=== PATIENT | male | born 1960 | race Caucasian/White ===

== ENCOUNTER 2017-04-10 07:56 | Emergency (ER) | payer SELFPAY ==
[~2017-04-10 07:56] MED LIST: AMLO5 PO; ASPI-110 PO; ASPI81TA11 PO; LISI-519 PO; MAGN1TAB14 PO; PANT40TA3 PO; PRAV80TA2 PO; TUMS500C PO; XARE20TA PO
[2017-04-10 07:59] VITALS: BP 173/95; PULSE 85; RESP 15; TEMP 98.4; O2SAT 99
[2017-04-10] MEDS ORDERED: MORPHINE SULFATE 4 MG/ML INJ IV PUSH ONE (08:30)
[2017-04-10] MEDS ORDERED: ONDANSETRON HCL 4 MG/2 ML VIAL IVP ONE (08:30)
[2017-04-10] MEDS ORDERED: FAMOTIDINE 20 MG/2 ML VIAL IV PUSH ONE (08:30)
[2017-04-10] MEDS ORDERED: ALUMINUM/MAGNESIUM/SIMETH 30 ML CUP PO ONE (08:30)
[2017-04-10] MEDS ORDERED: LIDOCAINE VISCOUS 2% SOLN 15 ML UDC PO ONE (08:30)
[2017-04-10] MEDS ORDERED: SODIUM CHLORIDE 0.9% FLUSH 10 ML FLUSH IV FLUSH PRN (08:30)
[2017-04-10 08:41] VITALS: BP 142/83; PULSE 55; RESP 16; O2SAT 97
[2017-04-10] MEDS ORDERED: LISI-519 PO (08:42)
--- NOTE | 2017-04-10 08:54 | EKG ---
Date Performed: 04/10/2017 Time Performed: 08:39:01 PTAGE: 57 years EKG: SINUS BRADYCARDIA VOLTAGE CRITERIA FOR LVH ABNORMAL ECG PREVIOUS TRACING : 07/07/2016 13.35 DOCTOR: Chris Ford Interpretating Date/Time 04/10/2017 08:52:33
[2017-04-10 09:03] LABS: AUTOMATED NEUTROPHIL # 3.1 TH/MM3 (1.8-7.7); BASOPHIL % 0.6 % (0.0-2.0); EOSINOPHIL # 0.2 TH/MM3 (0-0.4); EOSINOPHIL % 3.6 % (0.0-4.0); HEMATOCRIT 39.2 % (39.0-51.0); HEMO FLAGS DIFF FINAL; LYMPH % 23.4 % (9.0-44.0); LYMPHOCYTE # 1.2 TH/MM3 (1.0-4.8); MEAN CELL VOLUME 96.8 FL (80.0-100.0); MEAN CORPUSCULAR HEMOGLOBIN 32.6 PG (27.0-34.0); MEAN CORPUSCULAR HGB CONC 33.7 % (32.0-36.0); NEUT % 59.4 % (16.0-70.0); PLATELET COUNT 175 TH/MM3 (150-450); RED BLOOD COUNT 4.05 MIL/MM3 (4.50-5.90); RED CELL DISTRIBUTION WIDTH 13.8 % (11.6-17.2); WHITE BLOOD COUNT 5.2 TH/MM3 (4.0-11.0)
--- NOTE | 2017-04-10 09:04 | PD ---
HPI . Epigastric pain Chief Complaint: GI Complaint Time Seen by Provider: 08:25 Travel History International Travel<30 days: No Contact w/Intl Traveler<30days: No Traveled to known affect area: No History of Present Illness HPI This patient presents with a chief complaint of epigastric pain. He reports ongoing issue since December. He states that he was seen at an outside facility and had an EGD done that shows peptic ulcer disease. He was treated with Prilosec. He states that he is no longer taking the Prilosec. He states that his symptoms are getting worse. He states that he ate barbecue last night and had the acute worsening of his epigastric pain. It is associated with nausea but no vomiting. No fever. No urinary tract symptoms. In addition, the patient is complaining with chest pain and shortness of breath. He reports a chronic cough. He states that he has had a previous AL and a previous PE. He is currently on no medications for either. He states that he has not seen a family doctor in quite some time. PFSH Past Medical History Hx Anticoagulant Therapy: Yes (xarelto) Arthritis: Yes Asthma: No Blood Disorders: No Anxiety: Yes Depression: Yes Heart Rhythm Problems: No Cancer: No Cardiac Catheterization: Yes Cardiovascular Problems: Yes (AL) High Cholesterol: Yes Chemotherapy: No Chest Pain: Yes Congestive Heart Failure: Yes COPD: Yes (?) Cerebrovascular Accident: No Coronary Artery Disease: Yes Diabetes: No Diminished Hearing: No Endocrine: No Gastrointestinal Disorders: No GERD: Yes Genitourinary: Yes Headaches: Yes Hiatal Hernia: Yes Hypertension: Yes Immune Disorder: No Implanted Vascular Access Dvce: No Kidney Stones: Yes Musculoskeletal: Yes Neurologic: No Psychiatric: No Reproductive: No Respiratory: No Immunizations Current: No Migraines: No Myocardial Infarction: Yes (X2) Pneumonia: Yes Renal Failure: No Seizures: No Sleep Apnea: No Past Surgical History Abdominal Surgery: No AICD: No Arteriovenous Shunt: No Cardiac Surgery: Yes (cardiac cath 2012) Ear Surgery: No Endocrine Surgery: No Eye Surgery: No Genitourinary Surgery: No Gynecologic Surgery: No Insulin Pump: No Joint Replacement: No Neurologic Surgery: No Oral Surgery: No Pacemaker: No Thoracic Surgery: Yes (LUNG BIOPSY 1995) Other Surgery: Yes Social History Alcohol Use: No Tobacco Use: No Substance Use: No Allergies-Medications (Allergen,Severity, Reaction): Coded Allergies: No Known Allergies (Verified , 07/07/16) Reported Meds & Prescriptions Reported Meds & Active Scripts Active Reported Lisinopril 5 Mg Tab 5 Mg PO DAILY Review of Systems Except as stated in HPI: all other systems reviewed are Neg Cardiovascular: Positive: Chest Pain or Discomfort Respiratory: Positive: Cough, Shortness of Breath Gastrointestinal: Positive: Nausea, Abdominal Pain, No: Vomiting, Diarrhea Genitourinary: No: Urgency, Frequency, Dysuria Physical Exam Narrative GENERAL: This is a healthy-appearing man who does not appear to be in any acute distress. SKIN: warm/dry. HEAD: Normocephalic. EYES: Pupils equal and round. No scleral icterus. No injection or drainage. ENT: No nasal bleeding or discharge. Mucous membranes pink and moist. NECK: Trachea midline. Full range of motion without pain.. CARDIOVASCULAR: Regular rate and rhythm. Heart sounds are normal. RESPIRATORY: No accessory muscle use. Clear to auscultation. Breath sounds equal bilaterally. GASTROINTESTINAL: Abdomen soft. Nontender. Bowel sounds present. Nondistended. MUSCULOSKELETAL: No obvious deformities. NEUROLOGICAL: Awake and alert. No obvious cranial nerve deficits. Motor grossly within normal limits. Normal speech. PSYCHIATRIC: Appropriate mood and affect; insight and judgment normal. Data Data Last Documented VS Vital Signs Date Time Temp Pulse Resp B/P (MAP) Pulse Ox O2 Delivery O2 Flow Rate FiO2 04/10/17 08:41 55 16 142/83 (102) 97 Room Air 04/10/17 07:59 98.4 Orders Orders Complete Blood Count With Diff (04/10/17 08:25) Comprehensive Metabolic Panel (04/10/17 08:25) Lipase (04/10/17 08:25) Prothrombin Time / Inr (Pt) (04/10/17 08:25) Act Partial Throm Time (Ptt) (04/10/17 08:25) Iv Access Insert/Monitor (04/10/17 08:25) Ecg Monitoring (04/10/17 08:25) Oximetry (04/10/17 08:25) Morphine Inj (Morphine Inj) (04/10/17 08:30) Ondansetron Inj (Zofran Inj) (04/10/17 08:30) Sodium Chloride 0.9% Flush (Ns Flush) (04/10/17 08:30) Electrocardiogram (04/10/17 08:25) Famotidine Inj (Pepcid Inj) (04/10/17 08:30) Al-Mag Hy-Si 40-40-4 Mg/Ml Liq (Mag-Al P (04/10/17 08:30) Lidocaine 2% Viscous (Xylocaine 2% Visco (04/10/17 08:30) Troponin I (04/10/17 08:25) D-Dimer (04/10/17 08:25) Chest, Pa & Lat (04/10/17 09:07) Ct Pulmonary Angiogram (04/10/17 09:28) Aspirin Chew (Aspirin Chew) (04/10/17 09:30) Nitroglycerin 2% Oint (Nitroglycerin 2% (04/10/17 09:30) Troponin I (04/10/17 11:30) Iohexol 350 Inj (Omnipaque 350 Inj) (04/10/17 10:33) Rivaroxaban (Xarelto) (04/10/17 11:00) Electrocardiogram (04/10/17 11:21) Labs Laboratory Tests Test 04/10/17 08:30 04/10/17 11:30 White Blood Count 5.2 TH/MM3 Red Blood Count 4.05 MIL/MM3 Hemoglobin 13.2 GM/DL Hematocrit 39.2 % Mean Corpuscular Volume 96.8 FL Mean Corpuscular Hemoglobin 32.6 PG Mean Corpuscular Hemoglobin Concent 33.7 % Red Cell Distribution Width 13.8 % Platelet Count 175 TH/MM3 Mean Platelet Volume 8.0 FL Neutrophils (%) (Auto) 59.4 % Lymphocytes (%) (Auto) 23.4 % Monocytes (%) (Auto) 13.0 % Eosinophils (%) (Auto) 3.6 % Basophils (%) (Auto) 0.6 % Neutrophils # (Auto) 3.1 TH/MM3 Lymphocytes # (Auto) 1.2 TH/MM3 Monocytes # (Auto) 0.7 TH/MM3 Eosinophils # (Auto) 0.2 TH/MM3 Basophils # (Auto) 0.0 TH/MM3 CBC Comment DIFF FINAL Differential Comment Prothrombin Time 10.6 SEC Prothromb Time International Ratio 1.0 RATIO Activated Partial Thromboplast Time 24.5 SEC D-Dimer Quantitative (PE/DVT) 1.86 MG/L FEU Blood Urea Nitrogen 19 MG/DL Creatinine 1.67 MG/DL Random Glucose 104 MG/DL Total Protein 7.9 GM/DL Albumin 3.7 GM/DL Calcium Level 9.2 MG/DL Alkaline Phosphatase 83 U/L Aspartate Amino Transf (AST/SGOT) 57 U/L Alanine Aminotransferase (ALT/SGPT) 100 U/L Total Bilirubin 0.4 MG/DL Sodium Level 138 MEQ/L Potassium Level 4.0 MEQ/L Chloride Level 104 MEQ/L Carbon Dioxide Level 26.3 MEQ/L Anion Gap 8 MEQ/L Estimat Glomerular Filtration Rate 43 ML/MIN Troponin I 0.11 NG/ML 0.11 NG/ML Lipase 137 U/L MDM Medical Decision Making Medical Screen Exam Complete: Yes Emergency Medical Condition: Yes Interpretation(s) EKG shows a normal sinus rhythm with no ST segment elevation or depression Repeat EKG shows sinus rhythm with no ST segment elevation or depression. He is bradycardic at 47. Differential Diagnosis Differential diagnosis of abdominal pain includes but is not limited to gastritis, pancreatitis, hepatitis, gastroenteritis, gallbladder disease, constipation, urinary retention, UTI, peptic ulcer disease, diverticulitis or appendicitis Differential diagnosis of chest pain includes but is not limited to musculoskeletal pain, pulmonary embolism, acute coronary syndrome, pneumonia, pleurisy Differential diagnosis of dyspnea includes but is not limited to congestive heart failure, pneumonia, wheezing, pneumothorax, pulmonary embolism Narrative Course This patient presents with multiple issues. However, his chief complaint is epigastric pain. He has known peptic ulcer disease and is taking no medications. I have ordered IV Pepcid and a GI cocktail. He is also complaining with chest pain or shortness of breath and reports a previous history of AL and PE. Cardiac enzymes and a d-dimer have been ordered. However, I really do not suspect an acute issue regarding coronary artery disease or PE. CBC & BMP Diagram 04/10/17 08:30 Total Protein 7.9, Albumin 3.7, Calcium Level 9.2, Alkaline Phosphatase 83, Aspartate Amino Transf (AST/SGOT) 57 H, Alanine Aminotransferase (ALT/SGPT) 100 H, Total Bilirubin 0.4 His troponin is 0.11. His d-dimer is 1.86. On review of his records, he has a chronically elevated troponin. Repeat troponin was 0.11. This patient is doing well. He is not having any respiratory or cardiovascular compromise as a result of the PE. He will be treated as an outpatient. This patient does not have a doctor nor does he have insurance. I have consult in case management who will help us with a prescription for Xarelto. I will put in a mandatory referral for follow-up. Critical Care Narrative Aggregate critical care time was 45 minutes. Time to perform other separately billable procedures was not included in the critical care time. My time did not include minutes spent treating any other patients simultaneously or on activities that did not directly contribute to the patient's treatment. The services I provided to this patient were to treat and/or prevent clinically significant deterioration due to chest pain, rule out ACS, rule out PE I provided critical care services requiring my management, as noted below: Chart data review, documentation time, medication orders and management, vital sign assessments/reviewing monitor data, ordering and reviewing lab tests, ordering and interpreting/reviewing x-rays and diagnostic studies, care of the patient and discussion of the patient with the admitting physicians Diagnosis Primary Impression: Epigastric pain Additional Impressions: Chest pain Qualified Codes: R07.9 - Chest pain, unspecified Pulmonary embolism Qualified Codes: I26.99 - Other pulmonary embolism without acute cor pulmonale Patient Instructions: General Instructions, Pulmonary Embolism (DC) Med/Other Pt SpecificInfo: Prescription(s) given Scripts Omeprazole Magnesium (Prilosec) 20 Mg Tab 20 MG PO DAILY, #90 Prov: Megan Villela MD 04/10/17 Hydrocodone-Acetaminophen (Bynum) 5-325 mg Tab 1 TAB PO Q4H Y for PAIN, #12 TAB 0 Refills Prov: Megan Villela MD 04/10/17 Rivaroxaban (Xarelto) 20 Mg Tab 20 MG PO DAILY for Blood Clot Prevention for 90 Days, TAB 0 Refills starting after the 3 weeks of twice daily medication Prov: Megan Villela MD 04/10/17 Rivaroxaban (Xarelto) 15 Mg Tab 15 MG PO Q12HR for Blood Clot Prevention for 21 Days, TAB 0 Refills Prov: Megan Villela MD 04/10/17 Disposition: 01 DISCHARGE HOME Condition: Stable Megan Villela MD Apr 10, 2017 09:03
[2017-04-10 09:12] LABS: APTT (PATIENT) 24.5 SEC (24.3-30.1); PROTHROMBIN TIME - PATIENT 10.6 SEC (9.8-11.6)
[2017-04-10 09:17] LABS: ALT (GPT) 100 U/L (12-78)
[2017-04-10 09:22] LABS: ALKALINE PHOSPHATASE 83 U/L (45-117); TOTAL BILIRUBIN ADULT 0.4 MG/DL (0.2-1.0)
[2017-04-10 09:26] LABS: ANION GAP 8 MEQ/L (5-15); AST (GOT) 57 U/L (15-37); BICARBONATE 26.3 MEQ/L (21.0-32.0); BLOOD UREA NITROGEN 19 MG/DL (7-18); CHLORIDE 104 MEQ/L (98-107); GLOMERULAR FILTRATION RATE 43 ML/MIN (>89); SODIUM (NA) 138 MEQ/L (136-145)
[2017-04-10] MEDS ORDERED: ASPIRIN 81 MG CHEW TAB CHEW ONE (09:30)
[2017-04-10] MEDS ORDERED: NITROGLYCERIN 2% OINT 1 GM PACKET TOPICAL ONE (09:30)
--- NOTE | 2017-04-10 09:30 | RADRPT ---
EXAM DATE/TIME: 04/10/2017 09:17 [facility] COMPARISON: CHEST PA & LAT, March 24, 2016, 10:27. INDICATIONS : Cough MEDICAL HISTORY : Myocardial infarction. SURGICAL HISTORY : None. ENCOUNTER: Initial ACUITY: >1 year PAIN SCORE: 0/10 LOCATION: chest FINDINGS: PA and lateral views of the chest demonstrate the lungs to be symmetrically aerated without evidence of mass, infiltrate or effusion. The cardiomediastinal contours are unremarkable. Osseous structure s demonstrate remote right seventh posterior rib deformity. CONCLUSION: No acute disease. Israel Devi MD on April 10, 2017 at 9:28 Board Certified Radiologist. This report was verified electronically.
[2017-04-10] MEDS ORDERED: IOHEXOL 350 MG/ML 10 ML VIAL (for RAD DIAG) IVCONTRAST ONE (10:33)
--- NOTE | 2017-04-10 10:47 | RADRPT ---
EXAM DATE/TIME: 04/10/2017 10:27 [facility] COMPARISON: CHEST PA & LAT, April 10, 2017, 9:17. INDICATIONS : Chest pain. IV CONTRAST: 75 cc Omnipaque 300 (iohexol) IV RADIATION DOSE: 9.96 CTDIvol (mGy) MEDICAL HISTORY : Cardiovascular disease. Hernia, hiatal. Hypertension. SURGICAL HISTORY : None. ENCOUNTER: Initial ACUITY: 1 day PAIN SCALE: 5/10 LOCATION: Bilateral chest TECHNIQUE: Volumetric scanning of the chest was performed using a pulmonary embolism protocol MIP images were re constructed. Using automated exposure control and adjustment of the mA and/or kV according to patien t size, radiation dose was kept as low as reasonably achievable to obtain optimal diagnostic quality images. DICOM format image data is available electronically for review and comparison. Follow-up recommendations for detected pulmonary nodules are based at a minimum on nodule size and pa tient risk factors according to Fleischner Society Guidelines. FINDINGS: There is mild peripheral reticular nodular infiltrate in the right upper lobe. Calcified granuloma in the left upper lobe is noted measuring 3.7 mm. There is a noncalcified nodule in the right upper lob e measuring 6.8 mm. There are bilateral filling defects within the pulmonary arterial tree characteri stic of pulmonary embolism. There is thrombus and left lower lobe medial basilar branches, and extens tavo thrombus seen in the right lower lobe pulmonary arterial tree. 5 mm calcified granuloma left uppe r lobe and a 3 mm right upper lobe calcified granuloma. There is hepatic steatosis. CONCLUSION: 1. Bilateral pulmonary emboli are present. 2. Hepatic steatosis. 3. Minimal right upper lobe reticular-nodular infiltrate. Israel Devi MD on April 10, 2017 at 10:42 Board Certified Radiologist. This report was verified electronically.
[2017-04-10] MEDS ORDERED: RIVAROXABAN 15 MG TAB PO ONE (11:00)
--- NOTE | 2017-04-10 12:35 | EKG ---
Date Performed: 04/10/2017 Time Performed: 11:21:44 PTAGE: 57 years EKG: SINUS BRADYCARDIA MODERATE VOLTAGE CRITERIA FOR LVH, CONSIDER NORMAL VARIANT BORDERLINE ECG PREVIOUS TRACING : 04/10/2017 08.39 DOCTOR: Chris Ford Interpretating Date/Time 04/10/2017 12:34:38
[2017-04-10] MEDS ORDERED: XARE15TA PO (13:01)
[2017-04-10] MEDS ORDERED: XARE20TA PO (13:01)
[2017-04-10] MEDS ORDERED: NORC5TAB PO (13:01)
[2017-04-10] MEDS ORDERED: PRIL20TA2 PO (13:01)
[2017-04-10 13:07] VITALS: BP 138/74; PULSE 53; RESP 16; O2SAT 98
== END 2017-04-10 13:43 | disposition home or self-care (01) ==
LOC: NEPC 07:56
DX: R10.13 Epigastric pain (principal); R07.9 Chest pain, unspecified; I26.99 Other pulmonary embolism without acute cor pulmonale; R05 Cough; K27.9 Peptic ulcer, site unspecified, unspecified as acute or chronic, without hemorrhage or perforation; R00.1 Bradycardia, unspecified; I11.0 Hypertensive heart disease with heart failure; I50.9 Heart failure, unspecified; R94.31 Abnormal electrocardiogram [ECG] [EKG]
CPT/HCPCS: 71020; 71275; 80053; 83690; 84484; 85025; 85379; 85610; 85730; 93005; 96374; 96375; 99291; J2270; J2405; Q9967

== ENCOUNTER 2017-04-19 09:02 | Emergency (ER) | payer SELFPAY ==
[~2017-04-19] VITALS: Ht 172.7 cm; Wt 95.0 kg
[~2017-04-19 09:02] MED LIST changes: -AMLO5 PO; -ASPI-110 PO; -ASPI81TA11 PO; -MAGN1TAB14 PO; +NORC5TAB PO; -PANT40TA3 PO; -PRAV80TA2 PO; +PRIL20TA2 PO; -TUMS500C PO; +XARE15TA PO
[2017-04-19 09:04] VITALS: BP 177/94; PULSE 83; RESP 16; TEMP 98.2; O2SAT 98
[2017-04-19] MEDS ORDERED: ALUMINUM/MAGNESIUM/SIMETH 30 ML CUP PO ONE (09:45)
[2017-04-19] MEDS ORDERED: PANTOPRAZOLE SODIUM 40 MG VIAL IVP ONE (09:45)
[2017-04-19] MEDS ORDERED: ONDANSETRON HCL 4 MG/2 ML VIAL IVP ONE (09:45)
[2017-04-19] MEDS ORDERED: SODIUM CHLORIDE 0.9% FLUSH 10 ML FLUSH IV FLUSH PRN (09:45)
[2017-04-19] MEDS ORDERED: ATROPINE/SCOPOLAM/HYOSCYAM/PB ELIXIR 10 ML CUP PO ONE (09:45)
--- NOTE | 2017-04-19 09:51 | PD ---
HPI Chief Complaint: GI Complaint Time Seen by Provider: 09:35 Travel History International Travel<30 days: No Contact w/Intl Traveler<30days: No Traveled to known affect area: No History of Present Illness HPI 57-year-old male complains of abdominal pain. Patient states that he has intermittent abdominal pain for the past 4 months. Patient was seen at [facility] in December and had upper GI endoscopy and was diagnosed with gastric ulcer. Patient has been taking [id number] omeprazole for that. Patient has history of hypertension, hyperlipidemia, and pulmonary embolus. Patient is on Eliquis. Patient states abdominal pain cramping pain intermittent pain around the epigastric and lower abdomen. Patient denies any pain radiation. Patient denies any nausea vomiting. Patient states that he has intermittent diarrhea for the past few months. Patient denies any dysuria or frequency. Patient denies any fever chills. Patient denies any back pain. PFSH Past Medical History Hx Anticoagulant Therapy: Yes (ELIQUIS) Arthritis: Yes Asthma: No Blood Disorders: No Anxiety: Yes Depression: Yes Heart Rhythm Problems: No Cancer: No Cardiac Catheterization: Yes Cardiovascular Problems: Yes (CT X 3) High Cholesterol: Yes Chemotherapy: No Chest Pain: Yes Congestive Heart Failure: Yes COPD: Yes (?) Cerebrovascular Accident: No Coronary Artery Disease: Yes Diabetes: No Diminished Hearing: No Endocrine: No Gastrointestinal Disorders: No GERD: Yes Genitourinary: Yes Headaches: Yes Hiatal Hernia: Yes Hypertension: Yes Immune Disorder: No Implanted Vascular Access Dvce: No Kidney Stones: Yes Musculoskeletal: Yes Neurologic: No Psychiatric: No Reproductive: No Respiratory: Yes Immunizations Current: No Migraines: No Myocardial Infarction: Yes (X2) Pneumonia: Yes Renal Failure: No Seizures: No Sleep Apnea: No Past Surgical History Abdominal Surgery: No AICD: No Arteriovenous Shunt: No Cardiac Surgery: Yes (cardiac cath 2012) Ear Surgery: No Endocrine Surgery: No Eye Surgery: No Genitourinary Surgery: No Gynecologic Surgery: No Hysterectomy: No Insulin Pump: No Joint Replacement: No Neurologic Surgery: No Oral Surgery: No Pacemaker: No Thoracic Surgery: Yes (LUNG BIOPSY 1995) Other Surgery: Yes Social History Alcohol Use: No Tobacco Use: No Substance Use: No Allergies-Medications (Allergen,Severity, Reaction): Coded Allergies: No Known Allergies (Verified , 04/19/17) Reported Meds & Prescriptions Reported Meds & Active Scripts Active Prilosec (Omeprazole Magnesium) 20 Mg Tab 20 Mg PO DAILY Reported Eliquis (Apixaban) 5 Mg Tab 10 Mg PO BID Lisinopril 5 Mg Tab 5 Mg PO DAILY Review of Systems General / Constitutional: No: Fever Eyes: No: Visual changes HENT: No: Headaches Cardiovascular: No: Chest Pain or Discomfort Respiratory: No: Shortness of Breath Gastrointestinal: Positive: Diarrhea, Abdominal Pain Genitourinary: No: Dysuria Musculoskeletal: No: Pain Skin: No Rash Neurologic: No: Weakness Psychiatric: No: Depression Endocrine: No: Polydipsia Hematologic/Lymphatic: No: Easy Bruising Physical Exam Narrative GENERAL: Well-nourished, well-developed patient. SKIN: Focused skin assessment warm/dry. HEAD: Normocephalic. EYES: No scleral icterus. No injection or drainage. NECK: Supple, trachea midline. No JVD or lymphadenopathy. CARDIOVASCULAR: Regular rate and rhythm without murmurs, gallops, or rubs. RESPIRATORY: Breath sounds equal bilaterally. No accessory muscle use. GASTROINTESTINAL: Abdomen soft, nondistended. Patient has mild to moderate tenderness on palpation epigastric and lower abdomen. No rebound tenderness. No mass. MUSCULOSKELETAL: No cyanosis, or edema. BACK: Nontender without obvious deformity. No CVA tenderness. Neurologic exam: Normal. Data Data Last Documented VS Vital Signs Date Time Temp Pulse Resp B/P (MAP) Pulse Ox O2 Delivery O2 Flow Rate FiO2 04/19/17 09:33 18 04/19/17 09:04 98.2 83 177/94 (121) 98 Orders Orders Electrocardiogram (04/19/17 ) Complete Blood Count With Diff (04/19/17 09:42) Comprehensive Metabolic Panel (04/19/17 09:42) Lipase (04/19/17 09:42) Prothrombin Time / Inr (Pt) (04/19/17 09:42) Act Partial Throm Time (Ptt) (04/19/17 09:42) Urinalysis - C+S If Indicated (04/19/17 09:42) Ct Abd/Pel W Iv Contrast(Rout) (04/19/17 09:42) Iv Access Insert/Monitor (04/19/17 09:42) Ecg Monitoring (04/19/17 09:42) Oximetry (04/19/17 09:42) Ondansetron Inj (Zofran Inj) (04/19/17 09:45) Pantoprazole Inj (Protonix Inj) (04/19/17 09:45) Sodium Chloride 0.9% Flush (Ns Flush) (04/19/17 09:45) Electrocardiogram (04/19/17 09:42) Al-Mag Hy-Si 40-40-4 Mg/Ml Liq (Mag-Al P (04/19/17 09:45) Bqgoa-Liaffx-Sedmiu-Pb Liq ( Liq (04/19/17 09:45) Iohexol 350 Inj (Omnipaque 350 Inj) (04/19/17 11:09) Labs Laboratory Tests Test 04/19/17 09:52 White Blood Count 6.7 TH/MM3 Red Blood Count 4.02 MIL/MM3 Hemoglobin 13.7 GM/DL Hematocrit 38.3 % Mean Corpuscular Volume 95.3 FL Mean Corpuscular Hemoglobin 34.1 PG Mean Corpuscular Hemoglobin Concent 35.8 % Red Cell Distribution Width 13.7 % Platelet Count 174 TH/MM3 Mean Platelet Volume 8.3 FL Neutrophils (%) (Auto) 67.3 % Lymphocytes (%) (Auto) 17.8 % Monocytes (%) (Auto) 12.1 % Eosinophils (%) (Auto) 2.3 % Basophils (%) (Auto) 0.5 % Neutrophils # (Auto) 4.5 TH/MM3 Lymphocytes # (Auto) 1.2 TH/MM3 Monocytes # (Auto) 0.8 TH/MM3 Eosinophils # (Auto) 0.2 TH/MM3 Basophils # (Auto) 0.0 TH/MM3 CBC Comment DIFF FINAL Differential Comment Prothrombin Time 10.8 SEC Prothromb Time International Ratio 1.0 RATIO Activated Partial Thromboplast Time 27.8 SEC Blood Urea Nitrogen 21 MG/DL Creatinine 1.52 MG/DL Random Glucose 88 MG/DL Total Protein 8.0 GM/DL Albumin 3.7 GM/DL Calcium Level 8.9 MG/DL Alkaline Phosphatase 81 U/L Aspartate Amino Transf (AST/SGOT) 48 U/L Alanine Aminotransferase (ALT/SGPT) 100 U/L Total Bilirubin 0.5 MG/DL Sodium Level 138 MEQ/L Potassium Level 4.3 MEQ/L Chloride Level 105 MEQ/L Carbon Dioxide Level 27.8 MEQ/L Anion Gap 5 MEQ/L Estimat Glomerular Filtration Rate 48 ML/MIN Lipase 141 U/L [facility] Medical Decision Making Medical Screen Exam Complete: Yes Emergency Medical Condition: Yes Interpretation(s) Last Impressions Abdomen/Pelvis CT 04/19/17 0942 Signed Impressions: Service Date/Time: Wednesday, April 19, 2017 10:59 - CONCLUSION: 1. Colon is decompressed which accentuates the colonic wall. Colonic diverticulosis. Otherwise, no definitive abnormality to explain patient's symptoms. 2. Redemonstration of right lower lobe pulmonary artery embolism. 3. Prominent hepatic steatosis and mild splenomegaly. 4. 5 mm nonobstructing calyceal calculus in the inferior pole of the left kidney. Satanm Lundy MD 12:34 PM. CBC within normal limit. BUN 21. Creatinine 1.52. Differential Diagnosis Differential diagnosis including gastritis, PUD, pancreatitis, cholecystitis, colitis, UTI, pyelonephritis, nephrolithiasis. Narrative Course 57-year-old male with intermittent epigastric and low abdominal pain. Protonix 40 mg IV. Maalox 30 cc by mouth. 10 cc by mouth. Diagnosis Primary Impression: Abdominal pain Qualified Codes: R10.13 - Epigastric pain Patient Instructions: General Instructions Additional Instructions: Take medications as directed. Follow-up with it account manager. Return if worse. Med/Other Pt SpecificInfo: Prescription(s) given Scripts Dicyclomine (Bentyl) 10 Mg Cap 10 MG PO TID Y for Bowel Management, #30 CAP 0 Refills Prov: Mihai Davidson MD 04/19/17 Sucralfate (Carafate) 1 Gram Tab 1 GM PO QID for Ulcer Prevention, #120 TAB 0 Refills On empty stomach Prov: Mihai Davidson MD 04/19/17 Pantoprazole (Protonix) 40 Mg Tab 40 MG PO DAILY for Reflux, #30 TAB 0 Refills Prov: Mihai Davidson MD 04/19/17 Disposition: 01 DISCHARGE HOME Condition: Stable Mihai Davidson MD Apr 19, 2017 09:51
[2017-04-19] MEDS ORDERED: APIX5TAB PO (09:53)
[2017-04-19 10:20] LABS: AUTOMATED NEUTROPHIL # 4.5 TH/MM3 (1.8-7.7); BASOPHIL % 0.5 % (0.0-2.0); EOSINOPHIL # 0.2 TH/MM3 (0-0.4); EOSINOPHIL % 2.3 % (0.0-4.0); HEMATOCRIT 38.3 % (39.0-51.0); HEMO FLAGS DIFF FINAL; LYMPH % 17.8 % (9.0-44.0); LYMPHOCYTE # 1.2 TH/MM3 (1.0-4.8); MEAN CELL VOLUME 95.3 FL (80.0-100.0); MEAN CORPUSCULAR HEMOGLOBIN 34.1 PG (27.0-34.0); MEAN CORPUSCULAR HGB CONC 35.8 % (32.0-36.0); MONO % 12.1 % (0.0-8.0); NEUT % 67.3 % (16.0-70.0); PLATELET COUNT 174 TH/MM3 (150-450); RED BLOOD COUNT 4.02 MIL/MM3 (4.50-5.90); RED CELL DISTRIBUTION WIDTH 13.7 % (11.6-17.2); WHITE BLOOD COUNT 6.7 TH/MM3 (4.0-11.0)
[2017-04-19 10:29] LABS: APTT (PATIENT) 27.8 SEC (24.3-30.1); PROTHROMBIN TIME - PATIENT 10.8 SEC (9.8-11.6)
[2017-04-19 10:47] LABS: ALT (GPT) 100 U/L (12-78); ANION GAP 5 MEQ/L (5-15); AST (GOT) 48 U/L (15-37); BICARBONATE 27.8 MEQ/L (21.0-32.0); BLOOD UREA NITROGEN 21 MG/DL (7-18); CHLORIDE 105 MEQ/L (98-107); GLOMERULAR FILTRATION RATE 48 ML/MIN (>89); POTASSIUM 4.3 MEQ/L (3.5-5.1); SODIUM (NA) 138 MEQ/L (136-145)
[2017-04-19 10:50] LABS: ALKALINE PHOSPHATASE 81 U/L (45-117); TOTAL BILIRUBIN ADULT 0.5 MG/DL (0.2-1.0)
[2017-04-19] MEDS ORDERED: IOHEXOL 350 MG/ML 10 ML VIAL (for RAD DIAG) IVCONTRAST ONE (11:09)
--- NOTE | 2017-04-19 11:25 | RADRPT ---
EXAM DATE/TIME: 04/19/2017 10:59 [facility] COMPARISON: CT PULMONARY ANGIOGRAM, April 10, 2017, 10:27. CT ABDOMEN & PELVIS W CONTRAST, December 10, 2012, 4:1 0. INDICATIONS : Abdomen pain, cramping and diarrhea for 4 months IV CONTRAST: 90 cc Omnipaque 350 (iohexol) IV ORAL CONTRAST: No oral contrast ingested. RADIATION DOSE: 9.96 CTDIvol (mGy) MEDICAL HISTORY : Myocardial infarction. Congestive heart failure. SURGICAL HISTORY : Coronary artery stent. ENCOUNTER: Initial ACUITY: 4 - 6 months PAIN SCALE: 3/10 LOCATION: lower quadrant TECHNIQUE: Volumetric scanning of the abdomen and pelvis was performed. Using automated exposure control and ad justment of the mA and/or kV according to patient size, radiation dose was kept as low as reasonably achievable to obtain optimal diagnostic quality images. DICOM format image data is available electro nically for review and comparison. FINDINGS: LOWER LUNGS: Redemonstration of filling defect in right lower lobe pulmonary artery branch consistent with pulmona ry embolism as demonstrated on prior CT exam. Lung bases are clear. LIVER: Prominent diffusely decreased hepatic attenuation without evidence for intrahepatic ductal dilatation or focal mass. Gallbladder is unremarkable by CT. SPLEEN: Spleen is minimally enlarged measuring up to 13.5 cm in length. PANCREAS: Within normal limits. KIDNEYS: 5 mm calcified calyceal calculus in the inferior pole of the left kidney. Kidneys demonstrate symmetr ical enhancement without evidence for hydronephrosis. ADRENAL GLANDS: Within normal limits. VASCULAR: There is no aortic aneurysm. Mesenteric arteries are grossly patent. Central SMV and portal vein are patent. BOWEL/MESENTERY: Colon is largely decompressed which can accentuate the colonic wall. There is no significant pericolo sandra stranding. Mild sigmoid diverticulosis and scattered colonic diverticula. No significant free flu id or drainable fluid collection. No pneumatosis or free air. ABDOMINAL WALL: Within normal limits. RETROPERITONEUM: There is no lymphadenopathy. BLADDER: Bladder is decompressed but otherwise unremarkable. REPRODUCTIVE: Nonspecific prostatic enlargement. INGUINAL: There is no lymphadenopathy or hernia. MUSCULOSKELETAL: Within normal limits for patient age. CONCLUSION: 1. Colon is decompressed which accentuates the colonic wall. Colonic diverticulosis. Otherwise, no de finitive abnormality to explain patient's symptoms. 2. Redemonstration of right lower lobe pulmonary artery embolism. 3. Prominent hepatic steatosis and mild splenomegaly. 4. 5 mm nonobstructing calyceal calculus in the inferior pole of the left kidney. Satnam Lundy MD on April 19, 2017 at 11:11 Board Certified Radiologist. This report was verified electronically.
[2017-04-19 12:32] VITALS: PULSE 63; PULSE 65; RESP 16; O2SAT 97
[2017-04-19] MEDS ORDERED: DICY10 PO (12:49)
[2017-04-19] MEDS ORDERED: CARA1TAB6 PO (12:49)
[2017-04-19] MEDS ORDERED: PROT40TA PO (12:49)
[2017-04-19 12:56] VITALS: BP 139/81
--- NOTE | 2017-04-20 22:01 | EKG ---
Date Performed: 04/19/2017 Time Performed: 09:45:19 PTAGE: 57 years EKG: Sinus rhythm LOW QRS VOLTAGE IN PRECORDIAL LEADS MODERATE VOLTAGE CRITERIA FOR LVH, CONSIDER NORMAL VARIANT BORDE STEPHENINE ECG PREVIOUS TRACING : 04/10/2017 11.21 Compared to prior tracing no significant change DOCTOR: Malcom Jacome Interpretating Date/Time 04/20/2017 22:00:06
== END 2017-04-19 13:06 | disposition home or self-care (01) ==
LOC: NEPD 09:02
DX: R10.13 Epigastric pain (principal); K57.30 Diverticulosis of large intestine without perforation or abscess without bleeding; K76.0 Fatty (change of) liver, not elsewhere classified; R16.1 Splenomegaly, not elsewhere classified; N20.0 Calculus of kidney; I50.9 Heart failure, unspecified; I11.0 Hypertensive heart disease with heart failure; E78.5 Hyperlipidemia, unspecified; Z86.711 Personal history of pulmonary embolism
CPT/HCPCS: 74177; 80053; 83690; 85025; 85610; 85730; 93005; 96374; 96375; 99285; C9113; J2405; Q9967

== ENCOUNTER 2017-06-24 09:49 | Inpatient (IN) | payer SELFPAY ==
[~2017-06-24] VITALS: Ht 172.7 cm; Wt 100.0 kg
[~2017-06-24 09:49] MED LIST changes: +APIX5TAB PO; +CARA1TAB6 PO; +DICY10 PO; -NORC5TAB PO; +PROT40TA PO; -XARE15TA PO; -XARE20TA PO
[2017-06-24 09:50] VITALS: BP 137/79; PULSE 86; RESP 15; TEMP 99; O2SAT 98
--- NOTE | 2017-06-24 10:41 | RADRPT ---
EXAM DATE/TIME: 06/24/2017 10:05 [facility] COMPARISON: No previous studies available for comparison. INDICATIONS : Pain 360 degrees around right ankle, denies injury MEDICAL HISTORY : None. SURGICAL HISTORY : None. ENCOUNTER: Initial ACUITY: 2 days PAIN SCORE: 10/10 LOCATION: Right ankle FINDINGS: Three view exam was performed of the right ankle. The bony structures are in normal alignment. No e vidence of fracture, dislocation, or soft tissue swelling. The ankle mortise is intact. No radiopaq ue foreign bodies are seen. Bony mineralization is normal. There is a small spur off the inferior ca lcaneus at the site of attachment of the plantar aponuerosis. CONCLUSION: 1. Small spur off the inferior calcaneus at the site of attachment of the plantar aponuerosis. 2. Ankle mortise is intact. John Corado MD on June 24, 2017 at 10:39 Board Certified Radiologist. This report was verified electronically.
--- NOTE | 2017-06-24 11:14 | PD ---
HPI Chief Complaint: Injury Time Seen by Provider: 11:04 Travel History International Travel<30 days: No Contact w/Intl Traveler<30days: No Traveled to known affect area: No History of Present Illness HPI 57-year-old male presents to emergency with right ankle pain since last night. States that he did not have any trauma but the ankle area just started being painful and this morning he is barely able to walk. Patient denies numbness or tingling. Describes his pain as moderate. Patient does have sensation and movement however, he does not want to move it secondary to pain. Patient has a history of gout- his last episode was approximately 2 weeks ago. He normally takes xarelto as a blood thinner but has not been taking his around toe for the last couple of months or so because of cost. He has been taking only Carli aspirin Patient denies unusual chest pain, shortness of breath, abdominal pain, or back pain. He does a history of pulmonary embolism. Denies recent travel, immobilization. PFSH Past Medical History Hx Anticoagulant Therapy: Yes (ELIQUIS) Arthritis: Yes Asthma: No Blood Disorders: No Anxiety: Yes Depression: Yes Heart Rhythm Problems: No Cancer: No Cardiac Catheterization: Yes Cardiovascular Problems: Yes (MS X 3) High Cholesterol: Yes Chemotherapy: No Chest Pain: Yes Congestive Heart Failure: Yes COPD: Yes (?) Cerebrovascular Accident: No Coronary Artery Disease: Yes Diabetes: No Diminished Hearing: No Endocrine: No Gastrointestinal Disorders: No GERD: Yes Genitourinary: Yes Headaches: Yes Hiatal Hernia: Yes Hypertension: Yes Immune Disorder: No Implanted Vascular Access Dvce: No Kidney Stones: Yes Musculoskeletal: Yes Neurologic: No Psychiatric: No Reproductive: No Respiratory: Yes Immunizations Current: No Migraines: No Myocardial Infarction: Yes (X2) Pneumonia: Yes Renal Failure: No Seizures: No Sleep Apnea: No Past Surgical History Abdominal Surgery: No AICD: No Arteriovenous Shunt: No Cardiac Surgery: Yes (cardiac cath 2012) Ear Surgery: No Endocrine Surgery: No Eye Surgery: No Genitourinary Surgery: No Gynecologic Surgery: No Hysterectomy: No Insulin Pump: No Joint Replacement: No Neurologic Surgery: No Oral Surgery: No Pacemaker: No Thoracic Surgery: Yes (LUNG BIOPSY 1995) Other Surgery: Yes Social History Alcohol Use: No Tobacco Use: No Substance Use: No Allergies-Medications (Allergen,Severity, Reaction): Coded Allergies: No Known Allergies (Verified Allergy, Unknown, 06/24/17) Reported Meds & Prescriptions Reported Meds & Active Scripts Active Bentyl (Dicyclomine HCl) 10 Mg Cap 10 Mg PO TID PRN Carafate (Sucralfate) 1 Gram Tab 1 Gm PO QID On empty stomach Protonix (Pantoprazole Sodium) 40 Mg Tab 40 Mg PO DAILY Prilosec (Omeprazole Magnesium) 20 Mg Tab 20 Mg PO DAILY Reported Amlodipine (Amlodipine Besylate) 5 Mg Tab 5 Mg PO DAILY Aspirin 81 Mg Chew 81 Mg CHEW DAILY Lisinopril 5 Mg Tab 10 Mg PO DAILY Review of Systems Except as stated in HPI: all other systems reviewed are Neg Physical Exam Narrative GENERAL: Well-nourished, well-developed patient. SKIN: Focused skin assessment warm/dry. HEAD: Normocephalic. EYES: No scleral icterus. No injection or drainage. NECK: Supple, trachea midline. No JVD or lymphadenopathy. CARDIOVASCULAR: Regular rate and rhythm without murmurs, gallops, or rubs. RESPIRATORY: Breath sounds equal bilaterally. No accessory muscle use. MUSCULOSKELETAL: No cyanosis, or edema. Right lower extremity-Homans sign positive, right leg slightly more edematous than the left, slight temperature, neurovascularly intact BACK: Nontender without obvious deformity. No CVA tenderness. Data Data Last Documented VS Vital Signs Date Time Temp Pulse Resp B/P (MAP) Pulse Ox O2 Delivery O2 Flow Rate FiO2 06/24/17 09:50 99.0 86 15 137/79 (98) 98 Orders Orders Ankle, Complete ([id number]) (06/24/17 ) Us Leg Venous Doppler (06/24/17 ) Acetamin-Hydrocod 325-5 Mg (F[place]wick 5-325 (06/24/17 11:15) Admit Order (Ed Use Only) (06/24/17 ) Admit To Inpatient (06/24/17 ) Vital Signs (Adult) Q4H (06/24/17 13:33) Activity Oob With Assistance (06/24/17 13:33) Diet Heart Healthy (06/24/17 Lunch) Sodium Chloride 0.9% Flush (Ns Flush) (06/24/17 13:45) Sodium Chloride 0.9% Flush (Ns Flush) (06/24/17 21:00) Ondansetron Inj (Zofran Inj) (06/24/17 13:45) Complete Blood Count With Diff (06/25/17 06:00) Creatine Kinase (Cpk) (06/24/17 13:33) Creatine Kinase (Cpk) (06/24/17 19:33) Prothrombin Time / Inr (Pt) (06/25/17 06:00) Scd Bilateral/Knee High CARISSA.BID (06/24/17 13:33) Naloxone Inj (Narcan Inj) (06/24/17 13:45) Magnesium Hydroxide Liq (Milk Of Magnesi (06/24/17 13:45) Inpatient Certification (06/24/17 ) Warfarin (Coumadin) (06/24/17 17:00) MDM Medical Decision Making Medical Screen Exam Complete: Yes Emergency Medical Condition: Yes Differential Diagnosis Gout versus DVT versus muscle strain Narrative Course 57-year-old male presents to emergency with right ankle pain since last night. States that he did not have any trauma but the ankle area just started being painful and this morning he is barely able to walk. Patient denies numbness or tingling. Describes his pain as moderate. Patient does have sensation and movement however, he does not want to move it secondary to pain. Patient has a history of gout- his last episode was approximately 2 weeks ago. He normally takes xarelto as a blood thinner but has not been taking his around toe for the last couple of months or so because of cost. He has been taking only Carli aspirin Patient denies unusual chest pain, shortness of breath, abdominal pain, or back pain. He does a history of pulmonary embolism. Denies recent travel, immobilization. Vital signs stable X-rays without acute process Right leg ultrasound- DVT in the peroneal vein. Spoke with case management- family patient has been given multiple opportunities to fill this medication without cost him however, he is not completely required paperwork for the pharmaceutical companies. Because of the inability to take Xarelto or Eliquis, patient needs to be bridged to Coumadin therapy. Will admit to initiate this process. Thank Dr. Demarco for taking this patient. Diagnosis Primary Impression: Deep vein thrombosis (DVT) Qualified Codes: I82.4Z1 - Acute embolism and thrombosis of unspecified deep veins of right distal lower extremity Referrals: Primary Care Physician Condition: Stable Kellee Mondragon Jun 24, 2017 11:14
[2017-06-24] MEDS ORDERED: ACETAMINOPHEN/HYDROcodone 325 MG/5 MG TAB PO ONE (11:15)
[2017-06-24] MEDS ORDERED: ASPI-516 CHEW (11:32)
--- NOTE | 2017-06-24 11:51 | RADRPT ---
EXAM DATE/TIME: 06/24/2017 11:20 [facility] COMPARISON: No previous studies available for comparison. INDICATIONS : Right leg pain. MEDICAL HISTORY : Hypercholesterolemia. Gastroesophageal reflux disease. Chronic obstructive pulmonary disease. Myoc ardial infarction. Congestive heart failure. Coronary artery disease. Hypertension. Kidney stones . Arthritis. SURGICAL HISTORY : Cardiac catheterization. Lung biopsy. ENCOUNTER: Initial ACUITY: 3 days PAIN SCORE: 9/10 LOCATION: Right leg. TECHNIQUE: Venous ultrasound of the leg was performed from the inguinal ligament to the proximal calf. Real-dennis e, color Doppler and spectral tracing, compression and augmentation techniques were used. FINDINGS: There is normal compressibility of the deep venous system from the inguinal region to the proximal ca lf. No echogenic clot is seen in the lumen of the common femoral, femoral, and posterior tibial vein s. There is a normal response of the venous system to proximal and distal augmentation and respirati on. There is occlusive thrombus in the peroneal vein which is noncompressible and demonstrates porsha l color flow. CONCLUSION: Occlusive thrombus in the peroneal vein. The deep venous system is otherwise patent. John Corado MD on June 24, 2017 at 11:47 Board Certified Radiologist. This report was verified electronically.
[2017-06-24] MEDS ORDERED: ONDANSETRON HCL 4 MG/2 ML VIAL IVP PRN (13:45)
[2017-06-24] MEDS ORDERED: DICYCLOMINE HCL 10 MG CAP PO PRN (13:45)
[2017-06-24] MEDS ORDERED: SODIUM CHLORIDE 0.9% FLUSH 10 ML FLUSH IV FLUSH PRN (13:45)
[2017-06-24] MEDS ORDERED: NALOXONE HCL 0.4 MG/ML AMP IV PUSH PRN (13:45)
[2017-06-24] MEDS ORDERED: HEPARIN - 10,000 UNITS/ML IV ADDITIVE IV PUSH STA (14:01)
--- NOTE | 2017-06-24 15:00 | HHI.HP ---
[facility] Primary Care Physician No Primary Care Physician Admission Diagnosis DVT left peroneal Diagnoses: Travel History International Travel<30 Days: No Contact w/Intl Traveler <30 Da: No Traveled to Known Affected Are: No History of Present Illness Mr. Rivsa is a 57-year-old male. He came into the hospital today complaining of right lower extremity ankle pain which he thought was gout. He says he has a recurrent problem with scalp. Imaging of the right lower extremity shows a DVT. He has a history of MS, pulmonary emboli, and now DVT. Hypercoagulability may run in his family. Factor V Leiden disorder as mentioned by his mother. He had previously been on Xarelto for his pulmonary emboli but has not been else afford this and has stopped it for the past 2 months. Currently his primary complaint is right lower extremity pain without significant edema. No fevers. No injury of the right lower extremity. No other complaints. Review of Systems Constitutional: DENIES: Diaphoretic episodes, Fatigue, Fever, Chills Eyes: DENIES: Blurred vision, Diplopia, Eye inflammation, Eye pain Respiratory: DENIES: Cough, Wheezing, Hemoptysis, Shortness of breath Cardiovascular: DENIES: Chest pain, Palpitations, Syncope Gastrointestinal: DENIES: Abdominal pain, Black stools, Bloody stools Musculoskeletal: COMPLAINS OF: Joint pain, DENIES: Muscle aches, Stiffness Integumentary: DENIES: Abnormal pigmentation, Nail changes, Pruritus, Rash Hematologic/lymphatic: DENIES: Bruising, Lymphadenopathy Immunologic/allergic: DENIES: Eczema, Urticaria Neurologic: DENIES: Abnormal gait, Headache, Paresthesias Psychiatric: DENIES: Anxiety, Confusion, Hallucinations Past Family Social History Past Medical History Myocardial infarction 2 General anxiety disorder Osteoarthritis Angina Congestive heart failure COPD Coronary artery disease Hypertension Hiatal hernia History of pulmonary embolism Past Surgical History Heart catheter in 2012 Lung biopsy in 1995 Reported Medications Reported Meds & Active Scripts Active Bentyl (Dicyclomine HCl) 10 Mg Cap 10 Mg PO TID PRN Carafate (Sucralfate) 1 Gram Tab 1 Gm PO QID On empty stomach Protonix (Pantoprazole Sodium) 40 Mg Tab 40 Mg PO DAILY Prilosec (Omeprazole Magnesium) 20 Mg Tab 20 Mg PO DAILY Reported Aspirin 81 Mg Chew 81 Mg CHEW DAILY Lisinopril 5 Mg Tab 5 Mg PO DAILY Allergies: Coded Allergies: No Known Allergies (Verified Allergy, Unknown, 06/24/17) Family History Possible clotting disorder in his family, factor V disorder mentioned Social History Patient denies any smoking, alcohol, or illicit drug abuse Physical Exam Vital Signs Vital Signs Date Time Temp Pulse Resp B/P (MAP) Pulse Ox O2 Delivery O2 Flow Rate FiO2 06/24/17 09:50 99.0 86 15 137/79 (98) 98 Physical Exam GENERAL: NAD, A&Ox3 HEAD: Normocephalic. NECK: Supple, trachea midline. No lymphadenopathy. EYES: No scleral icterus. No injection or drainage. CARDIOVASCULAR: Regular rate and rhythm without murmurs, gallops, or rubs. RESPIRATORY: Breath sounds equal bilaterally. No accessory muscle use. GASTROINTESTINAL: Abdomen soft, non-tender, nondistended. MUSCULOSKELETAL: No cyanosis, or edema. Tenderness at right lower extremity without swelling. SKIN: Warm and dry. NEURO: No focal neurological deficitis. Imaging Last Impressions Lower Extremity Ultrasound 06/24/17 0000 Signed Impressions: Service Date/Time: Saturday, June 24, 2017 11:20 - CONCLUSION: Occlusive thrombus in the peroneal vein. The deep venous system is otherwise patent. John Corado MD Ankle X-Ray 06/24/17 0000 Signed Impressions: Service Date/Time: Saturday, June 24, 2017 10:05 - CONCLUSION: 1. Small spur off the inferior calcaneus at the site of attachment of the plantar aponuerosis. 2. Ankle mortise is intact. John Corado MD Caprini VTE Risk Assessment Caprini VTE Risk Assessment: Mod/High Risk (score >= 2) Caprini Risk Assessment Model Point Value = 1 Point Value = 2 Point Value = 3 Point Value = 5 Age 41-60 Minor surgery BMI > 25 kg/m2 Swollen legs Varicose veins or History of unexplained or recurrent spontaneous Oral contraceptives or hormone replacement Sepsis (< 1 month) Serious lung disease, including pneumonia (< 1 month) Abnormal pulmonary function Acute myocardial infarction Congestive heart failure (< 1 month) History of inflammatory bowel disease Medical patient at bed rest Age 61-74 Arthroscopic surgery Major open surgery (> 45 min) Laparoscopic surgery (> 45 min) Malignancy Confined to bed (> 72 hours) Immobilizing plaster cast Central venous access Age >= 75 History of VTE Family history of VTE Factor V Leiden Prothrombin [id number] Lupus anticoagulant Anticardiolipin antibodies Elevated serum homocysteine Heparin-induced thrombocytopenia Other congenital or acquired thrombophilia Stroke (< 1 month) Elective arthroplasty Hip, pelvis, or leg fracture Acute spinal cord injury (< 1 month) Prophylaxis Regimen Total Risk Factor Score Risk Level Prophylaxis Regimen 0-1 Low Early ambulation 2 Moderate Order ONE of the following: *Sequential Compression Device (SCD) *Heparin 5000 units SQ BID 3-4 Higher Order ONE of the following medications: *Heparin 5000 units SQ TID *Enoxaparin/Lovenox 40 mg SQ daily (WT < 150 kg, CrCl > 30 mL/min) *Enoxaparin/Lovenox 30 mg SQ daily (WT < 150 kg, CrCl > 10-29 mL/min) *Enoxaparin/Lovenox 30 mg SQ BID (WT < 150 kg, CrCl > 30 mL/min) AND/OR *Sequential Compression Device (SCD) 5 or more Highest Order ONE of the following medications: *Heparin 5000 units SQ TID (Preferred with Epidurals) *Enoxaparin/Lovenox 40 mg SQ daily (WT < 150 kg, CrCl > 30 mL/min) *Enoxaparin/Lovenox 30 mg SQ daily (WT < 150 kg, CrCl > 10-29 mL/min) *Enoxaparin/Lovenox 30 mg SQ BID (WT < 150 kg, CrCl > 30 mL/min) AND *Sequential Compression Device (SCD) Assessment and Plan Problem List: (1) Deep vein thrombosis (DVT) ICD Code: I82.409 - Acute embolism and thrombosis of unspecified deep veins of unspecified lower extremity Status: Acute Assessment and Plan Assessment and plan 57-year-old male admitted secondary to right lower extremity DVT Right lower extremity DVT Subacute pulmonary emboli Outpatient treatment failure Begin Heparin drip Patient has failed Xarelto due to financial cost Possible hypercoagulability given history of PE, MS, and DVT Hematology consulted Coumadin started Follow INR Myocardial infarction 2 Coronary artery disease Angina Congestive heart failure Currently symptom-free Follow clinically COPD Symptom-free Follow clinically Hypertension Continue baseline treatment Monitor blood pressures Hiatal hernia Gastroesophageal reflux disease Continue GI treatments General anxiety disorder Osteoarthritis No change to baseline treatments Follow clinically Gout Check uric acid level DVT prophylaxis Heparin drip till Coumadin therapeutic Physician Certification 2 Midnight Certification Type: Admission for Inpatient Services Order for Inpatient Services The services are ordered in accordance with Medicare regulations or non- Medicare payer requirements, as applicable. In the case of services not specified as inpatient-only, they are appropriately provided as inpatient services in accordance with the 2-midnight benchmark. Estimated LOS (days): 3 days is the estimated time the patient will need to remain in the hospital, assuming treatment plan goals are met and no additional complications. Post-Hospital Plan: Home Problem Qualifiers (1) Deep vein thrombosis (DVT): Qualified Codes: I82.4Z1 - Acute embolism and thrombosis of unspecified deep veins of right distal lower extremity Dylan Demarco MD Jun 24, 2017 15:00
[2017-06-24 15:30] VITALS: BP 141/78; PULSE 65; RESP 16; TEMP 97.5; O2SAT 98
[2017-06-24 16:09] LABS: HEMATOCRIT 38.6 % (39.0-51.0); MEAN CELL VOLUME 94.8 FL (80.0-100.0); MEAN CORPUSCULAR HEMOGLOBIN 32.8 PG (27.0-34.0); MEAN CORPUSCULAR HGB CONC 34.6 % (32.0-36.0); PLATELET COUNT 181 TH/MM3 (150-450); RED BLOOD COUNT 4.07 MIL/MM3 (4.50-5.90); REVIEW FLAG FINAL; WHITE BLOOD COUNT 7.3 TH/MM3 (4.0-11.0)
[2017-06-24] MEDS ORDERED: HEPARIN SODIUM - IV 10,000 UNITS/10 ML VIAL IV ONE (16:15)
[2017-06-24 16:16] LABS: APTT (PATIENT) 26.6 SEC (24.3-30.1); PROTHROMBIN TIME - PATIENT 10.5 SEC (9.8-11.6)
[2017-06-24] MEDS ORDERED: AMLO5TAB2 PO (16:38)
[2017-06-24] MEDS: WARFARIN SOD 7.5 MG TAB PO SCH (19:29)
[2017-06-24] MEDS: SUCRALFATE 1 GM TAB PO SCH ×2 (19:29→21:31)
[2017-06-24] MEDS: HEPARIN-D5W 25,000 U/250 ML 250 ML IV PRN (19:34)
[2017-06-24] MEDS ORDERED: ACETAMINOPHEN/HYDROcodone 325 MG/7.5 MG TAB PO ONE (19:45)
[2017-06-24] MEDS ORDERED: HEPARIN SODIUM - IV 10,000 UNITS/10 ML VIAL IV PUSH PRN ×2 (19:45)
[2017-06-24 19:55] LABS: APTT (PATIENT) 40.6 SEC (24.3-30.1)
[2017-06-24 20:00] VITALS: BP 141/78; PULSE 64; RESP 18; TEMP 98.1; O2SAT 98
[2017-06-24] MEDS ORDERED: SODIUM CHLORIDE 0.9% FLUSH 10 ML FLUSH IV FLUSH SCH (21:00)
[2017-06-24] MEDS: SODIUM CHLORIDE 0.9% FLUSH 10 ML FLUSH IV FLUSH SCH (21:32)
[2017-06-25] VITALS (7 sets, daily range): BP systolic 108–123; BP diastolic 55–73; PULSE 62–71; RESP 17–20; TEMP 97.2–100.2; O2SAT 94–97
[2017-06-25 02:16] LABS: APTT (PATIENT) 54.4 SEC (24.3-30.1); PROTHROMBIN TIME - PATIENT 10.8 SEC (9.8-11.6)
[2017-06-25 02:23] LABS: AUTOMATED NEUTROPHIL # 3.9 TH/MM3 (1.8-7.7); BASOPHIL % 0.4 % (0.0-2.0); EOSINOPHIL # 0.1 TH/MM3 (0-0.4); HEMATOCRIT 36.3 % (39.0-51.0); HEMO FLAGS DIFF FINAL; LYMPH % 22.7 % (9.0-44.0); LYMPHOCYTE # 1.4 TH/MM3 (1.0-4.8); MEAN CELL VOLUME 95.6 FL (80.0-100.0); MEAN CORPUSCULAR HEMOGLOBIN 32.9 PG (27.0-34.0); MEAN CORPUSCULAR HGB CONC 34.4 % (32.0-36.0); MONO % 13.8 % (0.0-8.0); NEUT % 61.1 % (16.0-70.0); PLATELET COUNT 167 TH/MM3 (150-450); RED BLOOD COUNT 3.79 MIL/MM3 (4.50-5.90); RED CELL DISTRIBUTION WIDTH 13.9 % (11.6-17.2); WHITE BLOOD COUNT 6.4 TH/MM3 (4.0-11.0)
[2017-06-25] MEDS ORDERED: ACETAMINOPHEN 325 MG TAB PO PRN (04:45)
[2017-06-25 08:08] LABS: APTT (PATIENT) 60.4 SEC (24.3-30.1)
[2017-06-25] MEDS: PANTOPRAZOLE SOD 40 MG DELAYED RELEASE TAB PO SCH (08:34)
[2017-06-25] MEDS: SUCRALFATE 1 GM TAB PO SCH ×4 (08:35→20:26)
[2017-06-25] MEDS: SODIUM CHLORIDE 0.9% FLUSH 10 ML FLUSH IV FLUSH SCH ×2 (08:35→20:26)
[2017-06-25] MEDS: ASPIRIN 81 MG CHEW TAB CHEW SCH (08:35)
[2017-06-25] MEDS: LISINOPRIL 5 MG TAB PO SCH (08:35)
[2017-06-25] MEDS: HEPARIN-D5W 25,000 U/250 ML 250 ML IV PRN ×2 (08:39→22:25)
[2017-06-25] MEDS ORDERED: NON-FORMULARY DRUG (Omeprazole Magnesium (Prilosec) 20 MG) PO SCH (09:00)
[2017-06-25] MEDS ORDERED: ALLOPURINOL 100 MG TAB PO ONE (10:00)
[2017-06-25] MEDS ORDERED: ACETAMINOPHEN/HYDROcodone 325 MG/5 MG TAB PO PRN (11:30)
[2017-06-25] MEDS ORDERED: ALUMINUM/MAGNESIUM/SIMETH 30 ML CUP PO PRN (11:30)
--- NOTE | 2017-06-25 11:37 | HHI.PR ---
Subjective Remarks Chest pain reported this morning. Etiology may be related to several factors including history of GERD, history of ND, and possible coagulopathy. He said he 's had cardiac stents but never needed a stent placements of this could represent coagulopathy associated ND history. She also complains of Flaring up with right wrist pain. Uric acid level is high today. Objective Vital Signs Date Time Temp Pulse Resp B/P (MAP) Pulse Ox O2 Delivery O2 Flow Rate FiO2 06/25/17 08:00 97.2 62 17 123/73 (90) 95 06/25/17 04:00 99.1 66 18 112/61 (78) 97 06/25/17 00:00 100.2 71 20 120/69 (86) 95 06/24/17 20:00 98.1 64 18 141/78 (99) 98 06/24/17 15:30 97.5 65 16 141/78 (99) 98 I/O 06/24/17 06/24/17 06/24/17 06/25/17 06/25/17 06/25/17 07:00 15:00 23:00 07:00 15:00 23:00 Intake Total 240 ml 480 ml Output Total 600 ml 700 ml Balance -360 ml -220 ml Intake Oral 240 ml 480 ml Output Urine Total 600 ml 700 ml # Bowel Movements 0 0 Result Diagram: 06/25/17 0137 Objective Remarks GENERAL: NAD, A&Ox3 HEAD: Normocephalic. NECK: Supple, trachea midline. No lymphadenopathy. EYES: No scleral icterus. No injection or drainage. CARDIOVASCULAR: Regular rate and rhythm without murmurs, gallops, or rubs. RESPIRATORY: Breath sounds equal bilaterally. No accessory muscle use. GASTROINTESTINAL: Abdomen soft, non-tender, nondistended. MUSCULOSKELETAL: No cyanosis, or edema. Tenderness at right wrist and pain with range of motion SKIN: Warm and dry. NEURO: No focal neurological deficitis. A/P Problem List: (1) Chest pain ICD Code: R07.9 - Chest pain Status: Resolved (2) Deep vein thrombosis (DVT) ICD Code: I82.409 - Acute embolism and thrombosis of unspecified deep veins of unspecified lower extremity Status: Acute Assessment and Plan Assessment and plan 57-year-old male admitted secondary to right lower extremity DVT Right lower extremity DVT Subacute pulmonary emboli Outpatient treatment failure Continue Heparin drip Patient has failed Xarelto due to financial cost Possible hypercoagulability given history of PE, ND, and DVT Hematology consulted Coumadin continued Follow INR Myocardial infarction 2 Coronary artery disease Angina Congestive heart failure Chest pain reported this morning Follow serial EKGs Follow serial troponins Continue anticoagulants Follow clinically COPD Symptom-free Follow clinically Hypertension Continue baseline treatment Monitor blood pressures Hiatal hernia Gastroesophageal reflux disease This may be an etiology for his chest pain Start Mylanta Begin Pepcid General anxiety disorder Osteoarthritis No change to baseline treatments Follow clinically Gout Uric acid level elevated Allopurinol for maintenance Tramadol for flareup DVT prophylaxis Heparin drip till Coumadin therapeutic Problem Qualifiers (1) Deep vein thrombosis (DVT): Qualified Codes: I82.4Z1 - Acute embolism and thrombosis of unspecified deep veins of right distal lower extremity Dylan Demarco MD Jun 25, 2017 11:37
[2017-06-25] MEDS: KETOROLAC TROMETHAMINE 30 MG/ML (IVP) VIAL IV PUSH SCH ×2 (12:06→20:26)
--- NOTE | 2017-06-25 16:00 | EKG ---
Date Performed: 06/25/2017 Time Performed: 09:11:24 PTAGE: 57 years EKG: Sinus rhythm WITH SINUS ARRHYTHMIA LOW QRS VOLTAGE IN PRECORDIAL LEADS MODERATE VOLTAGE CRITERIA FOR LVH, CONSIDE R NORMAL VARIANT Compared to prior tracing no significant change BORDERLINE ECG PREVIOUS TRACING : 04/19/2017 09.45 DOCTOR: Payam Aguilar Interpretating Date/Time 06/25/2017 15:59:19
--- NOTE | 2017-06-25 16:00 | EKG ---
Date Performed: 06/25/2017 Time Performed: 13:29:44 PTAGE: 57 years EKG: Sinus rhythm Compared to prior tracing no significant change NORMAL ECG PREVIOUS TRACING : 06/25/2017 09.11 DOCTOR: Payam Aguilar Interpretating Date/Time 06/25/2017 15:59:06
[2017-06-25] MEDS: WARFARIN SOD 7.5 MG TAB PO SCH (17:22)
[2017-06-25] MEDS: FAMOTIDINE 20 MG TAB PO SCH (20:26)
[2017-06-25] MEDS: SODIUM CHLORIDE 0.9% FLUSH 10 ML FLUSH IV FLUSH PRN (20:27)
[2017-06-26] VITALS (8 sets, daily range): BP systolic 106–143; BP diastolic 57–79; PULSE 52–70; RESP 17–19; TEMP 96.3–98.2; O2SAT 92–99
[2017-06-26] MEDS: SODIUM CHLORIDE 0.9% FLUSH 10 ML FLUSH IV FLUSH PRN (04:46)
[2017-06-26] MEDS: KETOROLAC TROMETHAMINE 30 MG/ML (IVP) VIAL IV PUSH SCH (04:46)
[2017-06-26 08:03] LABS: AUTOMATED NEUTROPHIL # 2.9 TH/MM3 (1.8-7.7); BASOPHIL % 0.3 % (0.0-2.0); EOSINOPHIL # 0.2 TH/MM3 (0-0.4); EOSINOPHIL % 3.2 % (0.0-4.0); HEMATOCRIT 36.8 % (39.0-51.0); HEMO FLAGS DIFF FINAL; LYMPH % 22.1 % (9.0-44.0); LYMPHOCYTE # 1.1 TH/MM3 (1.0-4.8); MEAN CORPUSCULAR HEMOGLOBIN 32.8 PG (27.0-34.0); MEAN CORPUSCULAR HGB CONC 34.5 % (32.0-36.0); MONO % 14.5 % (0.0-8.0); NEUT % 59.9 % (16.0-70.0); PLATELET COUNT 165 TH/MM3 (150-450); RED BLOOD COUNT 3.87 MIL/MM3 (4.50-5.90); RED CELL DISTRIBUTION WIDTH 13.7 % (11.6-17.2); WHITE BLOOD COUNT 4.8 TH/MM3 (4.0-11.0)
[2017-06-26 08:10] LABS: INTERNATIONAL NORMALIZED RATIO 1.4 RATIO
[2017-06-26 08:26] LABS: ANION GAP 8 MEQ/L (5-15); AST (GOT) 68 U/L (15-37); BICARBONATE 26.5 MEQ/L (21.0-32.0); BLOOD UREA NITROGEN 19 MG/DL (7-18); CHLORIDE 102 MEQ/L (98-107); GLOMERULAR FILTRATION RATE 51 ML/MIN (>89); POTASSIUM 3.9 MEQ/L (3.5-5.1); SODIUM (NA) 136 MEQ/L (136-145)
[2017-06-26] MEDS: FAMOTIDINE 20 MG TAB PO SCH ×2 (08:26→21:07)
[2017-06-26 08:27] LABS: ALT (GPT) 100 U/L (12-78)
[2017-06-26] MEDS: MAGNESIUM HYDROXIDE SUSP 30 ML CUP PO PRN (08:27)
[2017-06-26] MEDS: SUCRALFATE 1 GM TAB PO SCH ×4 (08:27→21:07)
[2017-06-26] MEDS: ALLOPURINOL 100 MG TAB PO SCH (08:27)
[2017-06-26] MEDS: ASPIRIN 81 MG CHEW TAB CHEW SCH (08:27)
[2017-06-26] MEDS: PANTOPRAZOLE SOD 40 MG DELAYED RELEASE TAB PO SCH (08:27)
[2017-06-26] MEDS: LISINOPRIL 5 MG TAB PO SCH (08:28)
[2017-06-26 08:29] LABS: ALKALINE PHOSPHATASE 56 U/L (45-117); APTT (PATIENT) 61.9 SEC (24.3-30.1); TOTAL BILIRUBIN ADULT 0.4 MG/DL (0.2-1.0)
[2017-06-26] MEDS: SODIUM CHLORIDE 0.9% FLUSH 10 ML FLUSH IV FLUSH SCH ×2 (08:29→21:07)
--- NOTE | 2017-06-26 10:44 | HHI.PR ---
Subjective Remarks INR is 1.4. Intermittent chest pain continues. ACS workup is negative. Option for getting a CTA of the chest is discussed with the patient, it will not change treatment, patient wishes to know for his information. Objective Vital Signs Date Time Temp Pulse Resp B/P (MAP) Pulse Ox O2 Delivery O2 Flow Rate FiO2 06/26/17 03:58 97.6 60 18 117/72 (87) 97 06/26/17 00:33 97.8 60 19 106/58 (74) 97 06/25/17 20:35 99.8 70 18 108/55 (72) 96 06/25/17 20:05 70 06/25/17 16:00 97.7 63 17 116/66 (83) 94 06/25/17 12:00 97.5 66 18 120/71 (87) 95 I/O 06/25/17 06/25/17 06/25/17 06/26/17 06/26/17 06/26/17 07:00 15:00 23:00 07:00 15:00 23:00 Intake Total 480 ml 725 ml 480 ml Output Total 700 ml 750 ml Balance -220 ml -25 ml 480 ml Intake Oral 480 ml 480 ml 480 ml IV Total 245 ml Output Urine Total 700 ml 750 ml # Voids 2 3 1 # Bowel Movements 0 0 0 Result Diagram: 06/26/1773106/26/17731 Objective Remarks GENERAL: NAD, A&Ox3 HEAD: Normocephalic. NECK: Supple, trachea midline. No lymphadenopathy. EYES: No scleral icterus. No injection or drainage. CARDIOVASCULAR: Regular rate and rhythm without murmurs, gallops, or rubs. RESPIRATORY: Breath sounds equal bilaterally. No accessory muscle use. GASTROINTESTINAL: Abdomen soft, non-tender, nondistended. MUSCULOSKELETAL: No cyanosis, or edema. Tenderness at right wrist and pain with range of motion SKIN: Warm and dry. NEURO: No focal neurological deficitis. A/P Problem List: (1) Chest pain ICD Code: R07.9 - Chest pain Status: Resolved (2) Deep vein thrombosis (DVT) ICD Code: I82.409 - Acute embolism and thrombosis of unspecified deep veins of unspecified lower extremity Status: Acute Assessment and Plan Assessment and plan 57-year-old male admitted secondary to right lower extremity DVT Chest pain Negative ACS workup Obtain CTA of the chest Continue blood thinners Right lower extremity DVT Subacute pulmonary emboli Outpatient treatment failure Continue Heparin drip Patient has failed Xarelto due to financial cost Possible hypercoagulability given history of PE, MT, and DVT Hematology consulted Coumadin continued Follow INR Myocardial infarction 2 Coronary artery disease Angina Congestive heart failure Chest pain reported this morning Follow serial EKGs Follow serial troponins Continue anticoagulants Follow clinically COPD Symptom-free Follow clinically Hypertension Continue baseline treatment Monitor blood pressures Hiatal hernia Gastroesophageal reflux disease This may be an etiology for his chest pain Start Mylanta Begin Pepcid General anxiety disorder Osteoarthritis No change to baseline treatments Follow clinically Gout Uric acid level elevated Allopurinol for maintenance Tramadol for flareup DVT prophylaxis Heparin drip till Coumadin therapeutic Problem Qualifiers (1) Deep vein thrombosis (DVT): Qualified Codes: I82.4Z1 - Acute embolism and thrombosis of unspecified deep veins of right distal lower extremity Dylan Demarco MD Jun 26, 2017 10:44
--- NOTE | 2017-06-26 12:45 | EKG ---
Date Performed: 06/25/2017 Time Performed: 18:54:39 PTAGE: 57 years EKG: Sinus rhythm Compared to prior tracing no significant change NORMAL ECG PREVIOUS TRACING : 06/25/2017 13.29 DOCTOR: Payam Aguilar Interpretating Date/Time 06/26/2017 12:44:58
[2017-06-26] MEDS ORDERED: IOHEXOL 350 MG/ML 10 ML VIAL (for RAD DIAG) IVCONTRAST ONE (12:55)
--- NOTE | 2017-06-26 13:09 | RADRPT ---
EXAM DATE/TIME: 06/26/2017 12:47 [facility] COMPARISON: CT PULMONARY ANGIOGRAM, April 10, 2017, 10:27. INDICATIONS : Chest pain today. IV CONTRAST: 70 cc Omnipaque 350 (iohexol) IV RADIATION DOSE: 23.33 CTDIvol (mGy) ; Patient body habitus MEDICAL HISTORY : Congestive hearrt failure. Hypertension. deep vein thrombosis SURGICAL HISTORY : None. ENCOUNTER: Initial ACUITY: 1 day PAIN SCALE: 6/10 LOCATION: Bilateral chest TECHNIQUE: Volumetric scanning of the chest was performed using a pulmonary embolism protocol MIP images were re constructed. Using automated exposure control and adjustment of the mA and/or kV according to patien t size, radiation dose was kept as low as reasonably achievable to obtain optimal diagnostic quality images. DICOM format image data is available electronically for review and comparison. Follow-up recommendations for detected pulmonary nodules are based at a minimum on nodule size and pa tient risk factors according to Fleischner Society Guidelines. FINDINGS: PULMONARY ARTERIES: The previously identified pulmonary emboli seen on the prior study of 04/10/2017 are no longer seen. No new filling defects identified. LUNGS: 7 mm nodular density in the right upper lobe on image #25 unchanged. Calcified granulomas in the righ t upper lobe. Tree in blood opacity in the right upper lobe unchanged. 4 mm nodular density in the an terior right midlung on image #54 unchanged. Mild atelectasis at the dependent portions of the lungs. PLEURAE: There is no pleural thickening or pleural effusion. MEDIASTINUM: Scattered mildly prominent mediastinal lymph nodes unchanged.. MUSCULOSKELETAL: Within normal limits for patient age. MISCELLANEOUS: Hepatic steatosis again noted. CONCLUSION: 1. Bilateral pulmonary emboli seen on prior study are no longer seen. 2. Old granulomatous disease. 3. Subcentimeter pulmonary nodular densities unchanged. 4. Hepatic steatosis. 5. Mild groundglass opacity at the dependent portions of the lungs likely representing atelectasis. 6. Mild tree in bud opacity in the right upper lobe unchanged. Ted Myers MD on June 26, 2017 at 12:59 Board Certified Radiologist. This report was verified electronically.
[2017-06-26] MEDS: WARFARIN SOD 7.5 MG TAB PO SCH (16:09)
[2017-06-26] MEDS: HEPARIN-D5W 25,000 U/250 ML 250 ML IV PRN (16:14)
[2017-06-27] VITALS (7 sets, daily range): BP systolic 127–162; BP diastolic 65–82; PULSE 56–67; RESP 16–18; TEMP 95.9–98.1; O2SAT 95–100
[2017-06-27] MEDS: HEPARIN-D5W 25,000 U/250 ML 250 ML IV PRN (05:34)
[2017-06-27 06:00] LABS: AUTOMATED NEUTROPHIL # 2.4 TH/MM3 (1.8-7.7); BASOPHIL % 0.4 % (0.0-2.0); EOSINOPHIL # 0.2 TH/MM3 (0-0.4); EOSINOPHIL % 3.9 % (0.0-4.0); HEMATOCRIT 35.1 % (39.0-51.0); HEMO FLAGS DIFF FINAL; LYMPH % 22.7 % (9.0-44.0); LYMPHOCYTE # 0.9 TH/MM3 (1.0-4.8); MEAN CELL VOLUME 95.3 FL (80.0-100.0); MEAN CORPUSCULAR HEMOGLOBIN 32.9 PG (27.0-34.0); MEAN CORPUSCULAR HGB CONC 34.5 % (32.0-36.0); MONO % 12.1 % (0.0-8.0); NEUT % 60.9 % (16.0-70.0); PLATELET COUNT 186 TH/MM3 (150-450); RED BLOOD COUNT 3.69 MIL/MM3 (4.50-5.90); RED CELL DISTRIBUTION WIDTH 13.7 % (11.6-17.2)
[2017-06-27 06:24] LABS: INTERNATIONAL NORMALIZED RATIO 2.3 RATIO; PROTHROMBIN TIME - PATIENT 26.5 SEC (9.8-11.6)
[2017-06-27 06:26] LABS: ALT (GPT) 99 U/L (12-78); ANION GAP 10 MEQ/L (5-15); AST (GOT) 63 U/L (15-37); BICARBONATE 27.5 MEQ/L (21.0-32.0); BLOOD UREA NITROGEN 19 MG/DL (7-18); CHLORIDE 103 MEQ/L (98-107); GLOMERULAR FILTRATION RATE 51 ML/MIN (>89); SODIUM (NA) 140 MEQ/L (136-145)
[2017-06-27 06:29] LABS: ALKALINE PHOSPHATASE 70 U/L (45-117); TOTAL BILIRUBIN ADULT 0.2 MG/DL (0.2-1.0)
[2017-06-27 06:43] LABS: APTT (PATIENT) 111.5 SEC (24.3-30.1)
[2017-06-27] MEDS: FAMOTIDINE 20 MG TAB PO SCH ×2 (07:17→21:14)
[2017-06-27] MEDS: ASPIRIN 81 MG CHEW TAB CHEW SCH (07:17)
[2017-06-27] MEDS: SUCRALFATE 1 GM TAB PO SCH ×4 (07:17→21:14)
[2017-06-27] MEDS: ALLOPURINOL 100 MG TAB PO SCH (07:17)
[2017-06-27] MEDS: SODIUM CHLORIDE 0.9% FLUSH 10 ML FLUSH IV FLUSH SCH ×2 (07:18→21:14)
[2017-06-27] MEDS: LISINOPRIL 5 MG TAB PO SCH (07:18)
[2017-06-27] MEDS: PANTOPRAZOLE SOD 40 MG DELAYED RELEASE TAB PO SCH ×2 (07:18→21:14)
--- NOTE | 2017-06-27 08:08 | RADRPT ---
EXAM DATE/TIME: 06/27/2017 07:39 [facility] COMPARISON: CHEST SINGLE AP, July 07, 2016, 10:26. INDICATIONS : Chest pain and shortness of breath. MEDICAL HISTORY : None. SURGICAL HISTORY : None. ENCOUNTER: Subsequent ACUITY: 1 day PAIN SCORE: 8/10 LOCATION: Bilateral chest FINDINGS: A single view of the chest demonstrates the lungs to be symmetrically aerated without evidence of mas s, infiltrate or effusion. The cardiomediastinal contours are unremarkable. Stable rib deformity in the right inferior and mid thorax. CONCLUSION: 1. No acute abnormality or significant interval change. Satnam Lundy MD on June 27, 2017 at 8:06 Board Certified Radiologist. This report was verified electronically.
[2017-06-27 11:05] LABS: APTT (PATIENT) 70.3 SEC (24.3-30.1)
--- NOTE | 2017-06-27 11:47 | PD.CONS ---
HPI Consult Requested By Primary Care Physician No Primary Care Physician History of Present Illness 57-year-old male with hx of CAD, PE, granulomatous lung disease and fhx hypercoagulability Factor V deficiencyt admitted with right lower extremity ankle pain found to have DVT. He had previously been on Xarelto for his pulmonary emboli but has not been else afford this and has stopped it for the past 2 months.Cardiology consulted for chest pain. He reports episodes of sharp "wavy" chest pains, not associated with exertion, not radiating, lasting seconds to minutes, not related to position but sometimes start after he eats something. Trop minimally elevated (0.08 x3) in the setting of CKD, EKG sinus bradycardia no acute ST changes. LHC on 03/2016 unremarkable. Review of Systems Consitutional: DENIES: Fatigue, Fever, Chills, Weight gain, Weight loss Eyes: DENIES: Amaurosis Fugax, Change in vision Respiratory: DENIES: See HPI, Cough, Snoring, Shortness of breath, Wheezing, Sputum production Cardiovascular: COMPLAINS OF: See HPI Gastrointestinal: DENIES: Nausea, Vomiting, Change in bowel habits, Reflux, Bloody stools, Melena Genitourinary: DENIES: Urinary incontinence, Difficulty voiding Integumentary: DENIES: Rash Neurologic: DENIES: Tingling or numbness, Memory problems, Poor Balance, Stroke symptoms Musculoskeletal: DENIES: Joint pain, Muscle pain, Limited range of motion, Back pain Psychiatric: DENIES: Anxiety, Depression, Sleep disturbances Hematologic: DENIES: Bruising tendencies, Bleeding tendencies Endocrine: DENIES: Weight gain, Weight loss, Thyroid disease Past Family Social History Allergies: Coded Allergies: No Known Allergies (Verified Allergy, Unknown, 06/24/17) Past Medical History Myocardial infarction 2 General anxiety disorder Osteoarthritis Angina Congestive heart failure COPD Coronary artery disease Hypertension Hiatal hernia History of pulmonary embolism Past Surgical History Heart catheter in 2013 Lung biopsy in 1995 Reported Medications Reported Meds & Active Scripts Active Bentyl (Dicyclomine HCl) 10 Mg Cap 10 Mg PO TID PRN Carafate (Sucralfate) 1 Gram Tab 1 Gm PO QID On empty stomach Protonix (Pantoprazole Sodium) 40 Mg Tab 40 Mg PO DAILY Prilosec (Omeprazole Magnesium) 20 Mg Tab 20 Mg PO DAILY Reported Amlodipine (Amlodipine Besylate) 5 Mg Tab 5 Mg PO DAILY Aspirin 81 Mg Chew 81 Mg CHEW DAILY Lisinopril 5 Mg Tab 10 Mg PO DAILY Active Ordered Medications Current Medications Medications (Trade) Dose Ordered Sig/Oumou Route Start Time Stop Time Status Last Admin (NS Flush) 2 ml UNSCH PRN IV FLUSH 06/24/17 13:45 06/26/17 04:46 (NS Flush) 2 ml BID IV FLUSH 06/24/17 21:00 06/27/17 07:18 (Zofran Inj) 4 mg Q6H PRN IVP 06/24/17 13:45 (Narcan Inj) 0.4 mg UNSCH PRN IV PUSH 06/24/17 13:45 (Milk Of Magnesia Liq) 30 ml Q12H PRN PO 06/24/17 13:45 06/26/17 08:27 (Coumadin) 7.5 mg DAILY@16 PO 06/24/17 17:00 06/26/17 16:09 (Heparin Inj) 5,000 units UNSCH PRN IV PUSH 06/24/17 19:45 (Heparin Inj) 2,500 units UNSCH PRN IV PUSH 06/24/17 19:45 Heparin Sodium/ Dextrose 250 ml @ 18 mls/hr TITRATE PRN IV 06/24/17 14:30 06/27/17 05:34 (Aspirin Chew) 81 mg DAILY CHEW 06/25/17 09:00 06/27/17 07:17 (Bentyl) 10 mg TID PRN PO 06/24/17 13:45 (Prinivil) 5 mg DAILY PO 06/25/17 09:00 06/27/17 07:18 (Protonix) 40 mg DAILY PO 06/25/17 09:00 06/27/17 07:18 (Carafate) 1 gm ACHS PO 06/24/17 18:00 06/27/17 07:17 (Tylenol) 650 mg Q6HR PRN PO 06/25/17 04:45 06/25/17 05:49 (Zyloprim) 100 mg DAILY PO 06/26/17 09:00 06/27/17 07:17 (Pepcid) 20 mg BID PO 06/25/17 21:00 06/27/17 07:17 (Mag-Al Plus Susp Liq) 30 ml Q6H PRN PO 06/25/17 11:30 ([place] 5-325 Mg) 1 tab Q4H PRN PO 06/25/17 11:30 ([place] 10-325 Mg) 1 tab Q4H PRN PO 06/25/17 11:30 Family History Possible clotting disorder in his family, factor V disorder mentioned Social History Patient denies any smoking, alcohol, or illicit drug abuse Physical Exam Vital Signs Vital Signs Date Time Temp Pulse Resp B/P (MAP) Pulse Ox O2 Delivery O2 Flow Rate FiO2 06/27/17 07:30 97.2 60 16 157/81 (106) 97 06/27/17 03:39 96.7 64 18 127/65 (85) 95 06/26/17 23:34 96.7 69 18 119/57 (77) 95 06/26/17 20:15 70 06/26/17 19:50 98.1 66 18 136/77 (96) 92 06/26/17 16:00 98.2 62 18 143/79 (100) 97 06/26/17 12:00 96.8 57 18 122/75 (91) 96 Physical Exam GENERAL: Well-nourished, well-developed patient. SKIN: Warm and dry. HEAD: Normocephalic. EYES: No scleral icterus. No injection or drainage. NECK: Supple, trachea midline. No JVD or lymphadenopathy. CARDIOVASCULAR: Regular rate and rhythm without murmurs, gallops, or rubs. RESPIRATORY: Breath sounds equal bilaterally. No accessory muscle use. GASTROINTESTINAL: Abdomen soft, non-tender, nondistended. EXTREMITIES: No cyanosis, or edema. NEUROLOGICAL: Awake, alert, and oriented x 3. Non-focal. Laboratory Laboratory Tests Test 06/27/17 05:11 06/27/17 08:09 06/27/17 10:20 White Blood Count 4.0 Red Blood Count 3.69 Hemoglobin 12.1 Hematocrit 35.1 Mean Corpuscular Volume 95.3 Mean Corpuscular Hemoglobin 32.9 Mean Corpuscular Hemoglobin Concent 34.5 Red Cell Distribution Width 13.7 Platelet Count 186 Mean Platelet Volume 7.8 Neutrophils (%) (Auto) 60.9 Lymphocytes (%) (Auto) 22.7 Monocytes (%) (Auto) 12.1 Eosinophils (%) (Auto) 3.9 Basophils (%) (Auto) 0.4 Neutrophils # (Auto) 2.4 Lymphocytes # (Auto) 0.9 Monocytes # (Auto) 0.5 Eosinophils # (Auto) 0.2 Basophils # (Auto) 0.0 CBC Comment DIFF FINAL Differential Comment Prothrombin Time 26.5 Prothromb Time International Ratio 2.3 Activated Partial Thromboplast Time 111.5 70.3 Blood Urea Nitrogen 19 Creatinine 1.44 Random Glucose 113 Total Protein 7.0 Albumin 2.9 Calcium Level 8.2 Alkaline Phosphatase 70 Aspartate Amino Transf (AST/SGOT) 63 Alanine Aminotransferase (ALT/SGPT) 99 Total Bilirubin 0.2 Sodium Level 140 Potassium Level 4.0 Chloride Level 103 Carbon Dioxide Level 27.5 Anion Gap 10 Estimat Glomerular Filtration Rate 51 Troponin I 0.08 Result Diagram: 06/27/1751006/27/17510 Imaging Last Impressions Chest X-Ray 06/27/17 0000 Signed Impressions: Service Date/Time: Tuesday, June 27, 2017 07:39 - CONCLUSION: 1. No acute abnormality or significant interval change. Satnam Lundy MD CT Angiography 06/26/17 0000 Signed Impressions: Service Date/Time: Monday, June 26, 2017 12:47 - CONCLUSION: 1. Bilateral pulmonary emboli seen on prior study are no longer seen. 2. Old granulomatous disease. 3. Subcentimeter pulmonary nodular densities unchanged. 4. Hepatic steatosis. 5. Mild groundglass opacity at the dependent portions of the lungs likely representing atelectasis. 6. Mild tree in bud opacity in the right upper lobe unchanged. Ted Myers MD Lower Extremity Ultrasound 06/24/17 0000 Signed Impressions: Service Date/Time: Saturday, June 24, 2017 11:20 - CONCLUSION: Occlusive thrombus in the peroneal vein. The deep venous system is otherwise patent. John Corado MD Ankle X-Ray 06/24/17 0000 Signed Impressions: Service Date/Time: Saturday, June 24, 2017 10:05 - CONCLUSION: 1. Small spur off the inferior calcaneus at the site of attachment of the plantar aponuerosis. 2. Ankle mortise is intact. John Corado MD Assessment and Plan Problem List: (1) Chest pain ICD Codes: R07.9 - Chest pain Status: Resolved Plan: DVT hx of PE Atypical chest pain Cath ~1 year ago unremarkable. Worsening kidney function INR >2 Recommendations: 1. Medical management for CAD risk factors (ASA, BB, statins, hold ACEi given Debbie) 2. Outpatient follow with Cardiology Thank you for the opportunity to take part in the care of this patient Will be available on a PRN basis for any questions or concerns (2) Pulmonary embolism ICD Codes: I26.99 - Other pulmonary embolism without acute cor pulmonale Status: Acute (3) PUD (peptic ulcer disease) ICD Codes: K27.9 - Peptic ulcer, site unspecified, unspecified as acute or chronic, without hemorrhage or perforation Status: Acute (4) HTN (hypertension) ICD Codes: I10 - Essential (primary) hypertension Status: Acute (5) Chronic kidney disease (CKD), stage III (moderate) ICD Codes: N18.3 - Chronic kidney disease, stage 3 (moderate) Status: Chronic (6) Anxiety ICD Codes: F41.9 - Anxiety Status: Acute Julito Felipe MD Jun 27, 2017 11:47
--- NOTE | 2017-06-27 13:59 | HHI.PR ---
Subjective Remarks The patient said that he still has chest pain intermittently. He says he has a history of having food feel like it's getting stuck in his throat when he is swallowing. He says he has followed with a pin puller in the past. Otherwise she still has some pain in his lower extremity. He would be interested in working with physical therapy. Discussed with nursing. Objective Vitals Vital Signs Date Time Temp Pulse Resp B/P (MAP) Pulse Ox O2 Delivery O2 Flow Rate FiO2 06/27/17 12:00 95.9 56 18 162/82 (108) 100 06/27/17 07:30 97.2 60 16 157/81 (106) 97 06/27/17 03:39 96.7 64 18 127/65 (85) 95 06/26/17 23:34 96.7 69 18 119/57 (77) 95 06/26/17 20:15 70 06/26/17 19:50 98.1 66 18 136/77 (96) 92 06/26/17 16:00 98.2 62 18 143/79 (100) 97 I/O 06/26/17 06/26/17 06/26/17 06/27/17 06/27/17 06/27/17 07:00 15:00 23:00 07:00 15:00 23:00 Intake Total 480 ml 480 ml 725 ml Output Total 450 ml Balance 480 ml 480 ml 275 ml Intake Oral 480 ml 480 ml 480 ml IV Total 245 ml Output Urine Total 450 ml # Voids 1 3 3 # Bowel Movements 0 1 1 0 1 Result Diagram: 06/27/17 0511 06/27/17 0511 Imaging Last Impressions Chest X-Ray 06/27/17 0000 Signed Impressions: Service Date/Time: Tuesday, June 27, 2017 07:39 - CONCLUSION: 1. No acute abnormality or significant interval change. Satnam Lundy MD CT Angiography 06/26/17 0000 Signed Impressions: Service Date/Time: Monday, June 26, 2017 12:47 - CONCLUSION: 1. Bilateral pulmonary emboli seen on prior study are no longer seen. 2. Old granulomatous disease. 3. Subcentimeter pulmonary nodular densities unchanged. 4. Hepatic steatosis. 5. Mild groundglass opacity at the dependent portions of the lungs likely representing atelectasis. 6. Mild tree in bud opacity in the right upper lobe unchanged. Ted Myers MD Lower Extremity Ultrasound 06/24/17 0000 Signed Impressions: Service Date/Time: Saturday, June 24, 2017 11:20 - CONCLUSION: Occlusive thrombus in the peroneal vein. The deep venous system is otherwise patent. John Corado MD Ankle X-Ray 06/24/17 0000 Signed Impressions: Service Date/Time: Saturday, June 24, 2017 10:05 - CONCLUSION: 1. Small spur off the inferior calcaneus at the site of attachment of the plantar aponuerosis. 2. Ankle mortise is intact. John Corado MD Objective Remarks GENERAL: NAD, A&Ox3 HEAD: Normocephalic. NECK: Supple, trachea midline. No lymphadenopathy. EYES: No scleral icterus. No injection or drainage. CARDIOVASCULAR: Regular rate and rhythm without murmurs, gallops, or rubs. RESPIRATORY: Breath sounds equal bilaterally. No accessory muscle use. GASTROINTESTINAL: Abdomen soft, non-tender, nondistended. MUSCULOSKELETAL: No cyanosis, or edema. Tenderness at right wrist and pain with range of motion SKIN: Warm and dry. NEURO: No focal neurological deficitis. Medications and IVs Current Medications Medications (Trade) Dose Ordered Sig/Oumou Route Start Time Stop Time Status Last Admin (NS Flush) 2 ml UNSCH PRN IV FLUSH 06/24/17 13:45 06/26/17 04:46 (NS Flush) 2 ml BID IV FLUSH 06/24/17 21:00 06/27/17 07:18 (Zofran Inj) 4 mg Q6H PRN IVP 06/24/17 13:45 (Narcan Inj) 0.4 mg UNSCH PRN IV PUSH 06/24/17 13:45 (Milk Of Magnesia Liq) 30 ml Q12H PRN PO 06/24/17 13:45 06/26/17 08:27 (Coumadin) 7.5 mg DAILY@16 PO 06/24/17 17:00 06/26/17 16:09 (Heparin Inj) 5,000 units UNSCH PRN IV PUSH 06/24/17 19:45 (Heparin Inj) 2,500 units UNSCH PRN IV PUSH 06/24/17 19:45 Heparin Sodium/ Dextrose 250 ml @ 18 mls/hr TITRATE PRN IV 06/24/17 14:30 06/27/17 05:34 (Aspirin Chew) 81 mg DAILY CHEW 06/25/17 09:00 06/27/17 07:17 (Bentyl) 10 mg TID PRN PO 06/24/17 13:45 (Prinivil) 5 mg DAILY PO 06/25/17 09:00 06/27/17 07:18 (Protonix) 40 mg DAILY PO 06/25/17 09:00 06/27/17 07:18 (Carafate) 1 gm ACHS PO 06/24/17 18:00 06/27/17 12:19 (Tylenol) 650 mg Q6HR PRN PO 06/25/17 04:45 06/25/17 05:49 (Zyloprim) 100 mg DAILY PO 06/26/17 09:00 06/27/17 07:17 (Pepcid) 20 mg BID PO 06/25/17 21:00 06/27/17 07:17 (Mag-Al Plus Susp Liq) 30 ml Q6H PRN PO 06/25/17 11:30 ([place] 5-325 Mg) 1 tab Q4H PRN PO 06/25/17 11:30 ([place] 10-325 Mg) 1 tab Q4H PRN PO 06/25/17 11:30 A/P Problem List: (1) Deep vein thrombosis (DVT) ICD Code: I82.409 - Acute embolism and thrombosis of unspecified deep veins of unspecified lower extremity Status: Acute Assessment and Plan 57-year-old male admitted secondary to right lower extremity DVT Chest pain Negative ACS workup CT chest with old granulomatous disease Continue blood thinners Cardiology consult appreciated. Continue medical management. Right lower extremity DVT Subacute pulmonary emboli Outpatient treatment failure S/p heparin drip. Therapeutic. D/c . Continue Coumadin. Follow INR. Patient has failed Xarelto due to financial cost Possible hypercoagulability given history of PE, SC, and DVT Myocardial infarction 2 Coronary artery disease Angina Congestive heart failure Chest pain may be s/t dysphagia. - GI eval pending - continue PPI Hypertension Continue baseline treatment Monitor blood pressures General anxiety disorder Osteoarthritis No change to baseline treatments Follow clinically Gout Uric acid level elevated Allopurinol for maintenance Tramadol for flare-up DVT prophylaxis: Coumadin Discharge Planning Await GI eval Problem Qualifiers (1) Deep vein thrombosis (DVT): Qualified Codes: I82.4Z1 - Acute embolism and thrombosis of unspecified deep veins of right distal lower extremity John Romero DO Jun 27, 2017 13:58
--- NOTE | 2017-06-27 14:25 | PD.CONS ---
HPI History of Present Illness This is a 57 year old male with a history of pulmonary embolism, who has been off of his Xarelto for the past 2 months and came to the emergency room for evaluation of right lower extremity pain. He was found to have a RLE DVT and subacute pulmonary embolism. He reports that he had a PE and PR back in 2016 and had bilateral pulmonary embolism in 2017. He is currently being treated with Coumadin. GI has been consulted for dysphagia. He complains that for the past few months, he has been having daily heartburn with frequent odynophagia and intermittent dysphagia with both solids and liquids getting caught in his lower esophageal area. He also reports intermittent epigastric pain that he describes as sharp without radiation and nausea without vomiting. He denies any vomiting, hematemesis, melena. He has been taking antacids frequently for this and they do seem to help a little. He underwent an EGD (07/08/16)----> reflux esophagitis mild, small hiatal hernia, antral gastritis with a small antral ulcer. Biopsies were not taken. It was recommended that he have a repeat EGD in 2 months, but the patient has not followed up for this, as he has lost his insurance. He denies any Ibuprofen/Aleve use. Rare ETOH use. (Dilma Pearl) PFSH Past Medical History CAD, Myocardial infarction 2 General anxiety disorder Osteoarthritis Angina Congestive heart failure COPD CHF GERD Hyperlipidemia Hypertension Hiatal hernia History of pulmonary embolism Hiatal hernia Gastric ulcer Esophagitis Kidney stone Past Surgical History Heart catheter in 2012 Lung biopsy in 1995 EGD (Dilma Pearl) Coded Allergies: No Known Allergies (Verified Allergy, Unknown, 06/24/17) Medications Allergies Coded Allergies Type Severity Reaction Last Updated Verified No Known Allergies Allergy Unknown 06/24/17 Yes Active Scripts Medications Dose Route/Sig Max Daily Dose Days Date Category Dose Instructions Amlodipine (Amlodipine Besylate) 5 Mg Tab 5 Mg PO DAILY 06/24/17 Reported Aspirin 81 Mg Chew 81 Mg CHEW DAILY 06/24/17 Reported Bentyl (Dicyclomine HCl) 10 Mg Cap 10 Mg PO TID PRN 04/19/17 Rx Carafate (Sucralfate) 1 Gram Tab 1 Gm PO QID 04/19/17 Rx On empty stomach Protonix (Pantoprazole Sodium) 40 Mg Tab 40 Mg PO DAILY 04/19/17 Rx Prilosec (Omeprazole Magnesium) 20 Mg Tab 20 Mg PO DAILY 04/10/17 Rx Lisinopril 5 Mg Tab 10 Mg PO DAILY 04/10/17 Reported Family History Father had lung cancer Sister has diabetes Paternal aunt, cousin, and uncle all with hx of blood clots Social History Patient denies any smoking or illicit drug abuse, rare etoh use (Dilma Pearl) Review of Systems Constitutional: COMPLAINS OF: Fatigue, DENIES: Weight loss, Change in appetite Respiratory: DENIES: Cough Cardiovascular: COMPLAINS OF: Chest pain Gastrointestinal: COMPLAINS OF: Abdominal pain, Nausea, Difficulty Swallowing, Odynophagia, DENIES: Black stools, Bloody stools, Constipation, Diarrhea, Vomiting, Anorexia, Heartburn, Hematemesis Musculoskeletal: COMPLAINS OF: Joint pain Hematologic/lymphatic: DENIES: Bruising Psychiatric: DENIES: Confusion (Dilma Pearl) GI Exam Vitals I&O Vital Signs Date Time Temp Pulse Resp B/P (MAP) Pulse Ox O2 Delivery O2 Flow Rate FiO2 06/27/17 12:00 95.9 56 18 162/82 (108) 100 06/27/17 07:30 97.2 60 16 157/81 (106) 97 06/27/17 03:39 96.7 64 18 127/65 (85) 95 06/26/17 23:34 96.7 69 18 119/57 (77) 95 06/26/17 20:15 70 06/26/17 19:50 98.1 66 18 136/77 (96) 92 06/26/17 16:00 98.2 62 18 143/79 (100) 97 I/O 06/26/17 06/26/17 06/26/17 06/27/17 06/27/17 06/27/17 07:00 15:00 23:00 07:00 15:00 23:00 Intake Total 480 ml 480 ml 725 ml Output Total 450 ml Balance 480 ml 480 ml 275 ml Intake Oral 480 ml 480 ml 480 ml IV Total 245 ml Output Urine Total 450 ml # Voids 1 3 3 # Bowel Movements 0 1 1 0 1 Imaging Last Impressions Chest X-Ray 06/27/17 0000 Signed Impressions: Service Date/Time: Tuesday, June 27, 2017 07:39 - CONCLUSION: 1. No acute abnormality or significant interval change. Satnam Lundy MD CT Angiography 06/26/17 0000 Signed Impressions: Service Date/Time: Monday, June 26, 2017 12:47 - CONCLUSION: 1. Bilateral pulmonary emboli seen on prior study are no longer seen. 2. Old granulomatous disease. 3. Subcentimeter pulmonary nodular densities unchanged. 4. Hepatic steatosis. 5. Mild groundglass opacity at the dependent portions of the lungs likely representing atelectasis. 6. Mild tree in bud opacity in the right upper lobe unchanged. Ted Myers MD Lower Extremity Ultrasound 06/24/17 0000 Signed Impressions: Service Date/Time: Saturday, June 24, 2017 11:20 - CONCLUSION: Occlusive thrombus in the peroneal vein. The deep venous system is otherwise patent. John Corado MD Ankle X-Ray 06/24/17 0000 Signed Impressions: Service Date/Time: Saturday, June 24, 2017 10:05 - CONCLUSION: 1. Small spur off the inferior calcaneus at the site of attachment of the plantar aponuerosis. 2. Ankle mortise is intact. John Corado MD Laboratory Test 06/27/17 05:11 06/27/17 08:09 06/27/17 10:20 White Blood Count 4.0 TH/MM3 Red Blood Count 3.69 MIL/MM3 Hemoglobin 12.1 GM/DL Hematocrit 35.1 % Mean Corpuscular Volume 95.3 FL Mean Corpuscular Hemoglobin 32.9 PG Mean Corpuscular Hemoglobin Concent 34.5 % Red Cell Distribution Width 13.7 % Platelet Count 186 TH/MM3 Mean Platelet Volume 7.8 FL Neutrophils (%) (Auto) 60.9 % Lymphocytes (%) (Auto) 22.7 % Monocytes (%) (Auto) 12.1 % Eosinophils (%) (Auto) 3.9 % Basophils (%) (Auto) 0.4 % Neutrophils # (Auto) 2.4 TH/MM3 Lymphocytes # (Auto) 0.9 TH/MM3 Monocytes # (Auto) 0.5 TH/MM3 Eosinophils # (Auto) 0.2 TH/MM3 Basophils # (Auto) 0.0 TH/MM3 CBC Comment DIFF FINAL Differential Comment Prothrombin Time 26.5 SEC Prothromb Time International Ratio 2.3 RATIO Activated Partial Thromboplast Time 111.5 SEC 70.3 SEC Blood Urea Nitrogen 19 MG/DL Creatinine 1.44 MG/DL Random Glucose 113 MG/DL Total Protein 7.0 GM/DL Albumin 2.9 GM/DL Calcium Level 8.2 MG/DL Alkaline Phosphatase 70 U/L Aspartate Amino Transf (AST/SGOT) 63 U/L Alanine Aminotransferase (ALT/SGPT) 99 U/L Total Bilirubin 0.2 MG/DL Sodium Level 140 MEQ/L Potassium Level 4.0 MEQ/L Chloride Level 103 MEQ/L Carbon Dioxide Level 27.5 MEQ/L Anion Gap 10 MEQ/L Estimat Glomerular Filtration Rate 51 ML/MIN Troponin I 0.08 NG/ML Physical Examination HEENT: Normocephalic; atraumatic; no jaundice. CHEST: CTA. CARDIAC: RRR ABDOMEN: Soft, nondistended, nontender; no hepatosplenomegaly; bowel sounds are present in all four quadrants. EXTREMITIES: No clubbing, cyanosis, or edema. SKIN: Normal; no rash; no jaundice. INKING MACHINE TENDER: No focal deficits; alert and oriented times three. (Dilma Pearl) Assessment and Plan Plan ASSESSMENT: - Dysphagia. 2 month hx of odynophagia, dysphagia with liquids and solids, epigastric pain, heartburn. He has daily heartburn and takes antacids frequently. EGD (07/08/16)----> reflux esophagitis mild, small hiatal hernia, antral gastritis with a small antral ulcer. Biopsies were not taken. It was recommended that he have a repeat EGD in 2 months, but the patient has not followed up for this, as he has lost his insurance. He denies any Ibuprofen/Aleve use. Rare ETOH use. D/W Dr. Romero. Coumadin will be held today and plan will be for EGD +/- dilatation if INR allows in am. - Elevated LFTs. CTA noted hepatic steatosis. T. Bili 0.2, AST 63, ALT 99, ALk Phosph 70. Check hepatitis profile, RUQ us. - GERD, Hx Gastric ulcer. - Acute RLE DVT, Hx PE. Was taking Xarelto, but has not been able to afford this and therefore has been off for 2 months. Heparin turned off today, on coumadin. - Anemia. Mild, normocytic. 12.1/35.1. - KURT, Creat 1.44 - CAD with elevated Troponin, chest pain. S/P Cardiac evaluation. - HTN, Anxiety, Gout per attending. PLAN: - Plan for egd +/- dilatation if INR allows - Obtain consents - NPO after MN - Notify GI of INR if > 2.0 - Change Pepcid to Protonix 40mg po daily - Hepatitis profile - RUQ US - Monitor CBC, PT/INR, LFT - Supportive care - Further recommendations to follow based on results of above - Pt seen and examined by Dr. Felton and myself and this note is written on his behalf (Dilma Pearl) Physician Comments Seen and examined with MONIQUE, doing well. EGD/Dilation tomorrow if INR < 2.0. Will follow, thank you (Cheko Felton MD) Dilma Pearl Jun 27, 2017 14:25 Cheko Felton MD Jun 27, 2017 16:44
--- NOTE | 2017-06-27 16:12 | EKG ---
Date Performed: 06/27/2017 Time Performed: 08:10:04 PTAGE: 57 years EKG: SINUS BRADYCARDIA MODERATE VOLTAGE CRITERIA FOR LVH, CONSIDER NORMAL VARIANT Compared to pr ior tracing no significant change BORDERLINE ECG PREVIOUS TRACING : 06/25/2017 18.54 DOCTOR: Cory Robledo Interpretating Date/Time 06/27/2017 16:10:32
--- NOTE | 2017-06-27 21:04 | RADRPT ---
EXAM DATE/TIME: 06/27/2017 18:48 [facility] COMPARISON: No previous studies available for comparison. INDICATIONS : Increased labs. MEDICAL HISTORY : Hypercholesterolemia. Gastroesophageal reflux disease. Chronic obstructive pulmonary disease. Myocard ial infarction. Congestive heart failure. Coronary artery disease. Hypertension. Kidney stones. Arthr itis. SURGICAL HISTORY : Cardiac catheterization. Lung biopsy. ENCOUNTER: Initial ACUITY: 1 day PAIN SCORE: 0/10 LOCATION: Bilateral upper quadrant MEASUREMENTS: LIVER: 20.5 cm length COMMON DUCT: 5 mm RIGHT KIDNEY: 12.1 x 5.2 x 4.8 cm SPLEEN: 11.7 cm length FINDINGS: LIVER: Coarse but homogeneous echotexture without focal lesion or ductal dilatation. Hepatopedal flow seen in the portal vein. COMMON DUCT: No intraluminal mass or stone visualized. GALLBLADDER: Gallbladder is contracted. No shadowing stones seen. PANCREAS: The visualized portions are within normal limits. RIGHT KIDNEY: No hydronephrosis, stone or mass. SPLEEN: No focal lesion. CONCLUSION: 1. Hepatomegaly without focal lesion. 2. Contracted gallbladder without shadowing stones. Edwin Appiah MD on June 27, 2017 at 21:01 Board Certified Radiologist. This report was verified electronically.
[2017-06-27] MEDS: ACETAMINOPHEN/HYDROcodone 325 MG/10 MG TAB PO PRN (21:16)
[2017-06-27] MEDS ORDERED: CHLORHEXIDINE GLUCONATE 2 % 1 PACK (2 CLOTHS) TOPICAL PRN (23:00)
[2017-06-27] MEDS ORDERED: POVIDONE IODINE 5% (ANTISEPSIS KIT) 4 APPLICATIONS EACH NARE PRN (23:00)
[2017-06-27] MEDS ORDERED: LACTATED RINGER'S 1000 ML IV PRN (23:00)
[2017-06-28] VITALS (7 sets, daily range): BP systolic 111–137; BP diastolic 61–85; PULSE 57–78; RESP 16–18; TEMP 97.3–98.9; O2SAT 95–100
[2017-06-28 05:13] LABS: INTERNATIONAL NORMALIZED RATIO 2.6 RATIO
[2017-06-28] MEDS: SUCRALFATE 1 GM TAB PO SCH ×4 (07:18→19:58)
[2017-06-28] MEDS: ASPIRIN 81 MG CHEW TAB CHEW SCH (07:18)
[2017-06-28] MEDS: FAMOTIDINE 20 MG TAB PO SCH ×2 (08:11→19:58)
[2017-06-28] MEDS: PANTOPRAZOLE SOD 40 MG DELAYED RELEASE TAB PO SCH ×2 (08:11→19:58)
[2017-06-28] MEDS: ALLOPURINOL 100 MG TAB PO SCH (08:11)
[2017-06-28] MEDS: LISINOPRIL 5 MG TAB PO SCH (08:11)
[2017-06-28] MEDS: SODIUM CHLORIDE 0.9% FLUSH 10 ML FLUSH IV FLUSH SCH ×2 (08:12→19:58)
[2017-06-28] MEDS: ACETAMINOPHEN/HYDROcodone 325 MG/10 MG TAB PO PRN ×2 (08:15→12:41)
--- NOTE | 2017-06-28 11:39 | HHI.GIFU ---
GI Follow-up Note Consult Follow-up Subjective: Patient laying in bed comfortably, no new complaints except intermittent dysphagia Objective: PHYSICAL EXAMINATION: Vitals signs stable No fever HEENT: Pupils round and reactive to light; normocephalic; atraumatic; no jaundice. Throat is clear. NECK: Neck is supple, no JVD, no lymphadenopathy. CHEST: Chest is clear to auscultation and percussion. CARDIAC: Regular rate and rhythm with no murmur gallop or rubs. ABDOMEN: Soft, nondistended, nontender; no hepatosplenomegaly; bowel sounds are present in all four quadrants. EXTREMITIES: No clubbing, cyanosis, or edema. SKIN: Normal; no rash; no jaundice. 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 Available Data (labs, X- Rays, Procedues) : Laboratory Tests Test 06/27/17 05:11 06/27/17 08:09 06/27/17 10:20 06/27/17 16:55 White Blood Count 4.0 TH/MM3 Red Blood Count 3.69 MIL/MM3 Hemoglobin 12.1 GM/DL Hematocrit 35.1 % Mean Corpuscular Volume 95.3 FL Mean Corpuscular Hemoglobin 32.9 PG Mean Corpuscular Hemoglobin Concent 34.5 % Red Cell Distribution Width 13.7 % Platelet Count 186 TH/MM3 Mean Platelet Volume 7.8 FL Neutrophils (%) (Auto) 60.9 % Lymphocytes (%) (Auto) 22.7 % Monocytes (%) (Auto) 12.1 % Eosinophils (%) (Auto) 3.9 % Basophils (%) (Auto) 0.4 % Neutrophils # (Auto) 2.4 TH/MM3 Lymphocytes # (Auto) 0.9 TH/MM3 Monocytes # (Auto) 0.5 TH/MM3 Eosinophils # (Auto) 0.2 TH/MM3 Basophils # (Auto) 0.0 TH/MM3 CBC Comment DIFF FINAL Differential Comment Prothrombin Time 26.5 SEC Prothromb Time International Ratio 2.3 RATIO Activated Partial Thromboplast Time 111.5 SEC 70.3 SEC Blood Urea Nitrogen 19 MG/DL Creatinine 1.44 MG/DL Random Glucose 113 MG/DL Total Protein 7.0 GM/DL Albumin 2.9 GM/DL Calcium Level 8.2 MG/DL Alkaline Phosphatase 70 U/L Aspartate Amino Transf (AST/SGOT) 63 U/L Alanine Aminotransferase (ALT/SGPT) 99 U/L Total Bilirubin 0.2 MG/DL Sodium Level 140 MEQ/L Potassium Level 4.0 MEQ/L Chloride Level 103 MEQ/L Carbon Dioxide Level 27.5 MEQ/L Anion Gap 10 MEQ/L Estimat Glomerular Filtration Rate 51 ML/MIN Troponin I 0.08 NG/ML Test 06/28/17 04:15 Prothrombin Time 30.0 SEC Prothromb Time International Ratio 2.6 RATIO ASSESSMENT/PLAN: Seen and examined, INR still above 2.0. EGD postponed for today. Will reschedule for tomorrow if INR under 2. It was a pleasure seeing Madhu Rivas. Thank you for this consult. Entered by: Cheko Castellanos MD Jun 28, 2017 11:39
--- NOTE | 2017-06-28 13:33 | HHI.PR ---
Subjective Remarks The patient was resting comfortably in bed. He stated that his left foot was hurting him to the point that he could not walk. He had no other acute complaints. Discussed with nursing. Objective Vitals Vital Signs Date Time Temp Pulse Resp B/P (MAP) Pulse Ox O2 Delivery O2 Flow Rate FiO2 06/28/17 08:00 98.9 63 18 137/85 (102) 99 06/28/17 07:19 Room Air 06/28/17 04:30 97.8 59 16 118/61 (80) 95 06/28/17 00:30 98.0 57 16 111/67 (82) 95 06/27/17 21:15 Room Air 06/27/17 20:31 60 06/27/17 20:25 98.1 57 16 134/79 (97) 98 06/27/17 16:00 96.7 57 18 144/78 (100) 98 06/27/17 15:20 67 I/O 06/27/17 06/27/17 06/27/17 06/28/17 06/28/17 06/28/17 07:00 15:00 23:00 07:00 15:00 23:00 Intake Total 725 ml 360 ml 0 ml Output Total 450 ml 500 ml 350 ml Balance 275 ml -140 ml -350 ml Intake Oral 480 ml 360 ml 0 ml IV Total 245 ml Output Urine Total 450 ml 500 ml 350 ml # Voids 3 # Bowel Movements 0 2 0 0 Result Diagram: 06/27/17 0511 06/27/17 0511 Imaging Last Impressions Liver Ultrasound 06/27/17 0000 Signed Impressions: Service Date/Time: Tuesday, June 27, 2017 18:48 - CONCLUSION: 1. Hepatomegaly without focal lesion. 2. Contracted gallbladder without shadowing stones. Edwin Appiah MD Chest X-Ray 06/27/17 0000 Signed Impressions: Service Date/Time: Tuesday, June 27, 2017 07:39 - CONCLUSION: 1. No acute abnormality or significant interval change. Satnam Lundy MD CT Angiography 06/26/17 0000 Signed Impressions: Service Date/Time: Monday, June 26, 2017 12:47 - CONCLUSION: 1. Bilateral pulmonary emboli seen on prior study are no longer seen. 2. Old granulomatous disease. 3. Subcentimeter pulmonary nodular densities unchanged. 4. Hepatic steatosis. 5. Mild groundglass opacity at the dependent portions of the lungs likely representing atelectasis. 6. Mild tree in bud opacity in the right upper lobe unchanged. Ted Myers MD Lower Extremity Ultrasound 06/24/17 0000 Signed Impressions: Service Date/Time: Saturday, June 24, 2017 11:20 - CONCLUSION: Occlusive thrombus in the peroneal vein. The deep venous system is otherwise patent. John Corado MD Ankle X-Ray 06/24/17 0000 Signed Impressions: Service Date/Time: Saturday, June 24, 2017 10:05 - CONCLUSION: 1. Small spur off the inferior calcaneus at the site of attachment of the plantar aponuerosis. 2. Ankle mortise is intact. John Corado MD Objective Remarks GENERAL: NAD, A&Ox3 HEAD: Normocephalic. NECK: Supple, trachea midline. No lymphadenopathy. EYES: No scleral icterus. No injection or drainage. CARDIOVASCULAR: Regular rate and rhythm without murmurs, gallops, or rubs. RESPIRATORY: Breath sounds equal bilaterally. No accessory muscle use. GASTROINTESTINAL: Abdomen soft, non-tender, nondistended. MUSCULOSKELETAL: No cyanosis, or edema. Tenderness and warmth noted on dorsum of left foot. SKIN: Warm and dry. NEURO: No focal neurological deficits. Medications and IVs Current Medications Medications (Trade) Dose Ordered Sig/Oumou Route Start Time Stop Time Status Last Admin (NS Flush) 2 ml UNSCH PRN IV FLUSH 06/24/17 13:45 06/26/17 04:46 (NS Flush) 2 ml BID IV FLUSH 06/24/17 21:00 06/28/17 08:12 (Zofran Inj) 4 mg Q6H PRN IVP 06/24/17 13:45 (Narcan Inj) 0.4 mg UNSCH PRN IV PUSH 06/24/17 13:45 (Milk Of Magnesia Liq) 30 ml Q12H PRN PO 06/24/17 13:45 06/26/17 08:27 (Coumadin) 7.5 mg DAILY@16 PO 06/24/17 17:00 Future Hold 06/26/17 16:09 (Aspirin Chew) 81 mg DAILY CHEW 06/25/17 09:00 06/27/17 07:17 (Bentyl) 10 mg TID PRN PO 06/24/17 13:45 (Prinivil) 5 mg DAILY PO 06/25/17 09:00 06/28/17 08:11 (Carafate) 1 gm ACHS PO 06/24/17 18:00 06/28/17 12:40 (Tylenol) 650 mg Q6HR PRN PO 06/25/17 04:45 06/25/17 05:49 (Zyloprim) 100 mg DAILY PO 06/26/17 09:00 06/28/17 08:11 (Pepcid) 20 mg BID PO 06/25/17 21:00 06/28/17 08:11 (Mag-Al Plus Susp Liq) 30 ml Q6H PRN PO 06/25/17 11:30 ([place] 5-325 Mg) 1 tab Q4H PRN PO 06/25/17 11:30 ([place] 10-325 Mg) 1 tab Q4H PRN PO 06/25/17 11:30 06/28/17 12:41 (Protonix) 40 mg Q12HR PO 06/27/17 21:00 06/28/17 08:11 Lactated Ringer's 1,000 ml @ 30 mls/hr Q24H PRN IV 06/27/17 23:00 06/30/17 22:59 (Betadine 5% Antisepsis Kit) 1 applic SALES TECHNICIAN HOME THEATER PRN EACH NARE 06/27/17 23:00 06/30/17 22:59 (Chlorhexidine 2% Cloth) 3 pack SALES TECHNICIAN HOME THEATER PRN TOPICAL 06/27/17 23:00 06/30/17 22:59 A/P Problem List: (1) Deep vein thrombosis (DVT) ICD Code: I82.409 - Acute embolism and thrombosis of unspecified deep veins of unspecified lower extremity Status: Acute Assessment and Plan Chest pain/ Dysphagia Negative ACS workup. CT chest with old granulomatous disease. Cardiology consult appreciated. Chest pain may be s/t dysphagia. - GI planning on EGD when INR is below 2. - continue PPI. Right lower extremity DVT/ Subacute pulmonary emboli/ Outpatient treatment failure Patient has failed Xarelto due to financial cost. - S/p heparin drip. Therapeutic INR. Continue Coumadin. On hold for EGD. Follow INR. Myocardial infarction 2/ Coronary artery disease/ Congestive heart failure Evaluated by cardiology. Stable. - outpt follow-up. - continue home regimen. Gout Uric acid level elevated. - Allopurinol for maintenance. - prednisone for flare. Chronic renal failure Creatinine is around baseline. - avoid nephrotoxic agents. DVT prophylaxis: Coumadin, on hold Discharge Planning Await EGD Problem Qualifiers (1) Deep vein thrombosis (DVT): Qualified Codes: I82.4Z1 - Acute embolism and thrombosis of unspecified deep veins of right distal lower extremity John Romero DO Jun 28, 2017 13:33
[2017-06-28] MEDS: predniSONE 20 MG TAB PO SCH (15:10)
[2017-06-28] MEDS: MAGNESIUM HYDROXIDE SUSP 30 ML CUP PO PRN (19:58)
[2017-06-29] VITALS (9 sets, daily range): BP systolic 126–132; BP diastolic 64–80; PULSE 54–107; RESP 17–18; TEMP 96.7–97.6; O2SAT 94–97
[2017-06-29 05:41] LABS: INTERNATIONAL NORMALIZED RATIO 2.4 RATIO
[2017-06-29] MEDS: PANTOPRAZOLE SOD 40 MG DELAYED RELEASE TAB PO SCH ×2 (08:46→20:34)
[2017-06-29] MEDS: SUCRALFATE 1 GM TAB PO SCH ×4 (08:46→20:33)
[2017-06-29] MEDS: LISINOPRIL 5 MG TAB PO SCH (08:46)
[2017-06-29] MEDS: predniSONE 20 MG TAB PO SCH (08:46)
[2017-06-29] MEDS: ALLOPURINOL 100 MG TAB PO SCH (08:46)
[2017-06-29] MEDS: FAMOTIDINE 20 MG TAB PO SCH ×2 (08:46→20:33)
[2017-06-29] MEDS: SODIUM CHLORIDE 0.9% FLUSH 10 ML FLUSH IV FLUSH SCH ×2 (08:47→20:33)
[2017-06-29] MEDS: ASPIRIN 81 MG CHEW TAB CHEW SCH (08:47)
[2017-06-29] MEDS: ACETAMINOPHEN/HYDROcodone 325 MG/10 MG TAB PO PRN (08:47)
--- NOTE | 2017-06-29 14:01 | HHI.PR ---
Subjective Remarks The patient says that his foot feels a lot better with the prednisone. He had no other acute complaints. He said he has been eating well for the past couple of days. Objective Vitals Vital Signs Date Time Temp Pulse Resp B/P (MAP) Pulse Ox O2 Delivery O2 Flow Rate FiO2 06/29/17 12:00 97.6 62 18 132/74 (93) 94 06/29/17 08:00 96.7 57 18 129/72 (91) 96 06/29/17 07:19 Room Air 06/29/17 07:19 107 06/29/17 04:35 96.8 67 17 129/77 (94) 94 06/29/17 00:25 97.6 54 17 127/80 (96) 94 06/28/17 20:00 97.3 78 16 137/85 (102) 97 06/28/17 19:57 57 06/28/17 16:15 98.7 67 17 131/79 (96) 99 I/O 06/28/17 06/28/17 06/28/17 06/29/17 06/29/17 06/29/17 07:00 15:00 23:00 07:00 15:00 23:00 Intake Total 0 ml 480 ml 360 ml 0 ml Output Total 350 ml 325 ml Balance -350 ml 480 ml 360 ml -325 ml Intake Oral 0 ml 480 ml 360 ml 0 ml Output Urine Total 350 ml 325 ml # Voids 3 1 # Bowel Movements 0 0 0 0 Result Diagram: 06/27/17 0511 06/27/17 0511 Imaging Last Impressions Liver Ultrasound 06/27/17 0000 Signed Impressions: Service Date/Time: Tuesday, June 27, 2017 18:48 - CONCLUSION: 1. Hepatomegaly without focal lesion. 2. Contracted gallbladder without shadowing stones. Edwin Appiah MD Chest X-Ray 06/27/17 0000 Signed Impressions: Service Date/Time: Tuesday, June 27, 2017 07:39 - CONCLUSION: 1. No acute abnormality or significant interval change. Satnam Lundy MD CT Angiography 06/26/17 0000 Signed Impressions: Service Date/Time: Monday, June 26, 2017 12:47 - CONCLUSION: 1. Bilateral pulmonary emboli seen on prior study are no longer seen. 2. Old granulomatous disease. 3. Subcentimeter pulmonary nodular densities unchanged. 4. Hepatic steatosis. 5. Mild groundglass opacity at the dependent portions of the lungs likely representing atelectasis. 6. Mild tree in bud opacity in the right upper lobe unchanged. Ted Myers MD Lower Extremity Ultrasound 06/24/17 0000 Signed Impressions: Service Date/Time: Saturday, June 24, 2017 11:20 - CONCLUSION: Occlusive thrombus in the peroneal vein. The deep venous system is otherwise patent. John Corado MD Ankle X-Ray 06/24/17 0000 Signed Impressions: Service Date/Time: Saturday, June 24, 2017 10:05 - CONCLUSION: 1. Small spur off the inferior calcaneus at the site of attachment of the plantar aponuerosis. 2. Ankle mortise is intact. John Corado MD Objective Remarks GENERAL: NAD, A&Ox3 HEAD: Normocephalic. NECK: Supple, trachea midline. No lymphadenopathy. EYES: No scleral icterus. No injection or drainage. CARDIOVASCULAR: Regular rate and rhythm without murmurs, gallops, or rubs. RESPIRATORY: Breath sounds equal bilaterally. No accessory muscle use. GASTROINTESTINAL: Abdomen soft, non-tender, nondistended. MUSCULOSKELETAL: No cyanosis, or edema. SKIN: Warm and dry. NEURO: No focal neurological deficits. Medications and IVs Current Medications Medications (Trade) Dose Ordered Sig/Oumou Route Start Time Stop Time Status Last Admin (NS Flush) 2 ml UNSCH PRN IV FLUSH 06/24/17 13:45 06/26/17 04:46 (NS Flush) 2 ml BID IV FLUSH 06/24/17 21:00 06/29/17 08:47 (Zofran Inj) 4 mg Q6H PRN IVP 06/24/17 13:45 (Narcan Inj) 0.4 mg UNSCH PRN IV PUSH 06/24/17 13:45 (Milk Of Magnesia Liq) 30 ml Q12H PRN PO 06/24/17 13:45 06/28/17 19:58 (Coumadin) 7.5 mg DAILY@16 PO 06/24/17 17:00 Future Hold 06/26/17 16:09 (Aspirin Chew) 81 mg DAILY CHEW 06/25/17 09:00 06/27/17 07:17 (Bentyl) 10 mg TID PRN PO 06/24/17 13:45 (Prinivil) 5 mg DAILY PO 06/25/17 09:00 06/29/17 08:46 (Carafate) 1 gm ACHS PO 06/24/17 18:00 06/29/17 12:07 (Tylenol) 650 mg Q6HR PRN PO 06/25/17 04:45 06/25/17 05:49 (Zyloprim) 100 mg DAILY PO 06/26/17 09:00 06/29/17 08:46 (Pepcid) 20 mg BID PO 06/25/17 21:00 06/29/17 08:46 (Mag-Al Plus Susp Liq) 30 ml Q6H PRN PO 06/25/17 11:30 ([place] 5-325 Mg) 1 tab Q4H PRN PO 06/25/17 11:30 ([place] 10-325 Mg) 1 tab Q4H PRN PO 06/25/17 11:30 06/29/17 08:47 (Protonix) 40 mg Q12HR PO 06/27/17 21:00 06/29/17 08:46 Lactated Ringer's 1,000 ml @ 30 mls/hr Q24H PRN IV 06/27/17 23:00 06/30/17 22:59 (Betadine 5% Antisepsis Kit) 1 applic INSPECTOR MOTOR VEHICLES PRN EACH NARE 06/27/17 23:00 06/30/17 22:59 (Chlorhexidine 2% Cloth) 3 pack INSPECTOR MOTOR VEHICLES PRN TOPICAL 06/27/17 23:00 06/30/17 22:59 (Deltasone) 40 mg DAILY PO 06/28/17 13:30 07/02/17 09:01 06/29/17 08:46 A/P Problem List: (1) Deep vein thrombosis (DVT) ICD Code: I82.409 - Acute embolism and thrombosis of unspecified deep veins of unspecified lower extremity Status: Acute Assessment and Plan Chest pain/ Dysphagia Negative ACS workup. CT chest with old granulomatous disease. Cardiology consult appreciated. Chest pain may be s/t dysphagia. - GI planning on EGD when INR is below 2. - continue PPI. Right lower extremity DVT/ Subacute pulmonary emboli/ Outpatient treatment failure Patient has failed Xarelto due to financial cost. - S/p heparin drip. Therapeutic INR. Continue Coumadin. On hold for EGD. Follow INR. 2.4 06/29. Myocardial infarction 2/ Coronary artery disease/ Congestive heart failure Evaluated by cardiology. Stable. - outpt follow-up. - continue home regimen. Gout Uric acid level elevated. Improved. - Allopurinol for maintenance. - prednisone for flare. Chronic renal failure Creatinine is around baseline. - avoid nephrotoxic agents. DVT prophylaxis: Coumadin, on hold Discharge Planning Await EGD Problem Qualifiers (1) Deep vein thrombosis (DVT): Qualified Codes: I82.4Z1 - Acute embolism and thrombosis of unspecified deep veins of right distal lower extremity John Romero DO Jun 29, 2017 14:01
--- NOTE | 2017-06-29 14:11 | HHI.GIFU ---
Subjective Remarks Resting in bed, watching TV, in NAD. No new complaints. Eager for EGD and dilatation. (Julia Horta) Objective Vitals I&O Vital Signs Date Time Temp Pulse Resp B/P (MAP) Pulse Ox O2 Delivery O2 Flow Rate FiO2 06/29/17 12:00 97.6 62 18 132/74 (93) 94 06/29/17 08:00 96.7 57 18 129/72 (91) 96 06/29/17 07:19 Room Air 06/29/17 07:19 107 06/29/17 04:35 96.8 67 17 129/77 (94) 94 06/29/17 00:25 97.6 54 17 127/80 (96) 94 06/28/17 20:00 97.3 78 16 137/85 (102) 97 06/28/17 19:57 57 06/28/17 16:15 98.7 67 17 131/79 (96) 99 I/O 06/28/17 06/28/17 06/28/17 06/29/17 06/29/17 06/29/17 07:00 15:00 23:00 07:00 15:00 23:00 Intake Total 0 ml 480 ml 360 ml 0 ml Output Total 350 ml 325 ml Balance -350 ml 480 ml 360 ml -325 ml Intake Oral 0 ml 480 ml 360 ml 0 ml Output Urine Total 350 ml 325 ml # Voids 3 1 # Bowel Movements 0 0 0 0 Laboratory Laboratory Tests Test 06/29/17 04:26 Prothrombin Time 27.0 Prothromb Time International Ratio 2.4 Physical Exam HEENT: PERRL; normocephalic; atraumatic; no jaundice. CHEST: CTA CARDIAC: RRR ABDOMEN: Soft, nondistended, nontender; no hepatosplenomegaly; bowel sounds are present in all four quadrants. EXTREMITIES: No clubbing, cyanosis, or edema. SKIN: Normal; no rash; no jaundice. TOBACCO CLOTH RECLAIMER: No focal deficits; alert and oriented times three. (Julia Horta) Assessment and Plan Plan ASSESSMENT: - Dysphagia. 2 month hx of odynophagia, dysphagia with liquids and solids, epigastric pain, heartburn. He has daily heartburn and takes antacids frequently. EGD (07/08/16)----> reflux esophagitis mild, small hiatal hernia, antral gastritis with a small antral ulcer. Biopsies were not taken. It was recommended that he have a repeat EGD in 2 months, but the patient has not followed up for this, as he has lost his insurance. He denies any Ibuprofen/Aleve use. Rare ETOH use INR 2.4 today so could not do EGD, will try again for Tuesday and continue to hold coumadin. - Elevated LFTs. CTA noted hepatic steatosis. hep panel neg. US shows hepatomegaly. - GERD, Hx Gastric ulcer. - Acute RLE DVT, Hx PE. Was taking Xarelto, but has not been able to afford this and therefore has been off for 2 months. - Anemia. Mild, normocytic. relatively stable - KURT, Creat 1.44 06/28 - CAD with elevated Troponin, chest pain. S/P Cardiac evaluation. - HTN, Anxiety, Gout per attending. PLAN: - EGD with poss dilatation Tuesday if INR allows - NPO after MN - rck coag - Notify GI of INR if > 2.0 - cont protonix - monitor labs - Supportive care - Further recommendations to follow based on results of above - Pt seen and examined by Dr. Felton and myself and this note is written on his behalf (Julia Horta) Physician Comments Seen and examined with MONIQUE, unable to proceed with egd today due to elvated INR. Tentatively scheduled for tuesday. (Cheko Felton MD) Julia Horta Jun 29, 2017 14:11 Cheko Felton MD Jun 29, 2017 14:58
[2017-06-30] VITALS (7 sets, daily range): BP systolic 114–142; BP diastolic 62–84; PULSE 54–69; RESP 16–18; TEMP 96.6–97.5; O2SAT 91–98
[2017-06-30 06:12] LABS: HEMATOCRIT 35.2 % (39.0-51.0); MEAN CELL VOLUME 95.6 FL (80.0-100.0); MEAN CORPUSCULAR HEMOGLOBIN 32.4 PG (27.0-34.0); MEAN CORPUSCULAR HGB CONC 33.9 % (32.0-36.0); PLATELET COUNT 221 TH/MM3 (150-450); RED BLOOD COUNT 3.68 MIL/MM3 (4.50-5.90); RED CELL DISTRIBUTION WIDTH 13.9 % (11.6-17.2); REVIEW FLAG FINAL; WHITE BLOOD COUNT 7.5 TH/MM3 (4.0-11.0)
[2017-06-30 06:23] LABS: APTT (PATIENT) 37.5 SEC (24.3-30.1); INTERNATIONAL NORMALIZED RATIO 2.3 RATIO; PROTHROMBIN TIME - PATIENT 26.1 SEC (9.8-11.6)
[2017-06-30] MEDS: FAMOTIDINE 20 MG TAB PO SCH ×2 (08:57→20:59)
[2017-06-30] MEDS: ALLOPURINOL 100 MG TAB PO SCH (08:57)
[2017-06-30] MEDS: predniSONE 20 MG TAB PO SCH (08:57)
[2017-06-30] MEDS: LISINOPRIL 5 MG TAB PO SCH (08:57)
[2017-06-30] MEDS: SUCRALFATE 1 GM TAB PO SCH ×4 (08:57→20:59)
[2017-06-30] MEDS: PANTOPRAZOLE SOD 40 MG DELAYED RELEASE TAB PO SCH ×2 (08:57→20:59)
[2017-06-30] MEDS: SODIUM CHLORIDE 0.9% FLUSH 10 ML FLUSH IV FLUSH SCH ×2 (08:59→20:59)
[2017-06-30] MEDS: ASPIRIN 81 MG CHEW TAB CHEW SCH (08:59)
--- NOTE | 2017-06-30 14:58 | HHI.PR ---
Subjective Remarks The patient was waiting for his lunch. He said that he will get up and walk around after lunch. He is hoping to get the procedure done tomorrow. Discussed with nursing. Objective Vitals Vital Signs Date Time Temp Pulse Resp B/P (MAP) Pulse Ox O2 Delivery O2 Flow Rate FiO2 06/30/17 12:00 97.0 64 18 120/74 (89) 95 06/30/17 10:07 54 06/30/17 10:07 69 16 135/79 (97) 96 06/30/17 08:00 97.1 55 18 123/67 (85) 91 06/30/17 04:17 96.9 58 17 114/62 (79) 98 06/29/17 23:39 96.7 60 18 128/64 (85) 96 06/29/17 20:38 Room Air 06/29/17 20:05 56 06/29/17 19:35 96.7 60 17 126/77 (93) 95 06/29/17 16:00 97.2 65 18 132/74 (93) 97 I/O 06/29/17 06/29/17 06/29/17 06/30/17 06/30/17 06/30/17 07:00 15:00 23:00 07:00 15:00 23:00 Intake Total 0 ml 720 ml 720 ml 480 ml Output Total 325 ml Balance -325 ml 720 ml 720 ml 480 ml Intake Oral 0 ml 720 ml 720 ml 480 ml Output Urine Total 325 ml # Voids 3 3 2 # Bowel Movements 0 0 1 0 Result Diagram: 06/30/17 0513 06/27/17 0511 Imaging Last Impressions Liver Ultrasound 06/27/17 0000 Signed Impressions: Service Date/Time: Tuesday, June 27, 2017 18:48 - CONCLUSION: 1. Hepatomegaly without focal lesion. 2. Contracted gallbladder without shadowing stones. Edwin Appiah MD Chest X-Ray 06/27/17 0000 Signed Impressions: Service Date/Time: Tuesday, June 27, 2017 07:39 - CONCLUSION: 1. No acute abnormality or significant interval change. Satnam Lundy MD CT Angiography 06/26/17 0000 Signed Impressions: Service Date/Time: Monday, June 26, 2017 12:47 - CONCLUSION: 1. Bilateral pulmonary emboli seen on prior study are no longer seen. 2. Old granulomatous disease. 3. Subcentimeter pulmonary nodular densities unchanged. 4. Hepatic steatosis. 5. Mild groundglass opacity at the dependent portions of the lungs likely representing atelectasis. 6. Mild tree in bud opacity in the right upper lobe unchanged. Ted Myers MD Lower Extremity Ultrasound 06/24/17 0000 Signed Impressions: Service Date/Time: Saturday, June 24, 2017 11:20 - CONCLUSION: Occlusive thrombus in the peroneal vein. The deep venous system is otherwise patent. John Corado MD Ankle X-Ray 06/24/17 0000 Signed Impressions: Service Date/Time: Saturday, June 24, 2017 10:05 - CONCLUSION: 1. Small spur off the inferior calcaneus at the site of attachment of the plantar aponuerosis. 2. Ankle mortise is intact. John Corado MD Objective Remarks GENERAL: NAD, A&Ox3 HEAD: Normocephalic. NECK: Supple, trachea midline. No lymphadenopathy. EYES: No scleral icterus. No injection or drainage. CARDIOVASCULAR: Regular rate and rhythm without murmurs, gallops, or rubs. RESPIRATORY: Breath sounds equal bilaterally. No accessory muscle use. GASTROINTESTINAL: Abdomen soft, non-tender, nondistended. MUSCULOSKELETAL: No cyanosis, or edema. SKIN: Warm and dry. NEURO: No focal neurological deficits. PSYCH: Mood and affect appropriate. Medications and IVs Current Medications Medications (Trade) Dose Ordered Sig/Oumou Route Start Time Stop Time Status Last Admin (NS Flush) 2 ml UNSCH PRN IV FLUSH 06/24/17 13:45 06/26/17 04:46 (NS Flush) 2 ml BID IV FLUSH 06/24/17 21:00 06/30/17 08:59 (Zofran Inj) 4 mg Q6H PRN IVP 06/24/17 13:45 (Narcan Inj) 0.4 mg UNSCH PRN IV PUSH 06/24/17 13:45 (Milk Of Magnesia Liq) 30 ml Q12H PRN PO 06/24/17 13:45 06/28/17 19:58 (Coumadin) 7.5 mg DAILY@16 PO 06/24/17 17:00 Future Hold 06/26/17 16:09 (Aspirin Chew) 81 mg DAILY CHEW 06/25/17 09:00 06/27/17 07:17 (Bentyl) 10 mg TID PRN PO 06/24/17 13:45 (Prinivil) 5 mg DAILY PO 06/25/17 09:00 06/30/17 08:57 (Carafate) 1 gm ACHS PO 06/24/17 18:00 06/30/17 12:05 (Tylenol) 650 mg Q6HR PRN PO 06/25/17 04:45 06/25/17 05:49 (Zyloprim) 100 mg DAILY PO 06/26/17 09:00 06/30/17 08:57 (Pepcid) 20 mg BID PO 06/25/17 21:00 06/30/17 08:57 (Mag-Al Plus Susp Liq) 30 ml Q6H PRN PO 06/25/17 11:30 ([place] 5-325 Mg) 1 tab Q4H PRN PO 06/25/17 11:30 ([place] 10-325 Mg) 1 tab Q4H PRN PO 06/25/17 11:30 06/29/17 08:47 (Protonix) 40 mg Q12HR PO 06/27/17 21:00 06/30/17 08:57 Lactated Ringer's 1,000 ml @ 30 mls/hr Q24H PRN IV 06/27/17 23:00 06/30/17 22:59 (Betadine 5% Antisepsis Kit) 1 applic CRANKSHAFT GRINDER PRN EACH NARE 06/27/17 23:00 06/30/17 22:59 (Chlorhexidine 2% Cloth) 3 pack CRANKSHAFT GRINDER PRN TOPICAL 06/27/17 23:00 06/30/17 22:59 (Deltasone) 40 mg DAILY PO 06/28/17 13:30 07/02/17 09:01 06/30/17 08:57 A/P Problem List: (1) Deep vein thrombosis (DVT) ICD Code: I82.409 - Acute embolism and thrombosis of unspecified deep veins of unspecified lower extremity Status: Acute Assessment and Plan Chest pain/ Dysphagia Negative ACS workup. CT chest with old granulomatous disease. Cardiology consult appreciated. Chest pain may be s/t dysphagia. - GI planning on EGD when INR is below 2. Anticipate 07/01. - continue PPI. Right lower extremity DVT/ Subacute pulmonary emboli/ Outpatient treatment failure Patient has failed Xarelto due to financial cost. - S/p heparin drip. Therapeutic INR. Continue Coumadin. On hold for EGD. Follow INR. 2.3 06/30. Myocardial infarction 2/ Coronary artery disease/ Congestive heart failure Evaluated by cardiology. Stable. - outpt follow-up. - continue home regimen. Gout Uric acid level elevated. Improved. - Allopurinol for maintenance. - prednisone for flare. Chronic renal failure Creatinine is around baseline. - avoid nephrotoxic agents. DVT prophylaxis: Coumadin, on hold Discharge Planning Await EGD Problem Qualifiers (1) Deep vein thrombosis (DVT): Qualified Codes: I82.4Z1 - Acute embolism and thrombosis of unspecified deep veins of right distal lower extremity John Romero DO Jun 30, 2017 14:58
[2017-07-01 03:33] VITALS: BP 113/62; PULSE 51; RESP 18; TEMP 97.1; O2SAT 93
[2017-07-01] MEDS ORDERED: SODIUM CHLORID 0.9% 500 ML IV PRN (05:15)
[2017-07-01] MEDS ORDERED: LACTATED RINGER'S 1000 ML IV PRN (05:15)
[2017-07-01] MEDS ORDERED: CHLORHEXIDINE GLUCONATE 2 % 1 PACK (2 CLOTHS) TOPICAL PRN (05:15)
[2017-07-01] MEDS ORDERED: INSULIN HUMAN REGULAR 1,000 UNITS/10 ML VIAL SQ PRN (05:15)
[2017-07-01] MEDS ORDERED: METOPROLOL TARTRATE 25 MG TAB PO PRN (05:15)
[2017-07-01] MEDS ORDERED: POVIDONE IODINE 5% (ANTISEPSIS KIT) 4 APPLICATIONS EACH NARE PRN (05:15)
[2017-07-01 06:26] LABS: INTERNATIONAL NORMALIZED RATIO 1.8 RATIO; PROTHROMBIN TIME - PATIENT 20.1 SEC (9.8-11.6)
[2017-07-01 08:00] VITALS: BP 136/72; PULSE 50; RESP 18; TEMP 96.1; O2SAT 98
[2017-07-01] MEDS: ASPIRIN 81 MG CHEW TAB CHEW SCH (09:00)
[2017-07-01] MEDS: SUCRALFATE 1 GM TAB PO SCH ×2 (09:14→12:00)
[2017-07-01] MEDS: PANTOPRAZOLE SOD 40 MG DELAYED RELEASE TAB PO SCH (09:15)
[2017-07-01] MEDS: FAMOTIDINE 20 MG TAB PO SCH (09:15)
[2017-07-01] MEDS: ALLOPURINOL 100 MG TAB PO SCH (09:15)
[2017-07-01] MEDS: predniSONE 20 MG TAB PO SCH (09:15)
[2017-07-01] MEDS: LISINOPRIL 5 MG TAB PO SCH (09:15)
[2017-07-01] MEDS: SODIUM CHLORIDE 0.9% FLUSH 10 ML FLUSH IV FLUSH SCH (09:23)
[2017-07-01] MEDS ORDERED: GLYCOPYRROLATE 1 MG/5 ML SYRINGE IV PUSH ONE (12:00)
[2017-07-01] MEDS ORDERED: PROPOFOL 200 MG/20 ML AMP IV ONE (12:00)
[2017-07-01] MEDS ORDERED: LIDOCAINE HCL 1% PF 5 ML SYRINGE OTHER ONE (12:00)
--- NOTE | 2017-07-01 12:23 | GIPROC ---
[facility] [address] [facility]. [facility], [address] EGD PROCEDURE REPORT EXAM DATE: 07/01/2017 PATIENT NAME: Madhu Rivas MR #: [id number] BIRTHDATE: 1960 ATTENDING: Cheko Felton MD ORDER #: [id number] STOCK PREPARATION SUPERVISOR: Wilner Falk and Sherlyn Myers STATUS: inpatient INDICATIONS: The patient is a 57 yr old male here for an EGD due to dysphagia PROCEDURE PERFORMED: EGD, diagnostic MEDICATIONS: None and Per Anesthesia. TOPICAL ANESTHETIC: CONSENT: The patient understands the risks and benefits of the procedure and understands that these risks include, but are not limited to: sedation, allergic reaction, infection, perforation and/or bleeding. Alternative means of evaluation and treatment include, among others: physical exam, x-rays, and/or surgical intervention. The patient elects to proceed with this endoscopic procedure. medical equipment was checked for proper function. Hand hygiene and appropriate measures for infection prevention was taken. After the risks, benefits and alternatives of the procedure were thoroughly explained, Informed consent was verified, confirmed and timeout was successfully executed by the treatment team. The patient was anesthetized with topical anesthesia and the Pentax [id number] endoscope was introduced through the mouth and advanced to the second portion of the duodenum. Retroflexed views revealed a hiatal hernia The gastroscope was then slowly withdrawn and removed. 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 The length of circumferential Manning's was 2cm ([place] C2) and the length of Maximal extent of Manning's was 2cm ([place] M2). There was no nodular mucosa noted in the Manning's segment. Biopsies not domne due to anticoagulation. STOMACH: The mucosa of the stomach appeared normal. DUODENUM: The duodenal mucosa appeared normal in the bulb and second portion of the duodenum. ADVERSE EVENTS: There were no complications. IMPRESSIONS: 1. 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 The mucosa of the stomach appeared normal 3. Normal duodenal mucosa in the bulb and second portion of the duodenum 4. Retroflexed views revealed a hiatal hernia RECOMMENDATIONS: 1. Await biopsy results. Biopsy results will not be ready for 7-10 days. If you don't hear from us in two weeks, call our office for biopsy results. 2. Anti-reflux regimen 3. Start PPI PATIENT CONDITION: stable DISPOSITION: Inpatient REPEAT EXAM: Return 3 months EGD Cheko Felton MD eSigned: Cheko Felton MD 07/01/2017 12:22 PM cc: PATIENT NAME: Madhu Rivas MR#: [id number]
[2017-07-01] MEDS ORDERED: PRED20 PO (13:59)
[2017-07-01] MEDS ORDERED: WARF-58 PO (13:59)
--- NOTE | 2017-07-01 14:01 | HHI.DCPOC ---
Discharge Care Plan Diagnosis: (1) Chest pain (2) Deep vein thrombosis (DVT) (3) Bradycardia (4) Chronic kidney disease (CKD), stage III (moderate) (5) Elevated troponin I level (6) Dysphagia Goals to Promote Your Health * To prevent worsening of your condition and complications * To maintain your health at the optimal level Directions to Meet Your Goals Take your medications as prescribed Follow your dietary instruction Follow activity as directed Keep your appointments as scheduled Take your immunizations and boosters as scheduled If your symptoms worsen call your PCP, if no PCP go to Urgent Care Center or Emergency Room Smoking is Dangerous to Your Health. Avoid second hand smoke Call the 24-hour hour crisis hotline for domestic abuse at John Romero DO Jul 01, 2017 14:01
[2017-07-01] MEDS ORDERED: HYDR-3516 PO (14:10)
--- NOTE | 2017-07-01 14:19 | HHI.DS ---
Discharge Summary Admission Date Jun 24, 2017 at 13:38 Discharge Date: Jul 01, 2017 Admitting Diagnosis DVT left peroneal (1) Deep vein thrombosis (DVT) ICD Code: I82.409 - Acute embolism and thrombosis of unspecified deep veins of unspecified lower extremity Diagnosis: Principal Status: Acute (2) Dysphagia ICD Code: R13.10 - Dysphagia, unspecified Diagnosis: Principal (3) Elevated troponin I level ICD Code: R79.89 - Other specified abnormal findings of blood chemistry Status: Chronic (4) Bradycardia ICD Code: R00.1 - Bradycardia Status: Acute (5) Chronic kidney disease (CKD), stage III (moderate) ICD Code: N18.3 - Chronic kidney disease, stage 3 (moderate) Status: Chronic Procedures EGD Brief History - From Admission Mr. Rivas is a 57-year-old male. He came into the hospital today complaining of right lower extremity ankle pain which he thought was gout. He says he has a recurrent problem with scalp. Imaging of the right lower extremity shows a DVT. He has a history of VA, pulmonary emboli, and now DVT. Hypercoagulability may run in his family. Factor V Leiden disorder as mentioned by his mother. He had previously been on Xarelto for his pulmonary emboli but has not been else afford this and has stopped it for the past 2 months. Currently his primary complaint is right lower extremity pain without significant edema. No fevers. No injury of the right lower extremity. No other complaints. CBC/BMP: 06/30/17 0513 06/27/17 0511 Significant Findings Laboratory Tests Test 06/29/17 04:26 06/30/17 05:13 07/01/17 05:25 Prothrombin Time 27.0 SEC (9.8-11.6) 26.1 SEC (9.8-11.6) 20.1 SEC (9.8-11.6) Red Blood Count 3.68 MIL/MM3 (4.50-5.90) Hemoglobin 11.9 GM/DL (13.0-17.0) Hematocrit 35.2 % (39.0-51.0) Activated Partial Thromboplast Time 37.5 SEC (24.3-30.1) Imaging Last Impressions Liver Ultrasound 06/27/17 Signed Impressions: Service Date/Time: Tuesday, June 27, 2017 18:48 - CONCLUSION: 1. Hepatomegaly without focal lesion. 2. Contracted gallbladder without shadowing stones. Edwin Appiah MD Chest X-Ray 06/27/17 Signed Impressions: Service Date/Time: Tuesday, June 27, 2017 07:39 - CONCLUSION: 1. No acute abnormality or significant interval change. Satnam Lundy MD CT Angiography 06/26/17 Signed Impressions: Service Date/Time: Monday, June 26, 2017 12:47 - CONCLUSION: 1. Bilateral pulmonary emboli seen on prior study are no longer seen. 2. Old granulomatous disease. 3. Subcentimeter pulmonary nodular densities unchanged. 4. Hepatic steatosis. 5. Mild groundglass opacity at the dependent portions of the lungs likely representing atelectasis. 6. Mild tree in bud opacity in the right upper lobe unchanged. Ted Myers MD Lower Extremity Ultrasound 06/24/17 Signed Impressions: Service Date/Time: Saturday, June 24, 2017 11:20 - CONCLUSION: Occlusive thrombus in the peroneal vein. The deep venous system is otherwise patent. John Corado MD Ankle X-Ray 06/24/17 Signed Impressions: Service Date/Time: Saturday, June 24, 2017 10:05 - CONCLUSION: 1. Small spur off the inferior calcaneus at the site of attachment of the plantar aponuerosis. 2. Ankle mortise is intact. John Corado MD PE at Discharge GENERAL: NAD, A&Ox3 HEAD: Normocephalic. NECK: Supple, trachea midline. No lymphadenopathy. EYES: No scleral icterus. No injection or drainage. CARDIOVASCULAR: Regular rate and rhythm without murmurs, gallops, or rubs. RESPIRATORY: Breath sounds equal bilaterally. No accessory muscle use. GASTROINTESTINAL: Abdomen soft, non-tender, nondistended. MUSCULOSKELETAL: No cyanosis, or edema. SKIN: Warm and dry. NEURO: No focal neurological deficits. PSYCH: Mood and affect appropriate. Pt update on day of discharge The patient was feeling well and looking forward to going home. He wanted to know the results of the endoscopy. He said that he could not afford long-term Xarelto. He said he is trying to find a PCP. Discussed with case management. Hospital Course Chest pain/ Dysphagia He has a history of CAD and CHF. Negative ACS workup. CT chest with old granulomatous disease. Cardiology was consulted. Gastroenterology was consulted and the pt is s/p EGD 07/01. He tolerated the procedure well. He will continue a PPI and will follow-up with GI as an outpt. Right lower extremity DVT/ Subacute pulmonary emboli/ Outpatient treatment failure Patient has failed Xarelto due to financial cost. S/p heparin drip. Coumadin was held for the EGD. The pt will resume Coumadin upon discharge. He has no PCP , therefore case management will set him up with the [facility] for INR checks and Coumadin dose adjustments. Gout Uric acid level was elevated. He received allopurinol. He did well with a prednisone taper. Pt Condition on Discharge: Stable Discharge Disposition: Discharge Home Discharge Time: > 30 minutes Discharge Instructions DIET: Follow Instructions for: Heart Healthy Diet, Coumadin (Warfarin) Diet Activities you can perform: Regular-No Restrictions Follow up Referrals: Gastroenterology - 2 Weeks with Cheko Felton MD PCP Follow-up - 1 Week New Orders: PT/INR - 07/04/17 PT/INR - 07/07/17 PT/INR - 07/11/17 New Medications: Warfarin (Warfarin) 3 Mg Tab 3 MG PO DAILY for Blood Clot Prevention, #30 TAB 0 Refills Hydrocodone/Acetaminophen (Hydrocodone-Acetamin 5-325 mg) 5 Mg-325 Mg Tablet 1 TAB PO Q6HR PRN for pain, #12 TAB Prednisone (Prednisone) 20 Mg Tab 20 MG PO DAILY for Gout for 2 Days, #2 TAB Continued Medications: Aspirin (Aspirin) 81 Mg Chew 81 MG CHEW DAILY, TAB 0 Refills Dicyclomine (Bentyl) 10 Mg Cap 10 MG PO TID PRN for Bowel Management, #30 CAP 0 Refills Lisinopril (Lisinopril) 5 Mg Tab 10 MG PO DAILY for Blood Pressure Management, #30 TAB 0 Refills Omeprazole Magnesium (Prilosec) 20 Mg Tab 20 MG PO DAILY, #90 Sucralfate (Carafate) 1 Gram Tab 1 GM PO QID for Ulcer Prevention, #120 TAB 0 Refills On empty stomach Discontinued Medications: Amlodipine (Amlodipine) 5 Mg Tab 5 MG PO DAILY for Blood Pressure Management, #30 TAB 0 Refills Pantoprazole (Protonix) 40 Mg Tab 40 MG PO DAILY for Reflux, #30 TAB 0 Refills John Romero DO Jul 01, 2017 14:19
== END 2017-07-01 16:55 | disposition home or self-care (01) | DRG 300 ==
LOC: NEPC 09:49 → NEDA 13:38 → N06A 15:10
PROVIDERS: ADMIT Hospitalist; ATTEND Hospitalist
PROC: 0DJ08ZZ Inspection of Upper Intestinal Tract, Via Natural or Artificial Opening Endoscopic (ICD-10-PCS; principal; 2017-07-01 12:03)
DX: I82.4Z1 Acute embolism and thrombosis of unspecified deep veins of right distal lower extremity (principal); I13.0 Hypertensive heart and chronic kidney disease with heart failure and stage 1 through stage 4 chronic kidney disease, or unspecified chronic kidney disease; J84.10 Pulmonary fibrosis, unspecified; N17.9 Acute kidney failure, unspecified; I50.9 Heart failure, unspecified; N18.3 Chronic kidney disease, stage 3 (moderate); R13.10 Dysphagia, unspecified; R00.1 Bradycardia, unspecified; Z86.711 Personal history of pulmonary embolism; Z83.2 Family history of diseases of the blood and blood-forming organs and certain disorders involving the immune mechanism; Z91.120 Patient's intentional underdosing of medication regimen due to financial hardship; I25.2 Old myocardial infarction; I25.119 Atherosclerotic heart disease of native coronary artery with unspecified angina pectoris; Z95.5 Presence of coronary angioplasty implant and graft; M10.9 Gout, unspecified; M19.90 Unspecified osteoarthritis, unspecified site; J44.9 Chronic obstructive pulmonary disease, unspecified; K44.9 Diaphragmatic hernia without obstruction or gangrene; K22.70 Barrett's esophagus without dysplasia; F41.1 Generalized anxiety disorder; D64.9 Anemia, unspecified; E78.5 Hyperlipidemia, unspecified; Z87.11 Personal history of peptic ulcer disease
CPT/HCPCS: 71010; 71275; 73610; 76705; 80053; 80074; 82550; 84484; 84550; 85025; 85027; 85610; 85730; 93005; 93971; 99211; G0463; J1644; J1885; J3010; J7120; J7512; Q9967

== ENCOUNTER 2017-08-16 10:54 | Inpatient (IN) | payer BC ==
[~2017-08-16] VITALS: Ht 170.2 cm; Wt 90.8 kg
[~2017-08-16 10:54] MED LIST changes: -APIX5TAB PO; +ASPI-516 CHEW; +HYDR-3516 PO; +PRED20 PO; -PROT40TA PO; +WARF-58 PO
[2017-08-16 10:56] VITALS: BP 152/90; PULSE 83; RESP 14; TEMP 98.2; O2SAT 98
[2017-08-16 11:54] LABS: AUTOMATED NEUTROPHIL # 4.4 TH/MM3 (1.8-7.7); BASOPHIL % 0.5 % (0.0-2.0); EOSINOPHIL # 0.1 TH/MM3 (0-0.4); EOSINOPHIL % 2.1 % (0.0-4.0); HEMATOCRIT 38.2 % (39.0-51.0); HEMOGLOBIN 13.4 GM/DL (13.0-17.0); LYMPHOCYTE # 1.1 TH/MM3 (1.0-4.8); MEAN CELL VOLUME 96.6 FL (80.0-100.0); MEAN CORPUSCULAR HEMOGLOBIN 33.8 PG (27.0-34.0); MEAN PLATELET VOLUME 8.2 FL (7.0-11.0); MONO % 15.8 % (0.0-8.0); MONOCYTE # 1.1 TH/MM3 (0-0.9); NEUT % 65.6 % (16.0-70.0); PLATELET COUNT 192 TH/MM3 (150-450); RED BLOOD COUNT 3.96 MIL/MM3 (4.50-5.90); RED CELL DISTRIBUTION WIDTH 14.9 % (11.6-17.2); WHITE BLOOD COUNT 6.7 TH/MM3 (4.0-11.0)
--- NOTE | 2017-08-16 11:59 | RADRPT ---
EXAM DATE/TIME: 08/16/2017 11:45 [place] COMPARISON: CHEST PA & LAT, April 10, 2017, 9:17. INDICATIONS : Chest pains mid-sternal radiating into back and left arm. History Bradycardia MEDICAL HISTORY : Myocardial infarction. SURGICAL HISTORY : None. ENCOUNTER: Initial ACUITY: 3 days PAIN SCORE: 6/10 LOCATION: Left chest FINDINGS: PA and lateral views of the chest were obtained. The PA view is Midinspiratory with crowding of the l marialuisa vasculature. No confluent infiltrates or effusions are present. The heart size remains within nor mal limits. The bony thorax is unremarkable. CONCLUSION: Midinspiratory exam demonstrating no acute cardiopulmonary disease. John Corado MD on August 16, 2017 at 11:54 Board Certified Radiologist. This report was verified electronically.
[2017-08-16 12:24] LABS: BICARBONATE 30.2 MEQ/L (21.0-32.0); BLOOD UREA NITROGEN 17 MG/DL (7-18); CALCIUM 9.1 MG/DL (8.5-10.1); CHLORIDE 104 MEQ/L (98-107); CREATININE 1.52 MG/DL (0.60-1.30); GLOMERULAR FILTRATION RATE 48 ML/MIN (>89); GLUCOSE,RANDOM 73 MG/DL (74-106); SODIUM (NA) 138 MEQ/L (136-145); TROPONIN I 0.11 NG/ML (0.02-0.05)
--- NOTE | 2017-08-16 14:57 | PD ---
HPI Chief Complaint: Chest Pain Time Seen by Provider: 14:44 Travel History International Travel<30 days: No Contact w/Intl Traveler<30days: No Traveled to known affect area: No History of Present Illness HPI 57 y/o male presents with chest pain since tuesday. He states he hasn't had is INR checked since he was in the hospital. He states his last prescription he got as a one time thing from his nephew who is a physician. He denies any other concurrent complaints at this time. He denies specific modifying factors. Quality is pressure. Severity is moderate. Location is central. PFSH Past Medical History Hx Anticoagulant Therapy: Yes (ELIQUIS) Arthritis: Yes Asthma: No Blood Disorders: No Anxiety: Yes Depression: Yes Heart Rhythm Problems: No Cancer: No Cardiac Catheterization: Yes Cardiovascular Problems: Yes High Cholesterol: Yes Chemotherapy: No Chest Pain: Yes Congestive Heart Failure: Yes COPD: Yes Cerebrovascular Accident: No Coronary Artery Disease: Yes Diabetes: No Diminished Hearing: No Endocrine: No Gastrointestinal Disorders: No GERD: Yes Genitourinary: Yes Headaches: Yes Hiatal Hernia: Yes Hypertension: Yes Immune Disorder: No Implanted Vascular Access Dvce: No Kidney Stones: Yes Musculoskeletal: Yes Neurologic: Yes Psychiatric: No Reproductive: No Respiratory: Yes Immunizations Current: No Migraines: No Myocardial Infarction: Yes (X2) Pneumonia: Yes Renal Failure: No Seizures: No Sleep Apnea: No Past Surgical History Abdominal Surgery: No AICD: No Arteriovenous Shunt: No Cardiac Surgery: Yes (cardiac cath 2012) Ear Surgery: No Endocrine Surgery: No Eye Surgery: No Genitourinary Surgery: No Gynecologic Surgery: No Hysterectomy: No Insulin Pump: No Joint Replacement: No Neurologic Surgery: No Oral Surgery: No Pacemaker: No Thoracic Surgery: Yes (LUNG BIOPSY 1995) Other Surgery: Yes Social History Alcohol Use: No Tobacco Use: No Substance Use: No Allergies-Medications (Allergen,Severity, Reaction): Coded Allergies: No Known Allergies (Verified Allergy, Unknown, 06/24/17) Reported Meds & Prescriptions Reported Meds & Active Scripts Active Warfarin 3 Mg Tab 3 Mg PO DAILY Reported Tums E-X 750 (Calcium Carbonate (Antacid)) 750 Mg Chew 750 Mg CHEW PRN Vitamin C Adult Gummies (Ascorbic Acid) 125 Mg Chew 125 Mg CHEW DAILY Turmeric (Turmeric Root Extract) 500 Mg Capsule Pantoprazole (Pantoprazole Sodium) 40 Mg Tab 40 Mg PO DAILY Allopurinol 100 Mg Tab 100 Mg PO DAILY Aspirin 81 Mg Chew 81 Mg CHEW DAILY Lisinopril 5 Mg Tab 10 Mg PO DAILY Review of Systems Except as stated in HPI: all other systems reviewed are Neg Physical Exam Narrative GENERAL: Well-nourished, well-developed patient. SKIN: Warm and dry. HEAD: Normocephalic and atraumatic. EYES: No injection or drainage. ENT: No nasal drainage noted. NECK: Supple, trachea midline. CARDIOVASCULAR: Regular rate and rhythm RESPIRATORY: Breath sounds equal bilaterally. No accessory muscle use. GASTROINTESTINAL: Abdomen soft, non-tender, nondistended. EXTREMITIES: No edema. NEUROLOGICAL: Awake and alert. Motor and sensory grossly within normal limits. Normal speech. Data Data Last Documented VS Vital Signs Date Time Temp Pulse Resp B/P (MAP) Pulse Ox O2 Delivery O2 Flow Rate FiO2 08/16/17 15:19 65 08/16/17 15:18 17 147/87 (107) 95 Room Air 08/16/17 10:56 98.2 Orders Orders Electrocardiogram (08/16/17 11:03) Complete Blood Count With Diff (08/16/17 11:03) Basic Metabolic Panel (Bmp) (08/16/17 11:03) Ckmb (Isoenzyme) Profile (08/16/17 11:03) Troponin I (08/16/17 11:03) Chest, Pa & Lat (08/16/17 ) CKMB (08/16/17 11:29) CKMB% (08/16/17 11:29) Ct Pulmonary Angiogram (08/16/17 ) Magnesium (Mg) (08/16/17 14:49) Ecg Monitoring (08/16/17 14:49) Bilateral Bp Monitoring (08/16/17 14:49) Iv Access Insert/Monitor (08/16/17 14:49) Oximetry (08/16/17 14:49) Sodium Chloride 0.9% Flush (Ns Flush) (08/16/17 15:00) Iohexol 350 Inj (Omnipaque 350 Inj) (08/16/17 15:34) Aspirin (Aspirin) (08/16/17 16:00) Prothrombin Time / Inr (Pt) (08/16/17 16:18) Act Partial Throm Time (Ptt) (08/16/17 16:18) Admit To Inpatient (08/16/17 ) Vital Signs (Adult) Q4H (08/16/17 16:18) Activity Oob With Assistance (08/16/17 16:18) Ride Attendant / Telemetry .CONTINUOUS (08/16/17 16:18) Diet Heart Healthy (08/16/17 Dinner) Sodium Chloride 0.9% Flush (Ns Flush) (08/16/17 16:30) Sodium Chloride 0.9% Flush (Ns Flush) (08/16/17 21:00) Acetaminophen (Tylenol) (08/16/17 16:30) Temazepam (Restoril) (08/16/17 16:30) Troponin I (08/16/17 16:18) Troponin I (08/16/17 22:18) Electrocardiogram (08/16/17 16:18) Electrocardiogram (08/16/17 22:18) Resp Oxygen Sergey C Titrat 1-4 L (08/16/17 ) Naloxone Inj (Narcan Inj) (08/16/17 16:30) Magnesium Hydroxide Liq (Milk Of Magnesi (08/16/17 16:30) Sennosides (Senokot) (08/16/17 16:30) Bisacodyl Supp (Dulcolax Supp) (08/16/17 16:30) Lactulose Liq (Lactulose Liq) (08/16/17 16:30) Inpatient Certification (08/16/17 ) Aspirin Chew (Aspirin Chew) (08/17/17 09:00) Atorvastatin (Lipitor) (08/16/17 21:00) Nitroglycerin 2% Oint (Nitroglycerin 2% (08/16/17 16:30) Metoprolol Tartrate (Lopressor) (08/16/17 21:00) Pill Splitter (Pill Splitter) (08/16/17 16:45) Admit Order (Ed Use Only) (08/16/17 17:10) Labs Laboratory Tests Test 08/16/17 11:29 08/16/17 16:58 White Blood Count 6.7 TH/MM3 Red Blood Count 3.96 MIL/MM3 Hemoglobin 13.4 GM/DL Hematocrit 38.2 % Mean Corpuscular Volume 96.6 FL Mean Corpuscular Hemoglobin 33.8 PG Mean Corpuscular Hemoglobin Concent 35.0 % Red Cell Distribution Width 14.9 % Platelet Count 192 TH/MM3 Mean Platelet Volume 8.2 FL Neutrophils (%) (Auto) 65.6 % Lymphocytes (%) (Auto) 16.0 % Monocytes (%) (Auto) 15.8 % Eosinophils (%) (Auto) 2.1 % Basophils (%) (Auto) 0.5 % Neutrophils # (Auto) 4.4 TH/MM3 Lymphocytes # (Auto) 1.1 TH/MM3 Monocytes # (Auto) 1.1 TH/MM3 Eosinophils # (Auto) 0.1 TH/MM3 Basophils # (Auto) 0.0 TH/MM3 CBC Comment DIFF FINAL Differential Comment Blood Urea Nitrogen 17 MG/DL Creatinine 1.52 MG/DL Random Glucose 73 MG/DL Calcium Level 9.1 MG/DL Sodium Level 138 MEQ/L Potassium Level 4.4 MEQ/L Chloride Level 104 MEQ/L Carbon Dioxide Level 30.2 MEQ/L Anion Gap 4 MEQ/L Estimat Glomerular Filtration Rate 48 ML/MIN Magnesium Level 1.8 MG/DL Total Creatine Kinase 202 U/L Creatine Kinase MB 1.1 NG/ML Troponin I 0.11 NG/ML 0.09 NG/ML Prothrombin Time 26.5 SEC Prothromb Time International Ratio 2.6 RATIO Activated Partial Thromboplast Time 44.1 SEC MDM Medical Decision Making Medical Screen Exam Complete: Yes Emergency Medical Condition: Yes Medical Record Reviewed: Yes (past history confirm, prior note of DVT and PE) Interpretation(s) CBC & BMP Diagram 08/16/17 11:29 Calcium Level 9.1 Last 24 hours Impressions Chest X-Ray 08/16/17 0000 Signed Impressions: Service Date/Time: Wednesday, August 16, 2017 11:45 - CONCLUSION: Midinspiratory exam demonstrating no acute cardiopulmonary disease. John Corado MD ct chest no pe Differential Diagnosis PE, gastritis, cardiac, musculoskeletal Narrative Course Will add on CT pulmonary given history with elevated troponin and monitor ct without pe, will place aspirin and admit Physician Communication Physician Communication dr murphy agrees to admit Diagnosis Primary Impression: Chest pain Qualified Codes: R07.9 - Chest pain, unspecified Additional Impression: Elevated troponin I level Admitting Information Admitting Physician Requests: Admit Sandy Shepard MD Aug 16, 2017 14:57
[2017-08-16] MEDS ORDERED: SODIUM CHLORIDE 0.9% FLUSH 10 ML FLUSH IVF PRN (15:00)
[2017-08-16] MEDS ORDERED: ASCO1CHW7 CHEW (15:17)
[2017-08-16] MEDS ORDERED: PANT40TA3 PO (15:17)
[2017-08-16] MEDS ORDERED: CALC750C21 CHEW (15:17)
[2017-08-16] MEDS ORDERED: ALLO100T PO (15:17)
[2017-08-16] MEDS ORDERED: TURM500C7 (15:17)
[2017-08-16 15:18] VITALS: BP 147/87; PULSE 65; RESP 17; O2SAT 95
[2017-08-16] MEDS ORDERED: IOHEXOL 350 MG/ML 10 ML VIAL (for RAD DIAG) IVCONTRAST ONE (15:34)
--- NOTE | 2017-08-16 15:51 | RADRPT ---
EXAM DATE/TIME: 08/16/2017 15:19 [place] COMPARISON: CHEST PA & LAT, August 16, 2017, 11:45. CT PULMONARY ANGIOGRAM, June 26, 2017, 12:47. INDICATIONS : Chest pain since Tuesday. Prior history of pulmonary emboli. IV CONTRAST: 53 cc Omnipaque 350 (iohexol) IV RADIATION DOSE: 10.87 CTDIvol (mGy) MEDICAL HISTORY : Chronic obstructive pulmonary disease. Congestive heart failure. Hernia, hiatal. SURGICAL HISTORY : None. ENCOUNTER: Initial ACUITY: 3 days PAIN SCALE: 5/10 LOCATION: chest TECHNIQUE: Volumetric scanning of the chest was performed using a pulmonary embolism protocol MIP images were re constructed. Using automated exposure control and adjustment of the mA and/or kV according to patien t size, radiation dose was kept as low as reasonably achievable to obtain optimal diagnostic quality images. DICOM format image data is available electronically for review and comparison. Follow-up recommendations for detected pulmonary nodules are based at a minimum on nodule size and pa tient risk factors according to Fleischner Society Guidelines. FINDINGS: PULMONARY ARTERIES: No filling defects are seen in the pulmonary arteries through the segmental level. LUNGS: There is no consolidation or pneumothorax . No concerning pulmonary nodule is visualized. There are multiple calcified granulomas. There are stable reticulonodular scarring in the lateral right upper l obe. There are small stable scattered noncalcified pulmonary nodules which are unchanged. PLEURAE: There is no pleural thickening or pleural effusion. MEDIASTINUM: There is good visualization of the great vessels of the middle mediastinum. No evidence of mediastin al or hilar adenopathy/mass. There are multiple calcified hilar lymph nodes. MUSCULOSKELETAL: Within normal limits for patient age. MISCELLANEOUS: The visualized upper abdominal organs demonstrate no acute abnormality. Hepatic steatosis is again no irvin. CONCLUSION: 1. No evidence of pulmonary emboli. 2. Stable noncalcified small pulmonary nodules largest is in the right upper lobe. 3. Old granulomatous disease. 4. Stable reticulonodular scarring in the right upper lobe. 5. Hepatic steatosis. John Croado MD on August 16, 2017 at 15:43 Board Certified Radiologist. This report was verified electronically.
[2017-08-16] MEDS ORDERED: ASPIRIN 325 MG TAB PO ONE (16:00)
[2017-08-16] MEDS ORDERED: BISACODYL 10 MG SUPP RECTAL PRN (16:30)
[2017-08-16] MEDS ORDERED: LACTULOSE SYRUP 20 GM/30 ML CUP PO PRN (16:30)
[2017-08-16] MEDS ORDERED: SODIUM CHLORIDE 0.9% FLUSH 10 ML FLUSH IV FLUSH PRN (16:30)
[2017-08-16] MEDS ORDERED: NALOXONE HCL 0.4 MG/ML AMP IV PUSH PRN (16:30)
[2017-08-16] MEDS ORDERED: ACETAMINOPHEN 325 MG TAB PO PRN (16:30)
[2017-08-16] MEDS ORDERED: MAGNESIUM HYDROXIDE SUSP 30 ML CUP PO PRN (16:30)
[2017-08-16] MEDS ORDERED: SENNOSIDES 8.6 MG TAB PO PRN (16:30)
--- NOTE | 2017-08-16 16:30 | EKG ---
Date Performed: 08/16/2017 Time Performed: 11:31:19 PTAGE: 57 years EKG: Sinus rhythm MODERATE VOLTAGE CRITERIA FOR LVH, CONSIDER NORMAL VARIANT BORDERLINE ECG PREVIOUS TRACING : 06/27/2017 08.10 Compared to prior tracing no significant change DOCTOR: Malcom Jacome Interpretating Date/Time 08/16/2017 16:29:28
[2017-08-16] MEDS ORDERED: PILL SPLITTER OTHER PRN (16:45)
[2017-08-16 17:52] LABS: INTERNATIONAL NORMALIZED RATIO 2.6 RATIO; PROTHROMBIN TIME - PATIENT 26.5 SEC (9.8-11.6)
[2017-08-16 20:42] VITALS: BP 140/67; PULSE 95; RESP 20; TEMP 98; O2SAT 97
[2017-08-16] MEDS: METOPROLOL TARTRATE 25 MG TAB PO SCH (20:57)
[2017-08-16] MEDS: SODIUM CHLORIDE 0.9% FLUSH 10 ML FLUSH IV FLUSH SCH (20:57)
[2017-08-16] MEDS: ATORVASTATIN 80 MG TAB PO SCH (20:57)
--- NOTE | 2017-08-16 22:04 | HHI.HP ---
[facility]ician No Primary Care Physician Admission Diagnosis chest pain, elevated troponin Diagnoses: Chief Complaint: Chest pain. Travel History International Travel<30 Days: No Contact w/Intl Traveler <30 Da: No Traveled to Known Affected Are: No History of Present Illness Mr. Rivas is a pleasant 57 year old male with a history of MN x 3, PE who presented to the ED on 08/16/2017 due to chest pain that started on Tuesday. He reports substernal chest pressure both at rest and on exertion. Chest discomfort comes and goes but has been present during last several days. He felt weak but denies any radiation of the discomfort to neck, jaw, arms. No diaphoresis. He currently takes warfarin for history of PE and thromboembolism. He requests to see if warfarin can be switched to Apixaban. Patient denies any more than usual shortness of breath. He has a history of granulomatous lung disease. Denies any changes in bowel or bladder habits. Review of Systems Except as stated in HPI: all other systems reviewed are Neg Past Family Social History Past Medical History CAD Pulmonary embolism Anxiety/Depression Hyperlipidemia. Past Surgical History Lung biopsy 1995. Reported Medications Active Warfarin 3 Mg Tab 3 Mg PO DAILY Reported Tums E-X 750 (Calcium Carbonate (Antacid)) 750 Mg Chew 750 Mg CHEW PRN Vitamin C Adult Gummies (Ascorbic Acid) 125 Mg Chew 125 Mg CHEW DAILY Turmeric (Turmeric Root Extract) 500 Mg Capsule Pantoprazole (Pantoprazole Sodium) 40 Mg Tab 40 Mg PO DAILY Allopurinol 100 Mg Tab 100 Mg PO DAILY Aspirin 81 Mg Chew 81 Mg CHEW DAILY Lisinopril 5 Mg Tab 10 Mg PO DAILY Allergies: Coded Allergies: No Known Allergies (Verified Allergy, Unknown, 06/24/17) Family History Father - lung cancer. Social History Denies using alcohol, tobacco or illicit drugs. Physical Exam Vital Signs Vital Signs Date Time Temp Pulse Resp B/P (MAP) Pulse Ox O2 Delivery O2 Flow Rate FiO2 08/16/17 20:42 98.0 95 20 140/67 (91) 97 08/16/17 15:19 65 08/16/17 15:18 65 17 147/87 (107) 95 Room Air 08/16/17 10:56 98.2 83 14 152/90 (110) 98 Physical Exam GENERAL: This is a well-nourished, well-developed patient, in no apparent distress. SKIN: No rashes, ecchymoses or lesions. Warm and dry. HEAD: Atraumatic. Normocephalic. No temporal or scalp tenderness. EYES: Pupils equal round and reactive. No injection or drainage. ENT: Nose without bleeding, purulent drainage or septal hematoma. Airway patent. NECK: Trachea midline. No lymphadenopathy. Supple, nontender, no meningeal signs. CARDIOVASCULAR: Regular rate and rhythm without murmurs, gallops, or rubs. No JVD. RESPIRATORY: Clear to auscultation. Breath sounds equal bilaterally. No wheezes , rales, or rhonchi. GASTROINTESTINAL: Abdomen soft, non-tender, nondistended. No guarding. MUSCULOSKELETAL: Extremities without clubbing, cyanosis, or edema. NEUROLOGICAL: Awake and alert. Cranial nerves II through XII intact. No focal neurological deficits. Normal speech. Laboratory Laboratory Tests Test 08/16/17 11:29 08/16/17 16:58 White Blood Count 6.7 Red Blood Count 3.96 Hemoglobin 13.4 Hematocrit 38.2 Mean Corpuscular Volume 96.6 Mean Corpuscular Hemoglobin 33.8 Mean Corpuscular Hemoglobin Concent 35.0 Red Cell Distribution Width 14.9 Platelet Count 192 Mean Platelet Volume 8.2 Neutrophils (%) (Auto) 65.6 Lymphocytes (%) (Auto) 16.0 Monocytes (%) (Auto) 15.8 Eosinophils (%) (Auto) 2.1 Basophils (%) (Auto) 0.5 Neutrophils # (Auto) 4.4 Lymphocytes # (Auto) 1.1 Monocytes # (Auto) 1.1 Eosinophils # (Auto) 0.1 Basophils # (Auto) 0.0 CBC Comment DIFF FINAL Differential Comment Blood Urea Nitrogen 17 Creatinine 1.52 Random Glucose 73 Calcium Level 9.1 Sodium Level 138 Potassium Level 4.4 Chloride Level 104 Carbon Dioxide Level 30.2 Anion Gap 4 Estimat Glomerular Filtration Rate 48 Magnesium Level 1.8 Total Creatine Kinase 202 Creatine Kinase MB 1.1 Troponin I 0.11 0.09 Prothrombin Time 26.5 Prothromb Time International Ratio 2.6 Activated Partial Thromboplast Time 44.1 Result Diagram: 08/16/17 1129 08/16/17 1129 Imaging Last Impressions Chest X-Ray 08/16/17 0000 Signed Impressions: Service Date/Time: Wednesday, August 16, 2017 11:45 - CONCLUSION: Midinspiratory exam demonstrating no acute cardiopulmonary disease. John Corado MD CT Angiography 08/16/17 0000 Signed Impressions: Service Date/Time: Wednesday, August 16, 2017 15:19 - CONCLUSION: 1. No evidence of pulmonary emboli. 2. Stable noncalcified small pulmonary nodules largest is in the right upper lobe. 3. Old granulomatous disease. 4. Stable reticulonodular scarring in the right upper lobe. 5. Hepatic steatosis. MD Tevin Vazquezi VTE Risk Assessment Caprini VTE Risk Assessment: Mod/High Risk (score >= 2) Caprini Risk Assessment Model Point Value = 1 Point Value = 2 Point Value = 3 Point Value = 5 Age 41-60 Minor surgery BMI > 25 kg/m2 Swollen legs Varicose veins or History of unexplained or recurrent spontaneous Oral contraceptives or hormone replacement Sepsis (< 1 month) Serious lung disease, including pneumonia (< 1 month) Abnormal pulmonary function Acute myocardial infarction Congestive heart failure (< 1 month) History of inflammatory bowel disease Medical patient at bed rest Age 61-74 Arthroscopic surgery Major open surgery (> 45 min) Laparoscopic surgery (> 45 min) Malignancy Confined to bed (> 72 hours) Immobilizing plaster cast Central venous access Age >= 75 History of VTE Family history of VTE Factor V Leiden Prothrombin [id number] Lupus anticoagulant Anticardiolipin antibodies Elevated serum homocysteine Heparin-induced thrombocytopenia Other congenital or acquired thrombophilia Stroke (< 1 month) Elective arthroplasty Hip, pelvis, or leg fracture Acute spinal cord injury (< 1 month) Prophylaxis Regimen Total Risk Factor Score Risk Level Prophylaxis Regimen 0-1 Low Early ambulation 2 Moderate Order ONE of the following: *Sequential Compression Device (SCD) *Heparin 5000 units SQ BID 3-4 Higher Order ONE of the following medications: *Heparin 5000 units SQ TID *Enoxaparin/Lovenox 40 mg SQ daily (WT < 150 kg, CrCl > 30 mL/min) *Enoxaparin/Lovenox 30 mg SQ daily (WT < 150 kg, CrCl > 10-29 mL/min) *Enoxaparin/Lovenox 30 mg SQ BID (WT < 150 kg, CrCl > 30 mL/min) AND/OR *Sequential Compression Device (SCD) 5 or more Highest Order ONE of the following medications: *Heparin 5000 units SQ TID (Preferred with Epidurals) *Enoxaparin/Lovenox 40 mg SQ daily (WT < 150 kg, CrCl > 30 mL/min) *Enoxaparin/Lovenox 30 mg SQ daily (WT < 150 kg, CrCl > 10-29 mL/min) *Enoxaparin/Lovenox 30 mg SQ BID (WT < 150 kg, CrCl > 30 mL/min) AND *Sequential Compression Device (SCD) Assessment and Plan Problem List: (1) NSTEMI (non-ST elevated myocardial infarction) ICD Code: I21.4 - Non-ST elevation (NSTEMI) myocardial infarction Status: Acute (2) Hx of pulmonary embolus ICD Code: Z86.711 - Personal history of pulmonary embolism (3) Chronic kidney disease (CKD), stage III (moderate) ICD Code: N18.3 - Chronic kidney disease, stage 3 (moderate) Status: Chronic Assessment and Plan Mr. Rivas is a 57 year old male with a history of CAD, PE currently on warfarin who presents to the ED on 08/16/2017 due to chest pain both at rest and exertion. ED work up indicated troponin elevated to 0.11 and later 0.09. - NSTEMI - Patient's history of CAD and current symptoms are concerning for true NSTEMI. - Pt received Aspirin 325mg. Will continue Aspirin 81mg Qday. Nitro PRN for chest discomfort. O2 PRN. - Start metoprolol 12.5mg BID and Atorvastatin 80mg QHS. - Cardiology consult for possible intervention. - History of PE - Patient is currently on Warfarin. INR today 2.6. He would like to switch to Apixaban. - He can be switched to Apixaban once INR is < 2.0. Apixaban 5mg BID. - CKD stage III - appears to be stable creatinine. Full code. On warfarin, INR 2.6 today. Physician Certification 2 Midnight Certification Type: Admission for Inpatient Services Order for Inpatient Services The services are ordered in accordance with Medicare regulations or non- Medicare payer requirements, as applicable. In the case of services not specified as inpatient-only, they are appropriately provided as inpatient services in accordance with the 2-midnight benchmark. Estimated LOS (days): 2 days is the estimated time the patient will need to remain in the hospital, assuming treatment plan goals are met and no additional complications. Post-Hospital Plan: Home Zelalem Choudhury DO Aug 16, 2017 22:04
[2017-08-17] VITALS (10 sets, daily range): BP systolic 105–168; BP diastolic 57–82; PULSE 50–81; RESP 16–24; TEMP 97.8–98.5; O2SAT 97–99
[2017-08-17 01:32] LABS: TROPONIN I 0.09 NG/ML (0.02-0.05)
[2017-08-17] MEDS ORDERED: ACETAMINOPHEN 325 MG TAB PO PRN (05:15)
[2017-08-17] MEDS: NITROGLYCERIN 2% OINT 1 GM PACKET TOPICAL PRN ×2 (05:22→13:40)
[2017-08-17] MEDS: METOPROLOL TARTRATE 25 MG TAB PO SCH ×2 (09:00→22:38)
[2017-08-17] MEDS: ASPIRIN 81 MG CHEW TAB CHEW SCH (09:02)
[2017-08-17] MEDS: SODIUM CHLORIDE 0.9% FLUSH 10 ML FLUSH IV FLUSH SCH ×2 (09:02→21:00)
--- NOTE | 2017-08-17 18:58 | HHI.PR ---
Subjective Remarks Denies cp/sob. Objective Vitals Vital Signs Date Time Temp Pulse Resp B/P (MAP) Pulse Ox O2 Delivery O2 Flow Rate FiO2 08/17/17 16:11 98.0 59 18 146/82 (103) 98 08/17/17 16:00 58 08/17/17 13:17 97.8 57 18 130/80 (97) 98 08/17/17 12:16 97.8 68 24 121/63 (82) 97 08/17/17 08:30 50 08/17/17 08:00 98.2 64 18 105/57 (73) 99 08/17/17 03:54 98.2 61 18 105/58 (74) 98 08/17/17 00:08 98.0 52 20 113/67 (82) 97 08/16/17 20:42 98.0 95 20 140/67 (91) 97 I/O 08/16/17 08/16/17 08/16/17 08/17/17 08/17/17 08/17/17 07:00 15:00 23:00 07:00 15:00 23:00 Intake Total 0 ml Output Total 400 ml 400 ml Balance -400 ml -400 ml Intake Oral 0 ml Output Urine Total 400 ml 400 ml Result Diagram: 08/16/17 1129 08/16/17 1129 Imaging Last Impressions Chest X-Ray 08/16/17 0000 Signed Impressions: Service Date/Time: Wednesday, August 16, 2017 11:45 - CONCLUSION: Midinspiratory exam demonstrating no acute cardiopulmonary disease. John Corado MD CT Angiography 08/16/17 0000 Signed Impressions: Service Date/Time: Wednesday, August 16, 2017 15:19 - CONCLUSION: 1. No evidence of pulmonary emboli. 2. Stable noncalcified small pulmonary nodules largest is in the right upper lobe. 3. Old granulomatous disease. 4. Stable reticulonodular scarring in the right upper lobe. 5. Hepatic steatosis. John Corado MD Objective Remarks AAOx3, NAD Clear lungs BL S1S2 RRR, no MRG Medications and IVs Current Medications Medications (Trade) Dose Ordered Sig/Oumou Route Start Time Stop Time Status Last Admin (NS Flush) 2 ml UNSCH PRN IV FLUSH 08/16/17 16:30 (NS Flush) 2 ml BID IV FLUSH 08/16/17 21:00 08/17/17 21:00 (Restoril) 15 mg HS PRN PO 08/16/17 16:30 08/17/17 22:52 (Narcan Inj) 0.4 mg UNSCH PRN IV PUSH 08/16/17 16:30 (Milk Of Magnesia Liq) 30 ml Q12H PRN PO 08/16/17 16:30 (Senokot) 17.2 mg Q12H PRN PO 08/16/17 16:30 (Dulcolax Supp) 10 mg DAILY PRN RECTAL 08/16/17 16:30 (Lactulose Liq) 30 ml DAILY PRN PO 08/16/17 16:30 (Aspirin Chew) 81 mg DAILY CHEW 08/17/17 09:00 08/17/17 09:02 (Lipitor) 80 mg HS PO 08/16/17 21:00 08/17/17 22:38 (Nitroglycerin 2% Oint) 0.5 inch Q8H PRN TOPICAL 08/16/17 16:30 08/17/17 13:40 (Lopressor) 12.5 mg Q12HR PO 08/16/17 21:00 08/17/17 22:38 (Pill Splitter) 1 ea UNSCH PRN OTHER 08/16/17 16:45 (Tylenol) 650 mg Q4H PRN PO 08/17/17 05:15 A/P Problem List: (1) NSTEMI (non-ST elevated myocardial infarction) ICD Code: I21.4 - Non-ST elevation (NSTEMI) myocardial infarction Status: Acute (2) Hx of pulmonary embolus ICD Code: Z86.711 - Personal history of pulmonary embolism (3) Chronic kidney disease (CKD), stage III (moderate) ICD Code: N18.3 - Chronic kidney disease, stage 3 (moderate) Status: Chronic Assessment and Plan Mr. Rivas is a 57 year old male with a history of CAD, PE currently on warfarin who presents to the ED on 08/16/2017 due to chest pain both at rest and exertion. ED work up indicated troponin elevated to 0.11 and later 0.09. - NSTEMI - Patient's history of CAD and current symptoms are concerning for true NSTEMI. - Pt received Aspirin 325mg. Will continue Aspirin 81mg Qday. Nitro PRN for chest discomfort. O2 PRN. - Continue metoprolol 12.5mg BID and Atorvastatin 80mg QHS. - 08/17 Cardiology consult appreciated - patient for cardiac catheterization in am if INR less than 2. - History of PE - Patient is currently on Warfarin. INR today 2.6. He would like to switch to Apixaban. - He can be switched to Apixaban once INR is < 2.0. Apixaban 5mg BID. - Will place patient on IV heparin drip once INR falls below 2. - CKD stage III - appears to be stable creatinine. Full code. On warfarin, INR 2.6 08/16. 08/17 [facility] INR in am. Discharge Planning For cardiac cath in am. Cameron Oden MD Aug 17, 2017 18:58
--- NOTE | 2017-08-17 20:07 | MB ---
cc: MITCH WU M.D. DATE OF CONSULTATION: 08/17/2017 REASON FOR CONSULTATION: HISTORY OF PRESENT ILLNESS: Madhu is a very pleasant 57-year-old gentleman with history of granulomatosis and DVT, PE, chronically anticoagulated with Coumadin, previously followed by Dr. Hilliard, however, he has not followed up with Dr. Hilliard in quite some time. He states he has chronic chest pain and shortness of breath which has become worse prior to admission. It was severe yesterday and he presented to the emergency room. Currently he is lying in bed, in no acute distress, lucid. Denies current chest pain, shortness of breath, fever, chills, cough GI, bleeding, paroxysmal nocturnal dyspnea, orthopnea, dizziness. PAST MEDICAL HISTORY: As per the history of present illness. 1. History of anxiety/depression. 2. Hyperlipidemia. 3. CHF. 4. Coronary artery disease. 5. He denies having PCI in the past. 6. Headaches. 7. Hiatal hernia. 8. Hypertension. 9. Nephrolithiasis. 10. History of myocardial infarction x2. 11. Pneumonia. 12. Last heart catheterization in 2012. The patient states he had no stent placement. 13. Lung biopsy 1995. SOCIAL HISTORY: Denies tobacco or alcohol use. ALLERGIES: NONE. MEDICATIONS PRIOR TO ADMISSION: 1. Warfarin 3 milligrams daily. 2. Tums. 3. Vitamin C. 4. Tumeric 500 milligram capsule. 5. Pantoprazole. 6. Allopurinol 7. Aspirin 81 milligrams a day. 8. Lisinopril 500 milligrams daily. MEDICATIONS IN THE HOSPITAL: 1. Aspirin 81 milligrams daily. 2. Atorvastatin 80 milligrams hs. 3. Metoprolol 12.5 q12 hours. 4. Restoril 15 milligrams hs. 5. Half inch nitro paste p.r.n. PHYSICAL EXAMINATION: Pulse 57, respiratory rate 18, temperature 97.8, blood pressure 30/80. Sats are 98% on room air. General: He is alert and oriented x3, in no acute distress. Neck: Supple. No JVD. No bruits. Cardiovascular: S1-S2. No murmurs, rubs, or gallops. Lungs: Clear to auscultation bilaterally. Abdomen: Soft, non-tender, non-distended, positive bowel sounds. Extremities: No lower extremity edema. LABORATORY DATA White count 6.7, hemoglobin 13.4, hematocrit 38.2, platelet count 192, sodium 138, potassium 4.4, chloride 104, bicarb 30.2, BUN 17, creatinine 1.52, INR is 2.6. IMAGING STUDIES: CT angio of chest, no evidence of pulmonary emboli, stable, noncalcified, small pulmonary nodules, largest in the right upper lobe. Old granulomatous disease, stable reticulonodular scarring in the right upper lobe. Hepatic steatostosis. Chest x-ray: Mid inspiratory exam demonstrating no acute "cardiopulmonary disease." EKG in the emergency room, normal sinus rhythm at 64 beats per minute. LVH by AVL criteria. Repeat EKG, 5:16 a.m. today, sinus bradycardia at 52 beats per minute, LVH by AVL criteria, no ischemic changes. DIAGNOSIS 1. Non STEMI. 2. History of DVT. 3. Granulomatous disease. 4. Coronary artery disease. 5. Acute versus chronic renal insufficiency. DISCUSSION Left heart catheterization is medically necessary due to the presentation of non STEMI. Elevated troponin despite therapeutic anticoagulation with Coumadin. The nurse is at the bedside. I explained to the nurse and the patient, we will hold his Coumadin, plan for left heart catheterization when his INR is below 2. I explained to the patient that the risk of cath PCI is 5 to 10% chance of , stroke, heart attack, bleeding, infection, need for bypass surgery, dialysis, blood transfusion, bleeding, infection, arrhythmia. The patient understands and consents to proceed. Agree with aspirin 81 milligrams daily, Atorvastatin 80 milligrams hs, metoprolol 12.5 q12 hours. Will keep the patient n.p.o. after midnight except for INR below 2. If not below 2 in the morning, we will feed him and then re-attempt cath on August 19, if the INR is below 2. MD NICHOLE Gallegos/CHONG /3:49 PM /7:14 PM
--- NOTE | 2017-08-17 21:15 | EKG ---
Date Performed: 08/17/2017 Time Performed: 05:16:32 PTAGE: 57 years EKG: SINUS BRADYCARDIA WITH OCCASIONAL SUPRAVENTRICULAR PREMATURE COMPLEXES MODERATE VOLTAGE CRI TERIA FOR LVH, CONSIDER NORMAL VARIANT BORDERLINE ECG PREVIOUS TRACING : 08/16/2017 21.02 Compared to prior tracing no significant change DOCTOR: Malcom Jacome Interpretating Date/Time 08/17/2017 21:14:33
--- NOTE | 2017-08-17 21:42 | EKG ---
Date Performed: 08/16/2017 Time Performed: 21:02:48 PTAGE: 57 years EKG: SINUS BRADYCARDIA MODERATE VOLTAGE CRITERIA FOR LVH, CONSIDER NORMAL VARIANT BORDERLINE ECG PREVIOUS TRACING : 08/16/2017 17.47 Compared to prior tracing no significant change DOCTOR: Malcom Jacome Interpretating Date/Time 08/17/2017 21:41:40
--- NOTE | 2017-08-17 21:55 | EKG ---
Date Performed: 08/16/2017 Time Performed: 17:47:10 PTAGE: 57 years EKG: SINUS BRADYCARDIA MODERATE VOLTAGE CRITERIA FOR LVH, CONSIDER NORMAL VARIANT BORDERLINE ECG PREVIOUS TRACING : 08/16/2017 17.03 Compared to prior tracing no significant change DOCTOR: Malcom Jacome Interpretating Date/Time 08/17/2017 21:55:08
--- NOTE | 2017-08-17 22:01 | EKG ---
Date Performed: 08/16/2017 Time Performed: 17:03:18 PTAGE: 57 years EKG: SINUS BRADYCARDIA BORDERLINE LEFT AXIS DEVIATION MODERATE VOLTAGE CRITERIA FOR LVH, CONSIDE R NORMAL VARIANT BORDERLINE ECG PREVIOUS TRACING : 08/16/2017 11.31 Compared to prior tracing no significant change DOCTOR: Malcom Jacome Interpretating Date/Time 08/18/2017 07:36:51
[2017-08-17] MEDS: ATORVASTATIN 80 MG TAB PO SCH (22:38)
[2017-08-17] MEDS: TEMAZEPAM 15 MG CAP PO PRN (22:52)
[2017-08-18] VITALS (7 sets, daily range): BP systolic 97–146; BP diastolic 58–81; PULSE 49–59; RESP 16–18; TEMP 97.3–98.6; O2SAT 94–97
[2017-08-18] MEDS: METOPROLOL TARTRATE 25 MG TAB PO SCH ×2 (09:00→21:24)
[2017-08-18 09:21] LABS: INTERNATIONAL NORMALIZED RATIO 1.9 RATIO; PROTHROMBIN TIME - PATIENT 19.3 SEC (9.8-11.6)
[2017-08-18] MEDS: SODIUM CHLORIDE 0.9% FLUSH 10 ML FLUSH IV FLUSH SCH ×3 (09:22→21:00)
[2017-08-18] MEDS: ASPIRIN 81 MG CHEW TAB CHEW SCH (10:23)
[2017-08-18] MEDS ORDERED: HEPARIN-NS/PF INJ 500 ML ONE (15:26)
[2017-08-18] MEDS ORDERED: MIDAZOLAM HCL 2 MG/2 ML VIAL ONE (15:26)
--- NOTE | 2017-08-18 16:41 | CATHPROC ---
[employer] HIS Report Study Information Study Number Admission Scheduled Start Study Start [id number] Aug 16 2017 5:11PM 08/18/2017 Aug 18 2017 3:12PM [place] [facility] Cardiac Catheterization Admit Source Facility Department Emergency department [facility] - Title Searcher Physician and Clinical Staff Initial MD Robledo, Cory Manager Unitjluis Kenney RN, Lasha Recorder Edilia Barone,PRODUCE DEPARTMENT SUPERVISOR TECH2 Scrub Pedrito Dang,RT(R) Procedures Performed Procedure Location (Site) Vessel Name Coronary Angiograms LCA Left Coronary Coronary Angiograms RCA Right Coronary LV Gram-hand inj. LV LV Ventricle Equipment Time Account Services Analyst Description Size Mfg Part Number Used/Scraped TRANSDUCER, TRUWAVE [id number] 15:18 DIAZ PANG * Used W/STOCKCOCK *[id number] *[id number] *[id number] 15:18 [employer] PACK, CCL CUSTOM * Used *[id number] 15:18 [email or web address] PACER PEN, SKIN DUAL W/ RULER * Used *[id number] 15:18 [employer] WIRE, 3MMJ .035 180CM 180CM Used *[id number] 15:18 NAMIC MANIFOLD, 4 PORT * Used *[id number] 15:18 [employer]COMED OMNIPAQUE, 350 MG, 150ML 150ML [id number] Used [id number] 15:18 [employer] BLANKET,WARM AIR CCL * Used *[id number] 15:18 [employer] MEDICAL SHEATH, FR4 TERUMO (10CM) FR 4 Used *[id number] History: Current Medications Medication Dosage/Unit Route Frequency Last Date/Time Taken ASA LISINOPRIL History: Allergies Allergy Reaction No Known Allergies History: Risk Factors Family History of Hypertension Dyslipidemia Previous HI Previous Heart Failure Premature CAD No Yes No No No Prior Valve Prior PCI Prior CABG Surgery No No No Cerebrovascular Peripheral Artery Chronic Lung On Dialysis Diabetes Disease Disease Disease No No No No No History: Stress Tests Stress or Imaging Studies Performed No History: Other Disease Selection Items HTN History: Other Current Smoker No Labs Hgb (g/dl) Hct (%) RBC (MIL/MM3) WBC (l/cumm) Platelets (thousands) 11.60-17.00 35.00-51.00 4.00-5.90 4.00-11.00 150.00-450.00 13.4 38.2 3.9 6.7 192 Glucose (mg/dl) BUN (mg/dl) Creatinine (mg/dl) BUN:Creatinine (1:x) 74.00-106.00 7.00-18.00 0.50-1.30 10.00-20.00 73 17 1.5 11.3 Na (meq/l) K (meq/l) Cl (meq/l) CO2 (mmol/L) Ca (mg/dl) 136.00-145.00 3.50-5.10 98.00-107.00 21.00-32.00 8.50-10.10 138 4.4 104 30.2 9.1 PT (sec) PTT (sec) INR (PTT:PT) 9.80-11.60 24.30-30.10 0.90-1.10 19.3 44.1 1.9 Troponin I (ng/ml) CPK-MB (ng/ML) 0.02-0.05 0.50-3.60 0.09 1.1 Medication Medication Total Dose (Bolus/Oral) Medication Total Dosage/Unit 1% XYLOCAINE 20 mL Medications (Bolus/Oral) Medication Time Given Dosage/Unit Administered By Reason 1% XYLOCAINE 08/18/2017 4:10:23 PM 20 mL Cory Robledo 20 mL 1% XYLOCAINE given in lab by Cory Robledo in Right Groin via Subcutaneous. Ordered by Cory Degroot. Medication (Drip) Medication Time Given Dosage/Unit Concentration/Unit Diluent (ml) Solutio n IV Solutions 08/18/2017 3:31:55 PM 0 mL (IV) 500 NaCl .9 IV Solutions given in lab by Lasha Kenney RN in Right Antecubital via Peripheral IV. Pump/Drip Flow = 20 ml/hr using NaCl .9. Initial Case Assessment Cardiovascular HR Rhythm NIBP Chest Pain 51 Sinus 163/87 0 Edema Present Skin color Skin None Normal Warm Dry Circulatory - Right Pulses Dorsalis Pedis Femoral Radial 2 2 2 Scale (0,1,2,3,4,d) Scale (0,1,2,3,4,d) Neurological State Oriented to time-place- Alert Moves all extremities person Respiration - General Respiration Rate SpO2 (%) O2 (lpm) (B/min) 16 100 0 Final Case Assessment Cardiovascular HR Rhythm NIBP Chest Pain 64 Sinus 163/93 0 Edema Present Skin color Skin None Normal Warm Dry Circulatory - Right Pulses Dorsalis Pedis Femoral Radial 2 2 2 Scale (0,1,2,3,4,d) Scale (0,1,2,3,4,d) Neurological State Oriented to time-place- Alert Moves all extremities person Respiration - General Respiration Rate SpO2 (%) O2 (lpm) (B/min) 11 97 0 Chronological Log Time Study Chronological Log 15:24:58 Patient arrived via Bed. 15:24:59 Patient Name, D.O.B, / Armband Verified By R.N. 15:25:00 Consent signed by the physician and the patient and verified by the Title Searcher staff. Vitals capture started with the following parameters, Patient=Adult, Interval=5 min, Initial Pr qiekku=256 mmHg, 15:28:30 Deflation Rate=5 mmHg, Cuff placed on Left Arm 15:29:44 HR=55 bpm, CSOC=248/87 mmhg, SpO2=99.0 %, Resp=34 B/min, Pain=0, Samantha=10, Macdonald=2 15:31:28 Consent signed by the physician and the patient and verified by the Title Searcher staff. 15:31:31 Pre-op and post- op instructions given; patient acknowledges understanding of instructions. 15:31:46 Patient has been NPO for More than 6Hrs. 15:31:47 Skin Breakdown- none per patient. 15:31:48 Patient Warmer Placed on the Table. 15:31:50 Blanche Prominences Protected 15:31:52 A # 20 IV was noted in the Antecubital (right). Grade = 0 IV Solutions given in lab by Lasha Kenney RN in Right Antecubital via Peripheral IV. Pump/Drip Flow = 20 ml/hr using 15:31:55 NaCl .9. 15:31:56 History and physical on the chart or being dictated. Assessment: Initial Case, HR=51 BPM, Rhythm=Sinus, MMYX=794/87 mmhg, Chest Pain=0, Edema=None, Color=Normal, Skin = Warm, Dry 15:31:57 Right Pulses: Mauricio Ped=2, Femoral=2, Radial=2 Neurological: State=Alert, Ox3, ESCALANTE Respiration: Resp=16 B/min, HcR7=385 %, O2=0 lpm 15:34:06 HR=53 bpm, ZYPO=550/85 mmhg, SpO2=98.0 %, Resp=10 B/min, Pain=0, Samantha=10, Macdonald=2 15:35:56 Bilateral groins prepped with 2% chlorhexidine, and draped after a 3 minute waiting time. 15:39:10 HR=50 bpm, STWB=879/87 mmhg, ShO4=149.0 %, Resp=11 B/min, Pain=0, Samantha=10, Macdonald=2 15:39:31 MD paged 15:41:14 Pressure channel 1 zeroed. 15:43:49 Reference ECG taken 15:44:11 HR=52 bpm, FUCG=370/83 mmhg, SpO2=99.0 %, Resp=11 B/min, Pain=0, Samantha=10, Macdonald=2 15:49:14 HR=52 bpm, QWEJ=481/83 mmhg, SpO2=97.0 %, Resp=11 B/min, Pain=0, Samantha=10, Macdonald=2 15:54:15 HR=51 bpm, CIJX=780/80 mmhg, SpO2=98.0 %, Resp=11 B/min, Pain=0, Samantha=10, Macdonald=2 15:59:10 HR=52 bpm, GQWK=818/82 mmhg, SpO2=99.0 %, Resp=11 B/min, Pain=0, Samantha=10, Macdonald=2 16:04:09 HR=55 bpm, VROA=097/84 mmhg, SpO2=97.0 %, Resp=11 B/min, Pain=0, Samantha=10, Macdonald=2 Time Out. Correct patient, correct procedure, correct physician, power injector not loaded with contrast with surgical 16:09:36 team present. Time Out Concurred by MD and individual staff in procedure. 16:09:51 HR=56 bpm, OSYF=337/89 mmhg, SpO2=99.0 %, Resp=11 B/min, Pain=0, Samantha=10, Macdonald=2 16:10:21 Case Start 20 mL 1% XYLOCAINE given in lab by Cory Robledo in Right Groin via Subcutaneous. Ordered by Meena, 16:10:23 Cory. 16:10:35 Access site was Right Femoral Artery. 16:10:44 A SHEATH, FR4 TERUMO (10CM) FR 4 was advanced into the Fem Art (right) using the Neyda marinelli own technique. A JR 4.0 INFINITI CATHETER FR 4 was advanced over a wire. OMNIPAQUE, 350 MG, 150ML 150ML was us ed for 16:10:57 injections. 16:12:19 The LV was manually injected with ~CCS~ cc's and visualized. contrast used. Recorded Pressure: Ao, HR=54, Condition=Condition 1 16:13:13 (Aorta) Ao 146/78/104 16:13:19 The RCA was injected and visualized at various angles. OMNIPAQUE, 350 MG, 150ML 150ML used . 16:13:40 Catheter was removed A JL 4.0 INFINITI CATHETER FR 4 was advanced over a wire. OMNIPAQUE, 350 MG, 150ML 150ML was us ed for 16:13:41 injections. 16:14:13 HR=69 bpm, DHTQ=516/84 mmhg, SpO2=97.0 %, Resp=11 B/min, Pain=0, Samantha=10, Macdonald=2 16:14:51 The LCA was injected and visualized at various angles. OMNIPAQUE, 350 MG, 150ML 150ML use d. 16:16:05 Catheter was removed 16:16:51 Case End 16:17:57 Sheath removed; pressure applied to access site. 16:19:16 HR=60 bpm, OIDM=577/92 mmhg, SpO2=97.0 %, Resp=11 B/min, Pain=0, Samantha=10, Macdonald=2 16:24:19 HR=52 bpm, LFAH=553/83 mmhg, SpO2=98.0 %, Resp=11 B/min, Pain=0, Samantha=10, Macdonald=2 16:29:16 HR=56 bpm, DUBE=761/124 mmhg, SpO2=98.0 %, Resp=11 B/min, Pain=0, Samantha=10, Macdonald=2 16:34:23 HR=64 bpm, DNBD=989/91 mmhg, SpO2=97.0 %, Resp=11 B/min, Pain=0, Samantha=10, Macdonald=2 16:37:57 Sterile dressing applied to site 16:37:58 No case complications noted. 16:37:59 Cine recording checked. 16:38:45 Contrast Scanned 16:39:06 A Left and Right Heart Cath was performed. 16:39:18 HR=64 bpm, CRXR=517/93 mmhg, SpO2=97 %, Resp=11 B/min, Pain=0, Samantha=10, Macdonald=2 16:39:24 Vitals capture stopped. Assessment: Final Case, HR=64 BPM, Rhythm=Sinus, XFLS=032/93 mmhg, Chest Pain=0, Edema=None, Color=Normal, Skin = Warm, Dry 16:39:54 Right Pulses: Mauricio Ped=2, Femoral=2, Radial=2 Neurological: State=Alert, Ox3, ESCALANTE Respiration: Resp=11 B/min, SpO2=97 %, O2=0 lpm 16:41:21 Patient moved to stretcher End Study - Contrast Media Used In Study Contrast Total Opened (mL) Total Used (mL) Total Wasted (mL) Omnipaque 30 30 0 End Study - Maximum Contrast Load Max Contrast Load (mL) 312.1 End Study - Radiation Exposure Fluoro Time (minutes) 1.6 End Study - Patient Disposition Complications Transferred To Telemetry Bed
[2017-08-18] MEDS ORDERED: HEPARIN SODIUM - IV 10,000 UNITS/10 ML VIAL IV ONE (17:00)
[2017-08-18] MEDS ORDERED: HEPARIN SODIUM - IV 10,000 UNITS/10 ML VIAL IV PUSH PRN ×2 (17:00)
[2017-08-18] MEDS ORDERED: IOHEXOL 350 MG/ML 50 ML BTL (for Cath Lab) OTHER ONE (17:51)
[2017-08-18] MEDS ORDERED: MISC INFORMATION XX ONE (18:15)
[2017-08-18] MEDS ORDERED: SODIUM CHLORIDE 0.9% FLUSH 10 ML FLUSH IV FLUSH PRN (18:15)
[2017-08-18] MEDS ORDERED: BACITRACIN OINT 0.9 GM PKT TOP ONE (18:15)
--- NOTE | 2017-08-18 18:39 | HHI.PR ---
Subjective Remarks sp cardiac catheterization. Denies cp/sob. Objective Vitals Vital Signs Date Time Temp Pulse Resp B/P (MAP) Pulse Ox O2 Delivery O2 Flow Rate FiO2 08/18/17 18:18 Room Air 08/18/17 18:00 98.6 50 16 146/81 (102) 97 08/18/17 15:13 Room Air 08/18/17 12:42 Room Air 08/18/17 12:00 50 08/18/17 12:00 98.4 49 16 122/72 (89) 97 08/18/17 11:07 21 08/18/17 09:20 Room Air 08/18/17 08:00 97.3 49 18 133/64 (87) 96 08/18/17 08:00 50 08/18/17 06:00 51 08/18/17 04:00 97.5 49 18 110/58 (75) 95 08/18/17 00:00 53 08/18/17 00:00 98.0 59 18 97/60 (72) 94 08/17/17 21:58 98.5 81 16 168/75 (106) 99 08/17/17 20:00 Room Air 08/17/17 20:00 58 I/O 08/17/17 08/17/17 08/17/17 08/18/17 08/18/17 08/18/17 07:00 15:00 23:00 07:00 15:00 23:00 Intake Total 0 ml 480 ml 240 ml Output Total 400 ml 400 ml 600 ml Balance -400 ml -400 ml 480 ml -360 ml Intake Oral 0 ml 480 ml 240 ml Output Urine Total 400 ml 400 ml 600 ml # Voids 2 # Bowel Movements 0 Result Diagram: 08/16/17 1129 08/16/17 1129 Imaging Last Impressions Chest X-Ray 08/16/17 0000 Signed Impressions: Service Date/Time: Wednesday, August 16, 2017 11:45 - CONCLUSION: Midinspiratory exam demonstrating no acute cardiopulmonary disease. John Corado MD CT Angiography 08/16/17 0000 Signed Impressions: Service Date/Time: Wednesday, August 16, 2017 15:19 - CONCLUSION: 1. No evidence of pulmonary emboli. 2. Stable noncalcified small pulmonary nodules largest is in the right upper lobe. 3. Old granulomatous disease. 4. Stable reticulonodular scarring in the right upper lobe. 5. Hepatic steatosis. John Corado MD Objective Remarks AAOx3, NAD Clear lungs BL S1S2 RRR, no MRG right groin with clear dressing. Medications and IVs Current Medications Medications (Trade) Dose Ordered Sig/Oumou Route Start Time Stop Time Status Last Admin (NS Flush) 2 ml UNSCH PRN IV FLUSH 08/16/17 16:30 (NS Flush) 2 ml BID IV FLUSH 08/16/17 21:00 08/18/17 09:22 (Restoril) 15 mg HS PRN PO 08/16/17 16:30 08/17/17 22:52 (Narcan Inj) 0.4 mg UNSCH PRN IV PUSH 08/16/17 16:30 (Milk Of Magnesia Liq) 30 ml Q12H PRN PO 08/16/17 16:30 (Senokot) 17.2 mg Q12H PRN PO 08/16/17 16:30 (Dulcolax Supp) 10 mg DAILY PRN RECTAL 08/16/17 16:30 (Lactulose Liq) 30 ml DAILY PRN PO 08/16/17 16:30 (Aspirin Chew) 81 mg DAILY CHEW 08/17/17 09:00 08/18/17 10:23 (Lipitor) 80 mg HS PO 08/16/17 21:00 08/17/17 22:38 (Nitroglycerin 2% Oint) 0.5 inch Q8H PRN TOPICAL 08/16/17 16:30 08/17/17 13:40 (Lopressor) 12.5 mg Q12HR PO 08/16/17 21:00 08/17/17 22:38 (Pill Splitter) 1 ea UNSCH PRN OTHER 08/16/17 16:45 (Tylenol) 650 mg Q4H PRN PO 08/17/17 05:15 Heparin Sodium/ Dextrose 250 ml @ 17 mls/hr TITRATE PRN IV 08/18/17 17:00 (Heparin Inj) 5,000 units UNSCH PRN IV PUSH 08/18/17 17:00 (Heparin Inj) 2,500 units UNSCH PRN IV PUSH 08/18/17 17:00 (NS Flush) 2 ml BID IV FLUSH 08/18/17 21:00 (NS Flush) 2 ml UNSCH PRN IV FLUSH 08/18/17 18:15 A/P Problem List: (1) NSTEMI (non-ST elevated myocardial infarction) ICD Code: I21.4 - Non-ST elevation (NSTEMI) myocardial infarction Status: Acute (2) Hx of pulmonary embolus ICD Code: Z86.711 - Personal history of pulmonary embolism (3) Chronic kidney disease (CKD), stage III (moderate) ICD Code: N18.3 - Chronic kidney disease, stage 3 (moderate) Status: Chronic Assessment and Plan Mr. Rivas is a 57 year old male with a history of CAD, PE currently on warfarin who presents to the ED on 08/16/2017 due to chest pain both at rest and exertion. ED work up indicated troponin elevated to 0.11 and later 0.09. - NSTEMI - Patient's history of CAD and current symptoms are concerning for true NSTEMI. - Pt received Aspirin 325mg. Will continue Aspirin 81mg Qday. Nitro PRN for chest discomfort. O2 PRN. - Continue metoprolol 12.5mg BID and Atorvastatin 80mg QHS. - 08/17 Cardiology consult appreciated - patient for cardiac catheterization in am if INR less than 2. - 08/18 status post heart catheterization. Continue aspirin, beta michael, Lipitor, nitroglycerin as needed. - History of PE - Patient is currently on Warfarin. INR today 2.6. He would like to switch to Apixaban. - He can be switched to Apixaban once INR is < 2.0. Apixaban 5mg BID. - Will place patient on IV heparin drip once INR falls below 2. - 08/18 Start IV heparin as per cardiology. - CKD stage III - appears to be stable creatinine. Full code.heparin gtt. Discharge Planning DC pending cardiology clearance. Patient will need to be started to on blood thinners. Cameron Oden MD Aug 18, 2017 18:39
[2017-08-18] MEDS: HEPARIN 25,000 UNITS-D5W 250 ML - PREMIX IV PRN (18:41)
[2017-08-18] MEDS: ATORVASTATIN 80 MG TAB PO SCH (21:24)
[2017-08-18] MEDS: TEMAZEPAM 15 MG CAP PO PRN (21:30)
[2017-08-19] VITALS (7 sets, daily range): BP systolic 122–134; BP diastolic 58–77; PULSE 47–67; RESP 17–18; TEMP 98–99.5; O2SAT 92–97
[2017-08-19 02:40] LABS: INTERNATIONAL NORMALIZED RATIO 1.6 RATIO; PROTHROMBIN TIME - PATIENT 16.3 SEC (9.8-11.6)
[2017-08-19 03:37] LABS: AUTOMATED NEUTROPHIL # 3.1 TH/MM3 (1.8-7.7); BASOPHIL # 0.1 TH/MM3 (0-0.2); BASOPHIL % 1.1 % (0.0-2.0); EOSINOPHIL # 0.2 TH/MM3 (0-0.4); EOSINOPHIL % 3.5 % (0.0-4.0); HEMATOCRIT 37.4 % (39.0-51.0); HEMOGLOBIN 13.1 GM/DL (13.0-17.0); LYMPH % 24.7 % (9.0-44.0); LYMPHOCYTE # 1.3 TH/MM3 (1.0-4.8); MEAN CELL VOLUME 96.7 FL (80.0-100.0); MEAN CORPUSCULAR HEMOGLOBIN 33.9 PG (27.0-34.0); MONO % 11.9 % (0.0-8.0); MONOCYTE # 0.6 TH/MM3 (0-0.9); NEUT % 58.8 % (16.0-70.0); PLATELET COUNT 216 TH/MM3 (150-450); RED BLOOD COUNT 3.87 MIL/MM3 (4.50-5.90); RED CELL DISTRIBUTION WIDTH 14.7 % (11.6-17.2); WHITE BLOOD COUNT 5.2 TH/MM3 (4.0-11.0)
[2017-08-19 03:54] LABS: ALBUMIN 3.2 GM/DL (3.4-5.0); ALT (GPT) 57 U/L (12-78); AST (GOT) 34 U/L (15-37); BICARBONATE 29.4 MEQ/L (21.0-32.0); BLOOD UREA NITROGEN 21 MG/DL (7-18); CALCIUM 8.5 MG/DL (8.5-10.1); CHLORIDE 104 MEQ/L (98-107); CREATININE 1.41 MG/DL (0.60-1.30); GLOMERULAR FILTRATION RATE 52 ML/MIN (>89); GLUCOSE,RANDOM 108 MG/DL (74-106); MAGNESIUM 1.7 MG/DL (1.5-2.5); PHOSPHORUS 4.1 MG/DL (2.5-4.9); SODIUM (NA) 140 MEQ/L (136-145)
[2017-08-19 03:56] LABS: ALKALINE PHOSPHATASE 66 U/L (45-117); TOTAL BILIRUBIN ADULT 0.5 MG/DL (0.2-1.0); TOTAL PROTEIN 7.5 GM/DL (6.4-8.2)
[2017-08-19] MEDS: METOPROLOL TARTRATE 25 MG TAB PO SCH ×2 (09:00→20:50)
[2017-08-19] MEDS: SODIUM CHLORIDE 0.9% FLUSH 10 ML FLUSH IV FLUSH SCH ×4 (09:00→20:55)
[2017-08-19] MEDS: ASPIRIN 81 MG CHEW TAB CHEW SCH (09:06)
--- NOTE | 2017-08-19 09:09 | PD.CARD.PN ---
Subjective Subjective Remarks c/o chest pain Objective Medications Current Medications Medications (Trade) Dose Ordered Sig/Oumou Route Start Time Stop Time Status Last Admin (NS Flush) 2 ml UNSCH PRN IV FLUSH 08/16/17 16:30 (NS Flush) 2 ml BID IV FLUSH 08/16/17 21:00 08/18/17 09:22 (Restoril) 15 mg HS PRN PO 08/16/17 16:30 08/18/17 21:30 (Narcan Inj) 0.4 mg UNSCH PRN IV PUSH 08/16/17 16:30 (Milk Of Magnesia Liq) 30 ml Q12H PRN PO 08/16/17 16:30 (Senokot) 17.2 mg Q12H PRN PO 08/16/17 16:30 (Dulcolax Supp) 10 mg DAILY PRN RECTAL 08/16/17 16:30 (Lactulose Liq) 30 ml DAILY PRN PO 08/16/17 16:30 (Aspirin Chew) 81 mg DAILY CHEW 08/17/17 09:00 08/19/17 09:06 (Lipitor) 80 mg HS PO 08/16/17 21:00 08/18/17 21:24 (Nitroglycerin 2% Oint) 0.5 inch Q8H PRN TOPICAL 08/16/17 16:30 08/17/17 13:40 (Lopressor) 12.5 mg Q12HR PO 08/16/17 21:00 08/18/17 21:24 (Pill Splitter) 1 ea UNSCH PRN OTHER 08/16/17 16:45 (Tylenol) 650 mg Q4H PRN PO 08/17/17 05:15 Heparin Sodium/ Dextrose 250 ml @ 17 mls/hr TITRATE PRN IV 08/18/17 17:00 08/18/17 18:41 (Heparin Inj) 5,000 units UNSCH PRN IV PUSH 08/18/17 17:00 (Heparin Inj) 2,500 units UNSCH PRN IV PUSH 08/18/17 17:00 (NS Flush) 2 ml BID IV FLUSH 08/18/17 21:00 (NS Flush) 2 ml UNSCH PRN IV FLUSH 08/18/17 18:15 Vital Signs / I&O Vital Signs Date Time Temp Pulse Resp B/P (MAP) Pulse Ox O2 Delivery O2 Flow Rate FiO2 08/19/17 04:00 47 08/19/17 04:00 98.0 50 18 123/58 (79) 96 08/19/17 03:54 Room Air 08/19/17 00:00 98.8 61 18 133/67 (89) 95 08/19/17 00:00 Room Air 08/19/17 00:00 56 08/18/17 20:00 53 08/18/17 20:00 98.2 55 18 144/74 (97) 96 08/18/17 20:00 Room Air 08/18/17 18:18 Room Air 08/18/17 18:00 98.6 50 16 146/81 (102) 97 08/18/17 15:13 Room Air 08/18/17 12:42 Room Air 08/18/17 12:00 50 08/18/17 12:00 98.4 49 16 122/72 (89) 97 08/18/17 11:07 21 08/18/17 09:20 Room Air I/O 08/18/17 08/18/17 08/18/17 08/19/17 08/19/17 08/19/17 07:00 15:00 23:00 07:00 15:00 23:00 Intake Total 240 ml 0 ml Output Total 600 ml 300 ml 900 ml Balance -360 ml -300 ml -900 ml Intake Oral 240 ml 0 ml Output Urine Total 600 ml 300 ml 900 ml # Bowel Movements 0 0 Physical Exam GENERAL: SKIN: Warm and dry. HEAD: Normocephalic. EYES: No scleral icterus. No injection or drainage. NECK: Supple, trachea midline. No JVD or lymphadenopathy. CARDIOVASCULAR: Regular rate and rhythm without murmurs, gallops, or rubs. RESPIRATORY: Breath sounds equal bilaterally. No accessory muscle use. GASTROINTESTINAL: Abdomen soft, non-tender, nondistended. MUSCULOSKELETAL: No cyanosis, or edema. BACK: Nontender without obvious deformity. No CVA tenderness. Laboratory Laboratory Tests Test 08/19/17 01:35 08/19/17 03:23 08/19/17 06:15 Prothrombin Time 16.3 SEC Prothromb Time International Ratio 1.6 RATIO Activated Partial Thromboplast Time 118.6 SEC 92.8 SEC 43.4 SEC White Blood Count 5.2 TH/MM3 Red Blood Count 3.87 MIL/MM3 Hemoglobin 13.1 GM/DL Hematocrit 37.4 % Mean Corpuscular Volume 96.7 FL Mean Corpuscular Hemoglobin 33.9 PG Mean Corpuscular Hemoglobin Concent 35.0 % Red Cell Distribution Width 14.7 % Platelet Count 216 TH/MM3 Mean Platelet Volume 8.0 FL Neutrophils (%) (Auto) 58.8 % Lymphocytes (%) (Auto) 24.7 % Monocytes (%) (Auto) 11.9 % Eosinophils (%) (Auto) 3.5 % Basophils (%) (Auto) 1.1 % Neutrophils # (Auto) 3.1 TH/MM3 Lymphocytes # (Auto) 1.3 TH/MM3 Monocytes # (Auto) 0.6 TH/MM3 Eosinophils # (Auto) 0.2 TH/MM3 Basophils # (Auto) 0.1 TH/MM3 CBC Comment DIFF FINAL Differential Comment Blood Urea Nitrogen 21 MG/DL Creatinine 1.41 MG/DL Random Glucose 108 MG/DL Total Protein 7.5 GM/DL Albumin 3.2 GM/DL Calcium Level 8.5 MG/DL Phosphorus Level 4.1 MG/DL Magnesium Level 1.7 MG/DL Alkaline Phosphatase 66 U/L Aspartate Amino Transf (AST/SGOT) 34 U/L Alanine Aminotransferase (ALT/SGPT) 57 U/L Total Bilirubin 0.5 MG/DL Sodium Level 140 MEQ/L Potassium Level 3.9 MEQ/L Chloride Level 104 MEQ/L Carbon Dioxide Level 29.4 MEQ/L Anion Gap 7 MEQ/L Estimat Glomerular Filtration Rate 52 ML/MIN Assessment and Plan Problem List: (1) Elevated troponin I level ICD Codes: R79.89 - Other specified abnormal findings of blood chemistry Status: Chronic (2) Hx of pulmonary embolus ICD Codes: Z86.711 - Personal history of pulmonary embolism Assessment and Plan 1.) Chest pain - appears to be noncardiac, will try norvasc 5 mg qd empyrically for coronary spasm 2.) H/o multiple pulmonary emboli - on heparin - case management consult to assess insurance coverage for noac per patient request Cory Robledo MD Aug 19, 2017 09:09
[2017-08-19] MEDS ORDERED: amLODIPine BESYLATE 5 MG TAB PO ONE (09:15)
[2017-08-19] MEDS ORDERED: MORPHINE SULFATE 4 MG/ML INJ IV PUSH ONE (11:00)
[2017-08-19] MEDS ORDERED: PANTOPRAZOLE SODIUM 40 MG VIAL IV PUSH ONE (11:00)
[2017-08-19] MEDS ORDERED: ALUMINUM/MAGNESIUM/SIMETH 30 ML CUP PO ONE (11:00)
[2017-08-19] MEDS ORDERED: ALUMINUM/MAGNESIUM/SIMETH 30 ML CUP PO PRN (11:00)
[2017-08-19] MEDS: HEPARIN 25,000 UNITS-D5W 250 ML - PREMIX IV PRN (15:02)
--- NOTE | 2017-08-19 15:31 | MR ---
cc: MITCH WU M.D. DATE: 08/18/2017 PROCEDURES PREFORMED: Left heart catheterization, left ventriculography, coronary angiography. INDICATION Non STEMI and coronary artery disease. The patient brought to the heart catheterization laboratory, he was prepped and draped in usual sterile fashion, 10 cc's of 1% lidocaine was used to locally anesthetize the right 4-Lux[place]bourgish sheath was subsequently placed in the right femoral artery, a 4 [place]bourgish JR-4, JL-4 catheter were used to perform, left and right coronary angiography, left ventriculography. FINDINGS: 1. The pressure waveforms were not operating during left ventriculgraphy, left ventricular pressures were not preformed. The ejection fraction was 60%, right coronary artery is dominent. Right coronary has an inferior takeoff. There is minimal luminal irregularities in the mid segment up to 5 to 10% angiographically. 2. The left main coronary artery has no significant wheeze angiographically. 3. Left circumflex as well shows no significant disease angingraophically. 4. First obtuse marginal vessel, is a medium-sized vessel with a proximal bifurcation, mild disease in the medial branch up to 5 to 10% angiographically. 5. Remainder of the AV groove to the left circumflex vessel shows no significant disease angiographically. 6. There are three small posterolateral arteries. reference vessel diameter is a 0.5 to 1 mm in diameter with no significant obstructive disease. 7. LAD is transapical. mild diffuse disease in the proximal LAD up to 5-10% percent angiographically. Otherwise no significant coronary artery disease. 8. The first and second diagonal artery are small to medium sized vessels 1.5, to 2.5 mm vessels respectively. No significant disease angiographically. CONCLUSION 1. Angiographically mild two-vessel coronary disease in right dominant system as detailed above. 2. Normal LV systolic function ejection fraction 60%. Note the patient has had multiple PEs DVTs on at least three separate occasions. He is on lifelong Coumadin. He is undecided about whether he wants to go on novel oral anticoagulant medication. He is concerned about the cost. We will get a case management consult to discuss what his insurance covers, in the meantime we will pull his sheath, restart heparin bolus and drip, for DVT, PE protocol until the patient decides what form of long-term anticoagulation he wants to continue on. We will also check lips and compare to lipid NCCA guidelines. MD NICHOLE Gallegos/carter /4:18 PM /3:10 PM
[2017-08-19] MEDS ORDERED: ATOR80TA45 PO (18:00)
[2017-08-19] MEDS ORDERED: METO25TA3 PO (18:00)
[2017-08-19] MEDS ORDERED: MAG-LIQ PO (18:00)
[2017-08-19] MEDS ORDERED: AMLO5 PO (18:00)
[2017-08-19] MEDS ORDERED: XARE20TA PO (18:07)
[2017-08-19] MEDS ORDERED: XARE15TA PO (18:07)
--- NOTE | 2017-08-19 18:16 | HHI.PR ---
Subjective Remarks Patient c/o chest pain earlier. Now chest pain free. Denies sob. Objective Vitals Vital Signs Date Time Temp Pulse Resp B/P (MAP) Pulse Ox O2 Delivery O2 Flow Rate FiO2 08/19/17 18:06 92 21 08/19/17 16:00 62 08/19/17 16:00 98.6 60 18 129/73 (91) 92 08/19/17 15:18 Room Air 08/19/17 12:26 Room Air 08/19/17 12:00 98.8 67 18 134/77 (96) 97 08/19/17 12:00 62 08/19/17 09:15 Room Air 08/19/17 08:00 53 08/19/17 08:00 98.0 56 18 125/68 (87) 97 08/19/17 04:00 47 08/19/17 04:00 98.0 50 18 123/58 (79) 96 08/19/17 03:54 Room Air 08/19/17 00:00 98.8 61 18 133/67 (89) 95 08/19/17 00:00 Room Air 08/19/17 00:00 56 08/18/17 20:00 53 08/18/17 20:00 98.2 55 18 144/74 (97) 96 08/18/17 20:00 Room Air 08/18/17 18:18 Room Air I/O 08/18/17 08/18/17 08/18/17 08/19/17 08/19/17 08/19/17 07:00 15:00 23:00 07:00 15:00 23:00 Intake Total 240 ml 0 ml Output Total 600 ml 300 ml 900 ml Balance -360 ml -300 ml -900 ml Intake Oral 240 ml 0 ml Output Urine Total 600 ml 300 ml 900 ml # Bowel Movements 0 0 Result Diagram: 08/19/17 0323 08/19/17 0323 Imaging Last Impressions Chest X-Ray 08/16/17 0000 Signed Impressions: Service Date/Time: Wednesday, August 16, 2017 11:45 - CONCLUSION: Midinspiratory exam demonstrating no acute cardiopulmonary disease. John Corado MD CT Angiography 08/16/17 0000 Signed Impressions: Service Date/Time: Wednesday, August 16, 2017 15:19 - CONCLUSION: 1. No evidence of pulmonary emboli. 2. Stable noncalcified small pulmonary nodules largest is in the right upper lobe. 3. Old granulomatous disease. 4. Stable reticulonodular scarring in the right upper lobe. 5. Hepatic steatosis. John Corado MD Objective Remarks AAOx3, NAD Clear lungs BL S1S2 RRR, no MRG right groin with clear dressing. Medications and IVs Current Medications Medications (Trade) Dose Ordered Sig/Oumou Route Start Time Stop Time Status Last Admin (NS Flush) 2 ml UNSCH PRN IV FLUSH 08/16/17 16:30 (NS Flush) 2 ml BID IV FLUSH 08/16/17 21:00 08/18/17 09:22 (Restoril) 15 mg HS PRN PO 08/16/17 16:30 08/18/17 21:30 (Narcan Inj) 0.4 mg UNSCH PRN IV PUSH 08/16/17 16:30 (Milk Of Magnesia Liq) 30 ml Q12H PRN PO 08/16/17 16:30 (Senokot) 17.2 mg Q12H PRN PO 08/16/17 16:30 (Dulcolax Supp) 10 mg DAILY PRN RECTAL 08/16/17 16:30 (Lactulose Liq) 30 ml DAILY PRN PO 08/16/17 16:30 (Aspirin Chew) 81 mg DAILY CHEW 08/17/17 09:00 08/19/17 09:06 (Lipitor) 80 mg HS PO 08/16/17 21:00 08/18/17 21:24 (Nitroglycerin 2% Oint) 0.5 inch Q8H PRN TOPICAL 08/16/17 16:30 08/17/17 13:40 (Lopressor) 12.5 mg Q12HR PO 08/16/17 21:00 08/18/17 21:24 (Pill Splitter) 1 ea UNSCH PRN OTHER 08/16/17 16:45 (Tylenol) 650 mg Q4H PRN PO 08/17/17 05:15 (NS Flush) 2 ml BID IV FLUSH 08/18/17 21:00 (NS Flush) 2 ml UNSCH PRN IV FLUSH 08/18/17 18:15 (Norvasc) 5 mg DAILY PO 08/20/17 09:00 (Mag-Al Plus Susp Liq) 30 ml Q6H PRN PO 08/19/17 11:00 (Protonix) 40 mg DAILY PO 08/20/17 09:00 (Xarelto) 15 mg BID PO 08/19/17 18:15 UNV Urinary Catheter: No Vascular Central Line Catheter: No A/P Problem List: (1) NSTEMI (non-ST elevated myocardial infarction) ICD Code: I21.4 - Non-ST elevation (NSTEMI) myocardial infarction Status: Acute (2) Hx of pulmonary embolus ICD Code: Z86.711 - Personal history of pulmonary embolism (3) Chronic kidney disease (CKD), stage III (moderate) ICD Code: N18.3 - Chronic kidney disease, stage 3 (moderate) Status: Chronic Assessment and Plan Mr. Rivas is a 57 year old male with a history of CAD, PE currently on warfarin who presents to the ED on 08/16/2017 due to chest pain both at rest and exertion. ED work up indicated troponin elevated to 0.11 and later 0.09. - NSTEMI/Chest pain - Patient's history of CAD and current symptoms are concerning for true NSTEMI. - Pt received Aspirin 325mg. Will continue Aspirin 81mg Qday. Nitro PRN for chest discomfort. O2 PRN. - Continue metoprolol 12.5mg BID and Atorvastatin 80mg QHS. - 08/17 Cardiology consult appreciated - patient for cardiac catheterization in am if INR less than 2. - 08/18 status post heart catheterization. Continue aspirin, beta michael, Lipitor, nitroglycerin as needed. - 08/19 mild two-vessel coronary disease in right dominant system. Normal LV systolic function with an EF of 60%. Suspect chest pain is noncardiac. Patient complaining of chest pain after eating. - Patient has had a recent EGD on 07/01/17 which showed a short segment Manning's esophagus found in the distal esophagus. Chest pain is likely of noncardiac origin and due to esophagitis due to reflux. I will start the patient on Maalox as needed and advised to continue Protonix. I also advised the patient to follow-up with gastroenterology as an outpatient. - History of PE - Patient is currently on Warfarin. INR today 2.6. He would like to switch to Apixaban. - He can be switched to Apixaban once INR is < 2.0. Apixaban 5mg BID. - Will place patient on IV heparin drip once INR falls below 2. - 08/18 Start IV heparin as per cardiology. - 08/19 Will start on xarelto tonight and DC heparin IV. - CKD stage III - appears to be stable creatinine. Full code.Xarelto. Discharge Planning Discharge in a.m. after patient gets Xarelto dose. Cameron Oden MD Aug 19, 2017 18:16
[2017-08-19] MEDS: RIVAROXABAN 15 MG TAB PO SCH (18:33)
[2017-08-19] MEDS: ATORVASTATIN 80 MG TAB PO SCH (20:50)
[2017-08-19] MEDS: TEMAZEPAM 15 MG CAP PO PRN (20:52)
[2017-08-20] VITALS: BP 118/62; PULSE 60; PULSE 61; RESP 17; TEMP 98.9; O2SAT 94
[2017-08-20 04:00] VITALS: BP 119/66; PULSE 61; PULSE 63; RESP 17; TEMP 99.6; O2SAT 94
[2017-08-20 08:00] VITALS: BP 114/60; PULSE 81; RESP 20; TEMP 99.4; O2SAT 97
[2017-08-20] MEDS ORDERED: amLODIPine BESYLATE 5 MG TAB PO SCH (09:00)
[2017-08-20] MEDS ORDERED: PANTOPRAZOLE SOD 40 MG DELAYED RELEASE TAB PO SCH (09:00)
[2017-08-20] MEDS: SODIUM CHLORIDE 0.9% FLUSH 10 ML FLUSH IV FLUSH SCH ×2 (09:00→09:15)
[2017-08-20] MEDS: METOPROLOL TARTRATE 25 MG TAB PO SCH (09:10)
[2017-08-20] MEDS: ASPIRIN 81 MG CHEW TAB CHEW SCH (09:11)
[2017-08-20] MEDS: RIVAROXABAN 15 MG TAB PO SCH (09:15)
[2017-08-20] MEDS ORDERED: ALLOPURINOL 100 MG TAB PO SCH (10:30)
[2017-08-20] MEDS ORDERED: INDO50CA PO (10:34)
[2017-08-20 10:45] VITALS: O2SAT 97
[2017-08-20] MEDS ORDERED: COLCHICINE 0.6 MG TAB PO ONE (10:45)
[2017-08-20] MEDS ORDERED: INDOMETHACIN 50 MG CAP PO ONE (10:45)
--- NOTE | 2017-08-20 12:09 | PD.CARD.PN ---
Subjective Subjective Remarks alert in nad Objective Medications Current Medications Medications (Trade) Dose Ordered Sig/Oumou Route Start Time Stop Time Status Last Admin (Restoril) 15 mg HS PRN PO 08/16/17 16:30 08/19/17 20:52 (Narcan Inj) 0.4 mg UNSCH PRN IV PUSH 08/16/17 16:30 (Milk Of Magnesia Liq) 30 ml Q12H PRN PO 08/16/17 16:30 (Senokot) 17.2 mg Q12H PRN PO 08/16/17 16:30 (Dulcolax Supp) 10 mg DAILY PRN RECTAL 08/16/17 16:30 (Lactulose Liq) 30 ml DAILY PRN PO 08/16/17 16:30 (Aspirin Chew) 81 mg DAILY CHEW 08/17/17 09:00 08/20/17 09:11 (Lipitor) 80 mg HS PO 08/16/17 21:00 08/19/17 20:50 (Nitroglycerin 2% Oint) 0.5 inch Q8H PRN TOPICAL 08/16/17 16:30 08/17/17 13:40 (Lopressor) 12.5 mg Q12HR PO 08/16/17 21:00 08/20/17 09:10 (Pill Splitter) 1 ea UNSCH PRN OTHER 08/16/17 16:45 (Tylenol) 650 mg Q4H PRN PO 08/17/17 05:15 (NS Flush) 2 ml BID IV FLUSH 08/18/17 21:00 (NS Flush) 2 ml UNSCH PRN IV FLUSH 08/18/17 18:15 (Norvasc) 5 mg DAILY PO 08/20/17 09:00 08/20/17 09:10 (Mag-Al Plus Susp Liq) 30 ml Q6H PRN PO 08/19/17 11:00 (Protonix) 40 mg DAILY PO 08/20/17 09:00 08/20/17 09:10 (Xarelto) 15 mg BID@0900,1800 PO 08/19/17 18:15 08/20/17 09:15 (Zyloprim) 100 mg DAILY PO 08/20/17 10:30 08/20/17 11:39 Vital Signs / I&O Vital Signs Date Time Temp Pulse Resp B/P (MAP) Pulse Ox O2 Delivery O2 Flow Rate FiO2 08/20/17 10:45 97 08/20/17 08:00 99.4 81 20 114/60 (78) 97 08/20/17 04:00 63 08/20/17 04:00 Room Air 08/20/17 04:00 99.6 61 17 119/66 (83) 94 08/20/17 00:00 61 08/20/17 00:00 98.9 60 17 118/62 (80) 94 08/20/17 00:00 Room Air 08/19/17 20:00 Room Air 08/19/17 20:00 99.5 64 17 122/65 (84) 97 08/19/17 20:00 66 08/19/17 18:06 92 21 08/19/17 16:00 62 08/19/17 16:00 98.6 60 18 129/73 (91) 92 08/19/17 15:18 Room Air 08/19/17 12:26 Room Air I/O 08/19/17 08/19/17 08/19/17 08/20/17 08/20/17 08/20/17 07:00 15:00 23:00 07:00 15:00 23:00 Intake Total 720 ml 240 ml Output Total 900 ml 800 ml 500 ml Balance -900 ml -80 ml -260 ml Intake Oral 720 ml 240 ml Output Urine Total 900 ml 800 ml 500 ml # Bowel Movements 0 Physical Exam GENERAL: SKIN: Warm and dry. HEAD: Normocephalic. EYES: No scleral icterus. No injection or drainage. NECK: Supple, trachea midline. No JVD or lymphadenopathy. CARDIOVASCULAR: Regular rate and rhythm without murmurs, gallops, or rubs. RESPIRATORY: Breath sounds equal bilaterally. No accessory muscle use. GASTROINTESTINAL: Abdomen soft, non-tender, nondistended. MUSCULOSKELETAL: No cyanosis, or edema. BACK: Nontender without obvious deformity. No CVA tenderness. Laboratory Laboratory Tests Test 08/19/17 14:52 Activated Partial Thromboplast Time 46.3 SEC Assessment and Plan Problem List: (1) Elevated troponin I level ICD Codes: R79.89 - Other specified abnormal findings of blood chemistry Status: Chronic (2) Hx of pulmonary embolus ICD Codes: Z86.711 - Personal history of pulmonary embolism Assessment and Plan 1.) Chest pain - appears to be noncardiac, will try norvasc 5 mg qd empyrically for coronary spasm 2.) H/o multiple pulmonary emboli - on heparin - case management consult to assess insurance coverage for noac per patient request, started on xarelto Cory Robledo MD Aug 20, 2017 12:09
--- NOTE | 2017-08-20 14:40 | HHI.DCPOC ---
Discharge Care Plan Diagnosis: (1) Atypical chest pain (2) Barretts esophagus (3) Gastritis (4) HTN (hypertension) (5) Elevated troponin I level (6) Chest pain (7) Pulmonary embolism Goals to Promote Your Health * To prevent worsening of your condition and complications * To maintain your health at the optimal level Directions to Meet Your Goals Take your medications as prescribed Follow your dietary instruction Follow activity as directed Keep your appointments as scheduled Take your immunizations and boosters as scheduled If your symptoms worsen call your PCP, if no PCP go to Urgent Care Center or Emergency Room Smoking is Dangerous to Your Health. Avoid second hand smoke Call the 24-hour hour crisis hotline for domestic abuse at Cameron Oden MD Aug 20, 2017 14:39
--- NOTE | 2017-08-20 16:15 | HHI.DS ---
Discharge Summary Admission Date Aug 16, 2017 at 17:11 Discharge Date: Aug 20, 2017 Admitting Diagnosis chest pain, elevated troponin (1) Hx of pulmonary embolus ICD Code: Z86.711 - Personal history of pulmonary embolism Diagnosis: Principal Status: Chronic (2) Chronic kidney disease (CKD), stage III (moderate) ICD Code: N18.3 - Chronic kidney disease, stage 3 (moderate) Diagnosis: Principal Status: Chronic (3) Atypical chest pain ICD Code: R07.89 - Other chest pain Diagnosis: Principal Status: Resolved (4) Pulmonary embolism ICD Code: I26.99 - Other pulmonary embolism without acute cor pulmonale Diagnosis: Principal Status: Chronic (5) HTN (hypertension) ICD Code: I10 - Essential (primary) hypertension Diagnosis: Principal Status: Chronic (6) Barretts esophagus ICD Code: K22.70 - Manning's esophagus without dysplasia Diagnosis: Principal Status: Chronic Procedures Left heart catheterization, left ventriculography, coronary angiography. Brief History - From Admission Mr. Rivas is a pleasant 57 year old male with a history of MA x 3, PE who presented to the ED on 08/16/2017 due to chest pain that started on Tuesday. He reports substernal chest pressure both at rest and on exertion. Chest discomfort comes and goes but has been present during last several days. He felt weak but denies any radiation of the discomfort to neck, jaw, arms. No diaphoresis. He currently takes warfarin for history of PE and thromboembolism. He requests to see if warfarin can be switched to Apixaban. Patient denies any more than usual shortness of breath. He has a history of granulomatous lung disease. Denies any changes in bowel or bladder habits. CBC/BMP: 08/19/17 0323 08/19/17 0323 Significant Findings Laboratory Tests Test 08/18/17 08:51 08/19/17 01:35 08/19/17 03:23 08/19/17 06:15 Prothrombin Time 19.3 SEC (9.8-11.6) 16.3 SEC (9.8-11.6) Activated Partial Thromboplast Time 118.6 SEC (24.3-30.1) 92.8 SEC (24.3-30.1) 43.4 SEC (24.3-30.1) Red Blood Count 3.87 MIL/MM3 (4.50-5.90) Hematocrit 37.4 % (39.0-51.0) Monocytes (%) (Auto) 11.9 % (0.0-8.0) Blood Urea Nitrogen 21 MG/DL (7-18) Creatinine 1.41 MG/DL (0.60-1.30) Random Glucose 108 MG/DL (74-106) Albumin 3.2 GM/DL (3.4-5.0) Estimat Glomerular Filtration Rate 52 ML/MIN (>89) Test 08/19/17 14:52 Activated Partial Thromboplast Time 46.3 SEC (24.3-30.1) Imaging Last Impressions Chest X-Ray 08/16/17 0000 Signed Impressions: Service Date/Time: Wednesday, August 16, 2017 11:45 - CONCLUSION: Midinspiratory exam demonstrating no acute cardiopulmonary disease. John Corado MD CT Angiography 08/16/17 0000 Signed Impressions: Service Date/Time: Wednesday, August 16, 2017 15:19 - CONCLUSION: 1. No evidence of pulmonary emboli. 2. Stable noncalcified small pulmonary nodules largest is in the right upper lobe. 3. Old granulomatous disease. 4. Stable reticulonodular scarring in the right upper lobe. 5. Hepatic steatosis. John Corado MD PE at Discharge AAOx3, NAD Clear lungs BL S1S2 RRR, no MRG right groin with clear dressing. Pt update on day of discharge The patient was complaining of pain in bilateral ankles. States that is usually how his gout attacks percent. The ankles are warm to touch and very tender to palpation however they are not swollen. Ration was given 1 dose of colchicine 1.2 mg once orally and discharged with a prescription for indomethacin orally 50 minutes by mouth twice a day for 3 days. Advised to follow-up with his primary care physician. Hospital Course Mr. Rivas is a 57 year old male with a history of CAD, PE currently on warfarin who presents to the ED on 08/16/2017 due to chest pain both at rest and exertion. ED work up indicated troponin elevated to 0.11 and later 0.09. Chest pain The patient was admitted to the medical floor and started on aspirin 81 mg by mouth daily, nitroglycerin when necessary for chest discomfort, oxygen, beta michael and statin. Cardiology was consulted and recommended a cardiac catheterization which was done showed mild two-vessel coronary artery disease in the right dominant system. Normal LV systolic function with an EF of 60%. Suspect chest pain is noncardiac. Patient complained of chest pain after eating. Patient has had a recent EGD on 07/01/17 which showed a short segment Manning's esophagus found in the distal esophagus. Chest pain is likely of noncardiac origin and due to esophagitis due to reflux. I will start the patient on Maalox as needed and advised to continue Protonix. I also advised the patient to follow-up with gastroenterology as an outpatient. History of PE The patient presented to the hospital with a therapeutic INR of 2.6. However the patient requested to be switched to a no onto correlation. The patient was switched to Xarelto for which case managers provided coupons. Patient was breech with heparin Procedure done. -CKD stage III Creatinine appears to be stable. Full code.Xarelto. Pt Condition on Discharge: Stable Discharge Disposition: Discharge Home Discharge Time: <= 30 minutes Discharge Instructions DIET: Follow Instructions for: Heart Healthy Diet Activities you can perform: Regular-No Restrictions Activities to Avoid: Strenuous Activity Follow up Referrals: Gastroenterology PCP Follow-up New Medications: Indomethacin (Indomethacin) 50 Mg Cap 50 MG PO TID for gout, #10 CAP 0 Refills Take with food, milk, or antacids to decrease stomach adverse effects. Rivaroxaban (Xarelto) 15 Mg Tab 15 MG PO Q12HR for Blood Clot Prevention for 21 Days, TAB 0 Refills Rivaroxaban (Xarelto) 20 Mg Tab 20 MG PO DAILY for Blood Clot Prevention, #30 TAB 1 Refill Take after finishing 21 days of Xarelto 15 mg orally twice a day. Ccyacgxu-Xzsjrrdmg-Wlaisdjvhxr Liq (Mag-Al Plus Liq) 200-200-20 Mg/5 Ml Susp 30 ML PO Q6H PRN for GERD/CHEST PAIN, #1 BOTTLE Take between meals or as directed. Shake well. Do not exceed 120 mL/24 hrs. Amlodipine (Norvasc) 5 Mg Tab 5 MG PO DAILY for chest pain, #31 TAB Atorvastatin (Atorvastatin) 80 Mg Tab 40 MG PO HS for cad, #31 TAB Metoprolol Tartrate (Metoprolol Tartrate) 25 Mg Tab 12.5 MG PO Q12HR for cad, #60 TAB Continued Medications: Allopurinol (Allopurinol) 100 Mg Tab 100 MG PO DAILY for Gout, #30 TAB 0 Refills Aspirin (Aspirin) 81 Mg Chew 81 MG CHEW DAILY, TAB 0 Refills Pantoprazole (Pantoprazole) 40 Mg Tab 40 MG PO DAILY for Reflux, #30 TAB 0 Refills Turmeric Root Extract (Turmeric) 500 Mg Capsule Discontinued Medications: Ascorbic Acid (Vitamin C Adult Gummies) 125 Mg Chew 125 MG CHEW DAILY for Nutritional Supplement, #30 TAB 0 Refills Calcium Carbonate (Antacid) (Tums E-X 750) 750 Mg Chew 750 MG CHEW PRN for HEARTBURN, TAB 0 Refills Lisinopril (Lisinopril) 5 Mg Tab 10 MG PO DAILY for Blood Pressure Management, #30 TAB 0 Refills Warfarin (Warfarin) 3 Mg Tab 3 MG PO DAILY for Blood Clot Prevention, #30 TAB 0 Refills Cameron Oden MD Aug 20, 2017 16:15
== END 2017-08-20 14:56 | disposition home or self-care (01) | DRG 392 ==
LOC: NEPC 10:54 → NEDA 17:11 → NEDH 20:36 → N04A 08-17 13:04
PROVIDERS: ADMIT Hospitalist; ATTEND Hospitalist
PROC: B2111ZZ Fluoroscopy of Multiple Coronary Arteries using Low Osmolar Contrast (ICD-10-PCS; 2017-08-18)
PROC: B2151ZZ Fluoroscopy of Left Heart using Low Osmolar Contrast (ICD-10-PCS; 2017-08-18)
PROC: 4A023N7 Measurement of Cardiac Sampling and Pressure, Left Heart, Percutaneous Approach (ICD-10-PCS; principal; 2017-08-18 14:45)
DX: K21.0 Gastro-esophageal reflux disease with esophagitis (principal); I13.0 Hypertensive heart and chronic kidney disease with heart failure and stage 1 through stage 4 chronic kidney disease, or unspecified chronic kidney disease; I50.9 Heart failure, unspecified; J84.10 Pulmonary fibrosis, unspecified; K22.70 Barrett's esophagus without dysplasia; N18.3 Chronic kidney disease, stage 3 (moderate); I25.2 Old myocardial infarction; K44.9 Diaphragmatic hernia without obstruction or gangrene; J44.9 Chronic obstructive pulmonary disease, unspecified; E78.5 Hyperlipidemia, unspecified; M19.90 Unspecified osteoarthritis, unspecified site; F41.9 Anxiety disorder, unspecified; F32.9 Major depressive disorder, single episode, unspecified; Z79.01 Long term (current) use of anticoagulants; Z86.711 Personal history of pulmonary embolism; Z87.442 Personal history of urinary calculi; Z86.718 Personal history of other venous thrombosis and embolism; Z80.1 Family history of malignant neoplasm of trachea, bronchus and lung; I25.10 Atherosclerotic heart disease of native coronary artery without angina pectoris; R07.89 Other chest pain; K29.70 Gastritis, unspecified, without bleeding; R74.8 Abnormal levels of other serum enzymes
CPT/HCPCS: 71046; 71275; 80048; 80053; 82550; 82552; 83690; 83735; 84100; 84484; 85025; 85610; 85730; 93005; 93458; C1769; C1893; C9113; J1644; J2250; J2270; Q9967

== ENCOUNTER 2017-11-22 10:13 | Inpatient (IN) | payer BC ==
[~2017-11-22] VITALS: Ht 172.7 cm; Wt 93.5 kg
[2017-11-22] VITALS (15 sets, daily range): BP systolic 133–181; BP diastolic 77–100; PULSE 51–62; RESP 17–20; TEMP 97.5–98.2; O2SAT 96–100
[~2017-11-22 10:13] MED LIST changes: +ALLO100T PO; +AMLO5 PO; +ATOR80TA45 PO; -CARA1TAB6 PO; -DICY10 PO; -HYDR-3516 PO; +INDO50CA PO; -LISI-519 PO; +MAG-LIQ PO; +METO25TA3 PO; +PANT40TA3 PO; -PRED20 PO; -PRIL20TA2 PO; +TURM500C7; -WARF-58 PO; +XARE15TA PO; +XARE20TA PO
[2017-11-22 10:41] LABS: AUTOMATED NEUTROPHIL # 3.6 TH/MM3 (1.8-7.7); BASOPHIL # 0.1 TH/MM3 (0-0.2); BASOPHIL % 1.1 % (0.0-2.0); EOSINOPHIL # 0.1 TH/MM3 (0-0.4); EOSINOPHIL % 2.5 % (0.0-4.0); HEMATOCRIT 40.6 % (39.0-51.0); HEMOGLOBIN 13.9 GM/DL (13.0-17.0); LYMPH % 17.6 % (9.0-44.0); LYMPHOCYTE # 0.9 TH/MM3 (1.0-4.8); MEAN CELL VOLUME 94.8 FL (80.0-100.0); MEAN CORPUSCULAR HEMOGLOBIN 32.5 PG (27.0-34.0); MEAN CORPUSCULAR HGB CONC 34.2 % (32.0-36.0); MEAN PLATELET VOLUME 7.9 FL (7.0-11.0); MONO % 10.6 % (0.0-8.0); MONOCYTE # 0.6 TH/MM3 (0-0.9); NEUT % 68.2 % (16.0-70.0); PLATELET COUNT 178 TH/MM3 (150-450); RED BLOOD COUNT 4.28 MIL/MM3 (4.50-5.90); RED CELL DISTRIBUTION WIDTH 14.1 % (11.6-17.2); WHITE BLOOD COUNT 5.3 TH/MM3 (4.0-11.0)
[2017-11-22 10:53] LABS: INTERNATIONAL NORMALIZED RATIO 3.2 RATIO; PROTHROMBIN TIME - PATIENT 32.4 SEC (9.8-11.6)
--- NOTE | 2017-11-22 10:54 | RADRPT ---
EXAM DATE/TIME: 11/22/2017 10:37 [facility] COMPARISON: CHEST PA & LAT, August 16, 2017, 11:45. INDICATIONS : Chest pain. MEDICAL HISTORY : Chronic obstructive pulmonary disease. Congestive heart failure. hiatal hernia SURGICAL HISTORY : lung biopsy ENCOUNTER: Initial ACUITY: 1 day PAIN SCORE: 7/10 LOCATION: Bilateral chest FINDINGS: No new focal pleural or parenchymal opacities. Cardiomediastinal contours are within normal limits. R edemonstration of right-sided rib deformity. Bony thorax is otherwise intact. CONCLUSION: 1. No acute abnormality or significant interval change. Satnam Lundy MD on November 22, 2017 at 10:52 Board Certified Radiologist. This report was verified electronically.
[2017-11-22] MEDS ORDERED: LISI10TA3 PO (10:55)
[2017-11-22] MEDS ORDERED: WARF-58 PO (10:55)
[2017-11-22] MEDS ORDERED: SODIUM CHLORIDE 0.9% FLUSH 10 ML FLUSH IVF PRN (11:00)
[2017-11-22 11:02] LABS: BICARBONATE 27.4 MEQ/L (21.0-32.0); BLOOD UREA NITROGEN 17 MG/DL (7-18); CALCIUM 9.1 MG/DL (8.5-10.1); CHLORIDE 106 MEQ/L (98-107); CREATININE 1.42 MG/DL (0.60-1.30); GLOMERULAR FILTRATION RATE 51 ML/MIN (>89); GLUCOSE,RANDOM 164 MG/DL (74-106); SODIUM (NA) 141 MEQ/L (136-145)
[2017-11-22 11:05] LABS: TROPONIN I 0.12 NG/ML (0.02-0.05)
--- NOTE | 2017-11-22 11:06 | PD ---
HPI Chief Complaint: Chest Pain Time Seen by Provider: 10:47 Travel History International Travel<30 days: No Contact w/Intl Traveler<30days: No Traveled to known affect area: No History of Present Illness HPI 57-year-old male states that he had a little bit of chest pain yesterday but today it increased in intensity. He states no other concurrent complaints other than a intermittent productive cough for 2 months. He states his biomaterials engineer is dr gonzalez. He denies specific modifying factors. He denies taking an aspirin yet today. Quality is heaviness. Severity is moderate. Location is central. Duration is 1 day. He states he was here a couple months ago and had cardiac workup but he does not recall all the details. PFSH Past Medical History Hx Anticoagulant Therapy: Yes (ELIQUIS) Arthritis: Yes Asthma: No Blood Disorders: No Anxiety: Yes Depression: Yes Heart Rhythm Problems: No Cancer: No Cardiac Catheterization: Yes Cardiovascular Problems: Yes High Cholesterol: Yes Chemotherapy: No Chest Pain: Yes Congestive Heart Failure: Yes COPD: Yes Cerebrovascular Accident: No Coronary Artery Disease: Yes Diabetes: No Diminished Hearing: No Endocrine: No Gastrointestinal Disorders: No GERD: Yes Gout: Yes Genitourinary: Yes Headaches: Yes Hiatal Hernia: Yes Hypertension: Yes Immune Disorder: No Implanted Vascular Access Dvce: No Kidney Stones: Yes Musculoskeletal: Yes Neurologic: Yes Psychiatric: No Reproductive: No Respiratory: Yes Immunizations Current: No Migraines: No Myocardial Infarction: Yes (X2) Pneumonia: Yes Renal Failure: No Seizures: No Sleep Apnea: No Tetanus Vaccination: < 5 Years Influenza Vaccination: No Past Surgical History Abdominal Surgery: No AICD: No Arteriovenous Shunt: No Cardiac Surgery: Yes (cardiac cath 2012) Ear Surgery: No Endocrine Surgery: No Eye Surgery: No Genitourinary Surgery: No Gynecologic Surgery: No Hysterectomy: No Insulin Pump: No Joint Replacement: No Neurologic Surgery: No Oral Surgery: No Pacemaker: No Thoracic Surgery: Yes (LUNG BIOPSY 1995) Other Surgery: Yes Social History Alcohol Use: No Tobacco Use: No Substance Use: No Allergies-Medications (Allergen,Severity, Reaction): Coded Allergies: No Known Allergies (Verified Allergy, Unknown, 11/22/17) Reported Meds & Prescriptions Reported Meds & Active Scripts Active Reported Lisinopril 10 Mg Tab 10 Mg PO DAILY Warfarin 3 Mg Tab 3 Mg PO DAILY Pantoprazole (Pantoprazole Sodium) 40 Mg Tab 40 Mg PO DAILY Allopurinol 100 Mg Tab 100 Mg PO DAILY Review of Systems Except as stated in HPI: all other systems reviewed are Neg Physical Exam Narrative GENERAL: 57-year-old male in no apparent distress SKIN: Focused skin assessment warm/dry. HEAD: Atraumatic. Normocephalic. EYES: Pupils equal and round. No scleral icterus. No injection or drainage. ENT: No nasal bleeding or discharge. Mucous membranes pink and moist. NECK: Trachea midline. No JVD. CARDIOVASCULAR: Regular rate and rhythm. RESPIRATORY: No accessory muscle use. Clear to auscultation. Breath sounds equal bilaterally. GASTROINTESTINAL: Abdomen soft, non-tender, nondistended. MUSCULOSKELETAL: No obvious deformities. No clubbing. No cyanosis. NEUROLOGICAL: Awake and alert. Motor grossly within normal limits. Normal speech. Data Data Last Documented VS Vital Signs Date Time Temp Pulse Resp B/P (MAP) Pulse Ox O2 Delivery O2 Flow Rate FiO2 11/22/17 11:33 56 18 175/91 (119) 97 11/22/17 11:00 Room Air 11/22/17 10:15 97.5 Orders Orders Electrocardiogram (11/22/17 10:18) Complete Blood Count With Diff (11/22/17 10:18) Basic Metabolic Panel (Bmp) (11/22/17 10:18) Ckmb (Isoenzyme) Profile (11/22/17 10:18) Troponin I (11/22/17 10:18) Prothrombin Time / Inr (Pt) (11/22/17 10:19) Chest, Pa & Lat (11/22/17 10:18) Magnesium (Mg) (11/22/17 10:48) Ecg Monitoring (11/22/17 10:48) Bilateral Bp Monitoring (11/22/17 10:48) Iv Access Insert/Monitor (11/22/17 10:48) Oximetry (11/22/17 10:48) Sodium Chloride 0.9% Flush (Ns Flush) (11/22/17 11:00) Hepatic Functional Panel (11/22/17 10:48) Aspirin (Aspirin) (11/22/17 11:15) Nitroglycerin Sl (Nitrostat Sl) (11/22/17 11:15) CKMB (11/22/17 10:25) CKMB% (11/22/17 10:25) Admit Order (Ed Use Only) (11/22/17 12:41) Resp Oxygen Nasal Cannula (11/22/17 ) Troponin I (11/22/17 12:44) Troponin I (11/22/17 15:44) Electrocardiogram (11/22/17 12:44) Electrocardiogram (11/22/17 15:44) Nitroglycerin 2% Oint (Nitroglycerin 2% (11/22/17 18:00) Labs Laboratory Tests Test 11/22/17 10:25 White Blood Count 5.3 TH/MM3 Red Blood Count 4.28 MIL/MM3 Hemoglobin 13.9 GM/DL Hematocrit 40.6 % Mean Corpuscular Volume 94.8 FL Mean Corpuscular Hemoglobin 32.5 PG Mean Corpuscular Hemoglobin Concent 34.2 % Red Cell Distribution Width 14.1 % Platelet Count 178 TH/MM3 Mean Platelet Volume 7.9 FL Neutrophils (%) (Auto) 68.2 % Lymphocytes (%) (Auto) 17.6 % Monocytes (%) (Auto) 10.6 % Eosinophils (%) (Auto) 2.5 % Basophils (%) (Auto) 1.1 % Neutrophils # (Auto) 3.6 TH/MM3 Lymphocytes # (Auto) 0.9 TH/MM3 Monocytes # (Auto) 0.6 TH/MM3 Eosinophils # (Auto) 0.1 TH/MM3 Basophils # (Auto) 0.1 TH/MM3 CBC Comment DIFF FINAL Differential Comment Prothrombin Time 32.4 SEC Prothromb Time International Ratio 3.2 RATIO Blood Urea Nitrogen 17 MG/DL Creatinine 1.42 MG/DL Random Glucose 164 MG/DL Calcium Level 9.1 MG/DL Sodium Level 141 MEQ/L Potassium Level 3.7 MEQ/L Chloride Level 106 MEQ/L Carbon Dioxide Level 27.4 MEQ/L Anion Gap 8 MEQ/L Estimat Glomerular Filtration Rate 51 ML/MIN Magnesium Level 1.4 MG/DL Total Bilirubin 0.4 MG/DL Direct Bilirubin 0.1 MG/DL Indirect Bilirubin 0.3 MG/DL Aspartate Amino Transf (AST/SGOT) 67 U/L Alanine Aminotransferase (ALT/SGPT) 118 U/L Alkaline Phosphatase 75 U/L Total Creatine Kinase 180 U/L Creatine Kinase MB 2.4 NG/ML Troponin I 0.12 NG/ML Total Protein 7.9 GM/DL Albumin 3.8 GM/DL MDM Medical Decision Making Medical Screen Exam Complete: Yes Emergency Medical Condition: Yes Medical Record Reviewed: Yes (Past history confirmed, here in August for non- STEMI and pain thought to be noncardiac, cardiac catheterization reviewed, history of DVT switched from Coumadin to Xarelto) Interpretation(s) CBC & BMP Diagram 11/22/17 10:25 Calcium Level 9.1 Last 24 hours Impressions Chest X-Ray 11/22/17 1018 Signed Impressions: Service Date/Time: Wednesday, November 22, 2017 10:37 - CONCLUSION: 1. No acute abnormality or significant interval change. Satnam Lundy MD Differential Diagnosis PA, PE, gastritis, musculoskeletal Narrative Course We will check blood work, chest x-ray and dose with aspirin and nitro and reevaluate Patient has elevation in troponin at 0.12. He was given aspirin and nitroglycerin already. Patient updated and agrees to admission for further care. Will discuss with cardiology Physician Communication Physician Communication dr latham agrees to admit dr gonzalez agrees to follow along, agrees no heparin with therapeutic INR Diagnosis Primary Impression: NSTEMI (non-ST elevated myocardial infarction) Admitting Information Admitting Physician Requests: Admit Sandy Shepard MD Nov 22, 2017 11:06
[2017-11-22] MEDS ORDERED: NITROGLYCERIN 0.4 MG SL 25 TABS/BTL SL ONE (11:15)
[2017-11-22] MEDS ORDERED: ASPIRIN 325 MG TAB PO ONE (11:15)
[2017-11-22 12:51] LABS: ALBUMIN 3.8 GM/DL (3.4-5.0); DIRECT BILIRUBIN ADULT 0.1 MG/DL (0.0-0.2); MAGNESIUM 1.4 MG/DL (1.5-2.5)
[2017-11-22 12:53] LABS: INDIRECT BILIRUBIN 0.3 MG/DL (0.0-0.8); TOTAL BILIRUBIN ADULT 0.4 MG/DL (0.2-1.0); TOTAL PROTEIN 7.9 GM/DL (6.4-8.2)
[2017-11-22] MEDS ORDERED: BISACODYL 10 MG SUPP RECTAL PRN (13:00)
[2017-11-22] MEDS ORDERED: LACTULOSE SYRUP 20 GM/30 ML CUP PO PRN (13:00)
[2017-11-22] MEDS ORDERED: NALOXONE HCL 0.4 MG/ML AMP IV PUSH PRN (13:30)
[2017-11-22] MEDS ORDERED: SODIUM CHLORIDE 0.9% FLUSH 10 ML FLUSH IV FLUSH PRN (13:30)
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
[2017-11-22] MEDS ORDERED: hydrALAZINE HCL 20 MG/ML VIAL IV PUSH PRN (14:15)
[2017-11-22] MEDS ORDERED: ISOSORBIDE MONONITRATE 30 MG CR TAB (IMDUR) PO ONE (14:15)
[2017-11-22] MEDS: SODIUM CHLOR 0.45% 1000 ML INJ 1,000 ML IV SCH (14:18)
--- NOTE | 2017-11-22 14:38 | MB ---
cc: Cory Robledo MD DATE: 11/22/2017 HISTORY OF PRESENT ILLNESS: Madhu is a very pleasant 57-year-old gentleman with a history of pulmonary embolus, on chronic anticoagulation therapy with Coumadin, was admitted back in 08/2017 with a non-STEMI, had a left heart catheterization done by myself, which showed mild 2-vessel coronary artery disease, EF 60%. The patient presents this morning with chest pain beginning at 6 a.m., still ongoing. Patient describes the chest pain as heaviness, moderate in severity. Has a troponin elevation at the same level he had back in August. Otherwise, denies any fevers, chills, cough, GI/ bleeding, pain, orthopnea, dizziness. PAST MEDICAL HISTORY: Per history of present illness. Also includes arthritis, depression, hyperlipidemia, chest pain, hypertension, hiatal hernia, myocardial infarction x 2, lung biopsy in 1995. SOCIAL HISTORY: Denies tobacco or alcohol use. ALLERGIES: NONE. MEDICATIONS: Lisinopril 10 mg daily, warfarin 3 mg daily, pantoprazole 40 mg daily, allopurinol 100 mg daily. MEDICATIONS IN THE HOSPITAL: Lisinopril 10 mg daily, aspirin 81 mg daily, isosorbide mononitrate 30 mg daily, 1 inch of nitroglycerine paste q. 6 hours. PHYSICAL EXAMINATION: VITAL SIGNS: Blood pressure 181/94, pulse 51, respiratory rate 17, temperature 97.5. Initial blood pressure was 169/81, sats 98% on room air. GENERAL: He is alert, oriented x 3, in no acute distress. NECK: Supple. No JVD. No bruit. CARDIOVASCULAR: S1, S2. No murmurs, rubs or gallops. LUNGS: Clear to auscultation bilaterally. ABDOMEN: Soft, nontender, nondistended with positive bowel sounds. EXTREMITIES: Lower extremity edema. LABORATORY AND DIAGNOSTIC DATA: White count 5.3, hemoglobin 13.9, hematocrit 40.6, platelet count 178. Sodium 141, potassium 3.7, chloride 106, bicarbonate 27.4, BUN 17, creatinine 1.42, glucose 164, AST 67, ALT 118. Troponin 0.12. INR is 3.2. Chest x-ray: No acute abnormality or significant interval change. EKG shows normal sinus rhythm at 60 beats per minute, otherwise normal. DIAGNOSES: 1. Lic-PD-eehoxdlef myocardial infarction. 2. Atypical chest pain. 3. Coronary artery disease. 4. History of pulmonary embolus. 5. Hypertension. 6. History of deep venous thrombosis. 7. Supratherapeutic INR. 8. Acute renal failure. 9. Elevated liver enzymes. 10. Low magnesium. DISCUSSION: At this point, I do not think his troponin elevation is due to an obstructive coronary lesion. The elevation is similar to what he had in his last admission, and he had no significant coronary artery disease. This may be related to some form of a cardiomyopathic process and/or pulmonary hypertension related to chronic PE would be my best guess. He is therapeutically anticoagulated and could not be catheterized right now due to the supratherapeutic INR. I do not think he needs this, however. He does need better blood pressure control, and I will add Norvasc 5 mg. At this point in time, continue aspirin and follow up INR, troponin trend, symptom trend, vital sign trend. MD NICHOLE Gallegos/SB , 02:12 PM , 02:37 PM
[2017-11-22] MEDS ORDERED: amLODIPine BESYLATE 5 MG TAB PO ONE (16:00)
[2017-11-22] MEDS ORDERED: MAGNESIUM SULFATE 1 GM PREMIX 100 ML IV ONE (16:00)
[2017-11-22] MEDS: NITROGLYCERIN 2% OINT 1 GM PACKET TOP SCH ×2 (16:22→22:59)
[2017-11-22 20:25] LABS: HEMOGLOBIN A1C 6.1 % (4.3-6.0)
[2017-11-22] MEDS: SODIUM CHLORIDE 0.9% FLUSH 10 ML FLUSH IV FLUSH SCH (21:00)
[2017-11-23] VITALS (19 sets, daily range): BP systolic 110–156; BP diastolic 57–93; PULSE 49–100; RESP 16–60; TEMP 98–98.1; O2SAT 95–96
[2017-11-23] MEDS: SODIUM CHLOR 0.45% 1000 ML INJ 1,000 ML IV SCH ×2 (02:50→16:53)
[2017-11-23] MEDS: NITROGLYCERIN 2% OINT 1 GM PACKET TOP SCH ×4 (04:29→22:41)
[2017-11-23] MEDS ORDERED: ALUMINUM/MAGNESIUM/SIMETH 30 ML CUP PO ONE (04:45)
[2017-11-23 05:28] LABS: BASOPHIL % 0.5 % (0.0-2.0); EOSINOPHIL # 0.2 TH/MM3 (0-0.4); EOSINOPHIL % 3.4 % (0.0-4.0); HEMATOCRIT 37.7 % (39.0-51.0); HEMOGLOBIN 13.1 GM/DL (13.0-17.0); LYMPH % 14.6 % (9.0-44.0); LYMPHOCYTE # 0.8 TH/MM3 (1.0-4.8); MEAN CORPUSCULAR HEMOGLOBIN 32.5 PG (27.0-34.0); MEAN CORPUSCULAR HGB CONC 34.6 % (32.0-36.0); MEAN PLATELET VOLUME 7.7 FL (7.0-11.0); MONO % 10.9 % (0.0-8.0); MONOCYTE # 0.6 TH/MM3 (0-0.9); NEUT % 70.6 % (16.0-70.0); PLATELET COUNT 175 TH/MM3 (150-450); RED BLOOD COUNT 4.01 MIL/MM3 (4.50-5.90); RED CELL DISTRIBUTION WIDTH 14.4 % (11.6-17.2); WHITE BLOOD COUNT 5.6 TH/MM3 (4.0-11.0)
[2017-11-23 05:35] LABS: INTERNATIONAL NORMALIZED RATIO 3.5 RATIO; PROTHROMBIN TIME - PATIENT 35.5 SEC (9.8-11.6)
[2017-11-23 05:58] LABS: ALBUMIN 3.5 GM/DL (3.4-5.0); AST (GOT) 57 U/L (15-37); BICARBONATE 26.9 MEQ/L (21.0-32.0); BLOOD UREA NITROGEN 14 MG/DL (7-18); CALCIUM 8.7 MG/DL (8.5-10.1); CHLORIDE 104 MEQ/L (98-107); CREATININE 1.46 MG/DL (0.60-1.30); GLOMERULAR FILTRATION RATE 50 ML/MIN (>89); GLUCOSE,RANDOM 102 MG/DL (74-106); SODIUM (NA) 138 MEQ/L (136-145)
[2017-11-23] MEDS ORDERED: PANTOPRAZOLE SODIUM 40 MG VIAL IV PUSH SCH (06:00)
[2017-11-23 06:05] LABS: ALKALINE PHOSPHATASE 57 U/L (45-117); ALT (GPT) 104 U/L (12-78); TOTAL BILIRUBIN ADULT 0.6 MG/DL (0.2-1.0); TOTAL PROTEIN 7.2 GM/DL (6.4-8.2); TROPONIN I 0.11 NG/ML (0.02-0.05)
[2017-11-23] MEDS: SODIUM CHLORIDE 0.9% FLUSH 10 ML FLUSH IV FLUSH SCH ×2 (08:56→21:00)
[2017-11-23] MEDS: LISINOPRIL 10 MG TAB PO SCH (08:56)
[2017-11-23] MEDS: ASPIRIN EC 81 MG TABEC PO SCH (08:56)
[2017-11-23] MEDS: ISOSORBIDE MONONITRATE 30 MG CR TAB (IMDUR) PO SCH (08:56)
[2017-11-23] MEDS: amLODIPine BESYLATE 5 MG TAB PO SCH (09:00)
[2017-11-23] MEDS ORDERED: PNEUMOCOCCAL POLYVALENT INJ 25 MCG/0.5 ML SYR IM ONE (10:00)
--- NOTE | 2017-11-23 12:13 | EKG ---
Date Performed: 11/23/2017 Time Performed: 04:41:58 PTAGE: 57 years EKG: Sinus bradycardia Poor R wave progression - probable normal variant Inferior T wave changes are nonspecific Low QRS voltages in precordial leads Borderline ECG PREVIOUS TRACING : 11/22/2017 16.40 Since the previous tracing, no significant change noted DOCTOR: Malcom Jacome Interpretating Date/Time 11/23/2017 12:12:14
[2017-11-23] MEDS: AZITHROMYCIN 250 MG TAB PO SCH (13:04)
[2017-11-23] MEDS ORDERED: CARVEDILOL 3.125 MG TAB PO ONE (13:45)
--- NOTE | 2017-11-23 13:50 | PD.CARD.PN ---
Subjective Subjective Remarks chest pain improved, he states its worse after he eats; currently napping in nad , easily arousable Objective Medications Current Medications Medications (Trade) Dose Ordered Sig/Oumou Route Start Time Stop Time Status Last Admin (Nitroglycerin 2% Oint) 1 inch Q6HR TOP 11/22/17 18:00 11/23/17 13:04 Sodium Chloride 1,000 ml @ 75 mls/hr [id number] IV 11/22/17 13:30 11/23/17 02:50 (NS Flush) 2 ml UNSCH PRN IV FLUSH 11/22/17 13:30 (NS Flush) 2 ml BID IV FLUSH 11/22/17 21:00 11/23/17 08:56 (Narcan Inj) 0.4 mg UNSCH PRN IV PUSH 11/22/17 13:30 (Milk Of Magnesia Liq) 30 ml Q12H PRN PO 11/22/17 13:00 (Senokot) 17.2 mg Q12H PRN PO 11/22/17 13:00 (Dulcolax Supp) 10 mg DAILY PRN RECTAL 11/22/17 13:00 (Lactulose Liq) 30 ml DAILY PRN PO 11/22/17 13:00 (Prinivil) 10 mg DAILY PO 11/23/17 09:00 11/23/17 08:56 (Ecotrin Ec) 81 mg DAILY PO 11/23/17 09:00 11/23/17 08:56 (Apresoline Inj) 10 mg Q30M PRN IV PUSH 11/22/17 14:15 (Imdur) 30 mg DAILY@07 PO 11/23/17 07:00 11/23/17 08:56 Pharmacy Profile Note 0 ml @ 0 mls/hr UNSCH OTHER 11/22/17 14:15 (Norvasc) 5 mg DAILY PO 11/23/17 09:00 11/23/17 09:00 (Protonix Inj) 40 mg Q24H IV PUSH 11/23/17 06:00 11/23/17 04:53 (Zithromax) 500 mg DAILY PO 11/23/17 10:30 11/23/17 13:04 (Coreg) 3.125 mg ONCE ONCE PO 11/23/17 13:45 11/23/17 13:46 UNV (Coreg) 3.125 mg Q12HR PO 11/23/17 21:00 UNV Vital Signs / I&O Vital Signs Date Time Temp Pulse Resp B/P (MAP) Pulse Ox O2 Delivery O2 Flow Rate FiO2 11/23/17 13:05 98.1 79 17 146/80 (102) 95 11/23/17 10:10 96 21 11/23/17 08:43 98.0 67 17 156/93 (114) 96 11/23/17 08:00 54 11/23/17 06:00 50 11/23/17 05:00 60 11/23/17 04:29 60 16 136/84 (101) 96 11/23/17 04:18 55 11/23/17 04:00 100 11/23/17 03:00 52 11/23/17 02:00 54 11/23/17 01:00 52 11/23/17 00:00 49 11/23/17 00:00 59 16 110/57 (74) 96 11/23/17 00:00 52 11/23/17 00:00 52 11/22/17 23:00 62 11/22/17 22:00 52 11/22/17 21:22 97.6 51 18 134/77 (96) 96 11/22/17 21:00 54 11/22/17 20:00 56 11/22/17 20:00 57 11/22/17 19:00 58 11/22/17 16:26 98.2 62 18 133/81 (98) 98 11/22/17 15:29 58 11/22/17 14:22 97.9 56 18 155/95 (115) 97 I/O 11/22/17 11/22/17 11/22/17 11/23/17 11/23/17 11/23/17 07:00 15:00 23:00 07:00 15:00 23:00 Intake Total 600 ml 1330 ml Output Total 200 ml 875 ml Balance 400 ml 455 ml Intake Oral 500 ml 480 ml IV Total 100 ml 850 ml Output Urine Total 200 ml 875 ml Laboratory GENERAL: SKIN: Warm and dry. HEAD: Normocephalic. EYES: No scleral icterus. No injection or drainage. NECK: Supple, trachea midline. No JVD or lymphadenopathy. CARDIOVASCULAR: Regular rate and rhythm without murmurs, gallops, or rubs. RESPIRATORY: Breath sounds equal bilaterally. No accessory muscle use. GASTROINTESTINAL: Abdomen soft, non-tender, nondistended. MUSCULOSKELETAL: No cyanosis, or edema. BACK: Nontender without obvious deformity. No CVA tenderness. Laboratory Tests Test 11/22/17 18:36 11/23/17 05:17 Troponin I 0.10 NG/ML 0.11 NG/ML White Blood Count 5.6 TH/MM3 Red Blood Count 4.01 MIL/MM3 Hemoglobin 13.1 GM/DL Hematocrit 37.7 % Mean Corpuscular Volume 94.0 FL Mean Corpuscular Hemoglobin 32.5 PG Mean Corpuscular Hemoglobin Concent 34.6 % Red Cell Distribution Width 14.4 % Platelet Count 175 TH/MM3 Mean Platelet Volume 7.7 FL Neutrophils (%) (Auto) 70.6 % Lymphocytes (%) (Auto) 14.6 % Monocytes (%) (Auto) 10.9 % Eosinophils (%) (Auto) 3.4 % Basophils (%) (Auto) 0.5 % Neutrophils # (Auto) 4.0 TH/MM3 Lymphocytes # (Auto) 0.8 TH/MM3 Monocytes # (Auto) 0.6 TH/MM3 Eosinophils # (Auto) 0.2 TH/MM3 Basophils # (Auto) 0.0 TH/MM3 CBC Comment DIFF FINAL Differential Comment Prothrombin Time 35.5 SEC Prothromb Time International Ratio 3.5 RATIO Blood Urea Nitrogen 14 MG/DL Creatinine 1.46 MG/DL Random Glucose 102 MG/DL Total Protein 7.2 GM/DL Albumin 3.5 GM/DL Calcium Level 8.7 MG/DL Alkaline Phosphatase 57 U/L Aspartate Amino Transf (AST/SGOT) 57 U/L Alanine Aminotransferase (ALT/SGPT) 104 U/L Total Bilirubin 0.6 MG/DL Sodium Level 138 MEQ/L Potassium Level 3.9 MEQ/L Chloride Level 104 MEQ/L Carbon Dioxide Level 26.9 MEQ/L Anion Gap 7 MEQ/L Estimat Glomerular Filtration Rate 50 ML/MIN Total Creatine Kinase 117 U/L Creatine Kinase MB 1.4 NG/ML Assessment and Plan Problem List: (1) Coronary artery disease ICD Codes: I25.10 - Atherosclerotic heart disease of [place] coronary artery without angina pectoris Status: Chronic (2) Dysphagia ICD Codes: R13.10 - Dysphagia, unspecified (3) Barretts esophagus ICD Codes: K22.70 - Manning's esophagus without dysplasia Status: Chronic (4) NSTEMI (non-ST elevated myocardial infarction) ICD Codes: I21.4 - Non-ST elevation (NSTEMI) myocardial infarction Status: Acute (5) Pulmonary embolism ICD Codes: I26.99 - Other pulmonary embolism without acute cor pulmonale Status: Chronic Assessment and Plan 1.) NSTEMI - elevated troponin etiology indeterminate but I do not think is due to a primary obstructive event or lesion; he has a history of Manning's esophagus and relates his chest pain to eating so probably needs a GI evaluation , ow continue coumadin, inr is therapeutic Cory Robledo MD Nov 23, 2017 13:50
[2017-11-23] MEDS ORDERED: CALCIUM CARBONATE 500 MG CHEWABLE TAB CHEW PRN (15:00)
[2017-11-23] MEDS ORDERED: MORPHINE SULFATE 2 MG/ML SYRINGE SQ PRN (15:00)
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
--- NOTE | 2017-11-23 17:30 | HHI.PR ---
Subjective Remarks Patient is uncomfortable in his epigastric region today. He had IV Protonix but still complains of a sour feeling. He denies any nausea or vomiting. Objective Vitals Vital Signs Date Time Temp Pulse Resp B/P (MAP) Pulse Ox O2 Delivery O2 Flow Rate FiO2 11/23/17 16:44 98.1 53 17 128/75 (92) 96 11/23/17 13:05 98.1 79 17 146/80 (102) 95 11/23/17 10:10 96 21 11/23/17 08:43 98.0 67 17 156/93 (114) 96 11/23/17 08:00 54 11/23/17 06:00 50 11/23/17 05:00 60 11/23/17 04:29 60 16 136/84 (101) 96 11/23/17 04:18 55 11/23/17 04:00 100 11/23/17 03:00 52 11/23/17 02:00 54 11/23/17 01:00 52 11/23/17 00:00 49 11/23/17 00:00 59 16 110/57 (74) 96 11/23/17 00:00 52 11/23/17 00:00 52 11/22/17 23:00 62 11/22/17 22:00 52 11/22/17 21:22 97.6 51 18 134/77 (96) 96 11/22/17 21:00 54 11/22/17 20:00 56 11/22/17 20:00 57 11/22/17 19:00 58 I/O 11/22/17 11/22/17 11/22/17 11/23/17 11/23/17 11/23/17 07:00 15:00 23:00 07:00 15:00 23:00 Intake Total 600 ml 1330 ml 750 ml Output Total 200 ml 875 ml Balance 400 ml 455 ml 750 ml Intake Oral 500 ml 480 ml IV Total 100 ml 850 ml 750 ml Output Urine Total 200 ml 875 ml Result Diagram: 11/23/1751611/23/17516 Objective Remarks GENERAL: Well-nourished, well-developed patient. SKIN: Warm and dry. HEAD: Normocephalic. EYES: No scleral icterus. No injection or drainage. NECK: Supple, trachea midline. No JVD or lymphadenopathy. CARDIOVASCULAR: Regular rate and rhythm without murmurs, gallops, or rubs. RESPIRATORY: Breath sounds equal bilaterally. No accessory muscle use. GASTROINTESTINAL: Abdomen soft, mild epigastric tenderness, negative Shrestha's sign EXTREMITIES: No cyanosis, or edema. NEUROLOGICAL: Awake, alert, and oriented x 3. Non-focal. A/P Problem List: (1) Abdominal pain ICD Code: R10.9 - Unspecified abdominal pain (2) Elevated troponin I level ICD Code: R79.89 - Other specified abnormal findings of blood chemistry Status: Chronic Assessment and Plan Epigastric abdominal pain Relieved only periodically with IV Protonix or Tums Transaminitis present on lab work Amylase and lipase ordered to rule out pancreatitis Ultrasound of the abdomen is pending Appreciate GI consult NSTEMI Troponin up to 0.13, patient complains of epigastric pain Bradycardia also intermittent Cardiology feels that his pain and overall picture is not cardiogenic but rather from pulmonary hypertension Chronic kidney disease Creatinine 1.46, which is at his baseline DVT prophylaxis Continue warfarin Leodan Demarco MD Nov 23, 2017 17:30
[2017-11-23] MEDS: MORPHINE SULFATE 2 MG/ML SYRINGE IV PUSH PRN (17:46)
[2017-11-23 20:56] LABS: % SATURATION IRON PROFILE 19.9 % (20-50); IRON (FE) 67 MCG/DL (65-175); TOTAL IRON BINDING CAPACITY 336 MCG/DL (250-450)
[2017-11-23] MEDS: CARVEDILOL 3.125 MG TAB PO SCH (21:00)
--- NOTE | 2017-11-23 22:11 | RADRPT ---
EXAM DATE/TIME: 11/23/2017 21:11 [facility] COMPARISON: CT ABDOMEN & PELVIS W CONTRAST, April 19, 2017, 10:59. EXTERNAL COMPARISON : [facility], CT abdomen/pelvis, October 19, 2013 INDICATIONS : Abdominal pain. MEDICAL HISTORY : Congestive heart failure. Myocardial infarction. Hypercholesterolemia. Hypertension. Coronary artery disease. COPD. Hiatal hernia. GERD. Gout. Kidney stones. Chronic kidney disease III. History small penelope wel obstruction. Anticoagulant therapy. Pneumonia. Depression. Anxiety. Arthritis. Measles. DVT. Sung ett's esophagus. SURGICAL HISTORY : Cardiac cath. Lung biopsy. ENCOUNTER: Initial ACUITY: 1 day PAIN SCORE: 08/17 LOCATION: Bilateral upper quadrant MEASUREMENTS: LIVER: 18.0 cm length COMMON DUCT: 7 mm RIGHT KIDNEY: 12.3 x 6.2 x 4.6 cm LEFT KIDNEY: 9.9 x 4.2 x 4.7 cm SPLEEN: 14.6 cm length AORTA: 2.5cm maximal FINDINGS: LIVER: Enlarged and increased in echogenicity suggesting steatosis. No focal mass or biliary ductal dilatati on. COMMON DUCT: No intraluminal mass or stone visualized. GALLBLADDER: Contains no stones, demonstrates no wall thickening or pericholecystic fluid. PANCREAS: Poorly seen RIGHT KIDNEY: No hydronephrosis, stone or mass. LEFT KIDNEY: Slightly small without focal mass or hydronephrosis SPLEEN: Enlarged without focal mass. AORTA: Non aneurysmal. IVC: Within normal limits. CONCLUSION: Hepatosplenomegaly. Bruce Sarah MD on November 23, 2017 at 22:07 Board Certified Radiologist. This report was verified electronically.
[2017-11-23] MEDS: PANTOPRAZOLE SODIUM 40 MG VIAL IV PUSH SCH (22:41)
--- NOTE | 2017-11-23 22:53 | EKG ---
Date Performed: 11/22/2017 Time Performed: 16:40:36 PTAGE: 57 years EKG: Sinus bradycardia with PVC(s) Possible anterior infarct - age undetermined Inferior T wave changes are nonspecific Abnormal ECG PREVIOUS TRACING : 11/22/2017 13.24 Since the previous tracing, no significant change noted DOCTOR: Malcom Jacome Interpretating Date/Time 11/23/2017 22:52:07
--- NOTE | 2017-11-23 23:09 | EKG ---
Date Performed: 11/22/2017 Time Performed: 13:24:02 PTAGE: 57 years EKG: SINUS BRADYCARDIA MODERATE VOLTAGE CRITERIA FOR LVH BORDERLINE ECG Since the PREVIOUS TRACING , no significant change noted DOCTOR: Malcom Jacome Interpretating Date/Time 11/23/2017 23:08:58
--- NOTE | 2017-11-23 23:18 | EKG ---
Date Performed: 11/22/2017 Time Performed: 10:21:35 PTAGE: 57 years EKG: Sinus rhythm MINIMAL VOLTAGE CRITERIA FOR LVH, CONSIDER NORMAL VARIANT BORDERLINE ECG PREVIOUS TRACING : 08/17/2017 05.16 Since the previous tracing, no significant change noted DOCTOR: Malcom Jacome Interpretating Date/Time 11/23/2017 23:17:28
[2017-11-24] VITALS (11 sets, daily range): BP systolic 122–148; BP diastolic 66–81; PULSE 52–74; RESP 16–20; TEMP 97.8–98.3; O2SAT 93–97
[2017-11-24] MEDS: NITROGLYCERIN 2% OINT 1 GM PACKET TOP SCH ×3 (05:15→17:30)
[2017-11-24] MEDS: SODIUM CHLOR 0.45% 1000 ML INJ 1,000 ML IV SCH (05:16)
[2017-11-24 06:31] LABS: INTERNATIONAL NORMALIZED RATIO 2.4 RATIO
[2017-11-24 06:32] LABS: PROTHROMBIN TIME - PATIENT 23.8 SEC (9.8-11.6)
[2017-11-24 06:47] LABS: ALBUMIN 3.6 GM/DL (3.4-5.0); DIRECT BILIRUBIN ADULT 0.2 MG/DL (0.0-0.2)
[2017-11-24 06:48] LABS: INDIRECT BILIRUBIN 0.5 MG/DL (0.0-0.8); TOTAL BILIRUBIN ADULT 0.7 MG/DL (0.2-1.0); TOTAL PROTEIN 7.7 GM/DL (6.4-8.2)
[2017-11-24] MEDS: ISOSORBIDE MONONITRATE 30 MG CR TAB (IMDUR) PO SCH (07:00)
[2017-11-24] MEDS: PANTOPRAZOLE SODIUM 40 MG VIAL IV PUSH SCH (09:00)
[2017-11-24] MEDS: LISINOPRIL 10 MG TAB PO SCH (09:00)
[2017-11-24] MEDS: CARVEDILOL 3.125 MG TAB PO SCH (09:00)
[2017-11-24] MEDS: ASPIRIN EC 81 MG TABEC PO SCH (09:00)
[2017-11-24] MEDS: amLODIPine BESYLATE 5 MG TAB PO SCH (09:00)
[2017-11-24] MEDS: SODIUM CHLORIDE 0.9% FLUSH 10 ML FLUSH IV FLUSH SCH (09:00)
[2017-11-24] MEDS: AZITHROMYCIN 250 MG TAB PO SCH (09:57)
[2017-11-24] MEDS ORDERED: IOHEXOL 350 MG/ML 10 ML VIAL (for RAD DIAG) IVCONTRAST ONE (10:25)
--- NOTE | 2017-11-24 10:55 | HHI.GIFU ---
Subjective Remarks Patient's resting in the bed Mild right upper quadrant discomfort to light palpation No nausea no vomiting Current hemoglobin 13.1 Afebrile (Kim Sutherland) Objective Vitals I&O Vital Signs Date Time Temp Pulse Resp B/P (MAP) Pulse Ox O2 Delivery O2 Flow Rate FiO2 11/24/17 10:05 94 21 11/24/17 08:00 66 11/24/17 04:44 56 11/24/17 04:30 74 16 134/76 (95) 94 11/24/17 02:00 56 11/24/17 01:00 54 11/24/17 00:00 55 11/24/17 00:00 52 11/23/17 20:00 51 11/23/17 20:00 58 11/23/17 19:45 96 11/23/17 19:00 52 11/23/17 16:44 98.1 53 17 128/75 (92) 96 11/23/17 16:00 67 11/23/17 13:05 98.1 79 17 146/80 (102) 95 11/23/17 12:00 64 I/O 11/23/17 11/23/17 11/23/17 11/24/17 11/24/17 11/24/17 06:59 14:59 22:59 06:59 14:59 22:59 Intake Total 1330 ml 1470 ml 240 ml Output Total 875 ml 1930 ml 1425 ml 450 ml Balance 455 ml -460 ml -1185 ml -450 ml Intake Oral 480 ml 720 ml 240 ml IV Total 850 ml 750 ml Output Urine Total 875 ml 1830 ml 1425 ml 450 ml Stool Total 100 ml # Voids 100 Laboratory Laboratory Tests Test 11/23/17 20:19 11/24/17 05:00 Iron Level 67 Total Iron Binding Capacity 336 Percent Iron Saturation 19.9 Lipase 123 111 Prothrombin Time 23.8 Prothromb Time International Ratio 2.4 Total Bilirubin 0.7 Direct Bilirubin 0.2 Indirect Bilirubin 0.5 Aspartate Amino Transf (AST/SGOT) 56 Alanine Aminotransferase (ALT/SGPT) 108 Alkaline Phosphatase 65 Total Protein 7.7 Albumin 3.6 Amylase Level 41 Tumor Marker Alpha Fetoprotein 1.5 Hepatitis A IgM Antibody NONREACTIVE Hepatitis B Surface Antigen NONREACTIVE Hepatitis B Core IgM Antibody NONREACTIVE Hepatitis C IgG Antibody NONREACTIVE Imaging Last Impressions Abdomen/Pelvis CT 11/24/17 0000 Signed Impressions: Service Date/Time: November 10:14 - CONCLUSION: 1. Patient does not appear to have a vascular etiology for current clinical symptoms. Mesenteric vessels are all patent. Main and accessory renal arteries bilaterally are also patent. 2. Diffuse hepatic fatty infiltration. 3. Nonobstructing sub-centimeter renal calculi bilaterally. The largest is in the lower pole collecting system of the left kidney measuring 4 mm in diameter. 4. Diverticula disease scattered throughout the colon without diverticulitis. Ricky Elizabeth MD Abdomen Ultrasound 11/23/17 0000 Signed Impressions: Service Date/Time: Thursday, November 23, 2017 21:11 - CONCLUSION: Hepatosplenomegaly. Bruce Sarah MD Chest X-Ray 11/22/17 1018 Signed Impressions: Service Date/Time: Wednesday, November 22, 2017 10:37 - CONCLUSION: 1. No acute abnormality or significant interval change. Satnam Lundy MD Physical Exam HEENT: Pupils round and reactive to light; normocephalic; atraumatic; no jaundice. NECK: Neck is supple CHEST: Chest is clear to auscultation and percussion. No audible rhonchi CARDIAC: Regular rate and rhythm ABDOMEN: Round, soft, mild bloating, mild right upper quadrant discomfort to light palpation; bowel sounds are present in all four quadrants. EXTREMITIES: No clubbing, cyanosis, or edema. SKIN: Normal; no rash; no jaundice. CAR BARN LAB[employer]ER: No focal deficits; alert and oriented times three. (Kim Sutherland) Assessment and Plan Assessment: (1) Gastritis ICD Codes: K29.70 - Gastritis, unspecified, without bleeding (2) Barretts esophagus ICD Codes: K22.70 - Manning's esophagus without dysplasia Status: Chronic Plan Right upper quadrant bloating and abdominal pain to light palpation Abnormal LFTs, non-EtOH abuse, possible fatty liver disease versus hepatocellular disease Epigastric pain radiating up into the esophagus area, history of Manning's esophagus and esophagitis, gastritis. Last EGD 8 months ago during hospital stay notes the pain is worse after eating. Patient is currently on Coumadin INR 3.5. Sees Dr. Robledo for cardiovascular disease. Patient needs cardiac clearance for EGD as well as PT/INR <1.5 Follow-up with nursing staff for cardiac clearance and attending for monitoring of Coumadin therapy. History of dysphasia approximately 8 months ago but no symptoms since then 11/24/2017, ultrasound of the abdomen showed hepatosplenomegaly . CT abdomen pelvis showed noted patent mesenteric vessels remain in assist rate and renal arteries bilateral also patent, diffuse fatty liver infiltration scattered diverticula without diverticulitis throughout the colon. Patient does seem to be feeling better today Patient currently on Coumadin INR is 2.4 today. Amylase 41, lipase 111, AFP 1.5 , negative hepatitis panel. Hemoglobin 13.1, LFTs remain elevated 56 AST, 108 ALT.discussed with patient healthy eating habits with low-fat diet. Plan Diet regular basic for now Increase activity gradual Consider EGD when INR is less than 1.5. May need to be done on an outpatient basis , currently patient needs to stay on Coumadin PPI IV Labs, Liver work up. Continues Anti-emetics Bowel regimen as needed Monitor hemoglobin and labs Further recommendations based on patient's symptoms and plan of care needed for this hospital stay Patient was seen per myself and Dr. Schulz, this note was written on her behalf (Kim Sutherland) Physician Comments seen, examined agree with above cta noted-no mesenteric ischemia hida scan in am egd in am if inr still high-no biopsies fatty liver on ct-weight loss, Mediterranean diet, increase exercise , strict control of lipids and glucose (Ivone Schulz MD) Kim Sutherland Nov 24, 2017 10:55 Ivone Schulz MD Nov 24, 2017 17:20
--- NOTE | 2017-11-24 11:25 | RADRPT ---
EXAM DATE/TIME: 11/24/2017 10:14 [facility] COMPARISON: CT ABDOMEN & PELVIS W CONTRAST, April 19, 2017, 10:59. INDICATIONS : Abdominal pain IV CONTRAST: 95 cc Omnipaque 350 (iohexol) IV ORAL CONTRAST: No oral contrast ingested. RADIATION DOSE: 7.23 CTDIvol (mGy) MEDICAL HISTORY : Cardiovascular disease. Hypertension. Chronic obstructive pulmonary disease. SURGICAL HISTORY : None. ENCOUNTER: Initial ACUITY: 1 day PAIN SCALE: 5/10 LOCATION: abdomen TECHNIQUE: Volumetric scanning was performed using a multi-row detector CT scanner. The data was post processed with a variety of visualization algorithms including full volume maximum intensity projection, multi -planar sliding thin slab reformation, curved planar reformation, and surface rendering techniques. Using automated exposure control and adjustment of the mA and/or kV according to patient size, radiat ion dose was kept as low as reasonably achievable to obtain optimal diagnostic quality images. DICOM format image data is available electronically for review and comparison. FINDINGS: ABDOMINAL AORTA: The lumen is smooth without significant narrowing or aneurismal dilation. The proximal celiac and sup erior mesenteric arteries are patent and normal in diameter. Main and accessory renal arteries bilate rally. All 4 are patent. BIFURCATION: Normal. RIGHT PELVIS: The right common iliac, internal iliac and external iliac vessels are patent without luminal irregula rity. LEFT PELVIS: The left common iliac, internal iliac and external iliac vessels are patent and without luminal irreg ularity. MISCELLANEOUS: Subcentimeter nonobstructing renal calculi bilaterally. Diffuse hepatic fatty infiltration. Diverticu lar disease in the ascending and descending portions of the colon without diverticulitis CONCLUSION: 1. Patient does not appear to have a vascular etiology for current clinical symptoms. Mesenteric vess els are all patent. Main and accessory renal arteries bilaterally are also patent. 2. Diffuse hepatic fatty infiltration. 3. Nonobstructing sub-centimeter renal calculi bilaterally. The largest is in the lower pole collecti ng system of the left kidney measuring 4 mm in diameter. 4. Diverticula disease scattered throughout the colon without diverticulitis. Ricky Elizabeth MD on November 24, 2017 at 11:18 Board Certified Radiologist. This report was verified electronically.
[2017-11-24] MEDS: MORPHINE SULFATE 2 MG/ML SYRINGE IV PUSH PRN (12:29)
--- NOTE | 2017-11-24 18:29 | HHI.PR ---
Subjective Remarks Patient complains that current morphine dose is not enough to control his abdominal pain. Pain is located mostly in his left epigastrium Objective Vitals Vital Signs Date Time Temp Pulse Resp B/P (MAP) Pulse Ox O2 Delivery O2 Flow Rate FiO2 11/24/17 17:00 98.3 59 20 122/80 (94) 93 11/24/17 16:00 61 11/24/17 12:34 20 11/24/17 12:00 64 11/24/17 12:00 64 18 124/66 (85) 94 11/24/17 12:00 61 11/24/17 10:05 94 21 11/24/17 08:00 66 11/24/17 08:00 97.8 58 20 148/81 (103) 97 11/24/17 04:44 56 11/24/17 04:30 74 16 134/76 (95) 94 11/24/17 02:00 56 11/24/17 01:00 54 11/24/17 00:00 55 11/24/17 00:00 52 11/23/17 20:00 51 11/23/17 20:00 58 11/23/17 19:45 96 11/23/17 19:00 52 I/O 11/23/17 11/23/17 11/23/17 11/24/17 11/24/17 11/24/17 07:00 15:00 23:00 07:00 15:00 23:00 Intake Total 1330 ml 1470 ml 240 ml 480 ml Output Total 875 ml 1930 ml 1425 ml 450 ml 1050 ml Balance 455 ml -460 ml -1185 ml -450 ml -570 ml Intake Oral 480 ml 720 ml 240 ml 480 ml IV Total 850 ml 750 ml Output Urine Total 875 ml 1830 ml 1425 ml 450 ml 1050 ml Stool Total 100 ml # Voids 100 Result Diagram: 11/23/1751611/23/17516 Objective Remarks GENERAL: Well-nourished, well-developed patient. SKIN: Warm and dry. HEAD: Normocephalic. EYES: No scleral icterus. No injection or drainage. NECK: Supple, trachea midline. No JVD or lymphadenopathy. CARDIOVASCULAR: Regular rate and rhythm without murmurs, gallops, or rubs. RESPIRATORY: Breath sounds equal bilaterally. No accessory muscle use. GASTROINTESTINAL: Abdomen soft, mild epigastric tenderness, negative Shrestha's sign EXTREMITIES: No cyanosis, or edema. NEUROLOGICAL: Awake, alert, and oriented x 3. Non-focal. A/P Problem List: (1) Abdominal pain ICD Code: R10.9 - Unspecified abdominal pain (2) Elevated troponin I level ICD Code: R79.89 - Other specified abnormal findings of blood chemistry Status: Chronic Assessment and Plan Epigastric abdominal pain Relieved only periodically with IV Protonix or Tums Morphine IV increased to 4 mg as needed Transaminitis present on lab work Amylase and lipase were within normal limits Ultrasound of the abdomen shows hepatosplenomegaly, hepato-steatosis Patient will likely undergo an EGD when INR is in a safer range Appreciate GI consult NSTEMI Troponin up to 0.13, patient complains of epigastric pain Bradycardia also intermittent, parameters placed on Coreg Cardiology feels that his pain and overall picture is not cardiogenic Chronic kidney disease Creatinine is at his baseline h/o DVT and Pulmonary Embolism Patient will need to be on some sort of anticoagulant to reduce risk EGD will help to assure that he does not have a bleeding ulcer DVT prophylaxis Warfarin held, heparin to replace Leodan Demarco MD Nov 24, 2017 18:29
[2017-11-25] VITALS (7 sets, daily range): BP systolic 115–167; BP diastolic 66–93; PULSE 60–71; RESP 16–19; TEMP 97.3–98.3; O2SAT 92–98
[2017-11-25] MEDS: NITROGLYCERIN 2% OINT 1 GM PACKET TOP SCH ×5 (00:27→22:51)
[2017-11-25] MEDS ORDERED: CHLORHEXIDINE GLUCONATE 2 % 1 PACK (2 CLOTHS) TOPICAL PRN (01:30)
[2017-11-25] MEDS ORDERED: LACTATED RINGER'S 1000 ML IV PRN (01:30)
[2017-11-25] MEDS ORDERED: POVIDONE IODINE 5% (ANTISEPSIS KIT) 4 APPLICATIONS EACH NARE PRN (01:30)
[2017-11-25] MEDS ORDERED: SODIUM CHLORID 0.9% 500 ML IV PRN (01:30)
[2017-11-25 06:11] LABS: INTERNATIONAL NORMALIZED RATIO 1.6 RATIO; PROTHROMBIN TIME - PATIENT 16.3 SEC (9.8-11.6)
[2017-11-25] MEDS: ISOSORBIDE MONONITRATE 30 MG CR TAB (IMDUR) PO SCH (07:37)
[2017-11-25] MEDS: PANTOPRAZOLE SODIUM 40 MG VIAL IV PUSH SCH ×2 (08:56→20:01)
[2017-11-25] MEDS: CARVEDILOL 3.125 MG TAB PO SCH ×2 (08:59→20:01)
[2017-11-25] MEDS: AZITHROMYCIN 250 MG TAB PO SCH (08:59)
[2017-11-25] MEDS ORDERED: HEPARIN SODIUM - SQ 10,000 UNITS/ML VIAL SQ SCH (09:00)
[2017-11-25] MEDS: SODIUM CHLORIDE 0.9% FLUSH 10 ML FLUSH IV FLUSH SCH ×2 (09:00→20:01)
[2017-11-25] MEDS: amLODIPine BESYLATE 5 MG TAB PO SCH (09:01)
[2017-11-25] MEDS: LISINOPRIL 10 MG TAB PO SCH (09:01)
[2017-11-25] MEDS: SODIUM CHLOR 0.45% 1000 ML INJ 1,000 ML IV SCH ×2 (09:07→20:01)
--- NOTE | 2017-11-25 10:39 | HHI.FF ---
Face to Face Verification Diagnosis: (1) NSTEMI (non-ST elevated myocardial infarction) (2) Chronic kidney disease (CKD), stage III (moderate) (3) Hx of pulmonary embolus (4) Gastritis Physical Therapy Order: Evaluate and Treat Home Health Nursing Order: Medical education Medication education-adverse effect Nursing assessment with vital signs I have seen patient Madhu Rivas on 11/25/17. My clinical findings support the need for the requested home health care services because: Ltd mobility - disease progression Deconditioned w/ increased weakness Med compliance is questionable I certify that my clinical findings support that this patient is homebound because: Unsteady gait/balance Unsafe to leave home unassisted Unable to use public transportation Poor cardiac reserve Flor Mosqueda Nov 25, 2017 10:39
--- NOTE | 2017-11-25 11:46 | GIPROC ---
[facility] [address] [facility]. [facility], [address] EGD WITH DILATION PROCEDURE REPORT EXAM DATE: 11/25/2017 PATIENT NAME: Madhu Rivas MR#: [id number] BIRTHDATE: 1960 ATTENDING: Ivone Schulz MD ORDER #: [id number] LABOR GANG SUPERVISOR: Anil Andrew and Alix Whitmore STATUS: inpatient INDICATIONS: The patient is a 57 yr old male here for an EGD with dilation due to abdominal and chest pain PROCEDURE PERFORMED: EGD w/ biopsy EGD w/ dilation of esophagus via guidewire MEDICATIONS: None and Per Anesthesia. TOPICAL ANESTHETIC: none CONSENT: The patient understands the risks and benefits of the procedure and understands that these risks include, but are not limited to: sedation, allergic reaction, infection, perforation and/or bleeding. Alternative means of evaluation and treatment include, among others: physical exam, x-rays, and/or surgical intervention. The patient elects to proceed with this endoscopic procedure. medical equipment was checked for proper function. Hand hygiene and appropriate measures for infection prevention was taken. After the risks, benefits and alternatives of the procedure were thoroughly explained, Informed consent was verified, confirmed and timeout was successfully executed by the treatment team. The patient was anesthetized with topical anesthesia and the Pentax EG-[id number] endoscope was introduced through the mouth and advanced to the second portion of the duodenum. The instrument was slowly withdrawn as the mucosa was fully examined. Gastritis antrum-biopsy esophagitis distal esophagus/spasm-biopsy duodenitis duodenla bulb biopsy. Dilation was performed at gastroesophageal junction. DILATOR: SIZE(S): RESISTANCE: HEME: APPEARANCE: Dilator: Savary over guidewire Size(s): 16 COMMENT: Retroflexed views revealed a hiatal hernia ADVERSE EVENTS: There were no complications. IMPRESSIONS: 1. Gastritis antrum-biopsy esophagitis distal esophagus/spasm-biopsy duodenitis duodenla bulb biopsy 2. Retroflexed views revealed a hiatal hernia RECOMMENDATIONS: 1. Await biopsy results. Biopsy results will not be ready for 7-10 days. If you don't hear from us in two weeks, call our office for biopsy results. 2. Dilatations PRN 3. Continue PPI 4. Avoid NSAIDS 5. Ok to restart anticoagulation ba swallow REPEAT EXAM: Return 2 years EGD Ivone Schulz MD eSigned: Ivone Schulz MD 11/25/2017 11:46 AM cc: PATIENT NAME: Madhu Rivas MR#: [id number]
[2017-11-25] MEDS ORDERED: LIDOCAINE HCL 1% PF 5 ML SYRINGE OTHER ONE (12:00)
[2017-11-25] MEDS ORDERED: PROPOFOL 200 MG/20 ML AMP IV ONE (12:00)
[2017-11-25 13:51] LABS: SMOOTH MUSCLE TOTAL AUTOABS Negative (Negative)
[2017-11-25] MEDS ORDERED: SINCALIDE 5 MCG/5 ML VIAL IV ONE (13:51)
--- NOTE | 2017-11-25 14:06 | PD.CARD.PN ---
Subjective Subjective Remarks s/p endoscopy in recovery in nad Objective Medications Current Medications Medications (Trade) Dose Ordered Sig/Oumou Route Start Time Stop Time Status Last Admin (Nitroglycerin 2% Oint) 1 inch Q6HR TOP 11/22/17 18:00 11/25/17 07:37 Sodium Chloride 1,000 ml @ 75 mls/hr [id number] IV 11/22/17 13:30 11/25/17 09:07 (NS Flush) 2 ml UNSCH PRN IV FLUSH 11/22/17 13:30 (NS Flush) 2 ml BID IV FLUSH 11/22/17 21:00 11/25/17 09:00 (Narcan Inj) 0.4 mg UNSCH PRN IV PUSH 11/22/17 13:30 (Milk Of Magnesia Liq) 30 ml Q12H PRN PO 11/22/17 13:00 (Senokot) 17.2 mg Q12H PRN PO 11/22/17 13:00 (Dulcolax Supp) 10 mg DAILY PRN RECTAL 11/22/17 13:00 (Lactulose Liq) 30 ml DAILY PRN PO 11/22/17 13:00 (Prinivil) 10 mg DAILY PO 11/23/17 09:00 11/25/17 09:01 (Apresoline Inj) 10 mg Q30M PRN IV PUSH 11/22/17 14:15 (Imdur) 30 mg DAILY@07 PO 11/23/17 07:00 11/25/17 07:37 (Norvasc) 5 mg DAILY PO 11/23/17 09:00 11/25/17 09:01 (Zithromax) 500 mg DAILY PO 11/23/17 10:30 11/25/17 08:59 (Coreg) 3.125 mg Q12HR PO 11/23/17 21:00 (Tums Chew) 500 mg Q2H PRN CHEW 11/23/17 15:00 11/24/17 11:34 (Protonix Inj) 40 mg Q12HR IV PUSH 11/23/17 21:00 11/25/17 08:56 (Morphine Inj) 4 mg Q4HR PRN IV PUSH 11/24/17 16:15 (Heparin Inj) 5,000 units Q12HR SQ 11/25/17 09:00 Lactated Ringer's 1,000 ml @ 30 mls/hr Q24H PRN IV 11/25/17 01:30 11/28/17 01:29 Sodium Chloride 500 ml @ 30 mls/hr [id number] PRN IV 11/25/17 01:30 11/28/17 01:29 (Betadine 5% Antisepsis Kit) 1 applic CRIMINAL JUSTICE INSTRUCTOR PRN EACH NARE 11/25/17 01:30 11/28/17 01:29 (Chlorhexidine 2% Cloth) 3 pack CRIMINAL JUSTICE INSTRUCTOR PRN TOPICAL 11/25/17 01:30 11/28/17 01:29 (Carafate Liq) 1 gm ACHS PO 11/25/17 17:00 Vital Signs / I&O Vital Signs Date Time Temp Pulse Resp B/P (MAP) Pulse Ox O2 Delivery O2 Flow Rate FiO2 11/25/17 12:15 62 18 106/64 (78) 97 11/25/17 11:45 97.7 80 18 91/61 (71) 96 11/25/17 08:00 97.8 64 18 136/80 (98) 92 11/25/17 04:35 98.0 66 18 119/66 (83) 94 11/25/17 00:40 98.1 66 19 119/93 (102) 93 11/24/17 20:55 98.3 60 20 123/75 (91) 93 11/24/17 17:00 98.3 59 20 122/80 (94) 93 11/24/17 16:00 61 I/O 11/24/17 11/24/17 11/24/17 11/25/17 11/25/17 11/25/17 06:59 14:59 22:59 06:59 14:59 22:59 Intake Total 240 ml 480 ml 480 ml 400 ml Output Total 1425 ml 450 ml 1050 ml Balance -1185 ml -450 ml -570 ml 480 ml 400 ml Intake Oral 240 ml 480 ml 480 ml Other 400 ml Output Urine Total 1425 ml 450 ml 1050 ml # Voids 2 # Bowel Movements 0 Laboratory GENERAL: SKIN: Warm and dry. HEAD: Normocephalic. EYES: No scleral icterus. No injection or drainage. NECK: Supple, trachea midline. No JVD or lymphadenopathy. CARDIOVASCULAR: Regular rate and rhythm without murmurs, gallops, or rubs. RESPIRATORY: Breath sounds equal bilaterally. No accessory muscle use. GASTROINTESTINAL: Abdomen soft, non-tender, nondistended. MUSCULOSKELETAL: No cyanosis, or edema. BACK: Nontender without obvious deformity. No CVA tenderness. Laboratory Tests Test 11/24/17 18:38 11/25/17 05:25 Ferritin 259 NG/ML Prothrombin Time 16.3 SEC Prothromb Time International Ratio 1.6 RATIO Assessment and Plan Problem List: (1) Coronary artery disease ICD Codes: I25.10 - Atherosclerotic heart disease of [place] coronary artery without angina pectoris Status: Chronic (2) Dysphagia ICD Codes: R13.10 - Dysphagia, unspecified (3) Barretts esophagus ICD Codes: K22.70 - Manning's esophagus without dysplasia Status: Chronic (4) NSTEMI (non-ST elevated myocardial infarction) ICD Codes: I21.4 - Non-ST elevation (NSTEMI) myocardial infarction Status: Acute (5) Pulmonary embolism ICD Codes: I26.99 - Other pulmonary embolism without acute cor pulmonale Status: Chronic Assessment and Plan 1.) NSTEMI - elevated troponin etiology indeterminate but I do not think is due to a primary obstructive event or lesion; f/u GI endoscopy findings andd recs; restart ac when clearaed by Cory Moreno MD Nov 25, 2017 14:05
--- NOTE | 2017-11-25 15:05 | RADRPT ---
EXAM DATE/TIME: 11/25/2017 11:06 [facility] COMPARISON: No previous studies available for comparison. INDICATIONS : Abdominal pain with elevated LFT's. DOSE: 4.2 mCi Tc99m Mebrofenin IV MEDICATION: 1.88 mcg Cholecystokinin IV; Atypical symptomatic response. Cholecystokinin was administered by slow infusion over 8 minutes beginning at 60 minutes. MEDICAL HISTORY : Cardiovascular disease. Renal insufficiency, chronic. SURGICAL HISTORY : Angioplasty. ENCOUNTER: Initial ACUITY: 1 day PAIN SCALE: 5/10 LOCATION: Right upper quadrant TECHNIQUE: Following the intravenous administration of radiotracer, dynamic sequential image were performed with continuous acquisition. Time-activity curves were generated. FINDINGS: HEPATIC KINETICS: There is prompt uptake of radiotracer in the liver. No focal defects are seen. There is normal rate of washout from the hepatic parenchyma. BILIARY CLEARANCE: Activity is first seen in the extrahepatic biliary system at 5 minutes. There is normal excretion in to the small bowel. GALLBLADDER: Activity is first seen in the gallbladder at 15 minutes. POST CHOLECYSTOKININ: After Cholecystokinin administration, there is prompt emptying of the gallbladder with a 40 % ejectio n fraction. Common bile duct kinetics are normal and there is no evidence of biliary obstruction. BILIARY ENTERIC REFLUX: Mild following CCK CLINICAL: The patient did experience abdominal pain with CCK administration CONCLUSION: Normal hepatobiliary kinetics. Mild bile gastric reflux. Symptomatology with CCK indicative of biliary dyskinesia Bruce Sarah MD on November 25, 2017 at 15:00 Board Certified Radiologist. This report was verified electronically.
--- NOTE | 2017-11-25 15:15 | RADRPT ---
EXAM DATE/TIME: 11/25/2017 14:38 [facility] COMPARISON: No previous studies available for comparison. INDICATIONS : Chest pain, difficulty swallowing for 3 days FLUORO TIME: 1.1 minutes IMAGE COUNT: 8 CONTRAST: 1. Liquid E-Z Paque Barium Sulfate (60% w/v, 41% w.w) MEDICAL HISTORY : Congestive heart failure. Myocardial infarction. Hypercholesterolemia. Hypertension. Coronary artery disease. COPD. Hiatal hernia. GERD. Gout. Kidney stones. Chronic kidney disease III. Manning's esopha davin. SURGICAL HISTORY : None. ENCOUNTER: Initial ACUITY: 3 days PAIN SCORE: 5/10 LOCATION: Bilateral chest FINDINGS: Air-contrast views of the hypopharynx demonstrate a normal mucosal surface without filling defect. R apid sequence images of the hypopharynx and cervical esophagus during the passage of barium demonstra te a normal swallowing function. No evidence of aspiration. Multiphasic examination of the esophagu s demonstrates no esophageal fold thickening, ulceration, or filling defect. The gastroesophageal ju nction is normal in configuration without evidence of hiatal hernia. CONCLUSION: Negative barium swallow. Patient easily swallowed pill the size of aspirin as well. Jon Huizar MD FACR on November 25, 2017 at 15:12 Board Certified Radiologist. This report was verified electronically.
[2017-11-25] MEDS: SUCRALFATE 1 GM/10 ML CUP PO SCH ×2 (17:19→20:01)
--- NOTE | 2017-11-25 17:31 | HHI.PR ---
Subjective Remarks Patient just returned from EGD, denies pain, intermittent chest pain, with some relief from protonix. Patient states he takes protonix outpatient as well. Denies any nausea. Results from GI explained and new medications will be given per gi. Objective Vitals Vital Signs Date Time Temp Pulse Resp B/P (MAP) Pulse Ox O2 Delivery O2 Flow Rate FiO2 11/25/17 12:15 62 18 106/64 (78) 97 11/25/17 12:00 97.3 71 19 167/91 (116) 98 11/25/17 11:45 97.7 80 18 91/61 (71) 96 11/25/17 08:00 97.8 64 18 136/80 (98) 92 11/25/17 04:35 98.0 66 18 119/66 (83) 94 11/25/17 00:40 98.1 66 19 119/93 (102) 93 11/24/17 20:55 98.3 60 20 123/75 (91) 93 I/O 11/24/17 11/24/17 11/24/17 11/25/17 11/25/17 11/25/17 07:00 15:00 23:00 07:00 15:00 23:00 Intake Total 240 ml 480 ml 480 ml 400 ml Output Total 1425 ml 450 ml 1050 ml Balance -1185 ml -450 ml -570 ml 480 ml 400 ml Intake Oral 240 ml 480 ml 480 ml Other 400 ml Output Urine Total 1425 ml 450 ml 1050 ml # Voids 2 # Bowel Movements 0 Result Diagram: 11/23/1751611/23/17516 Objective Remarks GENERAL: SKIN: Warm and dry. HEAD: Atraumatic. Normocephalic. EYES: Pupils equal and round. No scleral icterus. No injection or drainage. ENT: No nasal bleeding or discharge. Mucous membranes pink and moist. NECK: Trachea midline. No JVD. CARDIOVASCULAR: Regular rate and rhythm. RESPIRATORY: No accessory muscle use. Clear to auscultation. Breath sounds equal bilaterally. GASTROINTESTINAL: Abdomen soft, non-tender, nondistended. Hepatic and splenic margins not palpable. MUSCULOSKELETAL: Extremities without clubbing, cyanosis, or edema. No obvious deformities. NEUROLOGICAL: Awake and alert. No obvious cranial nerve deficits. Motor grossly within normal limits. Five out of 5 muscle strength in the arms and legs. Normal speech. PSYCHIATRIC: Appropriate mood and affect; insight and judgment normal. Medications and IVs Current Medications Medications (Trade) Dose Ordered Sig/Oumou Route Start Time Stop Time Status Last Admin (Nitroglycerin 2% Oint) 1 inch Q6HR TOP 11/22/17 18:00 11/25/17 17:19 Sodium Chloride 1,000 ml @ 75 mls/hr [id number] IV 11/22/17 13:30 11/25/17 09:07 (NS Flush) 2 ml UNSCH PRN IV FLUSH 11/22/17 13:30 (NS Flush) 2 ml BID IV FLUSH 11/22/17 21:00 11/25/17 09:00 (Narcan Inj) 0.4 mg UNSCH PRN IV PUSH 11/22/17 13:30 (Milk Of Magnesia Liq) 30 ml Q12H PRN PO 11/22/17 13:00 (Senokot) 17.2 mg Q12H PRN PO 11/22/17 13:00 (Dulcolax Supp) 10 mg DAILY PRN RECTAL 11/22/17 13:00 (Lactulose Liq) 30 ml DAILY PRN PO 11/22/17 13:00 (Prinivil) 10 mg DAILY PO 11/23/17 09:00 11/25/17 09:01 (Apresoline Inj) 10 mg Q30M PRN IV PUSH 11/22/17 14:15 (Imdur) 30 mg DAILY@07 PO 11/23/17 07:00 11/25/17 07:37 (Norvasc) 5 mg DAILY PO 11/23/17 09:00 11/25/17 09:01 (Zithromax) 500 mg DAILY PO 11/23/17 10:30 11/25/17 08:59 (Coreg) 3.125 mg Q12HR PO 11/23/17 21:00 (Tums Chew) 500 mg Q2H PRN CHEW 11/23/17 15:00 11/24/17 11:34 (Protonix Inj) 40 mg Q12HR IV PUSH 11/23/17 21:00 11/25/17 08:56 (Morphine Inj) 4 mg Q4HR PRN IV PUSH 11/24/17 16:15 Lactated Ringer's 1,000 ml @ 30 mls/hr Q24H PRN IV 11/25/17 01:30 11/28/17 01:29 Sodium Chloride 500 ml @ 30 mls/hr [id number] PRN IV 11/25/17 01:30 11/28/17 01:29 (Betadine 5% Antisepsis Kit) 1 applic AIR CONDITIONING INSTALLER SUPERVISOR PRN EACH NARE 11/25/17 01:30 11/28/17 01:29 (Chlorhexidine 2% Cloth) 3 pack AIR CONDITIONING INSTALLER SUPERVISOR PRN TOPICAL 11/25/17 01:30 11/28/17 01:29 (Carafate Liq) 1 gm ACHS PO 11/25/17 17:00 11/25/17 17:19 (Coumadin) 3 mg DAILY PO 11/25/17 17:30 [facility] Pharmacy Profile Note 0 ml @ 0 mls/hr UNSCH OTHER 11/25/17 17:30 [facility] A/P Problem List: (1) Abdominal pain ICD Code: R10.9 - Unspecified abdominal pain (2) Elevated troponin I level ICD Code: R79.89 - Other specified abnormal findings of blood chemistry Status: Chronic Assessment and Plan Epigastric abdominal pain, with Transaminitis -Relieved only periodically with IV Protonix or Tums -Morphine IV increased to 4 mg as needed -HIDA scan shows mild bile reflux, and biliary dyskinesia -Ultrasound of the abdomen shows hepatosplenomegaly, hepato-steatosis -EGD completed shows gastritis, esophagitis, and duodenitis, GI recommends prn dilatations, PPI, no NSAIDS, ok to restart anticoagulation NSTEMI -Troponin up to 0.13, patient complains of epigastric pain -Bradycardia also intermittent, parameters placed on Coreg -Cardiology feels that his pain and overall picture is not cardiogenic Chronic kidney disease -Creatinine is at his baseline, continue to monitor h/o DVT and Pulmonary Embolism -Patient will need to be on some sort of anticoagulant to reduce risk -Resume coumadin Discharge Planning possible tomorrow if cleared by Flro Castorena Nov 25, 2017 17:31
[2017-11-25] MEDS: SENNOSIDES 8.6 MG TAB PO PRN (19:59)
[2017-11-25] MEDS: MAGNESIUM HYDROXIDE SUSP 30 ML CUP PO PRN (19:59)
[2017-11-25] MEDS: WARFARIN SOD 3 MG TAB PO SCH (20:00)
[2017-11-25 21:11] LABS: ALPHA-1-ANTITRYPSIN 124 mg/dL (100 - 190)
[2017-11-25] MEDS: MORPHINE SULFATE 4 MG/ML INJ IV PUSH PRN (22:50)
[2017-11-26] VITALS (19 sets, daily range): BP systolic 104–131; BP diastolic 59–75; PULSE 54–80; RESP 16–19; TEMP 98.1–99.8; O2SAT 91–97
[2017-11-26] MEDS: ISOSORBIDE MONONITRATE 30 MG CR TAB (IMDUR) PO SCH (05:33)
[2017-11-26] MEDS: MORPHINE SULFATE 4 MG/ML INJ IV PUSH PRN ×4 (05:34→18:31)
[2017-11-26] MEDS: NITROGLYCERIN 2% OINT 1 GM PACKET TOP SCH ×4 (05:34→23:45)
[2017-11-26] MEDS: SODIUM CHLOR 0.45% 1000 ML INJ 1,000 ML IV SCH ×2 (05:34→18:32)
[2017-11-26 07:41] LABS: INTERNATIONAL NORMALIZED RATIO 1.2 RATIO; PROTHROMBIN TIME - PATIENT 12.3 SEC (9.8-11.6)
[2017-11-26] MEDS: CARVEDILOL 3.125 MG TAB PO SCH ×2 (09:03→20:35)
[2017-11-26] MEDS: AZITHROMYCIN 250 MG TAB PO SCH (09:03)
[2017-11-26] MEDS: PANTOPRAZOLE SODIUM 40 MG VIAL IV PUSH SCH ×2 (09:03→20:36)
[2017-11-26] MEDS: amLODIPine BESYLATE 5 MG TAB PO SCH (09:03)
[2017-11-26] MEDS: LISINOPRIL 10 MG TAB PO SCH (09:03)
[2017-11-26] MEDS: SUCRALFATE 1 GM/10 ML CUP PO SCH ×4 (09:03→20:35)
[2017-11-26] MEDS: SODIUM CHLORIDE 0.9% FLUSH 10 ML FLUSH IV FLUSH SCH ×2 (09:04→20:39)
[2017-11-26] MEDS: ALLOPURINOL 100 MG TAB PO SCH (09:04)
--- NOTE | 2017-11-26 13:31 | RADRPT ---
EXAM DATE/TIME: 11/26/2017 13:01 [facility] COMPARISON: CHEST SINGLE AP, June 27, 2017, 7:39. INDICATIONS : Patient complains of chest pain. MEDICAL HISTORY : Chronic obstructive pulmonary disease. Congestive heart failure. Hiatal hernia. SURGICAL HISTORY : Lung biopsy. ENCOUNTER: Subsequent ACUITY: 4 - 6 days PAIN SCORE: 5/10 LOCATION: chest FINDINGS: A single view of the chest demonstrates the lungs to be symmetrically aerated without evidence of mas s, infiltrate or effusion. The cardiomediastinal contours are unremarkable. Osseous structures are intact no stable deformity of the lateral aspect of the right mid rib. CONCLUSION: No acute cardiac pulmonary process. Ricky Elizabeth MD on November 26, 2017 at 13:28 Board Certified Radiologist. This report was verified electronically.
--- NOTE | 2017-11-26 14:35 | HHI.GIFU ---
Subjective Remarks Pt resting in bed Reports BM yesterday Denies nausea, vomiting Some intermittent epigastric pain Denies continued dysphagia (Kaleigh Shearer) Objective Vitals I&O Vital Signs Date Time Temp Pulse Resp B/P (MAP) Pulse Ox O2 Delivery O2 Flow Rate FiO2 11/26/17 12:58 75 11/26/17 12:15 64 11/26/17 12:00 98.1 63 18 116/64 (81) 91 11/26/17 09:50 70 11/26/17 09:27 79 11/26/17 08:20 73 11/26/17 08:00 98.2 63 18 121/75 (90) 97 11/26/17 04:40 99.8 72 16 104/59 (74) 93 11/26/17 03:54 54 11/26/17 00:45 98.1 61 16 131/62 (85) 95 11/26/17 00:00 59 11/25/17 20:35 98.3 64 16 133/74 (93) 94 11/25/17 19:58 66 11/25/17 16:00 98.1 60 18 115/69 (84) 95 I/O 11/25/17 11/25/17 11/25/17 11/26/17 11/26/17 11/26/17 07:00 15:00 23:00 07:00 15:00 23:00 Intake Total 480 ml 400 ml 1720 ml 587 ml Output Total 550 ml 800 ml Balance 480 ml -150 ml 920 ml 587 ml Intake Oral 480 ml 720 ml IV Total 1000 ml 587 ml Other 400 ml Output Urine Total 550 ml 800 ml # Voids 2 2 # Bowel Movements 0 0 Laboratory Laboratory Tests Test 11/26/17 06:44 Prothrombin Time 12.3 Prothromb Time International Ratio 1.2 Imaging Last Impressions Chest X-Ray 11/26/17 0000 Signed Impressions: Service Date/Time: Sunday, November 26, 2017 13:01 - CONCLUSION: No acute cardiac pulmonary process. Ricky Elizabeth MD Hepatobiliary Scan Nuclear Medicine 11/25/17 0000 Signed Impressions: Service Date/Time: Saturday, November 25, 2017 11:06 - CONCLUSION: Normal hepatobiliary kinetics. Mild bile gastric reflux. Symptomatology with CCK indicative of biliary dyskinesia Bruce Sarah MD Barium Swallow X-Ray 4/20/18 0000 Signed Impressions: Service Date/Time: Saturday, November 25, 2017 14:38 - CONCLUSION: Negative barium swallow. Patient easily swallowed pill the size of aspirin as well. Jon Huizar MD FACR Abdomen/Pelvis CT 11/24/17 0000 Signed Impressions: Service Date/Time: November 10:14 - CONCLUSION: 1. Patient does not appear to have a vascular etiology for current clinical symptoms. Mesenteric vessels are all patent. Main and accessory renal arteries bilaterally are also patent. 2. Diffuse hepatic fatty infiltration. 3. Nonobstructing sub-centimeter renal calculi bilaterally. The largest is in the lower pole collecting system of the left kidney measuring 4 mm in diameter. 4. Diverticula disease scattered throughout the colon without diverticulitis. Ricky Elizabeth MD Abdomen Ultrasound 11/23/17 0000 Signed Impressions: Service Date/Time: Thursday, November 23, 2017 21:11 - CONCLUSION: Hepatosplenomegaly. Bruce Sarah MD Physical Exam HEENT: Normocephalic; atraumatic CHEST: Even/unlabored CARDIAC: RRR ABDOMEN: Round, soft, mild epigastric TTP, bowel sounds acitve SKIN: Normal; no rash; no jaundice. PUNCHBOARD INSERTER: No focal deficits; alert and oriented times three. (Kaleigh Shearer) Assessment and Plan Assessment: (1) Gastritis ICD Codes: K29.70 - Gastritis, unspecified, without bleeding (2) Barretts esophagus ICD Codes: K22.70 - Manning's esophagus without dysplasia Status: Chronic Plan Assessment: - Elevated LFTs- Denies ETOH Liver MONTERO: Hepatitis panel negative. RIN and ASMA negative. Iron-67 TIBC-336 %sat-19.9 Ferritin-259 L7K-963 AFP-1.5 Ceruloplasmin, AMA pending US abdomen (11/23) --> Hepatosplenomegaly HIDA (11/25) --> Normal hepatobiliary kinetics. Mild bile gastric reflux. Symptomatology with CCK indicative of biliary dyskinesia CT abdomen and pelvis W IV contrast (11/24) --> . Patient does not appear to have a vascular etiology for current clinical symptoms. Mesenteric vessels are all patent. Main and accessory renal arteries bilaterally are also patent. Diffuse hepatic fatty infiltration. Nonobstructing sub-centimeter renal calculi bilaterally. The largest is in the lower pole collecting system of the left kidney measuring 4 mm in diameter. Diverticula disease scattered throughout the colon without diverticulitis. - Epigastric pain/Dysphagia- History of Barretts esophagus Barium swallow (11/25) --> Negative barium swallow. Patient easily swallow pill the size of ASA as well. EGD with dilatation (11/25) --> Dilated with size 16 guidewire. Gastritis, esophagitis, duodenitis. Hiatal hernia. 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 Some intermittent mild epigastric pain. Reports BM last night. LFTs have not been rechecked today. Some of liver work up still pending. Plan: Carafate Protonix EGD biopsy pending Ceruloplasmin and AMA pending OK to restart anticoagulation GI will sign off, please reconsult as needed Have pt follow up with GI after DC Pt has been seen and examined by myself and Dr. Higgins and this note is written on his behalf (Kaleigh Shearer) Physician Comments Patient seen and examined Agree with above Continue with current supportive care Monitor labs Patient follow-up with GI post discharge We will sign off (Jose David Higgins MD) Kaleigh Shearer Nov 26, 2017 14:35 Jose David Higgins MD Nov 26, 2017 22:33
--- NOTE | 2017-11-26 16:25 | HHI.PR ---
Subjective Remarks Patient states he is having some chest pains mid and right-sided of his. This is chronic for him. He states that it comes and goes. States right now it is a 4 out of 10. It does get exacerbated when after eating food. Movement does not seem to bother him or make it worse. He states he was diagnosed with fibromyalgia in the past and wonders if this is related to this. Otherwise he feels fine. No other complaints. Objective Vitals Vital Signs Date Time Temp Pulse Resp B/P (MAP) Pulse Ox O2 Delivery O2 Flow Rate FiO2 11/26/17 15:29 68 11/26/17 15:00 65 11/26/17 12:58 75 11/26/17 12:15 64 11/26/17 12:00 98.1 63 18 116/64 (81) 91 11/26/17 09:50 70 11/26/17 09:27 79 11/26/17 08:20 73 11/26/17 08:00 98.2 63 18 121/75 (90) 97 11/26/17 04:40 99.8 72 16 104/59 (74) 93 11/26/17 03:54 54 11/26/17 00:45 98.1 61 16 131/62 (85) 95 11/26/17 00:00 59 11/25/17 20:35 98.3 64 16 133/74 (93) 94 11/25/17 19:58 66 I/O 11/25/17 11/25/17 11/25/17 11/26/17 11/26/17 11/26/17 07:00 15:00 23:00 07:00 15:00 23:00 Intake Total 480 ml 400 ml 1720 ml 1187 ml Output Total 550 ml 800 ml Balance 480 ml -150 ml 920 ml 1187 ml Intake Oral 480 ml 720 ml 600 ml IV Total 1000 ml 587 ml Other 400 ml Output Urine Total 550 ml 800 ml # Voids 2 2 3 # Bowel Movements 0 0 Result Diagram: 11/23/17 0511/23/17 0517 Imaging Last Impressions Chest X-Ray 11/26/17 0000 Signed Impressions: Service Date/Time: Sunday, November 26, 2017 13:01 - CONCLUSION: No acute cardiac pulmonary process. Ricky Elizabeth MD Hepatobiliary Scan Nuclear Medicine 11/25/17 0000 Signed Impressions: Service Date/Time: Saturday, November 25, 2017 11:06 - CONCLUSION: Normal hepatobiliary kinetics. Mild bile gastric reflux. Symptomatology with CCK indicative of biliary dyskinesia Bruce Sarah MD Barium Swallow X-Ray 11/25/17 0000 Signed Impressions: Service Date/Time: Saturday, November 25, 2017 14:38 - CONCLUSION: Negative barium swallow. Patient easily swallowed pill the size of aspirin as well. Jon Huizar MD FACR Abdomen/Pelvis CT 11/24/17 0000 Signed Impressions: Service Date/Time: November 10:14 - CONCLUSION: 1. Patient does not appear to have a vascular etiology for current clinical symptoms. Mesenteric vessels are all patent. Main and accessory renal arteries bilaterally are also patent. 2. Diffuse hepatic fatty infiltration. 3. Nonobstructing sub-centimeter renal calculi bilaterally. The largest is in the lower pole collecting system of the left kidney measuring 4 mm in diameter. 4. Diverticula disease scattered throughout the colon without diverticulitis. Ricky Elizabeth MD Abdomen Ultrasound 11/23/17 0000 Signed Impressions: Service Date/Time: Thursday, November 23, 2017 21:11 - CONCLUSION: Hepatosplenomegaly. Bruce aSrah MD Objective Remarks CARDIOVASCULAR: Regular rate and rhythm. Unable to reproduce chest pain upon palpation RESPIRATORY: No accessory muscle use. Clear to auscultation. Breath sounds equal bilaterally. GASTROINTESTINAL: Abdomen soft, non-tender, nondistended. No epigastric tenderness MUSCULOSKELETAL: Extremities without edema. No obvious deformities. NEUROLOGICAL: Awake and alert. Normal speech. A/P Problem List: (1) Abdominal pain ICD Code: R10.9 - Unspecified abdominal pain (2) Elevated troponin I level ICD Code: R79.89 - Other specified abnormal findings of blood chemistry Status: Chronic Assessment and Plan Epigastric abdominal pain, with Transaminitis -Relieved only periodically with IV Protonix or Tums, will transition him to p.o. Protonix. -DC IV morphine and switched to p.o. pain medication. -HIDA scan shows mild bile reflux, and biliary dyskinesia -Ultrasound of the abdomen shows hepatosplenomegaly, hepato-steatosis -EGD completed shows gastritis, esophagitis, and duodenitis, GI recommends prn dilatations, PPI, no NSAIDS, ok to restart anticoagulation. Since patient has a history of DVT, we will bridge him with Lovenox and continue the home Coumadin dose. INR is 1.2 today. Patient does not have a primary care physician. He has been encouraged to establish with someone as soon as possible. Elevated troponin -Troponin up to 0.13, patient complains of epigastric pain -Bradycardia also intermittent, parameters placed on Coreg -Cardiology feels that his pain and overall picture is not cardiogenic Chronic kidney disease -Creatinine is at his baseline, continue to monitor h/o DVT and Pulmonary Embolism -Resume coumadin bridge with Lovenox, DC Lovenox once INR is in therapeutic range Discharge Planning Anticipate discharge tomorrow or Tuesday if INR therapeutic GI has cleared patient for discharge. Leighann Bae MD Nov 26, 2017 16:25
[2017-11-26] MEDS: ENOXAPARIN SODIUM 100 MG/ML SYRINGE SQ SCH (16:55)
[2017-11-26] MEDS: WARFARIN SOD 3 MG TAB PO SCH (16:55)
[2017-11-26 17:55] LABS: CERULOPLASMIN 23 mg/dL (18-36)
[2017-11-27] VITALS (16 sets, daily range): BP systolic 101–133; BP diastolic 58–70; PULSE 60–84; RESP 16–18; TEMP 97.7–99.4; O2SAT 92–99
[2017-11-27] MEDS: ISOSORBIDE MONONITRATE 30 MG CR TAB (IMDUR) PO SCH (05:38)
[2017-11-27] MEDS: NITROGLYCERIN 2% OINT 1 GM PACKET TOP SCH ×4 (05:38→23:31)
[2017-11-27] MEDS: ENOXAPARIN SODIUM 100 MG/ML SYRINGE SQ SCH ×2 (05:39→16:25)
[2017-11-27 07:44] LABS: INTERNATIONAL NORMALIZED RATIO 1.2 RATIO; PROTHROMBIN TIME - PATIENT 12.6 SEC (9.8-11.6)
[2017-11-27] MEDS: ALLOPURINOL 100 MG TAB PO SCH (08:18)
[2017-11-27] MEDS: SUCRALFATE 1 GM/10 ML CUP PO SCH ×4 (08:18→20:36)
[2017-11-27] MEDS: AZITHROMYCIN 250 MG TAB PO SCH (08:18)
[2017-11-27] MEDS: PANTOPRAZOLE SODIUM 40 MG VIAL IV PUSH SCH ×2 (08:18→20:36)
[2017-11-27] MEDS: LISINOPRIL 10 MG TAB PO SCH (08:18)
[2017-11-27] MEDS: CARVEDILOL 3.125 MG TAB PO SCH ×2 (08:18→20:36)
[2017-11-27] MEDS: amLODIPine BESYLATE 5 MG TAB PO SCH (08:18)
[2017-11-27] MEDS: MORPHINE SULFATE 4 MG/ML INJ IV PUSH PRN ×3 (08:18→16:26)
[2017-11-27] MEDS: SODIUM CHLOR 0.45% 1000 ML INJ 1,000 ML IV SCH ×2 (08:21→20:42)
[2017-11-27] MEDS: SODIUM CHLORIDE 0.9% FLUSH 10 ML FLUSH IV FLUSH SCH ×2 (08:27→20:36)
--- NOTE | 2017-11-27 12:19 | PD.CARD.PN ---
Subjective Subjective Remarks chest pain resolved Objective Medications Current Medications Medications (Trade) Dose Ordered Sig/Oumou Route Start Time Stop Time Status Last Admin (Nitroglycerin 2% Oint) 1 inch Q6HR TOP 11/22/17 18:00 11/27/17 05:38 Sodium Chloride 1,000 ml @ 75 mls/hr [id number] IV 11/22/17 13:30 11/27/17 08:21 (NS Flush) 2 ml UNSCH PRN IV FLUSH 11/22/17 13:30 (NS Flush) 2 ml BID IV FLUSH 11/22/17 21:00 11/27/17 08:27 (Narcan Inj) 0.4 mg UNSCH PRN IV PUSH 11/22/17 13:30 (Milk Of Magnesia Liq) 30 ml Q12H PRN PO 11/22/17 13:00 11/25/17 19:59 (Senokot) 17.2 mg Q12H PRN PO 11/22/17 13:00 11/25/17 19:59 (Dulcolax Supp) 10 mg DAILY PRN RECTAL 11/22/17 13:00 (Lactulose Liq) 30 ml DAILY PRN PO 11/22/17 13:00 (Prinivil) 10 mg DAILY PO 11/23/17 09:00 11/27/17 08:18 (Apresoline Inj) 10 mg Q30M PRN IV PUSH 11/22/17 14:15 (Imdur) 30 mg DAILY@07 PO 11/23/17 07:00 11/27/17 05:38 (Norvasc) 5 mg DAILY PO 11/23/17 09:00 11/27/17 08:18 (Zithromax) 500 mg DAILY PO 11/23/17 10:30 11/27/17 08:18 (Coreg) 3.125 mg Q12HR PO 11/23/17 21:00 11/27/17 08:18 (Tums Chew) 500 mg Q2H PRN CHEW 11/23/17 15:00 11/24/17 11:34 (Protonix Inj) 40 mg Q12HR IV PUSH 11/23/17 21:00 11/27/17 08:18 (Morphine Inj) 4 mg Q4HR PRN IV PUSH 11/24/17 16:15 11/27/17 08:18 Lactated Ringer's 1,000 ml @ 30 mls/hr Q24H PRN IV 11/25/17 01:30 11/28/17 01:29 Sodium Chloride 500 ml @ 30 mls/hr [id number] PRN IV 11/25/17 01:30 11/28/17 01:29 (Betadine 5% Antisepsis Kit) 1 applic [employer] PRN EACH NARE 11/25/17 01:30 11/28/17 01:29 (Chlorhexidine 2% Cloth) 3 pack [employer] PRN TOPICAL 11/25/17 01:30 11/28/17 01:29 (Carafate Liq) 1 gm ACHS PO 11/25/17 17:00 11/27/17 08:18 (Coumadin) 3 mg DAILY@1600 PO 11/25/17 20:00 11/26/17 16:55 Pharmacy Profile Note 0 ml @ 0 mls/hr UNSCH OTHER 11/25/17 17:30 (Zyloprim) 100 mg DAILY PO 11/26/17 09:00 11/27/17 08:18 (Lovenox Inj) 90 mg Q12H SQ 11/26/17 16:00 11/27/17 05:39 (Deltasone) 40 mg DAILY PO 11/27/17 12:00 Vital Signs / I&O Vital Signs Date Time Temp Pulse Resp B/P (MAP) Pulse Ox O2 Delivery O2 Flow Rate FiO2 11/27/17 11:54 63 11/27/17 10:35 98 Nasal Cannula 2.00 11/27/17 10:35 65 11/27/17 10:35 99.4 61 16 114/69 (84) 98 11/27/17 09:54 60 11/27/17 08:21 98.5 73 16 101/61 (74) 95 11/27/17 07:54 76 11/27/17 04:00 98.6 70 18 112/62 (79) 95 11/27/17 02:51 66 11/27/17 00:00 99.4 80 18 122/69 (86) 94 11/26/17 23:52 80 11/26/17 20:33 98.7 66 18 124/67 (86) 94 11/26/17 19:41 64 11/26/17 18:27 75 11/26/17 16:00 99.6 63 19 121/66 (84) 95 11/26/17 15:29 68 11/26/17 15:00 65 11/26/17 12:58 75 I/O 11/26/17 11/26/17 11/26/17 11/27/17 11/27/17 11/27/17 07:00 15:00 23:00 07:00 15:00 23:00 Intake Total 1720 ml 1187 ml Output Total 800 ml 200 ml Balance 920 ml 1187 ml -200 ml Intake Oral 720 ml 600 ml IV Total 1000 ml 587 ml Output Urine Total 800 ml 200 ml # Voids 3 3 # Bowel Movements 0 Physical Exam GENERAL: SKIN: Warm and dry. HEAD: Normocephalic. EYES: No scleral icterus. No injection or drainage. NECK: Supple, trachea midline. No JVD or lymphadenopathy. CARDIOVASCULAR: Regular rate and rhythm without murmurs, gallops, or rubs. RESPIRATORY: Breath sounds equal bilaterally. No accessory muscle use. GASTROINTESTINAL: Abdomen soft, non-tender, nondistended. MUSCULOSKELETAL: No cyanosis, or edema. BACK: Nontender without obvious deformity. No CVA tenderness. Laboratory Laboratory Tests Test 11/27/17 06:38 Prothrombin Time 12.6 SEC Prothromb Time International Ratio 1.2 RATIO Assessment and Plan Problem List: (1) Coronary artery disease ICD Codes: I25.10 - Atherosclerotic heart disease of [place] coronary artery without angina pectoris Status: Chronic (2) Dysphagia ICD Codes: R13.10 - Dysphagia, unspecified (3) Barretts esophagus ICD Codes: K22.70 - Manning's esophagus without dysplasia Status: Chronic (4) NSTEMI (non-ST elevated myocardial infarction) ICD Codes: I21.4 - Non-ST elevation (NSTEMI) myocardial infarction Status: Acute (5) Pulmonary embolism ICD Codes: I26.99 - Other pulmonary embolism without acute cor pulmonale Status: Chronic Assessment and Plan 1.) NSTEMI - assymptomatic today, elevated troponin etiology indeterminate but I do not think is due to a primary obstructive event or lesion; f/u GI endoscopy findings andd recs; on coumadin with lovenox bridge Cory Robledo MD Nov 27, 2017 12:19
--- NOTE | 2017-11-27 12:19 | HHI.PR ---
Subjective Remarks Pt complaining of pain in his joints, states he has a gout flare, he wasn't started on his home med upon admission and states that this happens to him whenever he falls behind. Chest pain is the same. he tells me that he goes to [facility] to have his [facility] managed. Objective Vitals Vital Signs Date Time Temp Pulse Resp B/P (MAP) Pulse Ox O2 Delivery O2 Flow Rate FiO2 11/27/17 10:35 98 Nasal Cannula 2.00 11/27/17 10:35 65 11/27/17 10:35 99.4 61 16 114/69 (84) 98 11/27/17 09:54 60 11/27/17 08:21 98.5 73 16 101/61 (74) 95 11/27/17 07:54 76 11/27/17 04:00 98.6 70 18 112/62 (79) 95 11/27/17 02:51 66 11/27/17 00:00 99.4 80 18 122/69 (86) 94 11/26/17 23:52 80 11/26/17 20:33 98.7 66 18 124/67 (86) 94 11/26/17 19:41 64 11/26/17 18:27 75 11/26/17 16:00 99.6 63 19 121/66 (84) 95 11/26/17 15:29 68 11/26/17 15:00 65 11/26/17 12:58 75 11/26/17 12:15 64 11/26/17 12:05 92 11/26/17 12:00 98.1 63 18 116/64 (81) 91 I/O 11/26/17 11/26/17 11/26/17 11/27/17 11/27/17 11/27/17 07:00 15:00 23:00 07:00 15:00 23:00 Intake Total 1720 ml 1187 ml Output Total 800 ml 200 ml Balance 920 ml 1187 ml -200 ml Intake Oral 720 ml 600 ml IV Total 1000 ml 587 ml Output Urine Total 800 ml 200 ml # Voids 3 3 # Bowel Movements 0 Result Diagram: 11/23/17 0517 11/23/17 0517 Imaging Last Impressions Chest X-Ray 11/26/17 0000 Signed Impressions: Service Date/Time: Sunday, November 26, 2017 13:01 - CONCLUSION: No acute cardiac pulmonary process. Ricky Elizabeth MD Hepatobiliary Scan Nuclear Medicine 11/25/17 0000 Signed Impressions: Service Date/Time: Saturday, November 25, 2017 11:06 - CONCLUSION: Normal hepatobiliary kinetics. Mild bile gastric reflux. Symptomatology with CCK indicative of biliary dyskinesia Bruce Sarah MD Barium Swallow X-Ray 11/25/17 0000 Signed Impressions: Service Date/Time: Saturday, November 25, 2017 14:38 - CONCLUSION: Negative barium swallow. Patient easily swallowed pill the size of aspirin as well. Jon Huizar MD FACR Abdomen/Pelvis CT 11/24/17 0000 Signed Impressions: Service Date/Time: November 10:14 - CONCLUSION: 1. Patient does not appear to have a vascular etiology for current clinical symptoms. Mesenteric vessels are all patent. Main and accessory renal arteries bilaterally are also patent. 2. Diffuse hepatic fatty infiltration. 3. Nonobstructing sub-centimeter renal calculi bilaterally. The largest is in the lower pole collecting system of the left kidney measuring 4 mm in diameter. 4. Diverticula disease scattered throughout the colon without diverticulitis. Ricky Elizabeth MD Abdomen Ultrasound 11/23/17 0000 Signed Impressions: Service Date/Time: Thursday, November 23, 2017 21:11 - CONCLUSION: Hepatosplenomegaly. Bruce Sarah MD Objective Remarks CARDIOVASCULAR: Regular rate and rhythm. Unable to reproduce chest pain upon palpation RESPIRATORY: No accessory muscle use. Clear to auscultation. Breath sounds equal bilaterally. GASTROINTESTINAL: Abdomen soft, non-tender, nondistended. No epigastric tenderness MUSCULOSKELETAL: Extremities without edema. No obvious deformities. very tender in his great toes, ankles and right arm/elbow. No erythema but swelling is noted. NEUROLOGICAL: Awake and alert. Normal speech. A/P Problem List: (1) Abdominal pain ICD Code: R10.9 - Unspecified abdominal pain (2) Elevated troponin I level ICD Code: R79.89 - Other specified abnormal findings of blood chemistry Status: Chronic Assessment and Plan Epigastric abdominal pain, with Transaminitis -Relieved only periodically with IV Protonix or Tums, will transition him to p.o. Protonix. -DC IV morphine and switched to p.o. pain medication. -HIDA scan shows mild bile reflux, and biliary dyskinesia -Ultrasound of the abdomen shows hepatosplenomegaly, hepato-steatosis -EGD completed shows gastritis, esophagitis, and duodenitis, GI recommends prn dilatations, PPI, no NSAIDS, ok to restart anticoagulation. Since patient has a history of DVT, bridging him with Lovenox and continue the home Coumadin dose. INR is 1.2 today. Patient tells me today that Dr. Robledo manages his INR but he doesn't have a PCP. Elevated troponin -Troponin up to 0.13, patient complains of epigastric pain -Bradycardia also intermittent, parameters placed on Coreg -Cardiology feels that his pain and overall picture is not cardiogenic Chronic kidney disease -Creatinine is at his baseline, continue to monitor Gout flare up - started him on prednisone h/o DVT and Pulmonary Embolism -coumadin bridge with Lovenox, DC Lovenox once INR is in therapeutic range Discharge Planning Anticipate discharge tomorrow. Dr. Robledo agreed to manage pt's INR as an outpatient. I have started pt on prednisone 40mg daily to see if this will help him w his gout flair. Leighann Bae MD Nov 27, 2017 12:19
[2017-11-27] MEDS: predniSONE 20 MG TAB PO SCH (12:30)
[2017-11-27 13:58] LABS: TROPONIN I 0.08 NG/ML (0.02-0.05)
[2017-11-27] MEDS: WARFARIN SOD 3 MG TAB PO SCH (16:25)
[2017-11-28] VITALS: BP 135/68; PULSE 65; RESP 19; TEMP 97.1; O2SAT 96
--- NOTE | 2017-11-28 00:01 | EKG ---
Date Performed: 11/27/2017 Time Performed: 13:28:44 PTAGE: 57 years EKG: Sinus rhythm LOW QRS VOLTAGE IN PRECORDIAL LEADS INFERIOR MYOCARDIAL INFARCTION , OF INDETERMINATE AGE ABNORMAL E CG PREVIOUS TRACING : 11/23/2017 04.41 Since the previous tracing, no significant change noted DOCTOR: Brien Kumari Interpretating Date/Time 11/27/2017 23:59:47
[2017-11-28 02:37] LABS: INTERNATIONAL NORMALIZED RATIO 1.2 RATIO; PROTHROMBIN TIME - PATIENT 11.9 SEC (9.8-11.6)
[2017-11-28 03:52] LABS: MITOCHONDRIAL ABS LESS THAN 20.0 U (<=20.0)
[2017-11-28 04:00] VITALS: BP 116/64; PULSE 62; RESP 19; TEMP 98; O2SAT 92
[2017-11-28] MEDS: NITROGLYCERIN 2% OINT 1 GM PACKET TOP SCH ×2 (05:09→12:45)
[2017-11-28] MEDS: ISOSORBIDE MONONITRATE 30 MG CR TAB (IMDUR) PO SCH (05:09)
[2017-11-28] MEDS: ENOXAPARIN SODIUM 100 MG/ML SYRINGE SQ SCH ×2 (05:10→16:19)
[2017-11-28 08:00] VITALS: BP 108/59; PULSE 56; RESP 15; TEMP 97.5; O2SAT 97
[2017-11-28] MEDS: SODIUM CHLORIDE 0.9% FLUSH 10 ML FLUSH IV FLUSH SCH (09:00)
[2017-11-28] MEDS: CARVEDILOL 3.125 MG TAB PO SCH (09:00)
[2017-11-28] MEDS: SENNOSIDES 8.6 MG TAB PO PRN (09:00)
[2017-11-28] MEDS: LISINOPRIL 10 MG TAB PO SCH (09:00)
[2017-11-28] MEDS: MAGNESIUM HYDROXIDE SUSP 30 ML CUP PO PRN (09:00)
[2017-11-28] MEDS: amLODIPine BESYLATE 5 MG TAB PO SCH (09:00)
[2017-11-28] MEDS: SUCRALFATE 1 GM/10 ML CUP PO SCH ×3 (09:01→16:20)
[2017-11-28] MEDS: predniSONE 20 MG TAB PO SCH (09:02)
[2017-11-28] MEDS: ALLOPURINOL 100 MG TAB PO SCH (09:02)
[2017-11-28] MEDS: AZITHROMYCIN 250 MG TAB PO SCH (09:02)
[2017-11-28] MEDS: PANTOPRAZOLE SODIUM 40 MG VIAL IV PUSH SCH (09:03)
[2017-11-28] MEDS: SODIUM CHLOR 0.45% 1000 ML INJ 1,000 ML IV SCH (09:07)
[2017-11-28] MEDS: MORPHINE SULFATE 4 MG/ML INJ IV PUSH PRN (09:18)
[2017-11-28 09:21] VITALS: BP 119/77; PULSE 75; RESP 18; TEMP 97.4; O2SAT 96
[2017-11-28] MEDS ORDERED: PANT40TA3 PO (11:58)
[2017-11-28] MEDS ORDERED: AMLO5 PO (11:58)
[2017-11-28] MEDS ORDERED: CARV3.125 PO (11:58)
[2017-11-28] MEDS ORDERED: ISOS30TA3 PO (11:58)
[2017-11-28] MEDS ORDERED: SUCR1S PO (11:58)
[2017-11-28] MEDS ORDERED: ENOX100P SQ (11:58)
[2017-11-28] MEDS ORDERED: GABA100C4 PO (11:59)
[2017-11-28] MEDS ORDERED: NORC5TAB PO (11:59)
[2017-11-28 12:00] VITALS: BP 126/76; PULSE 60; RESP 16; TEMP 97.6; O2SAT 97
--- NOTE | 2017-11-28 12:02 | HHI.DS ---
Discharge Summary Admission Date Nov 22, 2017 at 12:45 Discharge Date: Nov 28, 2017 Admitting Diagnosis NSTEMI (1) Abdominal pain ICD Code: R10.9 - Unspecified abdominal pain (2) Elevated troponin I level ICD Code: R79.89 - Other specified abnormal findings of blood chemistry Status: Chronic Procedures EGD Brief History - From Admission 57-year-old male with a history of CAD, CKD stage III, who presents with a 1 day history of constant moderate sharp nonpleuritic, nonradiating substernal chest pain with associated generalized fatigue. He does report a cough productive of yellow sputum for the past 2 months, but feels this is a chronic thing for him. Patient denies any fevers, chills, shortness of breath. Denies any edema or nocturnal dyspnea. Significant Findings Laboratory Tests Test 11/26/17 06:44 11/27/17 06:38 11/27/17 13:18 11/27/17 20:06 Prothrombin Time 12.3 SEC (9.8-11.6) 12.6 SEC (9.8-11.6) Troponin I 0.08 NG/ML (0.02-0.05) 0.06 NG/ML (0.02-0.05) Test 11/28/17 02:20 11/28/17 08:34 Prothrombin Time 11.9 SEC (9.8-11.6) Troponin I 0.06 NG/ML (0.02-0.05) Imaging Last Impressions Chest X-Ray 11/26/17 0000 Signed Impressions: Service Date/Time: Sunday, November 26, 2017 13:01 - CONCLUSION: No acute cardiac pulmonary process. Ricky Elizabeth MD Hepatobiliary Scan Nuclear Medicine 11/25/17 0000 Signed Impressions: Service Date/Time: Saturday, November 25, 2017 11:06 - CONCLUSION: Normal hepatobiliary kinetics. Mild bile gastric reflux. Symptomatology with CCK indicative of biliary dyskinesia Bruce Sarah MD Barium Swallow X-Ray 11/25/17 0000 Signed Impressions: Service Date/Time: Saturday, November 25, 2017 14:38 - CONCLUSION: Negative barium swallow. Patient easily swallowed pill the size of aspirin as well. Jon Huizar MD FACR Abdomen/Pelvis CT 11/24/17 0000 Signed Impressions: Service Date/Time: November 10:14 - CONCLUSION: 1. Patient does not appear to have a vascular etiology for current clinical symptoms. Mesenteric vessels are all patent. Main and accessory renal arteries bilaterally are also patent. 2. Diffuse hepatic fatty infiltration. 3. Nonobstructing sub-centimeter renal calculi bilaterally. The largest is in the lower pole collecting system of the left kidney measuring 4 mm in diameter. 4. Diverticula disease scattered throughout the colon without diverticulitis. Ricky Elizabeth MD Abdomen Ultrasound 11/23/17 0000 Signed Impressions: Service Date/Time: Thursday, November 23, 2017 21:11 - CONCLUSION: Hepatosplenomegaly. Bruce Sarah MD PE at Discharge CARDIOVASCULAR: Regular rate and rhythm. Unable to reproduce chest pain upon palpation RESPIRATORY: No accessory muscle use. Clear to auscultation. Breath sounds equal bilaterally. GASTROINTESTINAL: Abdomen soft, non-tender, nondistended. No epigastric tenderness MUSCULOSKELETAL: Extremities without edema. No obvious deformities. very tender in his great toes, ankles and right arm/elbow. No erythema but swelling is noted. NEUROLOGICAL: Awake and alert. Normal speech. Pt update on day of discharge Reports intermittent epigastric pain. Currently comfortable. No SOB. Discharge planning discussed at length with the patient. Hospital Course 57-year-old male admitted and treated for: Epigastric abdominal pain, with Transaminitis -Relieved only periodically with IV Protonix or Tums, will transition him to p.o. Protonix. -DC IV morphine and switched to p.o. pain medication. -HIDA scan shows mild bile reflux, and biliary dyskinesia -Ultrasound of the abdomen shows hepatosplenomegaly, hepato-steatosis -EGD completed shows gastritis, esophagitis, and duodenitis, GI recommends prn dilatations, PPI, no NSAIDS, ok to restart anticoagulation. Since patient has a history of DVT, bridging him with Lovenox and continue the home Coumadin dose. INR is 1.[address] Robledo manages his INR but he doesn't have a PCP. Can continue Lovenox Bridging at home. Elevated troponin -Troponin up to 0.13, patient complains of epigastric pain -Bradycardia also intermittent, parameters placed on Coreg -Cardiology feels that his pain and overall picture is not cardiogenic. Follow-up outpatient. Chronic kidney disease -Creatinine is at his baseline Gout: Resume home dose allopurinol. Neuropathic pain/fibromyalgia: Medicine patient requested a prescription for gabapentin until he can see his PCP. He states this medication helped in the past. h/o DVT and Pulmonary Embolism -Coumadin bridge with Lovenox, DC Lovenox once INR is in therapeutic range Pt Condition on Discharge: Good Discharge Disposition: Discharge Home Discharge Time: > 30 minutes Discharge Instructions DIET: Follow Instructions for: Heart Healthy Diet, Coumadin (Warfarin) Diet Activities you can perform: Regular-No Restrictions Follow up Referrals: Cardiology with Cory Robledo MD Gastroenterology - 2 Weeks @ [facility] PCP Follow-up - 2 Weeks with Ana Aguilar MD New Medications: Gabapentin (Gabapentin) 100 Mg Cap 100 MG PO TID, #90 CAP 0 Refills Hydrocodone-Acetaminophen ([place]) 5 Mg-325 Mg Tab 1 TAB PO Q4H PRN for severe pain, #15 TAB 0 Refills Amlodipine (Norvasc) 5 Mg Tab 5 MG PO DAILY, #30 TAB Carvedilol (Coreg) 3.125 Mg Tab 3.125 MG PO Q12HR, #60 TAB Enoxaparin Inj (Lovenox Inj) 100 Mg/Ml Syr 90 MG SQ Q12H, #10 INJECTION Isosorbide Mononitrate ER (Isosorbide Mononitrate ER) 30 Mg Bebe 30 MG PO DAILY@07, #30 TAB Sucralfate Liq (Sucralfate Liq) 1 Gram/10 Ml Vanessa 1 GM PO ACHS, #60 GM Continued Medications: Allopurinol (Allopurinol) 100 Mg Tab 100 MG PO DAILY for Gout, #30 TAB 0 Refills Lisinopril (Lisinopril) 10 Mg Tab 10 MG PO DAILY, #30 TAB 0 Refills Pantoprazole (Pantoprazole) 40 Mg Tab 40 MG PO DAILY for Reflux, #30 TAB 0 Refills (This prescription has been renewed ) Warfarin (Warfarin) 3 Mg Tab 3 MG PO DAILY for Blood Clot Prevention, #30 TAB 0 Refills Adams Zamorano MD Nov 28, 2017 12:02
[2017-11-28 16:00] VITALS: BP 137/75; PULSE 58; RESP 16; TEMP 97.5; O2SAT 96
[2017-11-28] MEDS ORDERED: WARFARIN SOD 2 MG TAB PO ONE (16:00)
[2017-11-28] MEDS: WARFARIN SOD 3 MG TAB PO SCH (16:20)
--- NOTE | 2017-11-28 17:49 | PD.CARD.PN ---
Subjective Subjective Remarks some chest pain yest, appears comfortable in nad Objective Medications Current Medications Medications (Trade) Dose Ordered Sig/Oumou Route Start Time Stop Time Status Last Admin (Nitroglycerin 2% Oint) 1 inch Q6HR TOP 11/22/17 18:00 11/28/17 12:45 Sodium Chloride 1,000 ml @ 75 mls/hr [id number] IV 11/22/17 13:30 11/28/17 09:07 (NS Flush) 2 ml UNSCH PRN IV FLUSH 11/22/17 13:30 (NS Flush) 2 ml BID IV FLUSH 11/22/17 21:00 11/27/17 20:36 (Narcan Inj) 0.4 mg UNSCH PRN IV PUSH 11/22/17 13:30 (Milk Of Magnesia Liq) 30 ml Q12H PRN PO 11/22/17 13:00 11/28/17 09:00 (Senokot) 17.2 mg Q12H PRN PO 11/22/17 13:00 11/28/17 09:00 (Dulcolax Supp) 10 mg DAILY PRN RECTAL 11/22/17 13:00 (Lactulose Liq) 30 ml DAILY PRN PO 11/22/17 13:00 11/28/17 09:00 (Prinivil) 10 mg DAILY PO 11/23/17 09:00 11/27/17 08:18 (Apresoline Inj) 10 mg Q30M PRN IV PUSH 11/22/17 14:15 (Imdur) 30 mg DAILY@07 PO 11/23/17 07:00 11/28/17 05:09 (Norvasc) 5 mg DAILY PO 11/23/17 09:00 11/27/17 08:18 (Zithromax) 500 mg DAILY PO 11/23/17 10:30 11/28/17 09:02 (Coreg) 3.125 mg Q12HR PO 11/23/17 21:00 11/28/17 09:00 (Tums Chew) 500 mg Q2H PRN CHEW 11/23/17 15:00 11/24/17 11:34 (Protonix Inj) 40 mg Q12HR IV PUSH 11/23/17 21:00 11/28/17 09:03 (Morphine Inj) 4 mg Q4HR PRN IV PUSH 11/24/17 16:15 11/28/17 09:18 (Carafate Liq) 1 gm ACHS PO 11/25/17 17:00 11/28/17 16:20 (Coumadin) 3 mg DAILY@1600 PO 11/25/17 20:00 11/28/17 16:20 Pharmacy Profile Note 0 ml @ 0 mls/hr UNSCH OTHER 11/25/17 17:30 (Zyloprim) 100 mg DAILY PO 11/26/17 09:00 11/28/17 09:02 (Lovenox Inj) 90 mg Q12H SQ 11/26/17 16:00 11/28/17 16:19 (Deltasone) 40 mg DAILY PO 11/27/17 12:00 11/28/17 09:02 Vital Signs / I&O Vital Signs Date Time Temp Pulse Resp B/P (MAP) Pulse Ox O2 Delivery O2 Flow Rate FiO2 11/28/17 16:34 Room Air 11/28/17 16:00 97.5 58 16 137/75 (95) 96 11/28/17 12:56 Room Air 11/28/17 12:00 97.6 60 16 126/76 (93) 97 11/28/17 09:21 97.4 75 18 119/77 (91) 96 11/28/17 09:19 Nasal Cannula 2.00 11/28/17 09:08 Room Air 11/28/17 08:00 97.5 56 15 108/59 (75) 97 11/28/17 04:00 98.0 62 19 116/64 (81) 92 11/28/17 00:00 97.1 65 19 135/68 (90) 96 11/27/17 19:00 98.5 72 18 118/70 (86) 93 11/27/17 18:07 66 I/O 11/27/17 11/27/17 11/27/17 11/28/17 11/28/17 11/28/17 07:00 15:00 23:00 07:00 15:00 23:00 Intake Total 1978 ml 958 ml 400 ml 740 ml 1956 ml Output Total 400 ml 1700 ml 1200 ml Balance 1978 ml 558 ml -1300 ml -460 ml 1956 ml Intake Oral 600 ml 400 ml 740 ml IV Total 1378 ml 958 ml 1956 ml Output Urine Total 400 ml 700 ml 1200 ml Stool Total 1000 ml # Voids 3 3 # Bowel Movements 0 0 Physical Exam GENERAL: SKIN: Warm and dry. HEAD: Normocephalic. EYES: No scleral icterus. No injection or drainage. NECK: Supple, trachea midline. No JVD or lymphadenopathy. CARDIOVASCULAR: Regular rate and rhythm without murmurs, gallops, or rubs. RESPIRATORY: Breath sounds equal bilaterally. No accessory muscle use. GASTROINTESTINAL: Abdomen soft, non-tender, nondistended. MUSCULOSKELETAL: No cyanosis, or edema. BACK: Nontender without obvious deformity. No CVA tenderness. Laboratory Laboratory Tests Test 11/27/17 20:06 11/28/17 02:20 11/28/17 08:34 Troponin I 0.06 NG/ML 0.04 NG/ML 0.06 NG/ML Prothrombin Time 11.9 SEC Prothromb Time International Ratio 1.2 RATIO Assessment and Plan Problem List: (1) Coronary artery disease ICD Codes: I25.10 - Atherosclerotic heart disease of [place] coronary artery without angina pectoris Status: Chronic (2) Dysphagia ICD Codes: R13.10 - Dysphagia, unspecified (3) Barretts esophagus ICD Codes: K22.70 - Manning's esophagus without dysplasia Status: Chronic (4) NSTEMI (non-ST elevated myocardial infarction) ICD Codes: I21.4 - Non-ST elevation (NSTEMI) myocardial infarction Status: Acute (5) Pulmonary embolism ICD Codes: I26.99 - Other pulmonary embolism without acute cor pulmonale Status: Chronic Assessment and Plan 1.) NSTEMI - assymptomatic today, elevated troponin etiology indeterminate but I do not think is due to a primary obstructive event or lesion; f/u GI endoscopy findings andd recs; on coumadin with lovenox bridge; chest pain is atypical, repeat troponins are trending down Cory Robledo MD Nov 28, 2017 17:49
[2017-11-29 15:51] LABS: ENDOMYSIAL AB SCREEN ND (NEGATIVE); ENDOMYSIAL AB TITER ND (<1:5)
== END 2017-11-28 19:13 | disposition home or self-care (01) | DRG 281 ==
LOC: NEPC 10:13 → NEDA 12:45 → HCIS 13:54 → N06B 11-24 20:52
PROVIDERS: ADMIT Family Medicine; ATTEND Family Medicine
PROC: 0DB58ZX Excision of Esophagus, Via Natural or Artificial Opening Endoscopic, Diagnostic (ICD-10-PCS; 2017-11-25)
PROC: 0DB78ZX Excision of Stomach, Pylorus, Via Natural or Artificial Opening Endoscopic, Diagnostic (ICD-10-PCS; 2017-11-25)
PROC: 0D758ZZ Dilation of Esophagus, Via Natural or Artificial Opening Endoscopic (ICD-10-PCS; principal; 2017-11-25 11:20)
DX: I21.4 Non-ST elevation (NSTEMI) myocardial infarction (principal); N17.9 Acute kidney failure, unspecified; I13.0 Hypertensive heart and chronic kidney disease with heart failure and stage 1 through stage 4 chronic kidney disease, or unspecified chronic kidney disease; N18.3 Chronic kidney disease, stage 3 (moderate); E83.42 Hypomagnesemia; R13.10 Dysphagia, unspecified; I50.9 Heart failure, unspecified; R73.9 Hyperglycemia, unspecified; K21.9 Gastro-esophageal reflux disease without esophagitis; M10.9 Gout, unspecified; K29.70 Gastritis, unspecified, without bleeding; K22.70 Barrett's esophagus without dysplasia; K44.9 Diaphragmatic hernia without obstruction or gangrene; I25.10 Atherosclerotic heart disease of native coronary artery without angina pectoris; M79.7 Fibromyalgia; J44.9 Chronic obstructive pulmonary disease, unspecified; Z86.718 Personal history of other venous thrombosis and embolism; Z79.01 Long term (current) use of anticoagulants; Z79.899 Other long term (current) drug therapy; Z86.711 Personal history of pulmonary embolism
CPT/HCPCS: 71045; 71046; 74174; 74230; 76700; 78227; 80048; 80053; 80074; 80076; 82103; 82105; 82150; 82390; 82550; 82552; 82728; 82784; 83036; 83516; 83520; 83540; 83550; 83690; 83735; 84484; 85025; 85610; 86038; 86255; 88305; 88312; 93005; A9537; C1769; C9113; J1650; J2270; J2805; J3475; J7512; Q9967

== ENCOUNTER 2017-12-15 10:55 | Inpatient (IN) | payer BC ==
[2017-12-15] VITALS (7 sets, daily range): BP systolic 111–149; BP diastolic 70–78; PULSE 46–58; RESP 17–20; TEMP 97.2–97.5; O2SAT 95–100
[~2017-12-15] VITALS: Ht 172.7 cm; Wt 94.5 kg
[~2017-12-15 10:55] MED LIST changes: -ASPI-516 CHEW; -ATOR80TA45 PO; +CARV3.125 PO; +ENOX100P SQ; +GABA100C4 PO; -INDO50CA PO; +ISOS30TA3 PO; +LISI10TA3 PO; -MAG-LIQ PO; -METO25TA3 PO; +NORC5TAB PO; +SUCR1S PO; -TURM500C7; +WARF-58 PO; -XARE15TA PO; -XARE20TA PO
--- NOTE | 2017-12-15 11:55 | RADRPT ---
EXAM DATE/TIME: 12/15/2017 11:10 [place] COMPARISON: No previous studies available for comparison. INDICATIONS : Left anterior chest pain, denies injury MEDICAL HISTORY : Arthritis. Chronic obstructive pulmonary disease. Congestive heart failure. Hiatal hernia. SURGICAL HISTORY : Lung biopsy ENCOUNTER: Initial ACUITY: 2 days PAIN SCORE: 8/10 LOCATION: Left chest FINDINGS: PA and lateral views of the chest demonstrate the lungs to be symmetrically aerated without evidence of mass, infiltrate or effusion. The cardiomediastinal contours are unremarkable. Osseous structure s are intact with stable deformity right seventh rib. CONCLUSION: 1. No active disease. Anjel Asif MD on December 15, 2017 at 11:49 Board Certified Radiologist. This report was verified electronically.
[2017-12-15 12:21] LABS: AUTOMATED NEUTROPHIL # 2.3 TH/MM3 (1.8-7.7); BASOPHIL % 0.6 % (0.0-2.0); EOSINOPHIL # 0.1 TH/MM3 (0-0.4); EOSINOPHIL % 3.3 % (0.0-4.0); HEMOGLOBIN 13.2 GM/DL (13.0-17.0); LYMPH % 26.7 % (9.0-44.0); LYMPHOCYTE # 1.1 TH/MM3 (1.0-4.8); MEAN CORPUSCULAR HEMOGLOBIN 32.2 PG (27.0-34.0); MEAN CORPUSCULAR HGB CONC 33.9 % (32.0-36.0); MONO % 12.9 % (0.0-8.0); MONOCYTE # 0.5 TH/MM3 (0-0.9); NEUT % 56.5 % (16.0-70.0); PLATELET COUNT 206 TH/MM3 (150-450); RED BLOOD COUNT 4.11 MIL/MM3 (4.50-5.90); RED CELL DISTRIBUTION WIDTH 14.5 % (11.6-17.2); WHITE BLOOD COUNT 4.1 TH/MM3 (4.0-11.0)
--- NOTE | 2017-12-15 12:42 | PD ---
HPI Chief Complaint: Chest Pain Time Seen by Provider: 12:32 Travel History International Travel<30 days: No Contact w/Intl Traveler<30days: No Traveled to known affect area: No History of Present Illness HPI This is a 57-year-old male who presents for evaluation of chest pain. He reports that he developed left-sided chest pain last night when lying down. This morning he developed substernal chest pain. The pain is sharp, constant but worse with deep inspiration. He endorses chronic dyspnea, denies acute dyspnea. Denies nausea, vomiting, cough, congestion, sore throat, fevers or chills, abdominal pain. He was admitted on November 22 with similar pain. He was seen by cardiology and also GI. He has been compliant with his medication. He follows with Dr. Robledo. He reports that an appointment today with customer operations associate Dr. Robledo but he called the office today and was told to come to the ER. No other complaints. PFSH Past Medical History Hx Anticoagulant Therapy: Yes (ELIQUIS) Arthritis: Yes Asthma: No Blood Disorders: No Anxiety: Yes Depression: Yes Heart Rhythm Problems: No Cancer: No Cardiac Catheterization: Yes Cardiovascular Problems: Yes High Cholesterol: Yes Chemotherapy: No Chest Pain: Yes Congestive Heart Failure: Yes COPD: Yes Cerebrovascular Accident: No Coronary Artery Disease: Yes Diabetes: No Diminished Hearing: No Endocrine: No Gastrointestinal Disorders: No GERD: Yes Gout: Yes Genitourinary: Yes Headaches: Yes Hiatal Hernia: Yes Hypertension: Yes Immune Disorder: No Implanted Vascular Access Dvce: No Kidney Stones: Yes Musculoskeletal: Yes Neurologic: Yes Psychiatric: No Reproductive: No Respiratory: Yes Immunizations Current: No Migraines: No Myocardial Infarction: Yes (X2) Pneumonia: Yes Renal Failure: No Seizures: No Sleep Apnea: No Past Surgical History Abdominal Surgery: No AICD: No Arteriovenous Shunt: No Cardiac Surgery: Yes (cardiac cath 2012) Ear Surgery: No Endocrine Surgery: No Eye Surgery: No Genitourinary Surgery: No Gynecologic Surgery: No Hysterectomy: No Insulin Pump: No Joint Replacement: No Neurologic Surgery: No Oral Surgery: No Pacemaker: No Thoracic Surgery: Yes (LUNG BIOPSY 1995) Other Surgery: Yes Social History Alcohol Use: No Tobacco Use: No Substance Use: No Allergies-Medications (Allergen,Severity, Reaction): Coded Allergies: No Known Allergies (Verified Allergy, Unknown, 4/17/18) Reported Meds & Prescriptions Reported Meds & Active Scripts Active [place] (Hydrocodone-Acetaminophen) 5 Mg-325 Mg Tab 1 Tab PO Q4H PRN Gabapentin 100 Mg Cap 100 Mg PO TID Sucralfate Liq (Sucralfate) 1 Gram/10 Ml Vanessa 1 Gm PO ACHS Norvasc (Amlodipine Besylate) 5 Mg Tab 5 Mg PO DAILY Coreg (Carvedilol) 3.125 Mg Tab 3.125 Mg PO Q12HR Isosorbide Mononitrate ER (Isosorbide Mononitrate) 30 Mg Bebe 30 Mg PO DAILY@07 Lovenox Inj (Enoxaparin Sodium) 100 Mg/Ml Syr 90 Mg SQ Q12H Pantoprazole (Pantoprazole Sodium) 40 Mg Tab 40 Mg PO DAILY Reported Lisinopril 10 Mg Tab 10 Mg PO DAILY Warfarin 3 Mg Tab 3 Mg PO DAILY Allopurinol 100 Mg Tab 100 Mg PO DAILY Review of Systems Except as stated in HPI: all other systems reviewed are Neg Physical Exam Narrative GENERAL: Well-developed well-nourished male in no acute distress SKIN: Warm and dry. HEAD: Atraumatic. Normocephalic. EYES: Pupils equal and round. No scleral icterus. No injection or drainage. ENT: No nasal bleeding or discharge. Mucous membranes pink and moist. NECK: Trachea midline. No JVD. CARDIOVASCULAR: Regular rate and rhythm. No murmur appreciated. RESPIRATORY: No accessory muscle use. Clear to auscultation. Breath sounds equal bilaterally. GASTROINTESTINAL: Abdomen soft, non-tender, nondistended. Hepatic and splenic margins not palpable. MUSCULOSKELETAL: No obvious deformities. No clubbing. No cyanosis. No edema. NEUROLOGICAL: Awake and alert. No obvious cranial nerve deficits. Motor grossly within normal limits. Normal speech. PSYCHIATRIC: Appropriate mood and affect; insight and judgment normal. Data Data Last Documented VS Vital Signs Date Time Temp Pulse Resp B/P (MAP) Pulse Ox O2 Delivery O2 Flow Rate FiO2 12/15/17 13:01 96 Room Air 12/15/17 13:01 75 17 12/15/17 11:00 97.5 124/78 (93) Orders Orders Electrocardiogram (12/15/17 11:03) Complete Blood Count With Diff (12/15/17 11:03) Basic Metabolic Panel (Bmp) (12/15/17 11:03) Ckmb (Isoenzyme) Profile (12/15/17 11:03) Troponin I (12/15/17 11:03) Iv Access Insert/Monitor (12/15/17 11:03) Ecg Monitoring (12/15/17 11:03) Oxygen Administration (12/15/17 11:03) Oximetry (12/15/17 11:03) Chest, Pa & Lat (12/15/17 11:03) Act Partial Throm Time (Ptt) (12/15/17 12:32) Prothrombin Time / Inr (Pt) (12/15/17 12:32) Aspirin Chew (Aspirin Chew) (12/15/17 13:30) Nitroglycerin Sl (Nitrostat Sl) (12/15/17 13:30) Consult Cardiology (12/15/17 ) Labs Laboratory Tests Test 12/15/17 11:20 12/15/17 13:00 White Blood Count 4.1 TH/MM3 Red Blood Count 4.11 MIL/MM3 Hemoglobin 13.2 GM/DL Hematocrit 39.0 % Mean Corpuscular Volume 95.0 FL Mean Corpuscular Hemoglobin 32.2 PG Mean Corpuscular Hemoglobin Concent 33.9 % Red Cell Distribution Width 14.5 % Platelet Count 206 TH/MM3 Mean Platelet Volume 8.0 FL Neutrophils (%) (Auto) 56.5 % Lymphocytes (%) (Auto) 26.7 % Monocytes (%) (Auto) 12.9 % Eosinophils (%) (Auto) 3.3 % Basophils (%) (Auto) 0.6 % Neutrophils # (Auto) 2.3 TH/MM3 Lymphocytes # (Auto) 1.1 TH/MM3 Monocytes # (Auto) 0.5 TH/MM3 Eosinophils # (Auto) 0.1 TH/MM3 Basophils # (Auto) 0.0 TH/MM3 CBC Comment DIFF FINAL Differential Comment Blood Urea Nitrogen 18 MG/DL Creatinine 1.53 MG/DL Random Glucose 102 MG/DL Calcium Level 9.1 MG/DL Sodium Level 141 MEQ/L Potassium Level 3.9 MEQ/L Chloride Level 107 MEQ/L Carbon Dioxide Level 25.0 MEQ/L Anion Gap 9 MEQ/L Estimat Glomerular Filtration Rate 47 ML/MIN Total Creatine Kinase 93 U/L Troponin I 0.09 NG/ML Prothrombin Time 20.8 SEC Prothromb Time International Ratio 2.1 RATIO Activated Partial Thromboplast Time 33.9 SEC [facility] Medical Decision Making Medical Screen Exam Complete: Yes Emergency Medical Condition: Yes Medical Record Reviewed: Yes Differential Diagnosis Pleurisy, pericarditis, costochondritis, acute coronary syndrome, pulmonary embolism, aortic dissection, pneumothorax, hemothorax Narrative Course The patient was placed on ECG monitoring pulse oximetry. A 12-lead EKG was obtained in triage revealing sinus bradycardia with a rate of 53. Lab work, chest x-ray been ordered. Chest x-ray is unremarkable. CBC is unremarkable. BMP reveals a GFR 47, troponin is 0.09 which is consistent with his previous troponin baseline. INR 2.1. The case will be discussed with his customer operations associate Dr. Robledo. I discussed with Dr. Robledo who would like the patient admitted to the hospitalist team and he will consult. Diagnosis Primary Impression: Chest pain Additional Impression: Elevated troponin I level Edward Motta December 15, 2017 12:42
[2017-12-15 12:53] LABS: CALCIUM 9.1 MG/DL (8.5-10.1); CREATININE 1.53 MG/DL (0.60-1.30); TROPONIN I 0.09 NG/ML (0.02-0.05)
[2017-12-15 13:24] LABS: INTERNATIONAL NORMALIZED RATIO 2.1 RATIO; PROTHROMBIN TIME - PATIENT 20.8 SEC (9.8-11.6)
[2017-12-15] MEDS ORDERED: ASPIRIN 81 MG CHEW TAB PO ONE (13:30)
--- NOTE | 2017-12-15 14:42 | PD ---
Data Data Last Documented VS Vital Signs Date Time Temp Pulse Resp B/P (MAP) Pulse Ox O2 Delivery O2 Flow Rate FiO2 12/15/17 13:01 96 Room Air 12/15/17 13:01 75 17 12/15/17 11:00 97.5 124/78 (93) Orders Orders Electrocardiogram (12/15/17 11:03) Complete Blood Count With Diff (12/15/17 11:03) Basic Metabolic Panel (Bmp) (12/15/17 11:03) Ckmb (Isoenzyme) Profile (12/15/17 11:03) Troponin I (12/15/17 11:03) Iv Access Insert/Monitor (12/15/17 11:03) Ecg Monitoring (12/15/17 11:03) Oxygen Administration (12/15/17 11:03) Oximetry (12/15/17 11:03) Chest, Pa & Lat (12/15/17 11:03) Act Partial Throm Time (Ptt) (12/15/17 12:32) Prothrombin Time / Inr (Pt) (12/15/17 12:32) Aspirin Chew (Aspirin Chew) (12/15/17 13:30) Nitroglycerin Sl (Nitrostat Sl) (12/15/17 13:30) Consult Cardiology (12/15/17 ) Admit Order (Ed Use Only) (12/15/17 13:39) Labs Laboratory Tests Test 12/15/17 11:20 12/15/17 13:00 White Blood Count 4.1 TH/MM3 Red Blood Count 4.11 MIL/MM3 Hemoglobin 13.2 GM/DL Hematocrit 39.0 % Mean Corpuscular Volume 95.0 FL Mean Corpuscular Hemoglobin 32.2 PG Mean Corpuscular Hemoglobin Concent 33.9 % Red Cell Distribution Width 14.5 % Platelet Count 206 TH/MM3 Mean Platelet Volume 8.0 FL Neutrophils (%) (Auto) 56.5 % Lymphocytes (%) (Auto) 26.7 % Monocytes (%) (Auto) 12.9 % Eosinophils (%) (Auto) 3.3 % Basophils (%) (Auto) 0.6 % Neutrophils # (Auto) 2.3 TH/MM3 Lymphocytes # (Auto) 1.1 TH/MM3 Monocytes # (Auto) 0.5 TH/MM3 Eosinophils # (Auto) 0.1 TH/MM3 Basophils # (Auto) 0.0 TH/MM3 CBC Comment DIFF FINAL Differential Comment Blood Urea Nitrogen 18 MG/DL Creatinine 1.53 MG/DL Random Glucose 102 MG/DL Calcium Level 9.1 MG/DL Sodium Level 141 MEQ/L Potassium Level 3.9 MEQ/L Chloride Level 107 MEQ/L Carbon Dioxide Level 25.0 MEQ/L Anion Gap 9 MEQ/L Estimat Glomerular Filtration Rate 47 ML/MIN Total Creatine Kinase 93 U/L Troponin I 0.09 NG/ML Prothrombin Time 20.8 SEC Prothromb Time International Ratio 2.1 RATIO Activated Partial Thromboplast Time 33.9 SEC MDM Medical Record Reviewed: Yes Supervised Visit with IVONE: Yes Narrative Course I, Dr. Kumari, have reviewed the advance practice practitioner's documentation and am in agreement, met with the patient face to face, made the diagnosis, and the medical decision making was done by me. *My assessment and Findings: Troponin is 0.9 Dr Robledo requests chest pain center evaluation. Patient will be admitted for chest pain center protocol Diagnosis Primary Impression: Chest pain Additional Impression: Elevated troponin I level Dylan Kumari MD December 15, 2017 14:42
[2017-12-15] MEDS: NITROGLYCERIN 0.4 MG SL 25 TABS/BTL SL SCH ×3 (14:51→15:05)
[2017-12-15] MEDS ORDERED: LACTULOSE SYRUP 20 GM/30 ML CUP PO PRN (15:15)
[2017-12-15] MEDS ORDERED: SENNOSIDES 8.6 MG TAB PO PRN (15:15)
[2017-12-15] MEDS ORDERED: SODIUM CHLORIDE 0.9% FLUSH 10 ML FLUSH IV FLUSH PRN (15:15)
[2017-12-15] MEDS ORDERED: ACETAMINOPHEN 325 MG TAB PO PRN (15:15)
[2017-12-15] MEDS ORDERED: MAGNESIUM HYDROXIDE SUSP 30 ML CUP PO PRN (15:15)
[2017-12-15] MEDS ORDERED: NALOXONE HCL 0.4 MG/ML AMP IV PUSH PRN (15:15)
[2017-12-15] MEDS ORDERED: BISACODYL 10 MG SUPP RECTAL PRN (15:15)
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
[2017-12-15] MEDS ORDERED: ACETAMINOPHEN/HYDROcodone 325 MG/5 MG TAB PO PRN (15:45)
[2017-12-15] MEDS ORDERED: ENOXAPARIN SODIUM 30 MG/0.3 ML SYRINGE SQ SCH (16:00)
[2017-12-15] MEDS: SUCRALFATE 1 GM/10 ML CUP PO SCH ×2 (17:26→21:09)
[2017-12-15] MEDS: GABAPENTIN 100 MG CAP PO SCH (17:26)
[2017-12-15] MEDS: DOCUSATE SODIUM 50 MG/SENNA 8.6 MG TAB PO SCH (21:00)
[2017-12-15] MEDS: CARVEDILOL 3.125 MG TAB PO SCH (21:09)
[2017-12-15] MEDS: SODIUM CHLORIDE 0.9% FLUSH 10 ML FLUSH IV FLUSH SCH (21:10)
--- NOTE | 2017-12-15 22:20 | MB ---
cc: Cory Robledo MD DATE: 12/15/2017 HISTORY OF PRESENT ILLNESS: Mr. Leung is a very pleasant 57-year-old gentleman with a history of multiple PE, DVT, on chronic Coumadin. He has had multiple admissions for chest pain, with mildly elevated troponin. I did a heart catheterization on him back on 08/18/2017, which showed nonobstructive coronary artery disease. The patient returns to the ER with chief complaint of chest pain. Currently, he is resting comfortably, in no acute distress. Denies fever, chills, cough, GI or bleeding, PND, orthopnea, syncope or dizziness. Pain is noted to be sharp, constant, worse with deep breath. PAST MEDICAL HISTORY: Includes depression, anxiety, hyperlipidemia, CHF, hiatal hernia, hypertension, nephrolithiasis, myocardial infarction x2, pneumonia, lung biopsy in 1995. SOCIAL HISTORY: Denies tobacco or alcohol use. ALLERGIES: NONE. MEDICATIONS PRIOR TO ADMISSION: [place], gabapentin 100 t.i.d., sucralfate, Norvasc 5 mg daily, Coreg 3.125 every 12 hours, isosorbide mononitrate 30 mg daily, Lovenox injection 90 subcutaneous every 12 hours, pantoprazole, lisinopril 10 mg daily, warfarin 3 mg daily, and allopurinol. MEDICATIONS IN THE HOSPITAL: Warfarin 3 mg daily, allopurinol 100 mg daily, amlodipine 5 mg daily, lisinopril 10 mg daily, pantoprazole 40 mg daily, Imdur 30 mg daily, carvedilol 3.25 every 12 hours, gabapentin 100 mg t.i.d., sucralfate 1 gram at bedtime, Lovenox 30 mg subcutaneous every 24 hours. He was given aspirin 324 chewable x1 in the ER. PHYSICAL EXAMINATION: VITAL SIGNS: Blood pressure 149/78, pulse ranging between 46 and 75, temperature 97.5, sats 99% on room air, blood pressure 149/78. GENERAL: He is alert, oriented x 3, in no acute distress. NECK: Supple. No JVD. No bruit. CARDIOVASCULAR: S1, S2. No murmurs, rubs, gallops. LUNGS: Clear to auscultation bilaterally. ABDOMEN: Soft, nontender, nondistended, with positive bowel sounds. EXTREMITIES: No lower extremity edema. IMAGING: Chest x-ray shows no active disease. STUDIES: EKG: Sinus bradycardia at 53 beats per minute, otherwise normal. Repeat EKG: Sinus bradycardia at 47 beats per minute, prolonged corrected QT interval 483 milliseconds. LABORATORY DATA: White count 4.1, hemoglobin 13.2, hematocrit 39.0, platelet count 206. Troponin is 0.09, followup 0.09. Sodium 141, potassium 3.9, chloride 107, bicarbonate 25.0, creatinine 1.53. INR is 2.1. DIAGNOSES: 1. Atypical chest pain. 2. History of pulmonary embolus. 3. Acute renal failure. 4. Non-ST elevation myocardial infarction. DISCUSSION: At this point in time, the patient is known to have chronically elevated troponin, unclear etiology. He has nonobstructive coronary disease by catheterization in August. His chest pain that he describes is consistent with pleuritic chest pain. He is therapeutically anticoagulated. The patient is insisting on having CT of the chest, however, given his elevated creatinine, I do not think risk/benefit ratio favors doing this now, particularly as he is therapeutic on his INR and this would not change the management of his anticoagulation. I have discussed with him and recommended and advised him to do a nuclear stress test in the office. The patient has not done this and has been noncompliant with this recommendation, probably because he has a high deductible. I have recommended a heart catheterization. I have explained that the options currently to rule out ischemia would be inpatient catheterization, inpatient stress test versus outpatient stress test. The patient declines inpatient catheterization or stress testing. At this point in time, we will continue his Coumadin, maintain INR 2-3. By EKG, there is no objective evidence of ischemia. I do think if the patient is stable overnight, he could be discharged, followup in my office for further evaluation and management. MD NICHOLE Gallegos/JAMIL/cesar , 08:10 PM , 09:37 PM
[2017-12-16] VITALS: BP 109/52; PULSE 44; PULSE 53; RESP 18; TEMP 97.3; O2SAT 94
[2017-12-16 04:00] VITALS: BP 135/72; PULSE 43; PULSE 45; RESP 20; TEMP 97.4; O2SAT 97
[2017-12-16] MEDS ORDERED: ISOSORBIDE MONONITRATE 30 MG CR TAB (IMDUR) PO SCH (07:00)
[2017-12-16 07:13] LABS: PROTHROMBIN TIME - PATIENT 20.3 SEC (9.8-11.6)
[2017-12-16] MEDS: SODIUM CHLORIDE 0.9% FLUSH 10 ML FLUSH IV FLUSH SCH (07:22)
[2017-12-16 07:33] LABS: ALBUMIN 3.4 GM/DL (3.4-5.0); ALT (GPT) 73 U/L (12-78); AST (GOT) 36 U/L (15-37); BICARBONATE 27.6 MEQ/L (21.0-32.0); BLOOD UREA NITROGEN 19 MG/DL (7-18); CALCIUM 8.8 MG/DL (8.5-10.1); CHLORIDE 106 MEQ/L (98-107); CREATININE 1.36 MG/DL (0.60-1.30); GLOMERULAR FILTRATION RATE 54 ML/MIN (>89); GLUCOSE,RANDOM 100 MG/DL (74-106); SODIUM (NA) 142 MEQ/L (136-145)
[2017-12-16 07:35] LABS: ALKALINE PHOSPHATASE 62 U/L (45-117); TOTAL BILIRUBIN ADULT 0.5 MG/DL (0.2-1.0); TOTAL PROTEIN 7.1 GM/DL (6.4-8.2)
[2017-12-16 08:00] VITALS: BP 138/80; PULSE 53; RESP 18; TEMP 97.5; O2SAT 94
[2017-12-16] MEDS: GABAPENTIN 100 MG CAP PO SCH ×2 (08:15→12:59)
[2017-12-16] MEDS: SUCRALFATE 1 GM/10 ML CUP PO SCH ×2 (08:15→12:59)
[2017-12-16] MEDS: DOCUSATE SODIUM 50 MG/SENNA 8.6 MG TAB PO SCH (08:15)
[2017-12-16] MEDS: CARVEDILOL 3.125 MG TAB PO SCH (08:16)
[2017-12-16] MEDS ORDERED: ALLOPURINOL 100 MG TAB PO SCH (09:00)
[2017-12-16] MEDS ORDERED: PANTOPRAZOLE SOD 40 MG DELAYED RELEASE TAB PO SCH (09:00)
[2017-12-16] MEDS ORDERED: amLODIPine BESYLATE 5 MG TAB PO SCH (09:00)
[2017-12-16] MEDS ORDERED: LISINOPRIL 10 MG TAB PO SCH (09:00)
--- NOTE | 2017-12-16 10:19 | PD.CARD.PN ---
Subjective Subjective Remarks feels better Objective Medications Current Medications Medications (Trade) Dose Ordered Sig/Oumou Route Start Time Stop Time Status Last Admin (NS Flush) 2 ml UNSCH PRN IV FLUSH 12/15/17 15:15 (NS Flush) 2 ml BID IV FLUSH 12/15/17 21:00 12/16/17 07:22 (Tylenol) 650 mg Q4H PRN PO 12/15/17 15:15 (Lovenox Inj) 30 mg Q24H SQ 12/15/17 16:00 12/15/17 16:37 (Narcan Inj) 0.4 mg UNSCH PRN IV PUSH 12/15/17 15:15 (Nadine-Colace) 1 tab BID PO 12/15/17 21:00 12/16/17 08:15 (Milk Of Magnesia Liq) 30 ml Q12H PRN PO 12/15/17 15:15 (Senokot) 17.2 mg Q12H PRN PO 12/15/17 15:15 (Dulcolax Supp) 10 mg DAILY PRN RECTAL 12/15/17 15:15 (Lactulose Liq) 30 ml DAILY PRN PO 12/15/17 15:15 (Zyloprim) 100 mg DAILY PO 12/16/17 09:00 12/16/17 08:16 (Norvasc) 5 mg DAILY PO 12/16/17 09:00 12/16/17 08:16 (Coreg) 3.125 mg Q12HR PO 12/15/17 21:00 12/16/17 08:16 (Neurontin) 100 mg TID PO 12/15/17 18:00 12/16/17 08:15 ([place] 5-325 Mg) 1 tab Q4H PRN PO 12/15/17 15:45 (Imdur) 30 mg DAILY@07 PO 12/16/17 07:00 12/16/17 06:47 (Prinivil) 10 mg DAILY PO 12/16/17 09:00 12/16/17 08:16 (Protonix) 40 mg DAILY PO 12/16/17 09:00 12/16/17 08:15 (Carafate Liq) 1 gm ACHS PO 12/15/17 17:00 12/16/17 08:15 (Coumadin) 3 mg DAILY@1600 PO 12/16/17 16:00 Vital Signs / I&O Vital Signs Date Time Temp Pulse Resp B/P (MAP) Pulse Ox O2 Delivery O2 Flow Rate FiO2 12/16/17 08:00 97.5 53 18 138/80 (99) 94 12/16/17 04:00 97.4 45 20 135/72 (93) 97 12/16/17 04:00 43 12/16/17 00:00 97.3 53 18 109/52 (71) 94 12/16/17 00:00 44 12/15/17 20:00 97.2 47 20 135/72 (93) 95 12/15/17 20:00 51 12/15/17 17:27 52 17 149/78 (101) 99 Room Air 12/15/17 15:05 54 17 111/70 (84) 100 Room Air 12/15/17 14:57 58 17 127/77 (94) 100 Room Air 12/15/17 14:52 46 18 132/78 (96) 100 Room Air 12/15/17 13:01 96 Room Air 12/15/17 13:01 75 17 96 Room Air 12/15/17 13:01 96 Room Air 12/15/17 11:00 97.5 54 18 124/78 (93) 97 I/O 12/15/17 12/15/17 12/15/17 12/16/17 12/16/17 12/16/17 07:00 15:00 23:00 07:00 15:00 23:00 Intake Total 600 ml Balance 600 ml Intake Oral 600 ml # Voids 2 # Bowel Movements 0 Physical Exam GENERAL: SKIN: Warm and dry. HEAD: Normocephalic. EYES: No scleral icterus. No injection or drainage. NECK: Supple, trachea midline. No JVD or lymphadenopathy. CARDIOVASCULAR: Regular rate and rhythm without murmurs, gallops, or rubs. RESPIRATORY: Breath sounds equal bilaterally. No accessory muscle use. GASTROINTESTINAL: Abdomen soft, non-tender, nondistended. MUSCULOSKELETAL: No cyanosis, or edema. BACK: Nontender without obvious deformity. No CVA tenderness. Laboratory Laboratory Tests Test 12/15/17 11:20 12/15/17 13:00 12/15/17 15:30 12/15/17 22:30 White Blood Count 4.1 TH/MM3 Red Blood Count 4.11 MIL/MM3 Hemoglobin 13.2 GM/DL Hematocrit 39.0 % Mean Corpuscular Volume 95.0 FL Mean Corpuscular Hemoglobin 32.2 PG Mean Corpuscular Hemoglobin Concent 33.9 % Red Cell Distribution Width 14.5 % Platelet Count 206 TH/MM3 Mean Platelet Volume 8.0 FL Neutrophils (%) (Auto) 56.5 % Lymphocytes (%) (Auto) 26.7 % Monocytes (%) (Auto) 12.9 % Eosinophils (%) (Auto) 3.3 % Basophils (%) (Auto) 0.6 % Neutrophils # (Auto) 2.3 TH/MM3 Lymphocytes # (Auto) 1.1 TH/MM3 Monocytes # (Auto) 0.5 TH/MM3 Eosinophils # (Auto) 0.1 TH/MM3 Basophils # (Auto) 0.0 TH/MM3 CBC Comment DIFF FINAL Differential Comment Blood Urea Nitrogen 18 MG/DL Creatinine 1.53 MG/DL Random Glucose 102 MG/DL Calcium Level 9.1 MG/DL Sodium Level 141 MEQ/L Potassium Level 3.9 MEQ/L Chloride Level 107 MEQ/L Carbon Dioxide Level 25.0 MEQ/L Anion Gap 9 MEQ/L Estimat Glomerular Filtration Rate 47 ML/MIN Total Creatine Kinase 93 U/L Troponin I 0.09 NG/ML 0.09 NG/ML 0.08 NG/ML Prothrombin Time 20.8 SEC Prothromb Time International Ratio 2.1 RATIO Activated Partial Thromboplast Time 33.9 SEC Test 12/16/17 06:23 Prothrombin Time 20.3 SEC Prothromb Time International Ratio 2.0 RATIO Blood Urea Nitrogen 19 MG/DL Creatinine 1.36 MG/DL Random Glucose 100 MG/DL Total Protein 7.1 GM/DL Albumin 3.4 GM/DL Calcium Level 8.8 MG/DL Alkaline Phosphatase 62 U/L Aspartate Amino Transf (AST/SGOT) 36 U/L Alanine Aminotransferase (ALT/SGPT) 73 U/L Total Bilirubin 0.5 MG/DL Sodium Level 142 MEQ/L Potassium Level 4.0 MEQ/L Chloride Level 106 MEQ/L Carbon Dioxide Level 27.6 MEQ/L Anion Gap 8 MEQ/L Estimat Glomerular Filtration Rate 54 ML/MIN Imaging Last 24 hours Impressions Chest X-Ray 12/15/17 1103 Signed Impressions: Service Date/Time: December 11:10 - CONCLUSION: 1. No active disease. Anjel Asif MD Assessment and Plan Problem List: (1) Acute renal insufficiency ICD Codes: N28.9 - Disorder of kidney and ureter, unspecified Status: Acute (2) NSTEMI (non-ST elevated myocardial infarction) ICD Codes: I21.4 - Non-ST elevation (NSTEMI) myocardial infarction Status: Acute (3) Coronary artery disease ICD Codes: I25.10 - Atherosclerotic heart disease of [place] coronary artery without angina pectoris Status: Chronic (4) Chronic kidney disease (CKD), stage III (moderate) ICD Codes: N18.3 - Chronic kidney disease, stage 3 (moderate) Status: Chronic (5) Hx of pulmonary embolus ICD Codes: Z86.711 - Personal history of pulmonary embolism Status: Chronic (6) Elevated troponin I level ICD Codes: R79.89 - Other specified abnormal findings of blood chemistry Status: Chronic (7) Chest pain ICD Codes: R07.9 - Chest pain Status: Resolved Assessment and Plan 1.) CAD - he had nonobstructive cad by cath august 2017, suspect his chronic trop elevation due to myopathic process, inr=2.1; ok to dc from cv standpoint, i advised patient to f/u with me 12/19/17 2.) H/o PE - inr=2.1, continue coumadin Cory Robledo MD December 16, 2017 10:19
[2017-12-16 12:00] VITALS: BP 149/76; PULSE 59; RESP 18; TEMP 97.9; O2SAT 94
[2017-12-16] MEDS ORDERED: LORazepam 0.5 MG TAB PO PRN (12:30)
[2017-12-16] MEDS ORDERED: NORC5TAB PO (12:31)
[2017-12-16] MEDS ORDERED: LORA-392 PO (12:31)
--- NOTE | 2017-12-16 14:20 | RADRPT ---
EXAM DATE/TIME: 12/16/2017 12:40 [place] COMPARISON: CT PULMONARY ANGIOGRAM, August 16, 2017, 15:19. INDICATIONS : Pulmonary nodule and persistent pleuritic chest pain. RADIATION DOSE: 13.72 CTDIvol (mGy) MEDICAL HISTORY : Cardiovascular disease. Hypertension. Congestive heart failure. SURGICAL HISTORY : None. ENCOUNTER: Initial ACUITY: 1 day PAIN SCALE: 4/10 LOCATION: chest TECHNIQUE: Volumetric scanning of the chest was performed. Using automated exposure control and adjustment of t he mA and/or kV according to patient size, radiation dose was kept as low as reasonably achievable to obtain optimal diagnostic quality images. DICOM format image data is available electronically for r eview and comparison. Follow-up recommendations for detected pulmonary nodules are based at a minimum on nodule size and pa tient risk factors according to Fleischner Society Guidelines. FINDINGS: Comparison is August 2017 and June 2017. Previous scattered calcified noncalcified nodules in th e right lung are stable with some mild distal airway disease in the right upper lobe. No new consolid ation or effusion. Previous right-sided rib fractures. No hilar, mediastinal or axillary adenopathy. Fatty liver. CONCLUSION: 1. Stable calcified and noncalcified pulmonary nodules. Scattered post inflammatory changes in the ri ght lung with minimal distal airway disease in the right upper lobe, stable. Fatty liver. Anjel Asif MD on December 16, 2017 at 14:10 Board Certified Radiologist. This report was verified electronically.
--- NOTE | 2017-12-16 15:27 | HHI.PR ---
Subjective Remarks Patient reports he was feeling better this morning but states he started to get anxious and feels chest pain again. He reports the pain is more pronounced when he takes deep breaths. He denies feeling chest pressure. He denies shortness of breath. He admits to having anxiety. Patient also asked me if all that is going on with him would qualify him for disability. Objective Vitals Vital Signs Date Time Temp Pulse Resp B/P (MAP) Pulse Ox O2 Delivery O2 Flow Rate FiO2 12/16/17 12:00 97.9 59 18 149/76 (100) 94 12/16/17 08:00 97.5 53 18 138/80 (99) 94 12/16/17 04:00 97.4 45 20 135/72 (93) 97 12/16/17 04:00 43 12/16/17 00:00 97.3 53 18 109/52 (71) 94 12/16/17 00:00 44 12/15/17 20:00 97.2 47 20 135/72 (93) 95 12/15/17 20:00 51 12/15/17 17:27 52 17 149/78 (101) 99 Room Air I/O 12/15/17 12/15/17 12/15/17 12/16/17 12/16/17 12/16/17 07:00 15:00 23:00 07:00 15:00 23:00 Intake Total 600 ml Balance 600 ml Intake Oral 600 ml # Voids 2 # Bowel Movements 0 Result Diagram: 12/15/17 1120 12/16/17 0623 Objective Remarks GENERAL: This is a well-nourished, well-developed patient, in no apparent distress. CARDIOVASCULAR: Normal rate and regular rhythm without murmurs, gallops, or rubs. RESPIRATORY: Good respiratory efforts. Breath sounds equal and clear to auscultation bilaterally. GASTROINTESTINAL: Abdomen soft, non-tender, non-distended. Normal active bowel sounds MUSCULOSKELETAL: Extremities without cyanosis, or edema. NEURO: Alert & Oriented x4 to person, place, time, situation. Moves all ext x4 PSYCH: Appropriate mood and affect. A/P Assessment and Plan 57-year-old male admitted with chest pain. The patient has had recurrent evaluation for chest pain. He has been followed by cardiology and recent heart catheterization showed nonobstructive CAD. He is on optimal medical management. He does have a history of esophagitis and gastritis. His workup here is again unremarkable. I suspect his symptoms are more related to anxiety which he admits to. Patient is referred to psychology and psychiatry outpatient. He was given a limited amount of Ativan to help with severe anxiety symptoms as needed. He did have a repeat chest CT which did not reveal any acute disease. Coronary artery disease-Continue Imdur, lisinopril. Coreg held due to bradycardia. 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 Hypertension-Continue Norvasc, lisinopril Chronic kidney disease stage III-creatinine at baseline, monitor. History of PE-INR 2.1, continue Coumadin Discharge Planning Patient is stable for discharge home. Follow-up with: PCP and cardiology Activity: Regular as tolerated Meds: Per med rec Diet: Heart healthy Adams Zamorano MD December 16, 2017 15:27
--- NOTE | 2017-12-16 15:32 | HHI.DCPOC ---
Discharge Care Plan Diagnosis: (1) Chest pain (2) Gastritis (3) Hx of pulmonary embolus (4) Anxiety (5) HTN (hypertension) Goals to Promote Your Health * To prevent worsening of your condition and complications * To maintain your health at the optimal level Directions to Meet Your Goals Take your medications as prescribed Follow your dietary instruction Follow activity as directed Keep your appointments as scheduled Take your immunizations and boosters as scheduled If your symptoms worsen call your PCP, if no PCP go to Urgent Care Center or Emergency Room Smoking is Dangerous to Your Health. Avoid second hand smoke Call the 24-hour hour crisis hotline for domestic abuse at Adams Zamorano MD December 16, 2017 15:32
[2017-12-16] MEDS ORDERED: WARFARIN SOD 3 MG TAB PO SCH (16:00)
--- NOTE | 2017-12-17 08:32 | EKG ---
Date Performed: 12/15/2017 Time Performed: 22:00:16 PTAGE: 57 years EKG: SINUS BRADYCARDIA LOW QRS VOLTAGE IN PRECORDIAL LEADS MODERATE VOLTAGE CRITERIA FOR LVH, CO NSIDER NORMAL VARIANT BORDERLINE ECG PREVIOUS TRACING : 12/15/2017 15.37 DOCTOR: Arely Mathew Interpretating Date/Time 12/17/2017 08:30:07
--- NOTE | 2017-12-17 08:42 | EKG ---
Date Performed: 12/15/2017 Time Performed: 15:37:16 PTAGE: 57 years EKG: SINUS BRADYCARDIA WITH OCCASIONAL SUPRAVENTRICULAR PREMATURE COMPLEXES BORDERLINE ECG PREVIOUS TRACING : 12/15/2017 11.14 DOCTOR: Arely Mathew Interpretating Date/Time 12/17/2017 08:39:54
--- NOTE | 2017-12-17 08:53 | EKG ---
Date Performed: 12/15/2017 Time Performed: 11:14:37 PTAGE: 57 years EKG: SINUS BRADYCARDIA LOW QRS VOLTAGE IN PRECORDIAL LEADS BORDERLINE ECG PREVIOUS TRACING : 11/27/2017 13.28 DOCTOR: Arely Mathew Interpretating Date/Time 12/17/2017 08:48:30
== END 2017-12-16 18:20 | disposition home or self-care (01) | DRG 880 ==
LOC: NEPE 10:55 → NEDA 13:40 → N04B 19:05
PROVIDERS: ADMIT Family Medicine; ATTEND Family Medicine
DX: F41.9 Anxiety disorder, unspecified (principal); N18.3 Chronic kidney disease, stage 3 (moderate); I12.9 Hypertensive chronic kidney disease with stage 1 through stage 4 chronic kidney disease, or unspecified chronic kidney disease; K21.9 Gastro-esophageal reflux disease without esophagitis; I25.10 Atherosclerotic heart disease of native coronary artery without angina pectoris; F32.9 Major depressive disorder, single episode, unspecified; N28.9 Disorder of kidney and ureter, unspecified; Z86.711 Personal history of pulmonary embolism; Z86.718 Personal history of other venous thrombosis and embolism; Z79.01 Long term (current) use of anticoagulants; Z79.891 Long term (current) use of opiate analgesic; Z79.899 Other long term (current) drug therapy; I25.2 Old myocardial infarction
CPT/HCPCS: 71046; 71250; 80048; 80053; 82550; 84484; 85025; 85610; 85730; 93005; J1650

== ENCOUNTER 2018-03-15 12:34 | Observation (INO) ==
--- NOTE | 2018-03-15 13:38 | XR ---
EXAM DATE: 03/15/2018 1:34 PM EDT AGE/SEX: 57 years / Male INDICATIONS: . Chest pain. Patient complains of shortness of breath, dizziness, pain in his thoracic spine and in kidneys. CLINICAL DATA: This is the patient's initial encounter. Patient reports that signs and symptoms have been present for 1 week and indicates a pain score of 8/10. MEDICAL/SURGICAL HISTORY: . H/O DVT's. Kidney disease. H/O liver bx in February 2018. Lung biopsy i n 1991.Coronary artery disease. Herniated disc. None. COMPARISON: [facility], XR CHEST PA AND LAT, 03/06/2018. . FINDINGS: PA and lateral views of the chest demonstrate the lungs to be symmetrically aerated without evidence of mass, infiltrate or effusion. The cardiomediastinal contours are unremarkable. There is stable def ormity involving the right seventh rib laterally. CONCLUSION: No acute cardiopulmonary disease. Electronically signed by: Jamil Avelar MD 03/15/2018 1:37 PM EDT
[2018-03-15 15:31] LABS: Baso % (Auto) 0.7 % (0.0-2.0); Eos # (Auto) 0.1 th/mm3 (0.0-0.4); Eos % (Auto) 2.7 % (0.0-4.0); Hematocrit 41.1 % (39.0-51.0); Hemoglobin 13.9 gm/dL (13.0-17.0); Lymph # (Auto) 1.2 th/mm3 (1.0-4.8); Lymph % (Auto) 22.7 % (9.0-44.0); Mean Corpuscular HGB Conc 33.9 % (32.0-36.0); Mean Corpuscular Hemoglobin 33.7 pg (27.0-34.0); Mean Corpuscular Volume 99.4 fL (80.0-100.0); Mean Platelet Volume 8.6 fL (7.0-11.0); Mono # (Auto) 0.6 th/mm3 (0.0-0.9); Mono % (Auto) 10.7 % (0.0-8.0); Neut # (Auto) 3.3 th/mm3 (1.8-7.7); Neut % (Auto) 63.2 % (16.0-70.0); Platelet Count 171 th/mm3 (150-450); Red Blood Count 4.13 mil/mm3 (4.50-5.90); Red Cell Distribution Width 13.9 % (11.6-17.2); White Blood Count 5.3 th/mm3 (4.0-11.0)
[2018-03-15 15:44] LABS: Activated Partial Thrombo Time 39.7 sec (24.3-30.1); Prothrombin Time 29.8 sec (9.8-11.6)
[2018-03-15 15:53] LABS: Calcium 9.1 mg/dL (8.5-10.1); Carbon Dioxide 28.9 meq/L (21.0-32.0); Potassium 4.1 meq/L (3.5-5.1)
[2018-03-15 15:58] LABS: Troponin I 0.11 ng/mL (0.02-0.05)
--- NOTE | 2018-03-15 16:43 | ED ---
HPI General Chief Complaint: Chest Pain Stated Complaint: general Pain Time Seen by Provider: 03/15/18 16:19 History of Present Illness HPI narrative: Patient presents to the emergency department with chest pain. Pain is described as being sharp, diffuse but primarily in the sternal area, constant, worse when he bends over, no alleviating factors, similar pain in the past unsure of diagnosis, chest pain is now 4-5 out of 10. States that he does have a history of coronary artery disease and usually has elevated troponins. Also advises that he was cath'd by Dr. Robledo. He denies fever, chills, vomiting, lower extremity edema, recent travel, but reports nausea and shortness of breath. He is on Coumadin and reports being therapeutic with his Coumadin. Complete Quality Measures for STEMI Alert Patients Related Data Home Medications Medication Instructions Recorded Confirmed amlodipine 5 mg PO DAILY 02/07/18 03/15/18 aspirin [Aspir-81] 81 mg PO DAILY 02/07/18 03/15/18 carvedilol 3.125 mg BID 02/07/18 03/15/18 gabapentin 300 mg PO TID 02/07/18 03/15/18 isosorbide dinitrate 30 mg PO DAILY 02/07/18 03/15/18 lisinopril 10 mg PO DAILY 02/07/18 03/15/18 pantoprazole 40 mg PO DAILY 02/07/18 03/15/18 rosuvastatin 10 mg PO DAILY 02/07/18 03/15/18 warfarin 3 mg PO DAILY 02/07/18 03/15/18 cholecalciferol (vitamin D3) 2,000 unit PO DAILY 03/15/18 03/15/18 [Vitamin D3] ursodiol 300 mg PO TID 03/15/18 03/15/18 Allergies Allergy/AdvReac Type Severity Reaction Status Date / Time No Known Allergies Allergy Unknown none Uncoded 03/15/18 13:12 Review of Systems ROS: all other systems reviewed are negative [facility] Medical History Medical History Anemia (Acute) Angina pectoris (Acute) Atrial fibrillation (Acute) Back pain (Acute) CHF (congestive heart failure) (Acute) Chest pain (Acute) Chronic pain (Acute) Coronary artery disease (Acute) DVT (deep venous thrombosis) (Acute) Fibromyalgia (Acute) GERD (gastroesophageal reflux disease) (Acute) Hiatal hernia (Acute) High cholesterol (Acute) Hx of headache (Acute) Myocardial infarction (Acute) Osteoporosis (Acute) Pulmonary embolism (Acute) Renal disease (Acute) Surgical History Surgical History Hx of cardiac cath (Acute) Social History Social History Substance History: No History of Abuse Second Hand Smoke Exposure: No Smoking Status: Never smoker How Often Do You Have a Drink Containing Alcohol: Monthly or less Recent Travel in [facility] within the Last 8 Weeks: No Recent Out of Country Travel within the Last 8 Weeks: No Exam Narrative Exam Narrative: GENERAL: No acute distress. SKIN: Focused skin assessment warm/dry. HEAD: Atraumatic. Normocephalic. EYES: Pupils equal and round. No scleral icterus. No injection or drainage. ENT: No nasal bleeding or discharge. Mucous membranes pink and moist. NECK: Trachea midline. No JVD. CARDIOVASCULAR: Regular rate and rhythm. No murmur appreciated. RESPIRATORY: No accessory muscle use. Clear to auscultation. Breath sounds equal bilaterally. GASTROINTESTINAL: Abdomen soft, non-tender, nondistended. Hepatic and splenic margins not palpable. MUSCULOSKELETAL: No obvious deformities. No clubbing. No cyanosis. No edema. NEUROLOGICAL: Awake and alert. No obvious cranial nerve deficits. Motor grossly within normal limits. Normal speech. PSYCHIATRIC: Appropriate mood and affect; insight and judgment normal. Course Initial Documented Vital Signs Temperature 98.3 F 03/15/18 13:07 Pulse Rate 55 L 03/15/18 13:07 Respiratory Rate 20 03/15/18 13:07 Blood Pressure 132/82 03/15/18 13:07 Pulse Oximetry 97 03/15/18 13:07 Last Documented Vital Signs Temperature 98.3 F 03/15/18 13:07 Pulse Rate 55 L 03/15/18 13:07 Respiratory Rate 20 03/15/18 13:07 Blood Pressure 132/82 03/15/18 13:07 Pulse Oximetry 97 03/15/18 13:07 Medical Decision Making MDM Narrative Medical decision making narrative: Patient presents to the emergency department with chest pain. And was triaged and had EKG, chest x-ray, labs prior to my ER assessment. On arrival in the emergency department patient was placed on a monitoring engineer, continuous pulse ox, and IV access is obtained. Chest x-ray shows no acute process. Patient's INR is 3, troponin and creatinine increased. 1630: Spoke to Dr. Robledo, very familiar with the patient, advised to admit patient and trend troponins and place formal consult. 1655: Admitted to hospitalist, request that I give ASA 81mg. Differential Diagnosis Differential Diagnosis: ACS, AK/NSTEMI, PE, costochondritis Lab Data Result diagrams: 03/15/18 13:53 03/15/18 13:53 Lab Results 03/15/18 03/15/18 03/15/18 Range/Units 13:53 13:53 13:53 WBC 5.3 (4.0-11.0) th/mm3 RBC 4.13 L (4.50-5.90) mil/mm3 Hgb 13.9 (13.0-17.0) gm/dL Hct 41.1 (39.0-51.0) % MCV 99.4 (80.0-100.0) fL MCH 33.7 (27.0-34.0) pg MCHC 33.9 (32.0-36.0) % RDW 13.9 (11.6-17.2) % Plt Count 171 (150-450) th/mm3 MPV 8.6 (7.0-11.0) fL Neut % (Auto) 63.2 (16.0-70.0) % Lymph % (Auto) 22.7 (9.0-44.0) % [place] % (Auto) 10.7 H (0.0-8.0) % Eos % (Auto) 2.7 (0.0-4.0) % Baso % (Auto) 0.7 (0.0-2.0) % Neut # (Auto) 3.3 (1.8-7.7) th/mm3 Lymph # (Auto) 1.2 (1.0-4.8) th/mm3 [place] # (Auto) 0.6 (0.0-0.9) th/mm3 Eos # (Auto) 0.1 (0.0-0.4) th/mm3 Baso # (Auto) 0.0 (0.0-0.2) th/mm3 WBC Differential . Differential Comment Auto diff final PT 29.8 H (9.8-11.6) sec INR 3.0 Ratio APTT 39.7 H (24.3-30.1) sec Sodium 142 (136-145) meq/L Potassium 4.1 (3.5-5.1) meq/L Chloride 105 (98-107) meq/L Carbon Dioxide 28.9 (21.0-32.0) meq/L Anion Gap 8 (5-15) meq/L BUN 15 (7-18) mg/dL Creatinine 1.71 H (0.60-1.30) mg/dL Estimated GFR 41 L (>89) mL/min Random Glucose 113 H (74-106) mg/dL Calcium 9.1 (8.5-10.1) mg/dL Troponin I 0.11 H (0.02-0.05) ng/mL Imaging Data Radiologist's impression: Chest X-Ray 03/15/18 13:12 CONCLUSION: No acute cardiopulmonary disease. ECG Data Attestation: I personally reviewed and interpreted this ECG as follows: (Sinus john, rate 54,normal axis, TWI III, V1) Discharge Plan Discharge Disposition Patient Disposition: 30 Still Patient Discharge Condition Condition: Stable Discharge Details Diagnosis: Chest pain Physicians Team ED Provider: Jenny Jain Other Providers: Cory Robledo Rxs /Orders / Referrals /Forms Prescriptions: No Action ursodiol 300 mg Capsule 300 mg PO TID RF: 0 cholecalciferol (vitamin D3) [Vitamin D3] 2,000 unit Capsule 2,000 unit PO DAILY RF: 0 amlodipine 5 mg Tablet 5 mg PO DAILY RF: 0 aspirin [Aspir-81] 81 mg Tablet,Delayed Release (Dr/Ec) 81 mg PO DAILY RF: 0 carvedilol 3.125 mg Tablet 3.125 mg BID RF: 0 warfarin 3 mg Tablet 3 mg PO DAILY RF: 0 isosorbide dinitrate 30 mg Tablet 30 mg PO DAILY RF: 0 pantoprazole 40 mg Tablet,Delayed Release (Dr/Ec) 40 mg PO DAILY RF: 0 lisinopril 10 mg Tablet 10 mg PO DAILY RF: 0 gabapentin 300 mg Capsule 300 mg PO TID RF: 0 rosuvastatin 10 mg Tablet 10 mg PO DAILY RF: 0 Discharge Instructions Patient Printed Instructions: Chest Pain (ED) Status ED Status: With Doctor
[2018-03-15] MEDS ORDERED: Aspirin 325 MG Tablet PO ONE (16:51)
[2018-03-15] MEDS ORDERED: Acetaminophen 325 MG Tablet PO PRN (18:23)
[2018-03-15] MEDS ORDERED: Temazepam 15 MG Capsule PO PRN (18:23)
--- NOTE | 2018-03-15 18:36 | P.HP ---
History of Present Illness Primary Care Physician: Aden Wallace History of Present Illness: 57-year-old male with a history of myocardial infarction, CAD, CHF, hyperlipidemia, bradycardia presents to the ER with onset of chest pain that began yesterday at rest, lasting approximately 30 minutes and repeating again today at rest and lasting approximately 1 hour. He states that on a good day when he walks around he feels fatigue and short of breath with simple activities. He has had episodes of chest pain in the past and underwent a cardiac catheterization approximately 1 year ago. He has no more nitroglycerin at home, but states that when he does have nitroglycerin this does help with his chest pain. Other history includes a [place] in 2006 when he was subsequently diagnosed with CHF. He has bradycardia every day, heart rate is at least into the 40s at night or at rest, but at other times is into the 60s.. Troponins on admission are 1.1. ER physician spoke with and rescue fire fighter crash fire Dr. Robledo who suggested that patient be admitted for trending of troponins and further workup to be determined tomorrow. Inpatient Certification: I certify that the inpatient services were ordered in accordance with Medicare regulations governing the order. This includes certification that hospital inpatient services are reasonable and necessary and in the case of services not specified as inpatient-only under 42 CFR 419.22(n), that they are appropriately provided as inpatient services in accordance to with the 2-midnight benchmark under 43 CFR 412.3(e) [facility] - History History Provided By: Patient - Medical History Medical History: Medical History (Last Reviewed 03/15/18 @ 17:00 by Claudine Howard RN) Anemia Angina pectoris Atrial fibrillation Back pain CHF (congestive heart failure) Chest pain Chronic pain Coronary artery disease DVT (deep venous thrombosis) Fibromyalgia GERD (gastroesophageal reflux disease) Hiatal hernia High cholesterol Hx of headache Myocardial infarction Osteoporosis Pulmonary embolism Renal disease - Surgical History Surgical History: Surgical History (Last Reviewed 03/15/18 @ 17:00 by Claudine Howard RN) Hx of cardiac cath - Tobacco History Second Hand Smoke Exposure: No Smoking Status: Never smoker - Alcohol History How Often Do You Have a Drink Containing Alcohol: Monthly or less - Substance Use History Substance History: No History of Abuse - Travel History Recent Travel in the [place] Within the Last 8 Weeks: No Recent Travel Out of the Country Within the Last 8 Weeks: No - Immunization History Tetanus Immunization: <5 Years Hx Influenza Vaccine This Season: Yes Medications and Allergies Allergies Allergy/AdvReac Type Severity Reaction Status Date / Time No Known Allergies Allergy Unknown none Uncoded 03/15/18 13:12 Home Medications Medication Instructions Recorded Confirmed Type amlodipine 5 mg PO DAILY 02/07/18 03/15/18 History aspirin [Aspir-81] 81 mg PO DAILY 02/07/18 03/15/18 History carvedilol 3.125 mg BID 02/07/18 03/15/18 History gabapentin 300 mg PO TID 02/07/18 03/15/18 History isosorbide dinitrate 30 mg PO DAILY 02/07/18 03/15/18 History lisinopril 10 mg PO DAILY 02/07/18 03/15/18 History pantoprazole 40 mg PO DAILY 02/07/18 03/15/18 History rosuvastatin 10 mg PO DAILY 02/07/18 03/15/18 History warfarin 3 mg PO DAILY 02/07/18 03/15/18 History allopurinol 100 mg PO BID 03/15/18 03/15/18 History cholecalciferol (vitamin D3) 2,000 unit PO DAILY 03/15/18 03/15/18 History [Vitamin D3] ursodiol 300 mg PO TID 03/15/18 03/15/18 History Exam Vital signs: Vital Signs 03/15/18 13:07 03/15/18 17:02 03/15/18 18:13 Temperature 98.3 F Pulse Rate 55 L 54 L 48 L Respiratory Rate 20 12 13 Blood Pressure 132/82 165/86 H 130/79 Pulse Oximetry 97 96 99 Intake & Output 03/14/18 03/15/18 03/15/18 18:59 06:59 18:59 Weight 94.801 kg Narrative: GENERAL: AAOx3, no acute distress, adequate nutrition SKIN: Warm and dry, no rashes. HEAD: Atraumatic. Normocephalic. EYES: Pupils equal, round, reactive to light. No scleral icterus. No injection or drainage. ENT: No nasal bleeding or discharge. Moist mucous membranes. Nonerythematous oropharynx. NECK: Trachea midline. No JVD. Thyroid size within normal limits. CARDIOVASCULAR: Regular rate and rhythm. No murmur, no gallops, no rubs. RESPIRATORY: Clear and equal to auscultation bilaterally. No crackles, no wheezes. No accessory muscle use. GASTROINTESTINAL: Abdomen soft, non-tender, nondistended, normal active bowel sounds. Hepatic and splenic margins not palpable. MUSCULOSKELETAL: Extremities without clubbing or cyanosis. No obvious deformities. No edema. NEUROLOGICAL: Awake and alert. No obvious cranial nerve deficits. Motor grossly within normal limits. No focal deficits. Five out of 5 muscle strength in the arms and legs. Normal speech. PSYCHIATRIC: Appropriate mood and affect; insight and judgment normal. Results - Labs CBC & Chem 7: 03/15/18 13:53 03/15/18 13:53 Labs: Laboratory Results - last 24 hr 03/15/18 03/15/18 03/15/18 13:53 13:53 13:53 WBC 5.3 RBC 4.13 L Hgb 13.9 Hct 41.1 MCV 99.4 MCH 33.7 MCHC 33.9 RDW 13.9 Plt Count 171 MPV 8.6 Neut % (Auto) 63.2 Lymph % (Auto) 22.7 [place] % (Auto) 10.7 H Eos % (Auto) 2.7 Baso % (Auto) 0.7 Neut # (Auto) 3.3 Lymph # (Auto) 1.2 [place] # (Auto) 0.6 Eos # (Auto) 0.1 Baso # (Auto) 0.0 WBC Differential . Differential Comment Auto diff final PT 29.8 H INR 3.0 APTT 39.7 H Sodium 142 Potassium 4.1 Chloride 105 Carbon Dioxide 28.9 Anion Gap 8 BUN 15 Creatinine 1.71 H Estimated GFR 41 L Random Glucose 113 H Calcium 9.1 Troponin I 0.11 H - Imaging Impressions Chest X-Ray 03/15/18 13:12 CONCLUSION: No acute cardiopulmonary disease. Caprini VTE Risk Assessment Caprini VTE Risk Assessment: Moderate/High Risk (score >= 2) Caprini Risk Assessment Model: Point Value = 1 Point Value = 2 Point Value = 3 Point Value = 5 Age 41-60 Minor surgery BMI > 25 kg/m2 Swollen legs Varicose veins or History of unexplained or recurrent spontaneous Oral contraceptives or hormone replacement Sepsis (< 1 month) Serious lung disease, including pneumonia (< 1 month) Abnormal pulmonary function Acute myocardial infarction Congestive heart failure (< 1 month) History of inflammatory bowel disease Medical patient at bed rest Age 61-74 Arthroscopic surgery Major open surgery (> 45 min) Laparoscopic surgery (> 45 min) Malignancy Confined to bed (> 72 hours) Immobilizing plaster cast Central venous access Age >= 75 History of VTE Family history of VTE Factor V Leiden Prothrombin [id number] Lupus anticoagulant Anticardiolipin antibodies Elevated serum homocysteine Heparin-induced thrombocytopenia Other congenital or acquired thrombophilia Stroke (< 1 month) Elective arthroplasty Hip, pelvis, or leg fracture Acute spinal cord injury (< 1 month) Prophylaxis Regimen: Total Risk Factor Score Risk Level Prophylaxis Regimen 0-1 Low Early ambulation 2 Moderate Order ONE of the following: *Sequential Compression Device (SCD) *Heparin 5000 units SQ BID 3-4 Higher Order ONE of the following medications: *Heparin 5000 units SQ TID *Enoxaparin/Lovenox 40 mg SQ daily (WT < 150 kg, CrCl > 30 mL/min) *Enoxaparin/Lovenox 30 mg SQ daily (WT < 150 kg, CrCl > 10-29 mL/min) *Enoxaparin/Lovenox 30 mg SQ BID (WT < 150 kg, CrCl > 30 mL/min) AND/OR *Sequential Compression Device (SCD) 5 or more Highest Order ONE of the following medications: *Heparin 5000 units SQ TID (Preferred with Epidurals) *Enoxaparin/Lovenox 40 mg SQ daily (WT < 150 kg, CrCl > 30 mL/min) *Enoxaparin/Lovenox 30 mg SQ daily (WT < 150 kg, CrCl > 10-29 mL/min) *Enoxaparin/Lovenox 30 mg SQ BID (WT < 150 kg, CrCl > 30 mL/min) AND *Sequential Compression Device (SCD) Assessment and Plan - Plan Non-STEMI, unstable angina Worsening chest pain at rest that occurred yesterday and today lasting 1 hour. Chest pain has been relieved with nitroglycerin in the ER, initial troponin I 0.1 Serial EKGs, serial troponin level, as needed nitroglycerin Baby aspirin given since INR is 3.0 on Coumadin Add oxygen and morphine if chest pain recurs Appreciate cardiology consult Bradycardia Heart rate down to 48 during her visit, patient reports a history of lower heart rate at night Patient reports having chronic fatigue, feeling of heavy legs, shortness of breath with simple activities Possibly symptomatic bradycardia versus coronary artery disease If workup is negative for ischemic heart disease, consider symptomatic bradycardia h/o CHF, atrial fibrillation Heart is a normal sinus rhythm currently, continue home meds, follow on telemetry h/o GERD Not enough to explain the elevated troponins and symptoms of fatigue, dyspnea, etc. Cover prophylactically with Protonix DVT prophylaxis, h/o DVT Patient is therapeutic on Coumadin, INR currently 3.0 Holding Coumadin in case of any procedures, bridged to heparin if INR drops below 2.0 Recheck INR in the a.m.
[2018-03-15] MEDS ORDERED: Morphine Inj 4 MG/ML Vial IV.PUSH PRN (21:50)
--- NOTE | 2018-03-15 22:13 | ECG ---
Date Performed: 03/15/2018 Time Performed: 13:42:42 PTAGE: 57 years EKG: SINUS BRADYCARDIA BORDERLINE ECG PREVIOUS TRACING : 12/15/2017 22.00 Since the previous tracing, no significant change noted DOCTOR: Malcom Jacome Interpretating Date/Time 03/15/2018 22:10:45
--- NOTE | 2018-03-15 22:17 | ECG ---
Date Performed: 03/15/2018 Time Performed: 20:34:12 PTAGE: 57 years EKG: SINUS BRADYCARDIA WITH OCCASIONAL SUPRAVENTRICULAR PREMATURE COMPLEXES MODERATE VOLTAGE CRI TERIA FOR LVH, CONSIDER NORMAL VARIANT BORDERLINE ECG PREVIOUS TRACING : 03/15/2018 13.42 Compared to previous tracing, rate slower DOCTOR: Malcom Jacome Interpretating Date/Time 03/15/2018 22:12:45
[2018-03-16 10:32] LABS: INR 2.8 Ratio; Prothrombin Time 28.6 sec (9.8-11.6)
[2018-03-16] MEDS ORDERED: Isosorbide Mononitrate 30 MG ER 24HR Tablet (Imdur) PO SCH (11:30)
[2018-03-16] MEDS ORDERED: Lisinopril 10 MG Tablet PO SCH (11:50)
[2018-03-16] MEDS ORDERED: amLODIPine 5 MG Tablet PO SCH (11:50)
[2018-03-16] MEDS: Gabapentin 300 MG Capsule PO SCH ×2 (12:09→17:44)
--- NOTE | 2018-03-16 14:21 | MB ---
cc: Cory Robledo MD DATE: 03/16/2018 HISTORY OF PRESENT ILLNESS: Madhu is a very pleasant 57-year-old gentleman with multiple recurrent admissions for chest pain with elevated troponin. He has had 2 heart catheterizations since August, most recently in January. These revealed no significant obstructive coronary artery disease. He is on Coumadin for history of multiple PE. His chest pain is better today. He appears comfortable, lying in bed in no acute distress. Otherwise, denies any fevers, chills, cough, GI or bleeding, PND, orthopnea, syncope or dizziness. PAST MEDICAL HISTORY: Includes atrial fibrillation, CHF, nonobstructive coronary artery disease, DVT, fibromyalgia, GERD, hiatal hernia, hyperlipidemia, renal insufficiency. ALLERGIES: NONE. SOCIAL HISTORY: Denies tobacco or alcohol use. MEDICATIONS: 1. Norvasc 5 mg daily. 2. Aspirin 81 mg daily. 3. Lipitor 20 mg daily. 4. Neurontin 300 mg t.i.d. 5. Isosorbide mononitrate 30 mg daily. 6. Lisinopril 10 mg daily. 7. Pantoprazole 40 mg b.i.d. PHYSICAL EXAMINATION: VITAL SIGNS: Pulse ranging between 49 and 62, respiratory rate 18, temperature 98.4, blood pressure 146/90, sats 97% on room air. GENERAL: He is alert and oriented x3, in no acute distress. NECK: Supple. No JVD. No bruit. CARDIOVASCULAR: S1, S2. No murmurs, rubs or gallops. LUNGS: Clear to auscultation bilaterally. ABDOMEN: Soft, nontender, nondistended with positive bowel sounds. EXTREMITIES: No lower extremity edema. IMAGING STUDIES: Chest x-ray shows no acute cardiopulmonary disease. EKG: Sinus bradycardia at 54 beats per minute, otherwise normal. He has 6 EKGs, all showing sinus bradycardia ranging from 41-69 beats per minute and otherwise there is actually questionable Q-wave in the inferior leads on the last EKG and this may be due to lead misplacement, is what I suspect. LABORATORY DATA: White count 5.3, hemoglobin 13.9, hematocrit 41.1, platelet count 171. INR 2.8. Sodium 142, potassium 4.1, chloride 105, bicarbonate 20.9, BUN 15, creatinine 1.71. Troponins 0.11, 0.12, 0.12 and 0.12. DIAGNOSES: 1. Hag-NM-ulavlogox myocardial infarction. 2. Coronary artery disease. 3. Abnormal electrocardiogram. 4. Chronic renal insufficiency. 5. History of pulmonary embolus. 6. History of deep venous thrombosis. DISCUSSION: The patient has had two heart catheterizations since August, most recently in January, I believe, which showed nonobstructive coronary artery disease. He is intolerant of statins in the past. He is therapeutically anticoagulated. I suspect his chest pain is noncardiac. I am not exactly sure why his troponins are persistently elevated, but they do tend to run in the range that he has during this presentation on multiple previous admissions. His LV function has been preserved throughout all of his admissions this year, suggesting that if he does have some degree of cardiac inflammation it is not resulting in any compromise of LV systolic function. His last EKG was abnormal showing new inferior Q-waves; however, I suspect this is lead reversal and just recommend repeat EKG. If it shows persistent Q-waves, we may consider doing a third repeat catheterization. I am going to repeat another EKG. If this is normal, I do think the patient can be discharged from a cardiovascular standpoint. Again, he will need a workup of noncardiac chest pain. MD NICHOLE Gallegos/SB , 01:54 PM , 02:04 PM
--- NOTE | 2018-03-16 16:02 | P.PNIM ---
Subjective Interval history: Patient says he is feeling all right. He says he has a history of esophageal stricture with dilation. Says he feels like this may be acting up. He has an appointment with Dr. Schulz in office tomorrow morning Physical Exam Vital signs: Vital Signs 03/15/18 17:02 03/15/18 18:13 03/15/18 21:45 Temperature Pulse Rate 54 L 48 L 50 L Respiratory Rate 12 13 18 Blood Pressure 165/86 H 130/79 130/81 Pulse Oximetry 96 99 96 03/15/18 22:15 03/15/18 22:45 03/15/18 23:15 Temperature Pulse Rate 64 48 L 48 L Respiratory Rate 18 18 18 Blood Pressure 138/75 171/84 H 153/77 H Pulse Oximetry 94 L 94 L 95 03/15/18 23:45 03/16/18 02:00 03/16/18 03:00 Temperature Pulse Rate 44 L 45 L 44 L Respiratory Rate 18 Blood Pressure 176/86 H Pulse Oximetry 94 L 03/16/18 03:12 03/16/18 04:00 03/16/18 05:00 Temperature 97.8 F Pulse Rate 45 L 44 L 46 L Respiratory Rate 16 Blood Pressure 149/91 H Pulse Oximetry 03/16/18 06:00 03/16/18 07:00 03/16/18 08:00 Temperature 98.0 F Pulse Rate 50 L 42 L 44 L Respiratory Rate 18 Blood Pressure 133/72 Pulse Oximetry 94 L 03/16/18 09:00 03/16/18 10:00 03/16/18 11:00 Temperature Pulse Rate 45 L 45 L 49 L Respiratory Rate Blood Pressure Pulse Oximetry 03/16/18 12:00 03/16/18 13:00 Temperature 98.4 F Pulse Rate 62 62 Respiratory Rate 18 Blood Pressure 146/90 H Pulse Oximetry 97 Intake & Output 03/15/18 03/16/18 03/16/18 18:59 06:59 18:59 Intake Total 0 / 0 Output Total 300 / 300 Balance -300 / -300 Weight 94.801 kg 94 kg Intake: Oral 0 / 0 Output: Urine 300 / 300 Other: Date of Last Bowel Movement 03/15/18 Narrative: GENERAL: Patient sitting up in bed. Appears comfortable. Alert and oriented 4. SKIN: Warm and dry. HEAD: Normocephalic. EYES: No scleral icterus. No injection or drainage. NECK: Supple, trachea midline. No JVD. CARDIOVASCULAR: Regular rate and rhythm without murmurs, gallops, or rubs. RESPIRATORY: Breath sounds equal bilaterally. No accessory muscle use. GASTROINTESTINAL: Abdomen soft, non-tender, nondistended. MUSCULOSKELETAL: No cyanosis, or edema. BACK: Nontender without obvious deformity. No CVA tenderness. Results - Labs CBC & Chem 7: 03/15/18 13:53 03/15/18 13:53 Laboratory Results - last 24 hr 03/15/18 03/16/18 03/16/18 19:39 02:26 07:26 PT INR Troponin I 0.12 H 0.12 H 0.12 H 03/16/18 10:10 PT 28.6 H INR 2.8 Troponin I Assessment and Plan - Plan //Non-STEMI, unstable angina Worsening chest pain at rest that occurred yesterday and today lasting 1 hour. Chest pain has been relieved with nitroglycerin in the ER, initial troponin I 0.1 Serial EKGs, serial troponin level, as needed nitroglycerin Baby aspirin given since INR is 3.0 on Coumadin Add oxygen and morphine if chest pain recurs Appreciate cardiology consult = 03/16. Discussed with cardiology. Dr. Robledo suspect lead reversal on most recent EKG. If repeat EKG this afternoon is okay, can discharge home. //Bradycardia Heart rate down to 48 during her visit, patient reports a history of lower heart rate at night Patient reports having chronic fatigue, feeling of heavy legs, shortness of breath with simple activities Possibly symptomatic bradycardia versus coronary artery disease If workup is negative for ischemic heart disease, consider symptomatic bradycardia = 03/16. Discussed with cardiology. Cardiology recommends holding off on beta- blockers for now. //h/o CHF, atrial fibrillation Heart is a normal sinus rhythm currently, continue home meds, follow on telemetry = 03/16 INR therapeutic 2.8. //h/o GERD Not enough to explain the elevated troponins and symptoms of fatigue, dyspnea, etc. Cover prophylactically with Protonix //DVT prophylaxis, h/o DVT Patient is therapeutic on Coumadin, INR currently 3.0 Holding Coumadin in case of any procedures, bridged to heparin if INR drops below 2.0 Recheck INR in the a.m. Discharge Planning: Pending repeat EKG, 60 hopefully can go home. Follow with gastroenterology to the office tomorrow
[2018-03-16 16:10] VITALS: BP 117/70; RESP 20; TEMP 98; O2SAT 96
[2018-03-16 18:40] VITALS: PULSE 65
[2018-03-16] MEDS ORDERED: Allopurinol 100 MG Tablet PO SCH (21:00)
--- NOTE | 2018-03-16 21:47 | ECG ---
Date Performed: 03/16/2018 Time Performed: 09:44:20 PTAGE: 57 years EKG: Sinus rhythm Left axis deviation Right bundle branch block Inferior infarct - age undetermined Lateral T wave josefina nges Abnormal ECG Compared to PREVIOUS TRACING , RBBB present DOCTOR: Malcom Jacome Interpretating Date/Time 03/16/2018 21:46:47
--- NOTE | 2018-03-16 21:53 | ECG ---
Date Performed: 03/16/2018 Time Performed: 06:59:10 PTAGE: 57 years EKG: Sinus bradycardia Inferior T wave changes are nonspecific Borderline ECG PREVIOUS TRACING : 03/16/2018 01.43 Since the previous tracing, no significant change noted DOCTOR: Malcom Jacome Interpretating Date/Time 03/16/2018 21:52:07
--- NOTE | 2018-03-16 22:01 | ECG ---
Date Performed: 03/16/2018 Time Performed: 01:43:28 PTAGE: 57 years EKG: Sinus bradycardia Poor R wave progression - probable normal variant Inferior T wave changes are nonspecific Borderline ECG Since the PREVIOUS TRACING , no significant change noted DOCTOR: Malcom Jacome Interpretating Date/Time 03/16/2018 22:00:39
--- NOTE | 2018-03-16 22:12 | ECG ---
Date Performed: 03/15/2018 Time Performed: 21:38:14 PTAGE: 57 years EKG: SINUS BRADYCARDIA BORDERLINE ECG Since the PREVIOUS TRACING , no significant change noted DOCTOR: Malcom Jacome Interpretating Date/Time 03/16/2018 22:10:37
--- NOTE | 2018-03-16 22:15 | ECG ---
Date Performed: 03/16/2018 Time Performed: 16:08:38 PTAGE: 57 years EKG: Sinus bradycardia. Poor R wave progression - probable normal variant Inferior/lateral T wav e changes are nonspecific Borderline ECG PREVIOUS TRACING : 03/16/2018 09.44 Compared to previous tracing, rate slower DOCTOR: Malcom Jacome Interpretating Date/Time 03/16/2018 22:13:38
== END 2018-03-16 18:38 | disposition home or self-care (01) ==
LOC: HCIS 12:34 → NEPE 12:34 → INTOOBSV 17:23 → NEDA 17:23 → HCIS 03-16 01:41
PROVIDERS: ADMIT Internal Medicine; ATTEND Internal Medicine